=== PATIENT | female | born 1950 | race Caucasian/White ===

== ENCOUNTER 2016-07-03 13:22 | Outpatient (CLI) | payer MEDICARE, BC ==
--- NOTE | 2016-07-04 10:56 | DEXA Report ---
DEXA SCAN: 07/03/2016 CLINICAL HISTORY: Postmenopausal, on long-term drug therapy. TECHNIQUE: Dual energy x-ray absorptiometry (DXA) was performed on a Process Data Control system. Regions measured are the AP spine, femoral neck, and, if needed, forearm. COMPARISON: None. In accordance with the International Society for Clinical Densitometry (ISCD) guidelines, data from previous exams may be reanalyzed using current recommendations and techniques. This is done to allow a more accurate basis for comparison with the current study. FINDINGS: The patient's bone mineral density is compatible with osteopenia according to World Health Organization guidelines. The data for the lumbar spine is as follows: REGION BMD (g/cm/cm) T-SCORE Z-SCORE L1 0.958 -1.4 -0.6 L2 1.130 -0.6 0.3 L3 1.236 0.3 1.1 L4 1.288 0.7 1.6 TOTAL 1.161 -0.2 0.7 NOTE: All evaluable vertebrae are used for classification. The data for the hip is as follows: REGION BMD (g/cm/cm) T-SCORE Z-SCORE Neck 0.819 -1.6 -0.5 TOTAL 0.928 -0.6 0.1 NOTE: The femoral neck or total proximal femur, whichever is lowest, is used for classification. IMPRESSION: THE WHO CLASSIFICATION BASED ON THE INTERNATIONAL REFERENCE STANDARD IS OSTEOPENIA. THE FRACTURE RISK IS INCREASED. RECOMMENDATION: Patients with diagnosis of osteoporosis or osteopenia should have regular bone mineral density assessment. For those eligible for Medicare, routine testing is allowed once every 2 years. Testing frequency can be increased for patients who have rapidly progressing disease or for those who are receiving medical therapy to restore bone mass. COMMENT: World Health Organization (WHO) definitions for osteoporosis and osteopenia: NORMAL BMD: T-score at -1.0 or higher, fracture risk is low. OSTEOPENIA BMD: T-score between -1.0 and -2.5, fracture risk is increased. OSTEOPOROSIS BMD: T-score at -2.5 or lower, fracture risk high. National Osteoporosis Foundation recommends: 1. Obtain adequate dietary calcium (at least 1200 mg per day) and vitamin D (400 -800 international units per day). 2. Participate, as appropriate, in regular weightbearing and muscle- strengthening exercise. 3. Avoid tobacco use and reduce alcohol and caffeine intake. 4. For more detailed information see the website at www.NOF.org. MTDD
== END 2016-07-03 13:23 | disposition home or self-care (01) ==
LOC: DI 13:22
PROVIDERS: ATTEND Internal Medicine Rheumatology
DX: M85.88 Other specified disorders of bone density and structure, other site (principal); Z79.899 Other long term (current) drug therapy
CPT/HCPCS: 77080

== ENCOUNTER 2016-07-24 16:45 | Outpatient (CLI) | payer MEDICARE, BC | END 2016-07-24 16:46 | disposition home or self-care (01) | LOC: LAB.R 16:45 | PROVIDERS: ATTEND Family Medicine | DX: R30.0 Dysuria (principal) | CPT/HCPCS: 87086 ==

== ENCOUNTER 2016-08-11 12:08 | Outpatient (CLI) | payer MEDICARE, BC ==
[2016-08-11 12:27] LABS: CALCIUM 9.1 mg/dL (8.5-10.3); CREATININE 0.9 mg/dL (0.4-1.0); POTASSIUM 4.3 mmol/L (3.5-5.0)
[2016-08-11] MEDS ORDERED: IOPAMIDOL-300 100 ML VIAL IVP ONE (14:25)
--- NOTE | 2016-08-11 17:23 | CT Report ---
CT IVP: 08/11/2016 CLINICAL INDICATION: Hematuria, dysuria. TECHNIQUE: Axial CT images of the abdomen and pelvis were obtained prior to and following 100 mL of I sovue-300 intravenously, utilizing split bolus technique. No previous CT is available for comparison. FINDINGS: Limited evaluation of the lung bases demonstrates a small hiatal hernia. ABDOMEN: On the unenhanced images, there is no evidence of nephrolithiasis or hydronephrosis. The kid neys demonstrate prompt and symmetric uptake and excretion of contrast. There is a cyst arising from the lower pole of the left kidney. No solid renal lesion or collecting system lesion is appreciated. The distal half of the left ureter is not opacified. The proximal half of the left ureter and the rig ht ureter appear unremarkable. Allowing for the phase of contrast enhancement, the liver, spleen, and adrenal glands appear unremarkable. The pancreas is atrophic. No bowel dilatation, free gas, or free fluid is present. No abdominal adenopathy is seen. PELVIS: The distal ureters are decompressed. A calcified leiomyoma is noted in the left side of the u terus. Previous anterior abdominal wall hernia repair is noted. No free fluid or pelvic adenopathy is seen. The osseous structures demonstrate degenerative changes. IMPRESSION: NO EVIDENT ETIOLOGY FOR PATIENT'S HEMATURIA AND DYSURIA. CONSIDER CYSTOSCOPY FOR FURTHER EVALUATION. In accordance with CT protocol optimization, one or more of the following dose reduction techniques w ere utilized for this exam: automated exposure control, adjustment of mA and/or KV based on patient size, or use of iterative reconstructive technique. JOB #: [id number] EXT JOB #:[id number]
== END 2016-08-11 12:09 | disposition home or self-care (01) ==
LOC: LAB 12:08
PROVIDERS: ATTEND Family Medicine
DX: R31.9 Hematuria, unspecified (principal); I10 Essential (primary) hypertension
CPT/HCPCS: 36415; 74178; 80048; Q9967

== ENCOUNTER 2016-09-29 13:34 | Outpatient (CLI) | payer MEDICARE, BC ==
--- NOTE | 2016-09-30 17:51 | Mammography Report ---
DIGITAL SCREENING MAMMOGRAM: 09/29/2016 CLINICAL INDICATION: A 65-year-old nulliparous patient with family history of breast cancer for scre ening. COMPARISON: 09/2015, 02/2015, 07/2014, 01/2014, 07/2013, 06/2013, 05/2012, 04/2012, 01/2011, 02/2008 . TECHNIQUE: Routine CC and MLO projections were obtained of the breasts. The breasts again demonstrate scattered fibroglandular densities bilaterally. Coarse, typically tong gn calcifications are present. No suspicious masses, clustered microcalcifications, or regions of ar chitectural distortion are identified. IMPRESSION: BENIGN FINDINGS. RECOMMENDATION: ROUTINE ANNUAL SCREENING UNLESS OTHERWISE CLINICALLY INDICATED. BIRADS CATEGORY: 2, BENIGN FINDINGS. STANDARD QUALIFYING STATEMENTS 1. This examination was reviewed with the aid of Computed-Aided Detection (CAD). 2. A negative or benign imaging report should not delay biopsy if clinically suspicious findings are present. Consider surgical consultation if warranted. More than 5% of cancers are not identified b y imaging. 3. Dense breasts may obscure an underlying neoplasm. JOB #: [id number] EXT JOB #:[id number]
== END 2016-09-29 13:35 | disposition home or self-care (01) ==
LOC: DI.N 13:34
PROVIDERS: ATTEND Family Medicine
DX: Z12.31 Encounter for screening mammogram for malignant neoplasm of breast (principal); Z80.3 Family history of malignant neoplasm of breast
CPT/HCPCS: 77067

== ENCOUNTER 2017-11-03 15:50 | Outpatient (CLI) | payer MEDICARE, BC ==
--- NOTE | 2017-11-04 10:14 | Mammography Report ---
Reason: SCREENING MAMMO Procedure Date: 11/03/2017 Accession Number: [id number] / [id number] Procedure: MGN - Screening Mammo Dig Bilat CPT Code: FULL RESULT: EXAM: Screening Mammo Dig Bilat DATE: 11/03/2017 4:12 PM CLINICAL HISTORY: 66 year-old nulliparous female with history of early menses and family history of breast cancer in the mother at age 38, an aunt at age 49 and a grandmother at age 56. TECHNIQUE: Bilateral CC and MLO views were obtained. COMPARISON: 09/29/2016, 09/26/2015, 02/20/2015, 08/08/2014. FINDINGS: The breasts demonstrate scattered fibroglandular densities bilaterally. There is a coarse typically benign calcification in the left breast No suspicious masses, clustered microcalcifications, or regions of architectural distortion are identified. IMPRESSION: Benign findings RECOMMENDATION: Routine annual screening unless otherwise clinically indicated. BIRADS CATEGORY 2: Benign findings STANDARD QUALIFYING STATEMENTS: 1. This examination was not reviewed with the aid of Computer-Aided Detection (CAD). 2. A negative or benign imaging report should not delay biopsy if clinically suspicious findings are present. Consider surgical consultation if warrented. More than 5% of cancers are not identified by imaging. 3. Dense breasts may obscure an underlying neoplasm. 4. This examination was reviewed without the aid of 3D breast imaging (tomosynthesis).
== END 2017-11-03 15:51 | disposition home or self-care (01) ==
LOC: DI.N 15:50
DX: Z12.31 Encounter for screening mammogram for malignant neoplasm of breast (principal); Z80.3 Family history of malignant neoplasm of breast
CPT/HCPCS: 77067

== ENCOUNTER 2018-09-25 22:20 | Outpatient (CLI) | payer MEDICARE, BC | END 2018-09-25 22:21 | disposition EMS.NT | LOC: EMS 22:20 | PROVIDERS: ATTEND Surgery | DX: R53.1 Weakness (principal) ==

== ENCOUNTER 2019-05-12 03:30 | Outpatient (CLI) | payer MEDICARE, BC | END 2019-05-12 03:31 | disposition critical access hospital (66) | LOC: EMS 03:30 | PROVIDERS: ATTEND Surgery | DX: R53.1 Weakness (principal); R50.9 Fever, unspecified | CPT/HCPCS: A0425; A0429 ==

== ENCOUNTER 2019-05-12 03:53 | Inpatient (IN) | payer MEDICARE, BC ==
--- NOTE | 2019-05-12 04:24 | ED Physician Documentation ---
PD HPI DYSPNEA - Stated complaint Stated Complaint: WEAKNESS/ SOA - Chief complaint Chief Complaint: Resp - History obtained from History obtained from: Patient, EMS - History of Present Illness Timing - onset: Yesterday Timing - onset during: Rest Timing - duration: Days (1) Timing - details: Gradual onset, Still present Inciting event(s): URI Improved by: O2, Rest Worsened by: Exertion, Coughing Associated symptoms: Fever, Cough, Wheezing, Chest pain / discomfort, Other (weakness) Similar symptoms before: Has not had sx before Recently seen: Other (recently recovering from spinal surgery) - Additional information Additional information: 68-year-old female who has been discharged from [facility] on 05/10/2019 has now developed fever cough and chest pain. She is hypoxic on arrival with O2 sat of 88%. The patient has a prior history of pulmonary sarcoidosis, asthma, diabetes, diverticulitis, GERD, neuropathy, osteoarthritis and polydermatomyositis. She has tested negative for coronavirus twice, the last time was 05-07-2019. She was in [facility] for recovery from spinal surgery. She left the facility on her pre-determined date and was symptom free at the time. She subsequently developed weakness yesterday and could not stand. She then developed the fever and cough. She has a chronic cough. Review of Systems Constitutional: reports: Fever, Chills, Myalgias, Fatigue Eyes: denies: Decreased vision Ears: denies: Ear pain Nose: denies: Rhinorrhea / runny nose, Congestion Throat: denies: Sore throat Cardiac: reports: Chest pain / pressure. denies: Palpitations, Pedal edema, Calf pain Respiratory: reports: Dyspnea, Cough GI: denies: Abdominal Pain, Nausea, Vomiting, Constipation, Diarrhea : denies: Dysuria, Frequency Skin: denies: Rash Musculoskeletal: denies: Neck pain, Back pain, Extremity pain Neurologic: reports: Generalized weakness. denies: Focal weakness, Numbness PD PAST MEDICAL HISTORY - Past Medical History Past Medical History: Yes Cardiovascular: Hypertension, High cholesterol Respiratory: Other Endocrine/Autoimmune: Type 2 diabetes Musculoskeletal: Osteoarthritis, Osteopenia - Past Surgical History General: Cholecystectomy Ortho: Knee replacement - Present Medications Home Medications: Ambulatory Orders Medication Instructions Recorded Confirmed Acetaminophen/Cod 300/30 [Tylenol 1 tab PO QPM PRN 07/23/18 07/23/18 #3] Acyclovir 400 mg PO BID 07/23/18 07/23/18 Albuterol Sulfate [Albuterol 2 puffs INH Q3H PRN 07/23/18 07/23/18 Sulfate Hfa] Aspirin [Adult Aspirin Regimen] 81 mg PO DAILY 07/23/18 07/23/18 Calcium Carbonate/Vitamin D3 1 tab PO BID 07/23/18 07/23/18 [Calcium 600-Vit D3 400 Tablet] Folic Acid 1 mg PO DAILY 07/23/18 07/23/18 Gabapentin 500 mg PO TID 07/23/18 07/23/18 Hydroxychloroquine Sulfate 400 mg PO DAILY 07/23/18 07/23/18 Insulin Aspart [NovoLOG] 4 - 20 units SQ TID 07/23/18 07/23/18 Insulin Glargine,Hum.rec.anlog 15 unit SQ DAILY 07/23/18 07/23/18 [Basaglar Kwikpen U-100] Losartan Potassium 25 mg PO DAILY 07/23/18 07/23/18 Metoclopramide [Reglan] 10 mg PO TID PRN 07/23/18 07/23/18 Montelukast Sodium 10 mg PO DAILY 07/23/18 07/23/18 Morphine Sulfate [Morphine Sulfate 15 mg PO DAILY 07/23/18 07/23/18 ER] Oxybutynin Chloride 5 mg PO DAILY 07/23/18 07/23/18 Pantoprazole Sodium 40 mg PO DAILY 07/23/18 07/23/18 Potassium Chloride 20 meq PO DAILY 07/23/18 07/23/18 Rosuvastatin Calcium 10 mg PO QPM 07/23/18 07/23/18 mycophenolate mofetiL 1,000 mg PO BID 07/23/18 07/23/18 [Mycophenolate Mofetil] predniSONE [Prednisone] 1 mg PO DAILY 07/23/18 07/23/18 - Allergies Allergies/Adverse Reactions: Allergies Allergy/AdvReac Type Severity Reaction Status Date / Time amoxicillin Allergy Unknown Verified 05/12/19 05:30 amoxicillin trihydrate * Allergy Unknown Verified 05/12/19 05:30 [From Augmentin] oxycodone Allergy Unknown Verified 05/12/19 05:30 Penicillins Allergy Unknown Verified 05/12/19 05:30 potassium clavulanate * Allergy Unknown Verified 05/12/19 05:30 [From Augmentin] Sulfa (Sulfonamide Allergy Unknown Verified 05/12/19 05:30 Antibiotics) - Social History Does the pt smoke?: No Smoking Status: Never smoker Does the pt drink ETOH?: No Does the pt have substance abuse?: No - Immunizations Immunizations are current?: Yes - POLST Patient has POLST: No PD ED PE NORMAL - Vitals Vital signs reviewed: Yes (febrile tachy hypertensive and hypoxic) - General General: Alert and oriented X 3, No acute distress, Well developed/nourished - HEENT HEENT: Atraumatic, PERRL, EOMI - Neck Neck: Supple, no meningeal sign, No bony TTP - Cardiac Cardiac: No murmur, Other (tachy to 100) - Respiratory Respiratory: Other (tachypneic at rest with bilateral rhonchi) - Abdomen Abdomen: Soft, Non tender - Back Back: No CVA TTP, No spinal TTP - Derm Derm: Normal color, Warm and dry, No rash - Extremities Extremities: No deformity, No edema - Neuro Neuro: Alert and oriented X 3, 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, No motor deficit, No sensory deficit, Normal speech Eye Opening: Spontaneous Motor: Obeys Commands Verbal: Oriented GCS Score: 15 - Psych Psych: Normal mood, Normal affect Results - Vitals Vitals: Vital Signs - 24 hr 05/12/19 05/12/19 04:01 04:07 Temperature 38.0 C H Heart Rate 115 H 113 H Respiratory 22 22 Rate Blood Pressure 166/104 H 166/104 H O2 Saturation 88 L 95 Oxygen O2 Source Nasal cannula Oxygen Flow Rate 2 - EKG (time done) 0554 Rate: Rate (enter#) (115) Rhythm: Sinus tachycardia Intervals: Prolonged QT (borderline) Ischemia: Non specific changes - Labs Labs: Laboratory Tests 05/12/19 05/12/19 05/12/19 04:30 04:30 04:30 WBC 13.8 H RBC 3.89 L Hgb 11.1 L Hct 36.2 L MCV 93.1 MCH 28.5 MCHC 30.7 L RDW 15.4 H Plt Count 420 MPV 9.3 Neut # (Auto) Not Reportable Lymph # (Auto) Not Reportable Turner # (Auto) Not Reportable Eos # (Auto) Not Reportable Baso # (Auto) Not Reportable Absolute Nucleated RBC Not Reportable Total Counted 100 Band Neuts % (Manual) 3 Abnorm Lymph % (Manual) 0 Metamyelocytes % 1 H Nucleated RBC % Not Reportable Neutrophils # (Manual) 12.1 H Lymphocytes # (Manual) 0.3 L Monocytes # (Manual) 1.1 H Eosinophils # (Manual) 0.1 Basophils # (Manual) 0.0 Differential Comment MANUAL DIFFERENTIAL Platelet Estimate NORMAL (130-450,000) RBC Morph Micro Appear NORMAL APPEARANCE Sodium 133 L Potassium 3.8 Chloride 90 L Carbon Dioxide 31 Anion Gap 12.0 BUN 19 Creatinine 1.2 H Estimated GFR (MDRD) 45 L Glucose 139 H Lactic Acid Calcium 9.3 Total Bilirubin 0.6 AST 19 ALT 12 Alkaline Phosphatase 140 H B-Natriuretic Peptide 64 Total Protein 6.9 Albumin 3.3 Globulin 3.6 Albumin/Globulin Ratio 0.9 L Lipase 21 L 05/12/19 04:30 WBC RBC Hgb Hct MCV MCH MCHC RDW Plt Count MPV Neut # (Auto) Lymph # (Auto) Turner # (Auto) Eos # (Auto) Baso # (Auto) Absolute Nucleated RBC Total Counted Band Neuts % (Manual) Abnorm Lymph % (Manual) Metamyelocytes % Nucleated RBC % Neutrophils # (Manual) Lymphocytes # (Manual) Monocytes # (Manual) Eosinophils # (Manual) Basophils # (Manual) Differential Comment Platelet Estimate RBC Morph Micro Appear Sodium Potassium Chloride Carbon Dioxide Anion Gap BUN Creatinine Estimated GFR (MDRD) Glucose Lactic Acid 1.3 Calcium Total Bilirubin AST ALT Alkaline Phosphatase B-Natriuretic Peptide Total Protein Albumin Globulin Albumin/Globulin Ratio Lipase - Rads (name of study) chest Radiology: Prelim report reviewed (Impression: Findings of bronchitis and bronchiolitis with streaky right upper lobe as well as left basilar airspace disease, probably superimposed pneumonia. Aspiration is in the differential diagnosis.), EMP read indepedently, See rad report PD MEDICAL DECISION MAKING - ED course Complexity details: reviewed old records, reviewed results, re-evaluated patient, considered differential, d/w patient ED course: 68-year-old female with history of lung disease has been exposed to coronavirus and now has a pattern on her x-ray consistent with coronavirus and she is hypoxic. She presents with weakness beginning yesterday and fever today. In the differential is aspiration pneumonia as well.The patient has been on hydroxychloroquine for the past 2-1/2 years. Electrocardiogram is obtained she has borderline prolonged QT interval with a QTC of 490. Dr. Barreto is consulted in the case and graciously agrees to care for the patient in the hospital. Departure - Departure Disposition: [facility] DC/Xfer Clinical Impression: Pneumonia Qualifiers: Pneumonia type: due to unspecified organism Laterality: bilateral Lung location: unspecified part of lung Qualified Code(s): J18.9 - Pneumonia, unspecified organism
--- NOTE | 2019-05-12 04:28 | XRAY Report ---
Reason: chest pain Procedure Date: 05/12/2019 Accession Number: [id number] / [id number] Procedure: XR - Chest 1 View X-Ray CPT Code: 37334 Final Report FULL RESULT: EXAM: CHEST RADIOGRAPHY EXAM DATE: 05/12/2019 04:18 AM CLINICAL HISTORY: Chest pain. COMPARISON: CHEST 2 VIEW PA/LAT 10/16/2017 9:30 AM, CHEST 2 VIEW PA/LAT 06/03/2017 10:52 AM, CHEST 2 VIEW PA/LAT 09/13/2015 10:19 AM, 04/12/2015 8:46 AM. TECHNIQUE: 1 view. FINDINGS: Lungs/Pleura: Right upper lobe perihilar bronchiectasis is noted. There is adjacent streaky airspace disease. There is diffuse bronchial wall thickening seen. Minimal left basilar airspace disease. No effusion or definite pneumothorax. Mediastinum: Cardiac silhouette is within normal limits when accounting for lung volumes and technique. Other: None. IMPRESSION: Findings of bronchitis and bronchiolitis with streaky right upper lobe as well as left basilar airspace disease, probably superimposed pneumonia. Aspiration is in the differential diagnosis. RADIA
[2019-05-12 04:53] LABS: EOSINOPHILS % (AUTO) 0.6 %; HGB - HEMOGLOBIN 11.1 g/dL (12.0-16.0); LYMPHOCYTES % (AUTO) 4.3 %; MEAN CORPUSCULAR HEMOGLOBIN 28.5 pg (27.0-31.0); MEAN CORPUSCULAR HGB CONC 30.7 g/dL (32.0-36.0); MEAN CORPUSCULAR VOLUME 93.1 fL (81.0-99.0); MEAN PLATELET VOLUME 9.3 fL (7.9-10.8); MONOCYTES % (AUTO) 11.6 %; NEUTROPHILS % (AUTO) 81.2 %; PLT - PLATELET COUNT 420 10^3/uL (130-450); RED BLOOD COUNT 3.89 10^6/uL (4.20-5.40); RED CELL DISTRIBUTION WIDTH 15.4 % (12.0-15.0); WHITE BLOOD COUNT 13.8 x10^3/uL (4.8-10.8)
[2019-05-12 05:03] LABS: ABNORMAL LYMPHS % (MANUAL) 0 %
[2019-05-12 05:10] LABS: ALBUMIN 3.3 g/dL (3.2-5.5); ALBUMIN/GLOBULIN RATIO 0.9 (1.0-2.2); BILIRUBIN,TOTAL 0.6 mg/dL (0.2-1.0); CALCIUM 9.3 mg/dL (8.5-10.3); CREATININE 1.2 mg/dL (0.4-1.0); TOTAL PROTEIN 6.9 g/dL (6.7-8.2)
[2019-05-12] MEDS ORDERED: AZITHROMYCIN INJ 500 MG in SODIUM CHLORIDE 0.9% 250 ML IV STA (05:28)
[2019-05-12] MEDS ORDERED: SODIUM CHLORIDE FLUSH 0.9% 10 ML SYRINGE IVP PRN (05:28)
[2019-05-12] MEDS ORDERED: cefTRIAXone 1 GM in SODIUM CHLORIDE 0.9% MINIBAG 100 ML IV STA (05:28)
[2019-05-12 05:33] LABS: BAND NEUTROPHILS % (MANUAL) 3 %; EOSINOPHILS # (MANUAL) 0.1 10^3/uL (0-0.7); LYMPHOCYTES # (MANUAL) 0.3 10^3/uL (1.5-3.5); LYMPHOCYTES % (MANUAL) 2 %; METAMYELOCYTES % (MANUAL) 1 %; MONOCYTES # (MANUAL) 1.1 10^3/uL (0.0-1.0)
[2019-05-12 05:34] LABS: DIFFERENTIAL COMMENT MANUAL DIFFERENTIAL; PLATELET ESTIMATE, MANUAL NORMAL (130-450,000) (NORMAL); RBC MORPHOLOGY (MULTIPLE) NORMAL APPEARANCE (NORMAL)
--- NOTE | 2019-05-12 05:55 | HISTORY & PHYSICAL EXAMINATION ---
Chief Complaint - Chief Complaint Chief Complaint: Weakness History of Present Illness - Admitted From Admitted From:: Home - History Obtained From Records Reviewed: Yes History obtained from: Patient, ER Physician - History of Present Illness HPI Comment/Other: This is a 68-year-old female with a past medical history significant for asthma, dermatomyositis, history of pulmonary sarcoidosis, hypertension, type 2 diabetes mellitus on insulin who presents today complaining of worsening weakness. She states she underwent spine surgery at [facility] last month for lumbar stenosis. She had been at [facility] for the last 2 weeks for rehab. She reports she had been doing well at home and was ambulating with a walker. She reports that yesterday started to feel general weakness and that overnight, she used the bathroom and was unable to stand up after. She reports having a chronic cough that is unchanged and with no sputum production. She denies any fevers or chills. She does report some numbness in her lower extremities which is chronic secondary to her neuropathy for which he takes gabapentin. She does feel her weakness is more generalized and there are no focal deficits. She reports poor oral intake over the past couple days and she feels thirsty at the moment. She denies any chest pain, dyspnea, nausea, vomiting, abdominal pain. She feels that her weakness is somewhat similar to when she was diagnosed with dermatomyositis over 3 years ago. She states at that time she had weakness in her proximal thighs and shoulders. 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 She is on chronic prednisone, hydroxychloroquine, mycophenolate for dermatomyositis. She reports some mild muscle pain in her u pper thighs. She states she was tested for coronavirus twice while at [facility] and both times were negative. In the emergency department, she is in the febrile a temperature of 38.0 C. She was tachycardic with a heart rate of 115. Hypertensive systolic blood pressure of 166/104. She was tachypneic in the low 20s. She was initially saturating 88% on room air and this improved to 95% on 2 L via nasal cannula. Labs are significant for a white count of 13.8 with a left shift and 3% bands. Sodium is decreased at 133 and her creatinine is elevated at 1.2. Her chest x- ray was concerning for a left lower lobe infiltrate as well as a possible right upper lobe infiltrate. COVID-19 testing has been ordered in the emergency department and is pending. Given her hypoxia and sepsis which appears secondary to pneumonia, medicine was consulted for admission. History - Past Medical History Cardiovascular: reports: Hypertension, High cholesterol Respiratory: reports: Other (Pulmonary sarcoidosis) Endocrine/Autoimmune: reports: Type 2 diabetes, Other (Dermatomyositis) Musculoskeletal: reports: Osteoarthritis, Osteopenia - Past Surgical History General: reports: Cholecystectomy Ortho: reports: Knee replacement - Family & Social History Family History Comment/Other: Reports her father from lung cancer. He was a smoker. Her mother from ovarian cancer. Living arrangement: At home Living Situation: Alone Social History Notes: Lives at home alone. She received worked at the [email or web address] [place] in 2003. She has never smoked and rarely drinks alcohol. Denies any drug use. - POLST Patient has POLST: No Meds/Allgy - Home Medications Home Medications: Ambulatory Orders Medication Instructions Recorded Confirmed Acetaminophen/Cod 300/30 [Tylenol 1 tab PO QPM PRN 07/23/18 07/23/18 #3] Acyclovir 400 mg PO BID 07/23/18 05/12/19 Albuterol Sulfate [Albuterol 2 puffs INH Q3H PRN 07/23/18 07/23/18 Sulfate Hfa] Aspirin [Adult Aspirin Regimen] 81 mg PO DAILY 07/23/18 07/23/18 Calcium Carbonate/Vitamin D3 1 tab PO BID 07/23/18 07/23/18 [Calcium 600-Vit D3 400 Tablet] Folic Acid 1 mg PO DAILY 07/23/18 07/23/18 Gabapentin 2 cap PO TID 07/23/18 05/12/19 Hydroxychloroquine Sulfate 400 mg PO DAILY 07/23/18 05/12/19 Insulin Aspart [NovoLOG] 4 - 20 units SQ TID 07/23/18 07/23/18 Insulin Glargine,Hum.rec.anlog 15 unit SQ DAILY 07/23/18 05/12/19 [Basaglar Kwikpen U-100] Losartan Potassium 25 mg PO DAILY 07/23/18 05/12/19 Metoclopramide [Reglan] 10 mg PO TID PRN 07/23/18 07/23/18 Montelukast Sodium 10 mg PO DAILY 07/23/18 07/23/18 Morphine Sulfate [Morphine Sulfate 15 mg PO DAILY 07/23/18 07/23/18 ER] Oxybutynin Chloride 5 mg PO DAILY 07/23/18 07/23/18 Pantoprazole Sodium 40 mg PO DAILY 07/23/18 07/23/18 Potassium Chloride 20 meq PO DAILY 07/23/18 07/23/18 Rosuvastatin Calcium 10 mg PO QPM 07/23/18 05/12/19 predniSONE [Prednisone] 1 mg PO DAILY 07/23/18 07/23/18 mycophenolate mofetiL 4 cap PO BID 05/12/19 05/12/19 [Mycophenolate Mofetil] - Allergies Allergies/Adverse Reactions: Allergies Allergy/AdvReac Type Severity Reaction Status Date / Time amoxicillin Allergy Unknown Verified 05/12/19 05:30 amoxicillin trihydrate * Allergy Unknown Verified 05/12/19 05:30 [From Augmentin] oxycodone Allergy Unknown Verified 05/12/19 05:30 Penicillins Allergy Unknown Verified 05/12/19 05:30 potassium clavulanate * Allergy Unknown Verified 05/12/19 05:30 [From Augmentin] Sulfa (Sulfonamide Allergy Unknown Verified 05/12/19 05:30 Antibiotics) Review of Systems - Constitutional Constitutional: reports: Fatigue, Malaise, Weakness. denies: Fever, Chills - Eyes Eyes: denies: Blurred vision - Cardiovascular Cariovascular: denies: Chest pain, Edema, Exertional dyspnea, Decr. exercise tolerance - Respiratory Respiratory: reports: Cough. denies: Sputum production, SOB at rest, SOB with exertion - Gastrointestinal Gastrointestinal: denies: Abdominal pain, Diarrhea, Nausea, Vomiting - Genitourinary Genitourinary: denies: Dysuria, Frequency, Urgency, Hematuria - Musculoskeletal Musculoskeletal: reports: Muscle pain, Muscle aches, Muscle weakness - Neurological Neurological: reports: General weakness, Headache, Numbness. denies: Focal weakness - Hematologic/Lymphatic Hematologic/Lymphatic: denies: Bleeding tendencies - All Other Systems All Other Systems: reports: Reviewed and negative Prior Level of Functionality: She was just discharged from a skilled nurse facility near the end of last month after completing rehab for spinal surgery. With a walker at the moment. She is independent with ADLs. Exam - Vital Signs Reviewed Vital Signs: Yes Vital Signs: Vital Signs x48h Temp Pulse Resp BP Pulse Ox 05/12/19 04:07 113 H 22 166/104 H 95 05/12/19 04:01 38.0 C H 115 H 22 166/104 H 88 L - Physical Exam General Appearance: positive: Alert, Mild distress Eyes Bilateral: positive: Normal inspection ENT: positive: ENT inspection nml, Dry mucous membranes. negative: No signs of dehydration Neck: positive: Nml inspection Respiratory: positive: No respiratory distress, Rhonchi. negative: Wheezes, Rales Cardiovascular: positive: No murmur, Tachycardia. negative: Regular rate & rhythm, Bradycardia Abdomen: positive: Non-tender, No distention. negative: Tenderness, Guarding, Rebound Skin: positive: Color nml, Warm, Dry Extremities: positive: Full ROM, No pedal edema, Other (Mild tenderness on palpation in her quadriceps bilaterally and proximally.) Neurologic/Psychiatric: positive: Oriented x3, Other (No focal motor deficits.). negative: Disoriented to person, Disoriented to place, Disoriented to time Sepsis Event Note (H) - Evaluation Current Stage of Sepsis: Sepsis Possible source of Sepsis: positive: Pulmonary - Sepsis Criteria Sepsis Criteria: Recorded Temperature greater than 38.3C or Less than 36C, Recorded Heart Rate greater than 90 bpm, Recorded Respiratory Rate greater than 20, Respiratory: Increasing oxygen requirements, WBC count greater than 12,000 or less than 4000 Conclusion/Plan - Problem List (1) Sepsis Conclusion/Plan: She meets sepsis criteria given her fever, tachycardia, leukocytosis with left shift. This appears to be secondary to the pneumonia. Her blood pressure is stable and lactic acid is normal. Urinalysis has been ordered and is pending. She received ceftriaxone and azithromycin IV in the emergency department. We will continue those antibiotics to treat her sepsis and pneumonia. We will hydrate her with IV normal saline. We will check for influenza. COVID-19 has been ordered and is pending. We will follow-up blood cultures and trend her white count. (2) Community acquired pneumonia Conclusion/Plan: This appears to be a source of her sepsis. She has a left lower lobe infiltrate as well as a possible right upper lobe infiltrate on imaging. She was recently at a jail facility and is immunocompromised. Given this is not hospital or ventilator associated pneumonia, we will treat her with ceftriaxone and azithromycin IV. Will obtain sputum cultures. She has been checked twice now for Kovic 19 and both times have been negative. A third swab was ordered in the emergency department and is pending. We will keep her on droplet precautions until this is negative. Qualifiers: Laterality: left Lung location: lower lobe of lung Qualified Code(s): J18.9 - Pneumonia, unspecified organism (3) Hypoxia Conclusion/Plan: He is hypoxic requiring 2 L of oxygen to maintain saturations in the mid 90s. This appears be secondary to pneumonia. He has been checked for COVID-19 twice now and both times were negative. A third tested and ordered and is pending. She is immunocompromised and was at a jail facility where there were multiple cases. Her x-ray at this moment, her left lower lobe infiltrate and a possible right upper lobe infiltrate. We will treat her with ceftriaxone and azithromycin IV for the pneumonia. Continue supplemental oxygen for goal saturation greater than 92%. (4) Acute kidney injury Conclusion/Plan: She appears to have acute kidney injury given her creatinine is elevated at 1.2 and prior labs revealed a baseline of approximately 0.9. This is likely a prerenal injury given her sepsis and dehydration. We will hydrate her with normal saline and monitor her renal function and urine output. Hold her home Losartan. (5) Hyponatremia Conclusion/Plan: She appears hypovolemic on exam. We will hydrate her with IV saline. Monitor her sodium. (6) Pulmonary sarcoidosis Conclusion/Plan: She reports this is in remission and was treated with steroids in the past. Membership Manager is in [place] We will continue her on her home prednisone dose. (7) Dermatomyositis Conclusion/Plan: She is on mycophenolate, hydroxychloroquine, prednisone per her rehab services aide. We will check a CK level given she feels her weakness is similar to that in the past when she had exacerbation of the myositis. We will resume her home prednisone and hydroxychloroquine once dosing is confirmed by pharmacy. We will hold off on mycophenolate given her pneumonia. (8) Asthma Conclusion/Plan: This does not appear to be in exacerbation. We we will continue her on albuterol as needed and montelukast Qualifiers: Asthma severity: mild Asthma persistence: intermittent (9) Diabetes mellitus treated with insulin Conclusion/Plan: She has type 2 diabetes mellitus treated with insulin. We will resume her home Lantus and NovoLog sliding scale. We will place her on a carb controlled diet and check an A1c. - Lab Results Lab results reviewed: Yes Fish Bones: 05/12/19 04:30 05/12/19 04:30 - Diagnostic Imaging Results Diagnostic Imaging Results: positive: Final report reviewed Core Measures - Anticipated LOS I expect patient to be DC'd or transferred within 96 hours.: Yes - Issues Hospital Issues and Management Plan: 68-year-old female admitted for sepsis secondary to pneumonia. We will treat her with ceftriaxone and azithromycin IV. Will rule out COVID-19. - DVT/VTE - Prophylaxis VTE/DVT Device ordered at admit?: Yes VTE/DVT Prophylaxis med ordered at admit?: Yes
[2019-05-12] MEDS: ACETAMINOPHEN 325 MG TABLET PO PRN (05:57)
[2019-05-12] MEDS ORDERED: SODIUM CHLORIDE 0.9% 1,000 ML IV SCH (06:00)
[2019-05-12] MEDS ORDERED: ALBUTEROL NEB 2.5 MG/3 ML INH PRN ×2 (06:11→08:40)
[2019-05-12] MEDS ORDERED: SODIUM CHLORIDE 0.9% 1,000 ML IV ONE ×2 (06:58→08:39)
[2019-05-12 08:12] LABS: HB2 TOTAL 9.3 g/dL; HEMOGLOBIN A1C 0.47 g/dL; HEMOGLOBIN A1C % 6.8 % (4.6-6.2)
[2019-05-12] MEDS ORDERED: ALBUTEROL 1 PUFF INH PRN (09:38)
[2019-05-12] MEDS: INSULIN ASPART 300 UNIT/3 ML PEN SUBQ SCH ×4 (10:05→20:45)
[2019-05-12] MEDS: predniSONE 5 MG TABLET PO SCH (10:10)
[2019-05-12] MEDS: ENOXAPARIN 40 MG/0.4 ML SYRINGE SUBQ SCH (10:10)
[2019-05-12] MEDS: INSULIN GLARGINE 300 UNIT/3 ML PEN SUBQ SCH (10:11)
[2019-05-12] MEDS: SODIUM CHLORIDE FLUSH 0.9% 10 ML SYRINGE IVP SCH ×2 (10:11→16:24)
[2019-05-12 11:00] LABS: BILIRUBIN,URINE NEGATIVE (NEGATIVE); GLUCOSE, URINE (UA) NEGATIVE (NEGATIVE); KETONES,URINE (UA) TRACE mg/dL (NEGATIVE); LEUKOCYTE ESTERASE, URINE LARGE (NEGATIVE); NITRITE,URINE NEGATIVE (NEGATIVE); OCCULT BLOOD,URINE NEGATIVE (NEGATIVE); PROTEIN,URINE TRACE mg/dL (NEGATIVE); UROBILINOGEN,URINE 0.2 (NORMAL) E.U./dL (NORMAL)
[2019-05-12 11:01] LABS: CLARITY,URINE CLOUDY (CLEAR)
[2019-05-12 11:20] LABS: BACTERIA,URINE Many /HPF (None Seen); RBC,URINE 0-5 /HPF (0-5); SQUAMOUS EPITHELIAL CELL,UR MOD Squamous (<= Few)
[2019-05-12] MEDS ORDERED: MULTIVITAMIN W/MINERALS TABLET PO SCH ×2 (14:00→17:00)
[2019-05-12] MEDS: SODIUM CHLORIDE 0.9% 1,000 ML IV SCH (17:34)
[2019-05-12] MEDS: MORPHINE ER 15 MG TABLET PO SCH (17:37)
[2019-05-12] MEDS: MONTELUKAST 10 MG TABLET PO SCH (20:46)
[2019-05-13] MEDS: ACETAMINOPHEN 325 MG TABLET PO PRN ×4 (00:25→21:49)
[2019-05-13] MEDS: SODIUM CHLORIDE FLUSH 0.9% 10 ML SYRINGE IVP SCH ×3 (00:25→17:14)
[2019-05-13 05:00] LABS: BASOPHILS % (AUTO) 0.6 %; EOSINOPHILS # (AUTO) 0.1 10^3/uL (0.0-0.7); EOSINOPHILS % (AUTO) 1.2 %; HGB - HEMOGLOBIN 8.3 g/dL (12.0-16.0); LYMPHOCYTES # (AUTO) 0.9 10^3/uL (1.5-3.5); LYMPHOCYTES % (AUTO) 13.5 %; MEAN CORPUSCULAR HEMOGLOBIN 27.5 pg (27.0-31.0); MEAN CORPUSCULAR HGB CONC 29.2 g/dL (32.0-36.0); MONOCYTES # (AUTO) 0.9 10^3/uL (0.0-1.0); MONOCYTES % (AUTO) 12.9 %; NEUTROPHILS # (AUTO) 4.8 10^3/uL (1.5-6.6); NEUTROPHILS % (AUTO) 70.8 %; PLT - PLATELET COUNT 269 10^3/uL (130-450); RED BLOOD COUNT 3.02 10^6/uL (4.20-5.40); RED CELL DISTRIBUTION WIDTH 15.7 % (12.0-15.0); WHITE BLOOD COUNT 6.7 x10^3/uL (4.8-10.8)
[2019-05-13 05:14] LABS: CREATININE 0.7 mg/dL (0.4-1.0); MAGNESIUM 1.7 mg/dL (1.7-2.8); PHOSPHORUS 2.5 mg/dL (2.5-4.6)
[2019-05-13] MEDS: SODIUM CHLORIDE 0.9% 1,000 ML IV SCH ×2 (06:45→20:14)
[2019-05-13] MEDS ORDERED: POTASSIUM CHLORIDE 20 MEQ TABLET PO ONE (06:53)
[2019-05-13] MEDS ORDERED: AZITHROMYCIN INJ 500 MG in SODIUM CHLORIDE 0.9% 250 ML IV SCH (09:00)
[2019-05-13] MEDS ORDERED: AZITHROMYCIN INJ 250 MG in SODIUM CHLORIDE 0.9% 250 ML IV SCH (09:00)
[2019-05-13] MEDS: mycophenolate mofetiL 250 MG CAPSULE PO SCH ×2 (09:30→21:34)
[2019-05-13] MEDS: GABAPENTIN 300 MG CAPSULE PO SCH ×3 (09:31→21:35)
[2019-05-13] MEDS: MORPHINE ER 15 MG TABLET PO SCH (09:31)
[2019-05-13] MEDS: DOXYCYCLINE 100 MG TABLET PO SCH ×2 (09:32→21:36)
[2019-05-13] MEDS: predniSONE 5 MG TABLET PO SCH (09:32)
[2019-05-13] MEDS: HYDROXYCHLOROQUINE 200 MG TABLET PO SCH (09:32)
[2019-05-13] MEDS: ENOXAPARIN 40 MG/0.4 ML SYRINGE SUBQ SCH (09:32)
[2019-05-13] MEDS: cefTRIAXone 2 GM in SODIUM CHLORIDE 0.9% MINIBAG 100 ML IV SCH (09:33)
[2019-05-13] MEDS: INSULIN GLARGINE 300 UNIT/3 ML PEN SUBQ SCH (09:36)
[2019-05-13] MEDS: INSULIN ASPART 300 UNIT/3 ML PEN SUBQ SCH ×4 (10:04→21:45)
[2019-05-13 10:05] LABS: ABSOLUTE RETICS # AUTO 0.05 10^6/uL (0.020-0.110); RED BLOOD COUNT 2.93 10^6/uL (4.20-5.40)
[2019-05-13 10:47] LABS: FERRITIN 365.1 ng/mL (11.0-306.8)
--- NOTE | 2019-05-13 10:59 | PROVIDER PROGRESS NOTE ---
Subjective - Prog Note Date Prog Note Date: 05/13/19 - Subjective Pt reports feeling: Improved Subjective: pt feel better than yesterday, not dizziness compared with yesterday. But she still complain of weakness and difficult to walk. she report she has chronic cough from her chronic lung disease. she denies fever, chill, chest pain. Her Covid 19 test is negative now Current Medications - Current Medications Current Medications: Active Medications Acetaminophen (Tylenol) 650 mg PO Q4HR PRN PRN Reason: Pain or Fever > 38C (100.4F) Last Admin: 05/13/19 06:43 Dose: 650 mg Albuterol (Mdi: Albuterol) 2 puffs INH RTQ4H PRN PRN Reason: Wheezing Last Admin: 05/12/19 10:52 Dose: 2 puffs Doxycycline Hyclate (Vibramycin) 100 mg PO BID [facility] Last Admin: 05/13/19 09:32 Dose: 100 mg Enoxaparin Sodium (Lovenox) 40 mg SUBQ DAILY [facility] Last Admin: 05/13/19 09:32 Dose: 40 mg Gabapentin (Neurontin) 600 mg PO TID [facility] Last Admin: 05/13/19 09:31 Dose: 600 mg Hydroxychloroquine Sulfate (Plaquenil) 400 mg PO DAILY [facility] Last Admin: 05/13/19 09:32 Dose: 400 mg Ceftriaxone Sodium 2 gm/ (Sodium Chloride) 100 mls @ 200 mls/hr IV DAILY [facility] Last Infusion: 05/13/19 10:04 Dose: Infused Sodium Chloride (Normal Saline 0.9%) 1,000 mls @ 75 mls/hr IV .[id number] [facility] Last Admin: 05/13/19 06:45 Dose: 75 mls/hr Insulin Aspart (Novolog) 1 - 9 unit SUBQ 0800,1200,1700,2100 [facility]; Protocol Last Admin: 05/13/19 10:04 Dose: Not Given Insulin Glargine (Lantus Solostar) 15 unit SUBQ DAILY [facility] Last Admin: 05/13/19 09:36 Dose: 15 unit Montelukast Sodium (Singulair) 10 mg PO QPM [facility] Last Admin: 05/12/19 20:46 Dose: 10 mg Morphine Sulfate () 15 mg PO DAILY [facility] Last Admin: 05/13/19 09:31 Dose: 15 mg Multivitamins/Minerals (Theragran M) 1 tab PO 1200 [facility] Mycophenolate Mofetil () 1,000 mg PO BID [facility] Last Admin: 05/13/19 09:30 Dose: 1,000 mg Prednisone (Deltasone) 5 mg PO DAILYWM [facility] Last Admin: 05/13/19 09:32 Dose: 5 mg Sodium Chloride (Normal Saline Flush 0.9%) 10 ml IVP PRN PRN PRN Reason: NEEDED PER PROVIDER ORDERS Last Admin: 05/12/19 07:12 Dose: 10 ml Sodium Chloride (Normal Saline Flush 0.9%) 10 ml IVP 0100,0900,1700 [facility] Last Admin: 05/13/19 00:25 Dose: 10 ml Acetaminophen/Cod 300/30 [Tylenol #3] 1 tab PO QPM PRN 07/23/18 Acyclovir 400 mg PO BID 07/23/18 Albuterol Sulfate [Albuterol Sulfate Hfa] 2 puffs INH .Q3-4H PRN 07/23/18 Aspirin [Adult Aspirin Regimen] 81 mg PO DAILY 07/23/18 Calcium Carbonate/Vitamin D3 [Calcium 600-Vit D3 400 Tablet] 1 tab PO BID 07/23/18 Folic Acid 1 mg PO DAILY 07/23/18 Gabapentin 2 cap PO TID 07/23/18 Hydroxychloroquine Sulfate 400 mg PO DAILY 07/23/18 Insulin Aspart [NovoLOG] 4 - 20 units SQ TID 07/23/18 Insulin Glargine,Hum.rec.anlog [Basaglar Kwikpen U-100] 15 unit SQ DAILY 07/23/18 Losartan Potassium 25 mg PO DAILY 07/23/18 Metoclopramide [Reglan] 10 mg PO TID PRN 07/23/18 Montelukast Sodium 10 mg PO DAILY 07/23/18 Morphine Sulfate [Morphine Sulfate ER] 15 mg PO DAILY 07/23/18 Oxybutynin Chloride 5 mg PO DAILY 07/23/18 Pantoprazole Sodium 40 mg PO DAILY 07/23/18 Potassium Chloride 20 meq PO DAILY 07/23/18 Rosuvastatin Calcium 10 mg PO QPM 07/23/18 predniSONE [Prednisone] 1 mg PO DAILY 07/23/18 mycophenolate mofetiL [Mycophenolate Mofetil] 4 cap PO BID 05/12/19 Objective - Vital Signs/Intake & Output Vital Signs: Vital Signs x48h Temp Pulse Pulse Pulse Pulse Resp BP 05/13/19 08:58 86 91 83 05/13/19 08:57 37.1 C 86 18 121/68 05/13/19 06:39 37.1 C 71 15 137/55 H BP BP BP Pulse Ox 05/13/19 08:58 121/68 121/100 H 117/72 05/13/19 08:57 93 05/13/19 06:39 95 Intake & Output: Intake & Output 05/10/19 05/11/19 05/12/19 05/13/19 23:59 23:59 23:59 23:59 Intake Total 3930.000 2060 Output Total 1700 350 Balance 2230.000 1710 - Objective General Appearance: positive: No acute distress, Alert. negative: Lethargic Eyes Bilateral: positive: Normal inspection, PERRL, No lid inflammation ENT: positive: ENT inspection nml, Pharynx nml, No signs of dehydration. negative: Purulent nasal drainage Neck: positive: Nml inspection, Thyroid nml, No JVD. negative: Trachea midline, Thyromegaly, Lymphadenopathy (R), Lymphadenopathy (L), Stiff neck, Tracheal subhash ation Respiratory: positive: Chest non-tender, No respiratory distress, Rales. negative: Breath sounds nml, Wheezes, Rhonchi Cardiovascular: positive: Regular rate & rhythm, No murmur, No gallop. negative: Irregularly irregular, Extrasystoles, Tachycardia, Bradycardia, JVD present, Systolic murmur, Diastolic murmur Peripheral Pulses: 2+ Radial (R), 2+ Radial (L), 2+ Dorsalis pedis (R), 2+ Dorsalis pedis (L) Abdomen: positive: Non-tender, No organomegaly, Nml bowel sounds, No distention. negative: Tenderness, Guarding, Rebound Back: positive: Nml inspection. negative: CVA tenderness (R), CVA tenderness (L) Skin: positive: Color nml, No rash, Warm, Dry. negative: Cyanosis, Diaphoresis, Pallor Extremities: positive: Non-tender, Nml appearance. negative: Calf tenderness, Driss's sign/cords Neurologic/Psychiatric: positive: Oriented x3, Sensation nml, Mood/affect nml. negative: Weakness, Sensory loss, Facial droop, Slurred/abnml speech, Depressed mood/affect - Lab Results Fish Bones: 05/13/19 04:30 05/13/19 04:30 Other Labs: Lab Results x24hrs 05/13/19 05/13/19 05/13/19 Range/Units 04:30 04:30 04:30 WBC (4.8-10.8) x10^3/uL RBC 2.93 L (4.20-5.40) 10^6/uL Hgb (12.0-16.0) g/dL Hct (37.0-47.0) % MCV (81.0-99.0) fL MCH (27.0-31.0) pg MCHC (32.0-36.0) g/dL RDW (12.0-15.0) % Plt Count (130-450) 10^3/uL MPV (7.9-10.8) fL Reticulocyte % (Auto) 1.70 (0.5-2.3) % Neut # (Auto) (1.5-6.6) 10^3/uL Lymph # (Auto) (1.5-3.5) 10^3/uL Gillespie # (Auto) (0.0-1.0) 10^3/uL Eos # (Auto) (0.0-0.7) 10^3/uL Baso # (Auto) (0.0-0.1) 10^3/uL Absolute Nucleated RBC x10^3/uL Nucleated RBC % /100WBC Absolute Retic 0.050 (0.020-0.110) 10^6/uL Sodium 139 (135-145) mmol/L Potassium 3.3 L (3.5-5.0) mmol/L Chloride 105 (101-111) mmol/L Carbon Dioxide 27 (21-32) mmol/L Anion Gap 7.0 (6-13) BUN 14 (6-20) mg/dL Creatinine 0.7 (0.4-1.0) mg/dL Estimated GFR (MDRD) 83 L (>89) Glucose 86 (70-100) mg/dL Calcium 8.0 L (8.5-10.3) mg/dL Phosphorus 2.5 (2.5-4.6) mg/dL Magnesium 1.7 (1.7-2.8) mg/dL Ferritin 365.1 H (11.0-306.8) ng/mL Total Creatine Kinase 826 H (22-269) IU/L Vitamin B12 752 (180-914) pg/mL Urine Color Urine Clarity (CLEAR) Urine pH (5.0-7.5) PH Ur Specific Stanton (1.002-1.030) Urine Protein (NEGATIVE) mg/dL Urine Glucose (UA) (NEGATIVE) mg/dL Urine Ketones (NEGATIVE) mg/dL Urine Occult Blood (NEGATIVE) Urine Nitrite (NEGATIVE) Urine Bilirubin (NEGATIVE) Urine Urobilinogen (NORMAL) E.U./dL Ur Leukocyte Esterase (NEGATIVE) Urine RBC (0-5) /HPF Urine WBC (0-5) /HPF Ur Epithelial Cells (<= Few) /HPF Ur Squamous Epith Cells (<= Few) Urine Bacteria (None Seen) /HPF Ur Microscopic Review Urine Culture Comments Coronavirus (PCR) 05/13/19 05/12/19 05/12/19 Range/Units 04:30 10:35 04:30 WBC 6.7 (4.8-10.8) x10^3/uL RBC 3.02 L (4.20-5.40) 10^6/uL Hgb 8.3 L (12.0-16.0) g/dL Hct 28.4 L (37.0-47.0) % MCV 94.0 (81.0-99.0) fL MCH 27.5 (27.0-31.0) pg MCHC 29.2 L (32.0-36.0) g/dL RDW 15.7 H (12.0-15.0) % Plt Count 269 (130-450) 10^3/uL MPV 9.0 (7.9-10.8) fL Reticulocyte % (Auto) (0.5-2.3) % Neut # (Auto) 4.8 (1.5-6.6) 10^3/uL Lymph # (Auto) 0.9 L (1.5-3.5) 10^3/uL Gillespie # (Auto) 0.9 (0.0-1.0) 10^3/uL Eos # (Auto) 0.1 (0.0-0.7) 10^3/uL Baso # (Auto) 0.0 (0.0-0.1) 10^3/uL Absolute Nucleated RBC 0.00 x10^3/uL Nucleated RBC % 0.0 /100WBC Absolute Retic (0.020-0.110) 10^6/uL Sodium (135-145) mmol/L Potassium (3.5-5.0) mmol/L Chloride (101-111) mmol/L Carbon Dioxide (21-32) mmol/L Anion Gap (6-13) BUN (6-20) mg/dL Creatinine (0.4-1.0) mg/dL Estimated GFR (MDRD) (>89) Glucose (70-100) mg/dL Calcium (8.5-10.3) mg/dL Phosphorus (2.5-4.6) mg/dL Magnesium (1.7-2.8) mg/dL Ferritin (11.0-306.8) ng/mL Total Creatine Kinase (22-269) IU/L Vitamin B12 (180-914) pg/mL Urine Color YELLOW Urine Clarity CLOUDY (CLEAR) Urine pH 6.0 (5.0-7.5) PH Ur Specific Stanton >=1.030 H (1.002-1.030) Urine Protein TRACE (NEGATIVE) mg/dL Urine Glucose (UA) NEGATIVE (NEGATIVE) mg/dL Urine Ketones TRACE (NEGATIVE) mg/dL Urine Occult Blood NEGATIVE (NEGATIVE) Urine Nitrite NEGATIVE (NEGATIVE) Urine Bilirubin NEGATIVE (NEGATIVE) Urine Urobilinogen 0.2 (NORMAL) (NORMAL) E.U./dL Ur Leukocyte Esterase LARGE H (NEGATIVE) Urine RBC 0-5 (0-5) /HPF Urine WBC >25 H (0-5) /HPF Ur Epithelial Cells FEW Renal Tubular (<= Few) /HPF Ur Squamous Epith Cells MOD Squamous H (<= Few) Urine Bacteria Many H (None Seen) /HPF Ur Microscopic Review INDICATED Urine Culture Comments NOT INDICATED Coronavirus (PCR) NEGATIVE ABX Reporting Has patient been on IV antibiotics over the past 48 hours?: Yes Sepsis Event Note (H) - Evaluation Current Stage of Sepsis: Sepsis Possible source of Sepsis: positive: Pulmonary - Sepsis Criteria Sepsis Criteria: Recorded Temperature greater than 38.3C or Less than 36C, Recorded Heart Rate greater than 90 bpm, Recorded Respiratory Rate greater than 20, Respiratory: Increasing oxygen requirements, WBC count greater than 12,000 or less than 4000 Assessment/Plan - Problem List (1) Sepsis Impression: 4/3 improved. after pt was given second bolus of IVF with antibiotics, pt's BP is normal and pt feel better. pt has no fever or chill. WBC is normal although pt has some hemodilation for her WBC. Blood culture on tube is likely from contamination of staph epidermidis change Azithyromycin to antibiotics Doxycycle for concern of pt's QTC because pt also use hydrocholoxyquine for dermatomyositis, and Rocephin for her PNA continue lab monitor. pt is immunocompromised from her inflammation disease treatment. (2) Community acquired pneumonia Conclusion/Plan: 4/3 WBC is normal now. pt is immunocompromised from her inflammation disease treatment. her COvid 19 test is negative. continue treat with antibiotics for her PNA lab monitor and supplement of O2 as needed (3) Hypoxia Conclusion/Plan: 4/3 slight better, today pt has 93% on one liter of O2 supplement. pt has hx of chronic cough and pulmonary sarcoidosis. pt did not take O2 at home. continue treat PNA, and try to wane off O2 (4) Acute kidney injury Conclusion/Plan: 4/3 resolved. IVF is down to 75cc/h (5) Hyponatremia Conclusion/Plan: 4/3 resolved (6) Pulmonary sarcoidosis Conclusion/Plan: stable. continue her on her home prednisone dose. 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 Ck is slight elevated than yesterday, expected it will run down after resume home meds. pt denies acute muscle pain continue gently IVF, lab monitor (8) Asthma Conclusion/Plan: stable, This does not appear to be in exacerbation. We we will continue her on albuterol as needed and montelukast, and home lower dosage of Prednisone. (9) Diabetes mellitus treated with insulin Conclusion/Plan: stable. A1C is 6.8. continue SSI, ACHS to check glucose and continue hypoglycemia protocol (10) anemia today pt's HGB is 8.3, pt has some hemodilation from her IVF for sepsis. will check anemia study and followup. pt denies black stool or GI bleed (11)weakness pt still complain of weakness, her weakness can be combination of acute infection, sepsis, chronic dermatomyositis and pulmonary sarcoidosis. consult with PT/OT to evaluate and treat pt.
[2019-05-13 11:07] LABS: % IRON SATURATION 8 % (20-50); IRON 14 ug/dL (28-170); TOTAL IRON BINDING CAPACITY 182 ug/dL (250-450); TRANSFERRIN 130 mg/dL (192-382)
[2019-05-13] MEDS: FERROUS SULFATE 325 MG TABLET PO SCH ×2 (12:05→16:25)
[2019-05-13] MEDS: MULTIVITAMIN W/MINERALS TABLET PO SCH (12:05)
--- NOTE | 2019-05-13 12:24 | PHARMACY PROGRESS NOTE ---
- Best Possible Medication History Admit Date and Time: 05/12/19 0528 Processed by: Pharmacy Medication History completed: Yes Patient Interview: Completed (Patient reports, last time she took her home medications was ~ 3 weeks ago) Secondary Source(s): Physician records, Pharmacy records (outpt pharmacy), Insurance records As the person ultimately responsible for medication therapy, providers are able to order a medication from an existing home medication list in [facility] via the "Reconcile Routine" prior to Confirmation of that medication by therapeutic support staff. Such practice is discouraged except when the physician, in their clinical judgment, deems that a medical need exists for a medication without regard to previous use.
--- NOTE | 2019-05-13 13:27 | XRAY Report ---
Reason: cough, SOB Procedure Date: 05/13/2019 Accession Number: [id number] / [id number] Procedure: XR - Chest 1 View X-Ray CPT Code: 94776 Final Report FULL RESULT: EXAM: CHEST RADIOGRAPHY EXAM DATE: 05/13/2019 08:17 AM. CLINICAL HISTORY: Cough, SOB. COMPARISON: CHEST 1 VIEW 05/12/2019 3:59 AM CHEST 2 VIEW PA/LAT 10/16/2017 9:30 AM. TECHNIQUE: 1 view. FINDINGS: Lungs/Pleura: Stable low lung volumes. Right upper lobe bronchiectasis with additional reticular opacities noted in the right upper and left lower lung field, similar to prior exam. No pleural effusion. No visible pneumothorax. Mediastinum: Within exam limitations, the cardiomediastinal contour is unremarkable. Other: None. IMPRESSION: Grossly similar appearance of lung palomino with bilateral multifocal areas of reticular airspace disease and bronchiolitis. RADIA
[2019-05-13] MEDS: MONTELUKAST 10 MG TABLET PO SCH (21:36)
[2019-05-14] MEDS ORDERED: INSULIN REGULAR HUMAN 300 UNIT/3 ML VIAL SUBQ SCH
[2019-05-14] MEDS: SODIUM CHLORIDE FLUSH 0.9% 10 ML SYRINGE IVP SCH ×2 (01:43→09:28)
[2019-05-14] MEDS: ACETAMINOPHEN 325 MG TABLET PO PRN ×3 (02:51→16:06)
[2019-05-14] MEDS: FERROUS SULFATE 325 MG TABLET PO SCH (06:12)
[2019-05-14] MEDS: GABAPENTIN 300 MG CAPSULE PO SCH ×2 (06:12→14:14)
[2019-05-14 06:29] LABS: BASOPHILS % (AUTO) 0.7 %; EOSINOPHILS # (AUTO) 0.1 10^3/uL (0.0-0.7); EOSINOPHILS % (AUTO) 2.1 %; HGB - HEMOGLOBIN 8.3 g/dL (12.0-16.0); LYMPHOCYTES % (AUTO) 21.9 %; MEAN CORPUSCULAR HEMOGLOBIN 27.6 pg (27.0-31.0); MEAN CORPUSCULAR HGB CONC 29.3 g/dL (32.0-36.0); MEAN PLATELET VOLUME 9.2 fL (7.9-10.8); MONOCYTES # (AUTO) 0.6 10^3/uL (0.0-1.0); MONOCYTES % (AUTO) 14.1 %; NEUTROPHILS # (AUTO) 2.6 10^3/uL (1.5-6.6); NEUTROPHILS % (AUTO) 59.8 %; PLT - PLATELET COUNT 276 10^3/uL (130-450); RED BLOOD COUNT 3.01 10^6/uL (4.20-5.40); RED CELL DISTRIBUTION WIDTH 15.4 % (12.0-15.0); WHITE BLOOD COUNT 4.3 x10^3/uL (4.8-10.8)
[2019-05-14 06:39] LABS: CALCIUM 8.6 mg/dL (8.5-10.3); CREATININE 0.6 mg/dL (0.4-1.0); MAGNESIUM 1.9 mg/dL (1.7-2.8); PHOSPHORUS 2.6 mg/dL (2.5-4.6)
[2019-05-14] MEDS ORDERED: FORMOTEROL FUMARATE NEB 20 MCG/2 ML INH SCH (07:00)
[2019-05-14] MEDS ORDERED: BUDESONIDE 0.5 MG/2 ML NEB INH SCH (07:00)
[2019-05-14] MEDS: DOXYCYCLINE 100 MG TABLET PO SCH (08:28)
[2019-05-14] MEDS: INSULIN ASPART 300 UNIT/3 ML PEN SUBQ SCH ×2 (08:28→12:17)
[2019-05-14] MEDS: HYDROXYCHLOROQUINE 200 MG TABLET PO SCH (08:29)
[2019-05-14] MEDS: predniSONE 5 MG TABLET PO SCH (08:29)
[2019-05-14] MEDS: ENOXAPARIN 40 MG/0.4 ML SYRINGE SUBQ SCH (08:30)
[2019-05-14] MEDS: cefTRIAXone 2 GM in SODIUM CHLORIDE 0.9% MINIBAG 100 ML IV SCH (08:30)
[2019-05-14] MEDS ORDERED: INSULIN GLARGINE 300 UNIT/3 ML PEN SUBQ SCH (09:00)
[2019-05-14] MEDS ORDERED: MORPHINE ER 15 MG TABLET PO SCH (09:00)
[2019-05-14] MEDS: mycophenolate mofetiL 250 MG CAPSULE PO SCH (09:25)
[2019-05-14] MEDS: MULTIVITAMIN W/MINERALS TABLET PO SCH (12:12)
--- NOTE | 2019-05-14 13:06 | Discharge Plan ---
Discharge Plan Problem Reviewed?: Yes Disposition: 06 Home Health Service Condition: Poor Prescriptions: Doxycycline Hyclate 100 mg PO BID #14 tablet. Ferrous Sulfate 325 mg PO DAILY #15 tablet Diet: Regular Activity Restrictions: Activity as Tolerated Shower Restrictions: No (fall precaution, caregiver closely monitor ) Instruction Topics: Iron tablets capsules extended-release tablets, Doxycycline tablets or capsules Health Concerns: pneumonia, anemia Plan of Treatment: you are found to have pneumonia, you are prescribed antibiotics Doxycycline. you are also found to have iron deficiency anemia, you are prescribed iron pill Care Goals: stabilization and improvement of your medical conditions Assessment: discussed with you about the care plan, you understood. Additional Instructions or Follow Up instructions: you may followup your PCP in one week, followup your drafting layout man and dehairer as out-pt. You are arranged for home health PT/OT/RN/Aide. you may followup your previous wound care schedule. Should your symptoms return or worsen, you may present ER or call 911 for help. No Smoking: If you smoke, Please STOP! Call for help. Follow-up with: Eric Monterroso MD [Primary Care Provider] -
--- NOTE | 2019-05-14 13:21 | DISCHARGE SUMMARY ---
Discharge Summary Admit Date: 05/12/19 Discharge Date: 05/14/19 Discharging Provider: Derik rivera Primary Care Provider: Dr. Monterroso Condition at Discharge: Poor Discharge Disposition: Home Health Service Discharge Facility Name: home - DIAGNOSES Admission Diagnoses: (1) Sepsis (2) Community acquired pneumonia (3) Hypoxia (4) Acute kidney injury (5) Hyponatremia (6) Pulmonary sarcoidosis (7) Dermatomyositis (8) Asthma (9) Diabetes mellitus treated with insulin Discharge Diagnoses with Status of Each Condition: (1) Sepsis resolved. pt presented fever, hypoxia, tachycardia, elevated WBC at the admission. Pneumonia is likely the resource. One tube of Blood culture was likely contaminated another is negative for bacteremia. pt is prescribed antibiotics for d/c to finish the treatment course. (2) Community acquired pneumonia stable. pt has 94% sats on room air. pt is prescribed antibiotics for d/c to finish the treatment course. covid 19 test again is negative. (3) Hypoxia resolved. pt has 94% sats on room air (4) Acute kidney injury resolved (5) Hyponatremia resolved (6) Pulmonary sarcoidosis stable. (7) Dermatomyositis stable (8) Asthma stable (9) Diabetes mellitus treated with insulin stable. (10) anemia pt was found to have iron deficiency anemia. pt is prescribed iron pill (11)weakness improved. pt had PT/OT evaluation and treament in hospital. pt is arranged home health PT/OT/RN/Aide (12)chronic pressure ulcer at the back chronic, resume previous wound care company service and order home health RN to continue care for pt. - HPI History of Present Illness: refer from Dr. Barreto's HPI 05/12/2019 This is a 68-year-old female with a past medical history significant for asthma, dermatomyositis, history of pulmonary sarcoidosis, hypertension, type 2 diabetes mellitus on insulin who presents today complaining of worsening weakness. She states she underwent spine surgery at [facility] last month for lumbar stenosis. She had been at [facility] for the last 2 weeks for rehab. She reports she had been doing well at home and was ambulating with a walker. She reports that yesterday started to feel general weakness and that overnight, she used the bathroom and was unable to stand up after. She reports having a chronic cough that is unchanged and with no sputum production. She denies any fevers or chills. She does report some numbness in her lower extremities which is chronic secondary to her neuropathy for which he takes gabapentin. She does feel her weakness is more generalized and there are no focal deficits. She reports poor oral intake over the past couple days and she feels thirsty at the moment. She denies any chest pain, dyspnea, nausea, vomiting, abdominal pain. She feels that her weakness is somewhat similar to when she was diagnosed with dermatomyositis over 3 years ago. She states at that time she had weakness in her proximal thighs and shoulders. 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 She is on chronic prednisone, hydroxychloroquine, mycophenolate for dermatomyositis. She reports some mild muscle pain in her upper thighs. She states she was tested for coronavirus twice while at [facility] and both times were negative. In the emergency department, she is in the febrile a temperature of 38.0 C. She was tachycardic with a heart rate of 115. Hypertensive systolic blood pressure of 166/104. She was tachypneic in the low 20s. She was initially saturating 88% on room air and this improved to 95% on 2 L via nasal cannula. Labs are significant for a white count of 13.8 with a left shift and 3% bands. Sodium is decreased at 133 and her creatinine is elevated at 1.2. Her chest x- ray was concerning for a left lower lobe infiltrate as well as a possible right upper lobe infiltrate. COVID-19 testing has been ordered in the emergency depa rtment and is pending. Given her hypoxia and sepsis which appears secondary to pneumonia, medicine was consulted for admission. - HOSPITAL COURSE Hospital Course: pt was admitted for fever and sepsis. pt was found to have CAP. pt was treated with antibiotics. Pt's Covid 19 test is negative. after treatment, pt return to her baseline. pt has 94% sats on room air. Pt was treated and evaluated by PT/OT. pt is arranged home health PT/OT/RN/Aide. The detail hospital course is as the below. (1) Sepsis resolved. pt presented fever, hypoxia, tachycardia, elevated WBC at the admission. Pneumonia is likely the resource. One tube of Blood culture was likely contaminated another is negative for bacteremia. pt is prescribed antibiotics for d/c to finish the treatment course. (2) Community acquired pneumonia stable. pt has 94% sats on room air. pt is prescribed antibiotics for d/c to finish the treatment course. covid 19 test again is negative. (3) Hypoxia resolved. pt has 94% sats on room air (4) Acute kidney injury resolved (5) Hyponatremia resolved (6) Pulmonary sarcoidosis stable. (7) Dermatomyositis stable (8) Asthma stable (9) Diabetes mellitus treated with insulin stable. (10) anemia pt was found to have iron deficiency anemia. pt is prescribed iron pill (11)weakness improved. pt had PT/OT evaluation and treament in hospital. pt is arranged home health PT/OT/RN/Aide (12)chronic pressure ulcer at the back chronic, resume previous wound care company service and order home health RN to continue care for pt. - ALLERGIES Allergies/Adverse Reactions: Allergies Allergy/AdvReac Type Severity Reaction Status Date / Time amoxicillin Allergy Unknown Verified 05/12/19 05:30 amoxicillin trihydrate * Allergy Unknown Verified 05/12/19 05:30 [From Augmentin] oxycodone Allergy Unknown Verified 05/12/19 05:30 Penicillins Allergy Unknown Verified 05/12/19 05:30 potassium clavulanate * Allergy Unknown Verified 05/12/19 05:30 [From Augmentin] Sulfa (Sulfonamide Allergy Unknown Verified 05/12/19 05:30 Antibiotics) - MEDICATIONS Home Medications: Ambulatory Orders Medication Instructions Recorded Confirmed Acyclovir 400 mg PO BID 07/23/18 05/12/19 Albuterol Sulfate [Albuterol 2 puffs INH .Q3-4H PRN 07/23/18 05/13/19 Sulfate Hfa] Calcium Carbonate/Vitamin D3 1 tab PO BID 07/23/18 05/13/19 [Calcium 600-Vit D3 400 Tablet] Folic Acid 1 mg PO DAILY 07/23/18 05/13/19 Gabapentin 2 cap PO TID 07/23/18 05/12/19 Hydroxychloroquine Sulfate 400 mg PO DAILY 07/23/18 05/12/19 Insulin Aspart [NovoLOG] 4 - 20 units SQ TID 07/23/18 05/13/19 Insulin Glargine,Hum.rec.anlog 15 unit SQ DAILY 07/23/18 05/12/19 [Basaglar Kwikpen U-100] Losartan Potassium 25 mg PO DAILY 07/23/18 05/12/19 Metoclopramide [Reglan] 10 mg PO TID 07/23/18 05/13/19 Montelukast Sodium 10 mg PO DAILY 07/23/18 05/13/19 Pantoprazole Sodium 40 mg PO DAILY 07/23/18 05/13/19 Potassium Chloride 20 meq PO DAILY 07/23/18 05/13/19 Rosuvastatin Calcium 10 mg PO QPM 07/23/18 05/12/19 predniSONE [Prednisone] 5 mg PO DAILY 07/23/18 05/13/19 mycophenolate mofetiL 4 cap PO BID 05/12/19 05/12/19 [Mycophenolate Mofetil] Acetaminophen [Tylenol] 650 mg PO .4-6H PRN 05/13/19 05/13/19 Fluticasone/Salmeterol [Advair Hfa 2 inh INH BID 05/13/19 05/13/19 230-21 Mcg Inhaler] Morphine Sulfate 15 mg PO BID 05/13/19 05/13/19 Doxycycline Hyclate 100 mg PO BID #14 tablet. 05/14/19 Ferrous Sulfate 325 mg PO DAILY #15 tablet 05/14/19 - PHYSICAL EXAM AT DISCHARGE General Appearance: positive: No acute distress, Alert. negative: Lethargic Eyes Bilateral: positive: Normal inspection, PERRL, No lid inflammation ENT: positive: ENT inspection nml, Pharynx nml, No signs of dehydration. negative: Purulent nasal drainage Neck: positive: Nml inspection, Thyroid nml, No JVD, Trachea midline. negative: Thyromegaly, Lymphadenopathy (R), Lymphadenopathy (L), Stiff neck, Tracheal deviation Respiratory: positive: Chest non-tender, No respiratory distress. negative: Wheezes, Rhonchi Cardiovascular: positive: Regular rate & rhythm, No murmur, No gallop. negative: Irregularly irregular, Extrasystoles, Tachycardia, Bradycardia, JVD p resent, Systolic murmur, Diastolic murmur Peripheral Pulses: positive: 2+ Abdomen: positive: Non-tender, No organomegaly, Nml bowel sounds, No distention. negative: Tenderness, Guarding, Rebound Back: positive: Nml inspection. negative: CVA tenderness (R), CVA tenderness (L) Skin: positive: Color nml, No rash, Warm, Dry. negative: Cyanosis, Diaphoresis, Pallor Extremities: positive: Non-tender, Nml appearance. negative: Calf tenderness, Driss's sign/cords Neurologic/Psychiatric: positive: Oriented x3, Sensation nml, Mood/affect nml. negative: Weakness, Sensory loss, Facial droop, Slurred/abnml speech, Depressed mood/affect - LABS Result Diagrams: 05/14/19 05:40 05/14/19 05:40 - SEPSIS Current Stage of Sepsis: Sepsis Possible source of Sepsis: Pulmonary Sepsis Criteria: Recorded Temperature greater than 38.3C or Less than 36C, Recorded Heart Rate greater than 90 bpm, Recorded Respiratory Rate greater than 20, Respiratory: Increasing oxygen requirements, WBC count greater than 12,000 or less than 4000 - FOLLOW UP Follow Up: you are found to have pneumonia, you are prescribed antibiotics Doxycycline. you are also found to have iron deficiency anemia, you are prescribed iron pill. you may followup your PCP in one week, followup your acid purification equipment operator and pu lmonologist as out-pt. You are arranged for home health PT/OT/RN/Aide. you may followup your previous wound care schedule. Should your symptoms return or worsen, you may present ER or call 911 for help. - TIME SPENT Time Spent in Discharge (Minutes): 30
[2019-05-14] MEDS ORDERED: AMIODARONE 150 MG/3 ML VIAL IVP STA (13:38)
[2019-05-14 16:04] VITALS: BP 149/75
== END 2019-05-14 17:00 | disposition home health service (06) | DRG 871 ==
LOC: EDUNIT# → ED 03:53 → MS2 05:28
PROVIDERS: ADMIT Internal Medicine; ATTEND Nurse Practitioner Gerontology
DX: A41.9 Sepsis, unspecified organism (principal); J18.9 Pneumonia, unspecified organism; M33.90 Dermatopolymyositis, unspecified, organ involvement unspecified; J45.909 Unspecified asthma, uncomplicated; N17.9 Acute kidney failure, unspecified; E87.1 Hypo-osmolality and hyponatremia; E86.0 Dehydration; R09.02 Hypoxemia; E78.00 Pure hypercholesterolemia, unspecified; Z20.828 Contact with and (suspected) exposure to other viral communicable diseases; D86.0 Sarcoidosis of lung; I10 Essential (primary) hypertension; J45.20 Mild intermittent asthma, uncomplicated; K21.9 Gastro-esophageal reflux disease without esophagitis; M19.90 Unspecified osteoarthritis, unspecified site; E11.40 Type 2 diabetes mellitus with diabetic neuropathy, unspecified; D50.9 Iron deficiency anemia, unspecified; L89.109 Pressure ulcer of unspecified part of back, unspecified stage; Z79.4 Long term (current) use of insulin; Z79.891 Long term (current) use of opiate analgesic; Z79.51 Long term (current) use of inhaled steroids; Z79.52 Long term (current) use of systemic steroids; Z79.899 Other long term (current) drug therapy
CPT/HCPCS: 36415; 71045; 80048; 80053; 81001; 81599; 82550; 82607; 82728; 83036; 83540; 83605; 83615; 83690; 83735; 83880; 84100; 84466; 84484; 85025; 85045; 87040; 87077; 87181; 87275; 87276; 93005; 94640; 97162; 97166; 97530; 99284; 99285; A9270; J1650; J1815; J7512; J7626; 81003; 87086

== ENCOUNTER 2019-05-19 16:15 | Outpatient (CLI) | payer MEDICARE, BC | END 2019-05-19 16:16 | disposition critical access hospital (66) | LOC: EMS 16:15 | PROVIDERS: ATTEND Surgery | DX: R50.9 Fever, unspecified (principal); R05 Cough; Z20.828 Contact with and (suspected) exposure to other viral communicable diseases | CPT/HCPCS: A0425; A0429 ==

== ENCOUNTER 2019-05-19 16:43 | Inpatient (IN) | payer MEDICARE, BC ==
[2019-05-19] MEDS ORDERED: ACETAMINOPHEN 325 MG TABLET PO STA (17:04)
[2019-05-19] MEDS ORDERED: SODIUM CHLORIDE 0.9% 1,000 ML IV ONE (17:05)
--- NOTE | 2019-05-19 17:08 | ED Physician Documentation ---
History of Present Illness - Stated complaint Stated Complaint: FEVER - Chief complaint Chief Complaint: Fever - History obtained from History obtained from: Patient, EMS - Additonal information Additional information: Patient comes emergency department complaining of worsening fever and shortness of breath. Patient about 3 weeks ago had back surgery [facility] and was discharged to [facility], where she stayed for 2 weeks. During this time, there was a Coronavirus outbreak at [facility]. Patient was discharged home and a few days later, developed fever and cough. She was found to have pneumonia and admitted to the hospital here, then discharged. However, patient has been at home and feels as though she is getting worse again. Today, her home health nurse came and found her to have an oxygen saturation of 88% on room air and a fever of 103. Patient does not have a history of COPD does but does have interstitial lung disease. She states her normal sats are around 93% on room air. Patient states she has had diarrhea since being at [facility]. Patient denies any other focus of illness. No dysuria. No vomiting. No sore throat or rhinorrhea. No ear pain. Patient has been tested for coronavirus 3 times, the last of which was a week ago today and all 3 have been negative. PD PAST MEDICAL HISTORY - Past Medical History Cardiovascular: Hypertension, High cholesterol Respiratory: Other (Pulmonary sarcoidosis) Neuro: None Endocrine/Autoimmune: Type 2 diabetes, Other (Dermatomyositis) GI: GERD : Incontinence Psych: None Musculoskeletal: Osteoarthritis, Osteopenia Derm: Other - Past Surgical History General: Cholecystectomy Ortho: Knee replacement - Present Medications Home Medications: Ambulatory Orders Medication Instructions Recorded Confirmed Acyclovir 400 mg PO BID 07/23/18 05/12/19 Albuterol Sulfate [Albuterol 2 puffs INH .Q3-4H PRN 07/23/18 05/13/19 Sulfate Hfa] Calcium Carbonate/Vitamin D3 1 tab PO BID 07/23/18 05/13/19 [Calcium 600-Vit D3 400 Tablet] Folic Acid 1 mg PO DAILY 07/23/18 05/13/19 Gabapentin 2 cap PO TID 07/23/18 05/12/19 Hydroxychloroquine Sulfate 400 mg PO DAILY 07/23/18 05/12/19 Insulin Aspart [NovoLOG] 4 - 20 units SQ TID 07/23/18 05/13/19 Insulin Glargine,Hum.rec.anlog 15 unit SQ DAILY 07/23/18 05/12/19 [Basaglar Kwikpen U-100] Losartan Potassium 25 mg PO DAILY 07/23/18 05/12/19 Metoclopramide [Reglan] 10 mg PO TID 07/23/18 05/13/19 Montelukast Sodium 10 mg PO DAILY 07/23/18 05/13/19 Pantoprazole Sodium 40 mg PO DAILY 07/23/18 05/13/19 Potassium Chloride 20 meq PO DAILY 07/23/18 05/13/19 Rosuvastatin Calcium 10 mg PO QPM 07/23/18 05/12/19 predniSONE [Prednisone] 5 mg PO DAILY 07/23/18 05/13/19 mycophenolate mofetiL 4 cap PO BID 05/12/19 05/12/19 [Mycophenolate Mofetil] Acetaminophen [Tylenol] 650 mg PO .4-6H PRN 05/13/19 05/13/19 Fluticasone/Salmeterol [Advair Hfa 2 inh INH BID 05/13/19 05/13/19 230-21 Mcg Inhaler] Morphine Sulfate 15 mg PO BID 05/13/19 05/13/19 Doxycycline Hyclate 100 mg PO BID #14 tablet. 05/14/19 Ferrous Sulfate 325 mg PO DAILY #15 tablet 05/14/19 - Allergies Allergies/Adverse Reactions: Allergies Allergy/AdvReac Type Severity Reaction Status Date / Time amoxicillin Allergy Unknown Verified 05/12/19 05:30 amoxicillin trihydrate * Allergy Unknown Verified 05/12/19 05:30 [From Augmentin] oxycodone Allergy Unknown Verified 05/12/19 05:30 Penicillins Allergy Unknown Verified 05/12/19 05:30 potassium clavulanate * Allergy Unknown Verified 05/12/19 05:30 [From Augmentin] Sulfa (Sulfonamide Allergy Unknown Verified 05/12/19 05:30 Antibiotics) sulfamethoxazole Allergy Unknown Verified 05/17/19 07:35 [From Septra] trimethoprim [From Septra] Allergy Unknown Verified 05/17/19 07:35 - Social History Does the pt smoke?: No Smoking Status: Never smoker Does the pt drink ETOH?: No Does the pt have substance abuse?: No - Immunizations Immunizations are current?: Yes - POLST Patient has POLST: No Results - Vitals Vitals: Vital Signs - 24 hr 05/19/19 05/19/19 16:49 18:12 Temperature 38.6 C H 37.3 C Heart Rate 106 H Respiratory 20 Rate Blood Pressure 136/73 H O2 Saturation 89 L Oxygen O2 Source [Without Activity] Nasal cannula O2 Source Room air - Labs Labs: Laboratory Tests 05/19/19 05/19/19 05/19/19 17:30 17:30 17:30 WBC 4.5 L RBC 3.52 L Hgb 9.9 L Hct 32.6 L MCV 92.6 MCH 28.1 MCHC 30.4 L RDW 15.7 H Plt Count 295 MPV 9.7 Neut # (Auto) 3.3 Lymph # (Auto) 0.6 L Mccone # (Auto) 0.5 Eos # (Auto) 0.1 Baso # (Auto) 0.0 Absolute Nucleated RBC 0.00 Nucleated RBC % 0.0 Sodium 133 L Potassium 4.9 Chloride 99 L Carbon Dioxide 25 Anion Gap 9.0 BUN 14 Creatinine 0.9 Estimated GFR (MDRD) 62 L Glucose 112 H Calcium 8.8 Total Bilirubin 0.3 AST 27 ALT 16 Alkaline Phosphatase 96 B-Natriuretic Peptide 22 Total Protein 6.1 L Albumin 3.0 L Globulin 3.1 Albumin/Globulin Ratio 1.0 Lipase 23 Departure - Departure Disposition: 66 [facility] DC/Xfer Clinical Impression: Hypoxia Pneumonia Qualifiers: Pneumonia type: due to unspecified organism Laterality: bilateral Lung location: unspecified part of lung Qualified Code(s): J18.9 - Pneumonia, unspecified organism Condition: Serious
[2019-05-19 17:41] LABS: BASOPHILS % (AUTO) 0.2 %; EOSINOPHILS # (AUTO) 0.1 10^3/uL (0.0-0.7); EOSINOPHILS % (AUTO) 2.2 %; HGB - HEMOGLOBIN 9.9 g/dL (12.0-16.0); LYMPHOCYTES # (AUTO) 0.6 10^3/uL (1.5-3.5); LYMPHOCYTES % (AUTO) 13.2 %; MEAN CORPUSCULAR HEMOGLOBIN 28.1 pg (27.0-31.0); MEAN CORPUSCULAR HGB CONC 30.4 g/dL (32.0-36.0); MEAN CORPUSCULAR VOLUME 92.6 fL (81.0-99.0); MEAN PLATELET VOLUME 9.7 fL (7.9-10.8); MONOCYTES # (AUTO) 0.5 10^3/uL (0.0-1.0); MONOCYTES % (AUTO) 10.3 %; NEUTROPHILS # (AUTO) 3.3 10^3/uL (1.5-6.6); NEUTROPHILS % (AUTO) 73.4 %; PLT - PLATELET COUNT 295 10^3/uL (130-450); RED BLOOD COUNT 3.52 10^6/uL (4.20-5.40); RED CELL DISTRIBUTION WIDTH 15.7 % (12.0-15.0); WHITE BLOOD COUNT 4.5 x10^3/uL (4.8-10.8)
[2019-05-19 17:56] LABS: BILIRUBIN,TOTAL 0.3 mg/dL (0.2-1.0); CALCIUM 8.8 mg/dL (8.5-10.3); CREATININE 0.9 mg/dL (0.4-1.0); TOTAL PROTEIN 6.1 g/dL (6.7-8.2)
--- NOTE | 2019-05-19 18:20 | XRAY Report ---
Reason: chest pain Procedure Date: 05/19/2019 Accession Number: [id number] / [id number] Procedure: XR - Chest 1 View X-Ray CPT Code: 50534 Final Report FULL RESULT: EXAM: CHEST RADIOGRAPHY EXAM DATE: 05/19/2019 05:56 PM. CLINICAL HISTORY: Chest pain. COMPARISON: CHEST 1 VIEW 05/13/2019 7:50 AM CHEST 2 VIEW PA/LAT 09/13/2015 10:19 AM CHEST 2 VIEW PA/LAT 10/16/2017 9:30 AM CHEST 1 VIEW 05/12/2019 3:59 AM. TECHNIQUE: 1 view. FINDINGS: Lungs/Pleura: Prominent perihilar interstitium the most pronounced in right upper lobe. Findings unchanged since 05-29. Differentials remain viral or atypical pneumonia. To be correlated clinically. No pleural effusion. No pneumothorax. Mediastinum: Within exam limitations, the cardiomediastinal contour is normal. Other: None. IMPRESSION: Prominent perihilar interstitium the most pronounced in right upper lobe. Findings unchanged since 05-29. Differentials remain viral or atypical pneumonia. To be correlated clinically. RADIA
[2019-05-19] MEDS ORDERED: SODIUM CHLORIDE FLUSH 0.9% 10 ML SYRINGE IVP PRN (19:29)
--- NOTE | 2019-05-19 19:37 | HISTORY & PHYSICAL EXAMINATION ---
Chief Complaint - Chief Complaint Chief Complaint: Fever and shortness of breath History of Present Illness - Admitted From Admitted From:: Home - History Obtained From Records Reviewed: Yes History obtained from: Patient, ER Physician, EMR - History of Present Illness HPI Comment/Other: This is a 68-year-old female with a past medical history significant for asthma, dermatomyositis, history of pulmonary sarcoidosis, interstitial lung disease, hypertension, type 2 diabetes mellitus on insulin who presents today from home after her home health nurse found her to have a fever of 103 F and an oxygen saturation of 88% on room air. She states that then she has been discharged she was initially feeling quite well but over the last 2 days she has had increased weakness and shortness of breath. She states she has not been as active due to these complaints. She denies having any recent sick contacts or leaving the house since discharge. She reports she has been having diarrhea over the past few days which began just prior to her discharge from the hospital. She has been having 3 bowel movements a day. She reports no blood. She does wake up at night to have bowel movements. He denies nausea, vomiting, abdominal pain. She finished her course of doxycycline today. She reports I will correct her dyspnea, she continues to have nonproductive cough. She has been taking her mycophenolate, hydroxychloroquine, prednisone for her dermatomyositis. She reports her pulmonary sarcoidosis is in remission and her baseline oxygen saturations are usually 92 to 93%. She follows with Dr. Morales in [facility]. Reports having the flu vaccine this year. She also tells me that tomorrow will be 1 month since her spinal surgery. She does complain of lower back pain but this is not worse than usual since her surgery. She does have numbness in her lower extremities which is chronic. She does take gabapentin for this. She has chronic urinary incontinence. She reports no saddle anesthesia, urinary retention or bowel dysfunction. She does not have a history of DVT or pulmonary embolism in the past. She reports no chest pain. She has no pain in her lower extremities. In the emergency department, she was found to be febrile with a temperature of 38.6 C. She was tachycardic with a heart rate of 106. Her blood pressure was 136/73. Her respiratory rate was 20 and she was saturating 89% on room air. This improved to 93% on 2 L of oxygen. Labs revealed a white count of 4.5 with decreased lymphocytes. Her sodium is low at 133. Lactic acid is 0.7. BNP is 22. Chest x-ray showed prominent perihilar interstitium in the right upper lobe which is unchanged compared to prior chest x-ray. She received 1 L of normal saline and Tylenol in the emergency department. Given her hypoxia and fever, medicine was consulted for admission. I did discuss goals of care with the patient and she would like to be a DNR. History - Past Medical History Cardiovascular: reports: Hypertension, High cholesterol Respiratory: reports: Other (Pulmonary sarcoidosis) Neuro: reports: None Endocrine/Autoimmune: reports: Type 2 diabetes, Other (Dermatomyositis) GI: reports: GERD : reports: Incontinence Psych: reports: None Musculoskeletal: reports: Osteoarthritis, Osteopenia Derm: reports: Other - Past Surgical History General: reports: Cholecystectomy Ortho: reports: Knee replacement - Family & Social History Family History Comment/Other: Reports her father from lung cancer. He was a smoker. Her mother from ovarian cancer. Social History Notes: Lives at home alone. She previously worked at the [employer] on the [employer] but retired in 2003. She has never smoked and rarely drinks alcohol. Denies illicit drug use. - Substance History Use: Uses substance without health or social issues: NONE - POLST Patient has POLST: No Meds/Allgy - Home Medications Home Medications: Ambulatory Orders Medication Instructions Recorded Confirmed Acyclovir 400 mg PO BID 07/23/18 05/12/19 Albuterol Sulfate [Albuterol 2 puffs INH .Q3-4H PRN 07/23/18 05/13/19 Sulfate Hfa] Calcium Carbonate/Vitamin D3 1 tab PO BID 07/23/18 05/13/19 [Calcium 600-Vit D3 400 Tablet] Folic Acid 1 mg PO DAILY 07/23/18 05/13/19 Gabapentin 2 cap PO TID 07/23/18 05/12/19 Hydroxychloroquine Sulfate 400 mg PO DAILY 07/23/18 05/12/19 Insulin Aspart [NovoLOG] 4 - 20 units SQ TID 07/23/18 05/13/19 Insulin Glargine,Hum.rec.anlog 15 unit SQ DAILY 07/23/18 05/12/19 [Basaglar Kwikpen U-100] Losartan Potassium 25 mg PO DAILY 07/23/18 05/12/19 Metoclopramide [Reglan] 10 mg PO TID 07/23/18 05/13/19 Montelukast Sodium 10 mg PO DAILY 07/23/18 05/13/19 Pantoprazole Sodium 40 mg PO DAILY 07/23/18 05/13/19 Potassium Chloride 20 meq PO DAILY 07/23/18 05/13/19 Rosuvastatin Calcium 10 mg PO QPM 07/23/18 05/12/19 predniSONE [Prednisone] 5 mg PO DAILY 07/23/18 05/13/19 mycophenolate mofetiL 4 cap PO BID 05/12/19 05/12/19 [Mycophenolate Mofetil] Acetaminophen [Tylenol] 650 mg PO .4-6H PRN 05/13/19 05/13/19 Fluticasone/Salmeterol [Advair Hfa 2 inh INH BID 05/13/19 05/13/19 230-21 Mcg Inhaler] Morphine Sulfate 15 mg PO BID 05/13/19 05/13/19 Doxycycline Hyclate 100 mg PO BID #14 tablet. 05/14/19 Ferrous Sulfate 325 mg PO DAILY #15 tablet 05/14/19 - Allergies Allergies/Adverse Reactions: Allergies Allergy/AdvReac Type Severity Reaction Status Date / Time amoxicillin Allergy Unknown Verified 05/12/19 05:30 amoxicillin trihydrate * Allergy Unknown Verified 05/12/19 05:30 [From Augmentin] oxycodone Allergy Unknown Verified 05/12/19 05:30 Penicillins Allergy Unknown Verified 05/12/19 05:30 potassium clavulanate * Allergy Unknown Verified 05/12/19 05:30 [From Augmentin] Sulfa (Sulfonamide Allergy Unknown Verified 05/12/19 05:30 Antibiotics) sulfamethoxazole Allergy Unknown Verified 05/17/19 07:35 [From Septra] trimethoprim [From Septra] Allergy Unknown Verified 05/17/19 07:35 Review of Systems - Constitutional Constitutional: reports: Fatigue, Fever, Malaise, Weakness, Poor appetite - Eyes Eyes: denies: Blurred vision - Ears, Nose & Throat Ears, Nose & Throat: denies: Ear pain, Nasal discharge, Nasal congestion, Sore throat - Cardiovascular Cariovascular: reports: Exertional dyspnea, Decr. exercise tolerance. denies: Chest pain, Edema, Lightheadedness - Respiratory Respiratory: reports: Cough, SOB at rest, SOB with exertion. denies: Sputum production - Gastrointestinal Gastrointestinal: reports: Diarrhea, Poor appetite. denies: Abdominal pain, Black stools, Bloody stools, Nausea, Vomiting - Genitourinary Genitourinary: denies: Dysuria, Frequency - Musculoskeletal Musculoskeletal: reports: Muscle pain. denies: Limited range of motion - Integumentary Integumentary: denies: Rash - Neurological Neurological: reports: General weakness, Headache, Numbness. denies: Focal weakness - All Other Systems All Other Systems: reports: Reviewed and negative Prior Level of Functionality: She was discharged nearly 2 weeks ago from a skilled nurse facility after completing rehab for spinal surgery. She currently ambulates with a walker and is independent with her ADLs. She does have home health visiting her. Exam - Vital Signs Reviewed Vital Signs: Yes Vital Signs: Vital Signs x48h Temp Pulse Resp BP Pulse Ox 05/19/19 18:12 37.3 C 05/19/19 16:49 38.6 C H 106 H 20 136/73 H 89 L - Physical Exam General Appearance: positive: Alert Eyes Bilateral: positive: Normal inspection ENT: positive: ENT inspection nml, Other (Nasal cannula in place) Neck: positive: Nml inspection Respiratory: positive: No respiratory distress. negative: Wheezes, Rales Cardiovascular: positive: No murmur, Tachycardia. negative: Irregularly irregular, Bradycardia, Systolic murmur, Diastolic murmur Abdomen: positive: Non-tender, No distention. negative: Tenderness, Guarding, Rebound Back: positive: Other (Lumbar spine is nontender. Incision site from prior surgical intervention appears clean dry and intact. No erythema or discharge noted.) Skin: positive: Warm, Dry Extremities: positive: Full ROM, No pedal edema. negative: Driss's sign/cords Neurologic/Psychiatric: positive: Oriented x3, Sensation nml (Sensation intact in bilateral lower extremities although slightly diminsihed in the right leg below the knee.), Other (No focal motor deficits.). negative: Disoriented to person, Disoriented to place, Disoriented to time, Slurred/abnml speech Sepsis Event Note (H) - Evaluation Current Stage of Sepsis: Sepsis Possible source of Sepsis: positive: Unknown - Sepsis Criteria Sepsis Criteria: Recorded Temperature greater than 38.3C or Less than 36C, Recorded Heart Rate greater than 90 bpm, Recorded Respiratory Rate greater than 20, Respiratory: Increasing oxygen requirements Conclusion/Plan - Problem List (1) Hospital-acquired pneumonia Conclusion/Plan: Given she was just hospitalized and her chest x-ray shows persistent opacity in the right perihilar area along with her fever, will presume this is hospital- acquired pneumonia. She was treated with ceftriaxone and doxycycline during her hospitalization and discharged on oral doxycycline. No longer has a white count but continues to be hypoxic and dyspneic. We will start her on Levaquin IV. Obtain sputum cultures. Supplemental oxygen for goal saturation greater than 92%. (2) Fever Conclusion/Plan: She continues to have a fever and she is hypoxic. Her white count has decreased is now slightly leukopenic. Differential at this time is broad including hospital-acquired pneumonia, pulmonary sarcoid, C. difficile, influenza. Do not suspect she has a novel coronavirus given she has been tested 3 times and each time was negative. She did have recent spinal surgery but her incisions site appears clean, dry, intact and she has no worsening pain. Blood cultures have been drawn and are pending. At this time we will start her on Levaquin IV for presumed hospital-acquired pneumonia. Tylenol as needed for fevers. We will check ESR and CRP. Trend her white count and follow up her blood cultures. If there is no improvement over next 24 hours, will obtain a CT of the abdomen and pelvis to evaluate for possible abscess. She may also benefit from CT of the chest to evaluate for possible pulmonary sarcoid as a cause of her fever given the location of the infiltrate on chest x-ray. (3) Hypoxia Conclusion/Plan: She is hypoxic saturating 89% on room air. She reports her baseline oxygen saturations range from 92 to 94%. When she was discharged 2 days ago, she was saturating 94% on room air. At this time, it is unclear if this is due to pn eumonia given the possible infiltrate on chest x-ray or if this could be exacerbation of her pulmonary sarcoid. She no longer has a white count like she did during her prior admission and she finished treatment with doxycycline. She has a ready been tested for the novel coronavirus 3 times and all 3 were negative. We will start her on Levaquin IV for suspected hospital-acquired pneumonia given she did not improve with doxycycline on discharge and ceftriaxone while she was hospitalized. We will attempt to obtain sputum cultures. If she does not improve with antibiotics, will consider exacerbation of her pulmonary sarcoid as a cause of her hypoxia. She does not improve over the next 24 to 40 hours, will also consider pulmonary embolism although do not suspect this at the moment as this should not cause of fever and her BNP is within normal limits as well as her troponin. Continue supplemental oxygen for goal saturation greater than 92%. (4) Pulmonary sarcoidosis Conclusion/Plan: Her chest x-ray does suggest a possible infiltrate in the right perihilar area although she was just treated with antibiotics and no longer has a white count but continued to spike fevers. I do wonder if this could potentially be exacerbation of her pulmonary sarcoid given the location of the infiltrate as well as her hypoxia and fever. If she does not improve, we will consider imaging with a CT of her chest. We will also discuss with her corrective therapy aide teacher (Dr. Morales at [facility]) if it would be appropriate to increase her prednisone dose. We will check ESR and CRP. In the meantime, we will continue her home prednisone dose. (5) Dermatomyositis Conclusion/Plan: She is on hydroxychloroquine, mycophenolate, prednisone prescribed by her transcribing operators supervisor. We will resume her home prednisone and hydroxychloroquine. We will hold off on the mycophenolate given her fever until an infectious process is ruled out. (6) Diabetes mellitus treated with insulin Conclusion/Plan: She has type 2 diabetes mellitus treated with insulin. Her last A1c was 6.8%. We will resume her home Lantus and NovoLog sliding scale. We will place her on a carb controlled diet. 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 This includes her chronic disease as well as iron deficiency. She was recently started on oral iron. This will be resumed during his hospitalization. We will continue to monitor her hemoglobin. Lovenox for DVT prophylaxis. (8) Asthma Conclusion/Plan: This does not appear to be in exacerbation. We we will continue her on albuterol as needed and montelukast. Qualifiers: Asthma severity: mild Asthma persistence: intermittent (9) Interstitial lung disease Conclusion/Plan: She follows with Dr. Morales at [facility]. She is not on oxygen at baseline and her saturations ranged from 92 to 94%. She is currently hypoxic requiring 2 L of oxygen via nasal cannula. Continue management as mentioned above for presumed hospital-acquired pneumonia - Lab Results Lab results reviewed: Yes Fish Bones: 05/19/19 17:30 05/19/19 17:30 - Diagnostic Imaging Results Diagnostic Imaging Results: positive: Final report reviewed, Read independently (There does appear to be a right-sided perihilar opacity.) Core Measures - Anticipated LOS I expect patient to be DC'd or transferred within 96 hours.: Yes - Issues Hospital Issues and Management Plan: 68-year-old female admitted for fever and hypoxia. Etiology is unclear at the moment but differential includes pneumonia, exacerbation of pulmonary sarcoid, other infectious process. Start her on IV antibiotics for her presumed hospital-acquired pneumonia. We will consider further imaging of her abdomen and chest if there is no improvement. - DVT/VTE - Prophylaxis VTE/DVT Device ordered at admit?: Yes VTE/DVT Prophylaxis med ordered at admit?: Yes
[2019-05-19] MEDS ORDERED: ALBUTEROL 1 PUFF INH PRN (19:46)
[2019-05-19 19:56] LABS: CRP - C-REACTIVE PROTEIN 5.9 mg/dL (0-1.0)
[2019-05-19] MEDS: LACTATED RINGERS 1,000 ML IV SCH (21:32)
[2019-05-19] MEDS: INSULIN ASPART 300 UNIT/3 ML PEN SUBQ SCH (21:55)
[2019-05-19] MEDS: MONTELUKAST 10 MG TABLET PO SCH (22:19)
[2019-05-19] MEDS: GABAPENTIN 400 MG CAPSULE PO SCH (22:19)
[2019-05-19] MEDS: levoFLOXacin 750 MG/150 ML 750 MG/150 ML BAG IV SCH (22:19)
[2019-05-19] MEDS: ATORVASTATIN 10 MG TABLET PO SCH (22:19)
[2019-05-20] MEDS: ACETAMINOPHEN 325 MG TABLET PO PRN ×2 (00:06→08:42)
[2019-05-20] MEDS: SODIUM CHLORIDE FLUSH 0.9% 10 ML SYRINGE IVP SCH ×3 (00:07→17:19)
[2019-05-20 04:57] LABS: BASOPHILS % (AUTO) 0.3 %; EOSINOPHILS # (AUTO) 0.2 10^3/uL (0.0-0.7); EOSINOPHILS % (AUTO) 4.7 %; HGB - HEMOGLOBIN 9.3 g/dL (12.0-16.0); LYMPHOCYTES # (AUTO) 0.9 10^3/uL (1.5-3.5); LYMPHOCYTES % (AUTO) 29.5 %; MEAN CORPUSCULAR HGB CONC 30.3 g/dL (32.0-36.0); MEAN CORPUSCULAR VOLUME 92.5 fL (81.0-99.0); MEAN PLATELET VOLUME 9.3 fL (7.9-10.8); MONOCYTES # (AUTO) 0.5 10^3/uL (0.0-1.0); MONOCYTES % (AUTO) 16.3 %; NEUTROPHILS # (AUTO) 1.5 10^3/uL (1.5-6.6); NEUTROPHILS % (AUTO) 48.3 %; PLT - PLATELET COUNT 262 10^3/uL (130-450); RED BLOOD COUNT 3.32 10^6/uL (4.20-5.40); RED CELL DISTRIBUTION WIDTH 15.7 % (12.0-15.0); WHITE BLOOD COUNT 3.2 x10^3/uL (4.8-10.8)
[2019-05-20 05:05] LABS: CALCIUM 8.8 mg/dL (8.5-10.3); CREATININE 0.8 mg/dL (0.4-1.0); MAGNESIUM 1.6 mg/dL (1.7-2.8); PHOSPHORUS 3.5 mg/dL (2.5-4.6)
[2019-05-20] MEDS: GABAPENTIN 400 MG CAPSULE PO SCH ×3 (06:21→21:16)
[2019-05-20] MEDS: PANTOPRAZOLE 40 MG TABLET PO SCH (06:21)
[2019-05-20] MEDS ORDERED: MAGNESIUM OXIDE 400 MG TABLET PO SCH (07:00)
[2019-05-20 07:45] LABS: BILIRUBIN,URINE NEGATIVE (NEGATIVE); GLUCOSE, URINE (UA) NEGATIVE (NEGATIVE); KETONES,URINE (UA) NEGATIVE (NEGATIVE); LEUKOCYTE ESTERASE, URINE NEGATIVE (NEGATIVE); NITRITE,URINE NEGATIVE (NEGATIVE); OCCULT BLOOD,URINE NEGATIVE (NEGATIVE); PROTEIN,URINE NEGATIVE (NEGATIVE); UROBILINOGEN,URINE 0.2 (NORMAL) E.U./dL (NORMAL)
[2019-05-20 07:48] LABS: CLARITY,URINE CLEAR (CLEAR)
[2019-05-20] MEDS: ENOXAPARIN 40 MG/0.4 ML SYRINGE SUBQ SCH (08:41)
[2019-05-20] MEDS: FERROUS SULFATE 325 MG TABLET PO SCH (08:42)
[2019-05-20] MEDS: INSULIN ASPART 300 UNIT/3 ML PEN SUBQ SCH ×4 (08:42→20:48)
[2019-05-20] MEDS: LACTATED RINGERS 1,000 ML IV SCH ×2 (08:42→18:46)
[2019-05-20] MEDS: predniSONE 5 MG TABLET PO SCH (08:42)
[2019-05-20] MEDS ORDERED: INSULIN GLARGINE 300 UNIT/3 ML PEN SUBQ SCH ×2 (09:00→21:00)
--- NOTE | 2019-05-20 10:15 | PHARMACY PROGRESS NOTE ---
- Best Possible Medication History Admit Date and Time: 05/19/191928 Processed by: Pharmacy Medication History completed: Yes Secondary Source(s): Previous admit records As the person ultimately responsible for medication therapy, providers are able to order a medication from an existing home medication list in [facility] via the "Reconcile Routine" prior to Confirmation of that medication by sales support administrator. Such practice is discouraged except when the physician, in their clinical judgment, deems that a medical need exists for a medication without regard to previous use.
--- NOTE | 2019-05-20 11:39 | PROVIDER PROGRESS NOTE ---
Subjective - Prog Note Date Prog Note Date: 05/20/19 Prog Note Time: 11:37 - Subjective Pt reports feeling: No change Subjective: Ceci notes that her biggest complaint is her recent diarrhea and shortness of breath. She states that her cough has been productive. She denies chest pain, nausea, vomiting, a new rash, or new back pain. She has been struggling with a poor appetite. Current Medications - Current Medications Current Medications: Active Medications: Acetaminophen (Tylenol) 650 mg PO Q4HR PRN Albuterol (Mdi: Albuterol) 2 puffs INH Q6H PRN Atorvastatin Calcium (Lipitor) 10 mg PO QPM [facility] Enoxaparin Sodium (Lovenox) 40 mg SUBQ DAILY [facility] Ferrous Sulfate (Feosol) 325 mg PO DAILYWM [facility] Gabapentin (Neurontin) 400 mg PO TID [facility] Lactated Ringer's (Lr) 1,000 mls @ 100 mls/hr IV .Q10H [facility] Levofloxacin (Levaquin 750 Mg/150 Ml) 750 mg in 150 mls @ 100 mls/hr IV Q48H [facility] Insulin Aspart (Novolog) 1 - 9 unit SUBQ 0800,1200,1700,2100 [facility]; Protocol Loperamide HCl (Imodium) 2 mg PO QID PRN Montelukast Sodium (Singulair) 10 mg PO QPM [facility] Morphine Sulfate (Ms Ir) 15 mg PO BID [facility] Pantoprazole Sodium (Protonix) 40 mg PO QDAC [facility] Prednisone (Deltasone) 5 mg PO DAILYWM [facility] Objective - Vital Signs/Intake & Output Reviewed Vital Signs: Yes Vital Signs: Vital Signs x48h Temp Pulse Resp BP Pulse Ox 05/20/19 07:56 36.6 C 97 18 145/71 H 95 05/20/19 04:40 36.9 C 77 16 125/62 92 Intake & Output: Intake & Output 05/17/19 05/18/19 05/19/19 05/20/19 23:59 23:59 23:59 23:59 Intake Total 1150 1400 Output Total 1260 Balance 1150 140 - Objective General Appearance: positive: Alert, Mild distress Eyes Bilateral: positive: PERRL, No lid inflammation ENT: positive: Pharyngeal erythema, Dry mucous membranes Neck: positive: No JVD, Trachea midline Respiratory: positive: Chest non-tender, No respiratory distress, Wheezes (expiratory), Rhonchi Cardiovascular: positive: No gallop, Tachycardia, Systolic murmur, Decreased pulse(s) Peripheral Pulses: 1+ Radial (R), 1+ Radial (L) Abdomen: positive: Non-tender, Nml bowel sounds, Other (rounded, soft) Back: positive: Nml inspection Skin: positive: No rash, Warm, Dry, Decubitus (coccyx, present on admit), Other (flushed cheeks) Extremities: positive: Non-tender, Pedal edema (mild to BLEs, abdominal edmea), Joint swelling Neurologic/Psychiatric: positive: Oriented x3, CN's nml (2-12), Motor nml, Weakness, Sensory loss, Depressed mood/affect (flat) Reflexes: Bicep (R): 3+, Bicep (L): 3+ - Lab Results Fish Bones: 05/20/19 04:40 05/20/19 04:40 Other Labs: Lab Results x24hrs 05/20/19 05/20/19 05/20/19 Range/Units 06:53 05:43 04:40 WBC (4.8-10.8) x10^3/uL RBC (4.20-5.40) 10^6/uL Hgb (12.0-16.0) g/dL Hct (37.0-47.0) % MCV (81.0-99.0) fL MCH (27.0-31.0) pg MCHC (32.0-36.0) g/dL RDW (12.0-15.0) % Plt Count (130-450) 10^3/uL MPV (7.9-10.8) fL Neut # (Auto) (1.5-6.6) 10^3/uL Lymph # (Auto) (1.5-3.5) 10^3/uL [place] # (Auto) (0.0-1.0) 10^3/uL Eos # (Auto) (0.0-0.7) 10^3/uL Baso # (Auto) (0.0-0.1) 10^3/uL Absolute Nucleated RBC x10^3/uL Nucleated RBC % /100WBC ESR (0-30) mm/Hr Sodium 138 (135-145) mmol/L Potassium 4.2 (3.5-5.0) mmol/L Chloride 104 (101-111) mmol/L Carbon Dioxide 26 (21-32) mmol/L Anion Gap 8.0 (6-13) BUN 14 (6-20) mg/dL Creatinine 0.8 (0.4-1.0) mg/dL Estimated GFR (MDRD) 71 L (>89) Glucose 83 (70-100) mg/dL Lactic Acid (0.5-2.2) mmol/L Calcium 8.8 (8.5-10.3) mg/dL Phosphorus 3.5 (2.5-4.6) mg/dL Magnesium 1.6 L (1.7-2.8) mg/dL Total Bilirubin (0.2-1.0) mg/dL AST (10-42) IU/L ALT (10-60) IU/L Alkaline Phosphatase (42-121) IU/L Total Creatine Kinase (22-269) IU/L Troponin I High Sens (2.3-14.8) ng/L C-Reactive Protein (0-1.0) mg/dL B-Natriuretic Peptide (5-100) pg/mL Total Protein (6.7-8.2) g/dL Albumin (3.2-5.5) g/dL Globulin (2.1-4.2) g/dL Albumin/Globulin Ratio (1.0-2.2) Lipase (22-51) U/L Urine Color LT. YELLOW Urine Clarity CLEAR (CLEAR) Urine pH 7.0 (5.0-7.5) PH Ur Specific [place] 1.010 (1.002-1.030) Urine Protein NEGATIVE (NEGATIVE) mg/dL Urine Glucose (UA) NEGATIVE (NEGATIVE) mg/dL Urine Ketones NEGATIVE (NEGATIVE) mg/dL Urine Occult Blood NEGATIVE (NEGATIVE) Urine Nitrite NEGATIVE (NEGATIVE) Urine Bilirubin NEGATIVE (NEGATIVE) Urine Urobilinogen 0.2 (NORMAL) (NORMAL) E.U./dL Ur Leukocyte Esterase NEGATIVE (NEGATIVE) Ur Microscopic Review NOT INDICATED Urine Culture Comments NOT INDICATED Stl C. diff Tox B Gene NEGATIVE (NEGATIVE) Influenza A (Rapid) (Negative) Influenza B (Rapid) (Negative) 05/20/19 05/19/19 05/19/19 Range/Units 04:40 20:10 20:10 WBC 3.2 L (4.8-10.8) x10^3/uL RBC 3.32 L (4.20-5.40) 10^6/uL Hgb 9.3 L (12.0-16.0) g/dL Hct 30.7 L (37.0-47.0) % MCV 92.5 (81.0-99.0) fL MCH 28.0 (27.0-31.0) pg MCHC 30.3 L (32.0-36.0) g/dL RDW 15.7 H (12.0-15.0) % Plt Count 262 (130-450) 10^3/uL MPV 9.3 (7.9-10.8) fL Neut # (Auto) 1.5 (1.5-6.6) 10^3/uL Lymph # (Auto) 0.9 L (1.5-3.5) 10^3/uL [place] # (Auto) 0.5 (0.0-1.0) 10^3/uL Eos # (Auto) 0.2 (0.0-0.7) 10^3/uL Baso # (Auto) 0.0 (0.0-0.1) 10^3/uL Absolute Nucleated RBC 0.00 x10^3/uL Nucleated RBC % 0.0 /100WBC ESR 84 H (0-30) mm/Hr Sodium (135-145) mmol/L Potassium (3.5-5.0) mmol/L Chloride (101-111) mmol/L Carbon Dioxide (21-32) mmol/L Anion Gap (6-13) BUN (6-20) mg/dL Creatinine (0.4-1.0) mg/dL Estimated GFR (MDRD) (>89) Glucose (70-100) mg/dL Lactic Acid (0.5-2.2) mmol/L Calcium (8.5-10.3) mg/dL Phosphorus (2.5-4.6) mg/dL Magnesium (1.7-2.8) mg/dL Total Bilirubin (0.2-1.0) mg/dL AST (10-42) IU/L ALT (10-60) IU/L Alkaline Phosphatase (42-121) IU/L Total Creatine Kinase (22-269) IU/L Troponin I High Sens 13.7 (2.3-14.8) ng/L C-Reactive Protein (0-1.0) mg/dL B-Natriuretic Peptide (5-100) pg/mL Total Protein (6.7-8.2) g/dL Albumin (3.2-5.5) g/dL Globulin (2.1-4.2) g/dL Albumin/Globulin Ratio (1.0-2.2) Lipase (22-51) U/L Urine Color Urine Clarity (CLEAR) Urine pH (5.0-7.5) PH Ur Specific [place] (1.002-1.030) Urine Protein (NEGATIVE) mg/dL Urine Glucose (UA) (NEGATIVE) mg/dL Urine Ketones (NEGATIVE) mg/dL Urine Occult Blood (NEGATIVE) Urine Nitrite (NEGATIVE) Urine Bilirubin (NEGATIVE) Urine Urobilinogen (NORMAL) E.U./dL Ur Leukocyte Esterase (NEGATIVE) Ur Microscopic Review Urine Culture Comments Stl C. diff Tox B Gene (NEGATIVE) Influenza A (Rapid) (Negative) Influenza B (Rapid) (Negative) 05/19/19 05/19/19 05/19/19 Range/Units 19:50 18:38 17:30 WBC (4.8-10.8) x10^3/uL RBC (4.20-5.40) 10^6/uL Hgb (12.0-16.0) g/dL Hct (37.0-47.0) % MCV (81.0-99.0) fL MCH (27.0-31.0) pg MCHC (32.0-36.0) g/dL RDW (12.0-15.0) % Plt Count (130-450) 10^3/uL MPV (7.9-10.8) fL Neut # (Auto) (1.5-6.6) 10^3/uL Lymph # (Auto) (1.5-3.5) 10^3/uL [place] # (Auto) (0.0-1.0) 10^3/uL Eos # (Auto) (0.0-0.7) 10^3/uL Baso # (Auto) (0.0-0.1) 10^3/uL Absolute Nucleated RBC x10^3/uL Nucleated RBC % /100WBC ESR (0-30) mm/Hr Sodium (135-145) mmol/L Potassium (3.5-5.0) mmol/L Chloride (101-111) mmol/L Carbon Dioxide (21-32) mmol/L Anion Gap (6-13) BUN (6-20) mg/dL Creatinine (0.4-1.0) mg/dL Estimated GFR (MDRD) (>89) Glucose (70-100) mg/dL Lactic Acid 0.7 (0.5-2.2) mmol/L Calcium (8.5-10.3) mg/dL Phosphorus (2.5-4.6) mg/dL Magnesium (1.7-2.8) mg/dL Total Bilirubin (0.2-1.0) mg/dL AST (10-42) IU/L ALT (10-60) IU/L Alkaline Phosphatase (42-121) IU/L Total Creatine Kinase 55 (22-269) IU/L Troponin I High Sens (2.3-14.8) ng/L C-Reactive Protein 5.9 H (0-1.0) mg/dL B-Natriuretic Peptide (5-100) pg/mL Total Protein (6.7-8.2) g/dL Albumin (3.2-5.5) g/dL Globulin (2.1-4.2) g/dL Albumin/Globulin Ratio (1.0-2.2) Lipase (22-51) U/L Urine Color Urine Clarity (CLEAR) Urine pH (5.0-7.5) PH Ur Specific [place] (1.002-1.030) Urine Protein (NEGATIVE) mg/dL Urine Glucose (UA) (NEGATIVE) mg/dL Urine Ketones (NEGATIVE) mg/dL Urine Occult Blood (NEGATIVE) Urine Nitrite (NEGATIVE) Urine Bilirubin (NEGATIVE) Urine Urobilinogen (NORMAL) E.U./dL Ur Leukocyte Esterase (NEGATIVE) Ur Microscopic Review Urine Culture Comments Stl C. diff Tox B Gene (NEGATIVE) Influenza A (Rapid) Negative (Negative) Influenza B (Rapid) Negative (Negative) 05/19/19 05/19/19 05/19/19 Range/Units 17:30 17:30 17:30 WBC 4.5 L (4.8-10.8) x10^3/uL RBC 3.52 L (4.20-5.40) 10^6/uL Hgb 9.9 L (12.0-16.0) g/dL Hct 32.6 L (37.0-47.0) % MCV 92.6 (81.0-99.0) fL MCH 28.1 (27.0-31.0) pg MCHC 30.4 L (32.0-36.0) g/dL RDW 15.7 H (12.0-15.0) % Plt Count 295 (130-450) 10^3/uL MPV 9.7 (7.9-10.8) fL Neut # (Auto) 3.3 (1.5-6.6) 10^3/uL Lymph # (Auto) 0.6 L (1.5-3.5) 10^3/uL [place] # (Auto) 0.5 (0.0-1.0) 10^3/uL Eos # (Auto) 0.1 (0.0-0.7) 10^3/uL Baso # (Auto) 0.0 (0.0-0.1) 10^3/uL Absolute Nucleated RBC 0.00 x10^3/uL Nucleated RBC % 0.0 /100WBC ESR (0-30) mm/Hr Sodium 133 L (135-145) mmol/L Potassium 4.9 (3.5-5.0) mmol/L Chloride 99 L (101-111) mmol/L Carbon Dioxide 25 (21-32) mmol/L Anion Gap 9.0 (6-13) BUN 14 (6-20) mg/dL Creatinine 0.9 (0.4-1.0) mg/dL Estimated GFR (MDRD) 62 L (>89) Glucose 112 H (70-100) mg/dL Lactic Acid (0.5-2.2) mmol/L Calcium 8.8 (8.5-10.3) mg/dL Phosphorus (2.5-4.6) mg/dL Magnesium (1.7-2.8) mg/dL Total Bilirubin 0.3 (0.2-1.0) mg/dL AST 27 (10-42) IU/L ALT 16 (10-60) IU/L Alkaline Phosphatase 96 (42-121) IU/L Total Creatine Kinase (22-269) IU/L Troponin I High Sens (2.3-14.8) ng/L C-Reactive Protein (0-1.0) mg/dL B-Natriuretic Peptide 22 (5-100) pg/mL Total Protein 6.1 L (6.7-8.2) g/dL Albumin 3.0 L (3.2-5.5) g/dL Globulin 3.1 (2.1-4.2) g/dL Albumin/Globulin Ratio 1.0 (1.0-2.2) Lipase 23 (22-51) U/L Urine Color Urine Clarity (CLEAR) Urine pH (5.0-7.5) PH Ur Specific [place] (1.002-1.030) Urine Protein (NEGATIVE) mg/dL Urine Glucose (UA) (NEGATIVE) mg/dL Urine Ketones (NEGATIVE) mg/dL Urine Occult Blood (NEGATIVE) Urine Nitrite (NEGATIVE) Urine Bilirubin (NEGATIVE) Urine Urobilinogen (NORMAL) E.U./dL Ur Leukocyte Esterase (NEGATIVE) Ur Microscopic Review Urine Culture Comments Stl C. diff Tox B Gene (NEGATIVE) Influenza A (Rapid) (Negative) Influenza B (Rapid) (Negative) ABX Reporting Has patient been on IV antibiotics over the past 48 hours?: Yes Sepsis Event Note (H) - Evaluation Current Stage of Sepsis: Resolved Assessment/Plan - Problem List (1) Hospital-acquired pneumonia Impression: -Only discharged 1 week ago -A chest x-ray shows persistent opacity in the right perihilar area -Other symptoms are fever, hypoxic and shortness of breath -Continues on Levaquin IV, sputum culture is pending -Continues on supplemental oxygen for goal saturation greater than 92% Fever -Temp max was 38.6 C at the time of admit -Afebrile today -Following inflammatory labs, routine labs, treating acute illness Hypoxia -Oxygen saturation was noted to be low at 87% on room air, improved with supplemental oxygen which continues today -She does not wear O2 at home -Exam appears as if she at least has pulmonary HTN, echo has been ordered, but may not be done until Thursday for staffing reasons, suggest outpatient echo -Continue respiratory cares, titrate O2 Pulmonary sarcoidosis -Known disease, also noted on imaging -Sees a appeals analyst (Dr. 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
[2019-05-20] MEDS: MORPHINE IR 15 MG TABLET PO SCH ×2 (11:58→21:16)
[2019-05-20] MEDS: LOPERAMIDE 2 MG CAPSULE PO PRN (17:15)
[2019-05-20] MEDS: MONTELUKAST 10 MG TABLET PO SCH (21:15)
[2019-05-20] MEDS: ATORVASTATIN 10 MG TABLET PO SCH (21:16)
[2019-05-21] MEDS: SODIUM CHLORIDE FLUSH 0.9% 10 ML SYRINGE IVP SCH ×4 (01:04→23:51)
[2019-05-21] MEDS: LACTATED RINGERS 1,000 ML IV SCH (04:53)
[2019-05-21 05:21] LABS: BASOPHILS % (AUTO) 0.3 %; EOSINOPHILS % (AUTO) 2.4 %; HGB - HEMOGLOBIN 8.7 g/dL (12.0-16.0); LYMPHOCYTES % (AUTO) 33.1 %; MEAN CORPUSCULAR HEMOGLOBIN 27.7 pg (27.0-31.0); MEAN CORPUSCULAR HGB CONC 29.8 g/dL (32.0-36.0); MEAN PLATELET VOLUME 9.3 fL (7.9-10.8); NEUTROPHILS % (AUTO) 50.7 %; PLT - PLATELET COUNT 262 10^3/uL (130-450); RED BLOOD COUNT 3.14 10^6/uL (4.20-5.40); RED CELL DISTRIBUTION WIDTH 15.7 % (12.0-15.0); WHITE BLOOD COUNT 3.7 x10^3/uL (4.8-10.8)
[2019-05-21 05:43] LABS: CALCIUM 8.4 mg/dL (8.5-10.3); CREATININE 0.7 mg/dL (0.4-1.0); CRP - C-REACTIVE PROTEIN 5.6 mg/dL (0-1.0); MAGNESIUM 1.5 mg/dL (1.7-2.8); PHOSPHORUS 2.9 mg/dL (2.5-4.6)
[2019-05-21] MEDS: ACETAMINOPHEN 325 MG TABLET PO PRN (05:57)
[2019-05-21] MEDS: GABAPENTIN 400 MG CAPSULE PO SCH ×3 (05:57→21:07)
[2019-05-21] MEDS: LOPERAMIDE 2 MG CAPSULE PO PRN (05:57)
[2019-05-21 05:59] LABS: ABNORMAL LYMPHS % (MANUAL) 4 %; BAND NEUTROPHILS % (MANUAL) 1 %; BASOPHILS % (MANUAL) 1 %; EOSINOPHILS # (MANUAL) 0.1 10^3/uL (0-0.7); LYMPHOCYTES # (MANUAL) 1.3 10^3/uL (1.5-3.5); LYMPHOCYTES % (MANUAL) 32 %; MONOCYTES # (MANUAL) 0.3 10^3/uL (0.0-1.0)
[2019-05-21] MEDS: PANTOPRAZOLE 40 MG TABLET PO SCH (06:00)
[2019-05-21 06:01] LABS: DIFFERENTIAL COMMENT MANUAL DIFFERENTIAL; PLATELET ESTIMATE, MANUAL NORMAL (130-450,000) (NORMAL); PLATELET MORPHOLOGY NORMAL APPEARANCE (NORMAL); RBC MORPHOLOGY (MULTIPLE) NORMAL APPEARANCE (NORMAL)
[2019-05-21] MEDS: MORPHINE IR 15 MG TABLET PO SCH ×2 (08:41→21:07)
[2019-05-21] MEDS: predniSONE 5 MG TABLET PO SCH (08:41)
[2019-05-21] MEDS: FERROUS SULFATE 325 MG TABLET PO SCH (08:41)
[2019-05-21] MEDS: ENOXAPARIN 40 MG/0.4 ML SYRINGE SUBQ SCH (08:41)
[2019-05-21] MEDS: INSULIN ASPART 300 UNIT/3 ML PEN SUBQ SCH ×4 (08:42→21:08)
--- NOTE | 2019-05-21 13:00 | PROVIDER PROGRESS NOTE ---
Subjective - Prog Note Date Prog Note Date: 05/21/19 Prog Note Time: 12:58 - Subjective Pt reports feeling: Improved (Patient thinks her breathing is improved, but continues to emphasize the phrase "a little" when asked if she is feeling better.) Current Medications - Current Medications Current Medications: Active Medications Acetaminophen (Tylenol) 650 mg PO Q4HR PRN PRN Reason: Pain 1 to 4 Last Admin: 05/21/19 05:57 Dose: 650 mg Albuterol (Mdi: Albuterol) 2 puffs INH Q6H PRN PRN Reason: Dyspnea Last Admin: 05/21/19 11:53 Dose: 2 puffs Atorvastatin Calcium (Lipitor) 10 mg PO QPM [facility] Last Admin: 05/20/19 21:16 Dose: 10 mg Enoxaparin Sodium (Lovenox) 40 mg SUBQ DAILY [facility] Last Admin: 05/21/19 08:41 Dose: 40 mg Ferrous Sulfate (Feosol) 325 mg PO DAILYWM [facility] Last Admin: 05/21/19 08:41 Dose: 325 mg Gabapentin (Neurontin) 400 mg PO TID [facility] Last Admin: 05/21/19 05:57 Dose: 400 mg Levofloxacin (Levaquin 750 Mg/150 Ml) 750 mg in 150 mls @ 100 mls/hr IV Q48H [facility] Last Infusion: 05/20/19 00:06 Dose: Infused Insulin Aspart (Novolog) 1 - 9 unit SUBQ 0800,1200,1700,2100 [facility]; Protocol Last Admin: 05/21/19 11:59 Dose: 1 unit Loperamide HCl (Imodium) 2 mg PO QID PRN PRN Reason: Diarrhea Last Admin: 05/21/19 05:57 Dose: 2 mg Montelukast Sodium (Singulair) 10 mg PO QPM [facility] Last Admin: 05/20/19 21:15 Dose: 10 mg Morphine Sulfate (Ms Ir) 15 mg PO BID [facility] Last Admin: 05/21/19 08:41 Dose: 15 mg Pantoprazole Sodium (Protonix) 40 mg PO QDAC [facility] Last Admin: 05/21/19 06:00 Dose: 40 mg Prednisone (Deltasone) 5 mg PO DAILYWM [facility] Last Admin: 05/21/19 08:41 Dose: 5 mg Sodium Chloride (Normal Saline Flush 0.9%) 10 ml IVP PRN PRN PRN Reason: NEEDED PER PROVIDER ORDERS Sodium Chloride (Normal Saline Flush 0.9%) 10 ml IVP 0100,0900,1700 [facility] Last Admin: 05/21/19 08:42 Dose: Not Given Acyclovir 400 mg PO BID 07/23/18 Albuterol Sulfate [Albuterol Sulfate Hfa] 2 puffs INH .Q3-4H PRN 07/23/18 Calcium Carbonate/Vitamin D3 [Calcium 600-Vit D3 400 Tablet] 1 tab PO BID 07/23/18 Folic Acid 1 mg PO DAILY 07/23/18 Gabapentin 2 cap PO TID 07/23/18 Hydroxychloroquine Sulfate 400 mg PO DAILY 07/23/18 Insulin Aspart [NovoLOG] 4 - 20 units SQ TID 07/23/18 Insulin Glargine,Hum.rec.anlog [Basaglar Kwikpen U-100] 15 unit SQ DAILY 07/23/18 Losartan Potassium 25 mg PO DAILY 07/23/18 Metoclopramide [Reglan] 10 mg PO TID 07/23/18 Montelukast Sodium 10 mg PO DAILY 07/23/18 Pantoprazole Sodium 40 mg PO DAILY 07/23/18 Potassium Chloride 20 meq PO DAILY 07/23/18 Rosuvastatin Calcium 10 mg PO QPM 07/23/18 predniSONE [Prednisone] 5 mg PO DAILY 07/23/18 mycophenolate mofetiL [Mycophenolate Mofetil] 4 cap PO BID 05/12/19 Acetaminophen [Tylenol] 650 mg PO .4-6H PRN 05/13/19 Fluticasone/Salmeterol [Advair Hfa 230-21 Mcg Inhaler] 2 inh INH BID 05/13/19 Morphine Sulfate 15 mg PO BID 05/13/19 Objective - Vital Signs/Intake & Output Reviewed Vital Signs: Yes Vital Signs: Vital Signs x48h Temp Pulse Pulse Resp BP Pulse Ox 05/21/19 11:54 73 20 05/21/19 08:00 37.1 C 80 18 101/55 L 95 Intake & Output: Intake & Output 05/18/19 05/19/19 05/20/19 05/21/19 23:59 23:59 23:59 23:59 Intake Total 1150 3160 2110 Output Total 1960 1450 Balance 1150 1200 660 - Objective General Appearance: positive: No acute distress Eyes Bilateral: positive: Normal inspection ENT: positive: ENT inspection nml Neck: positive: Nml inspection Respiratory: positive: Wheezes (Bilateral expiratory wheezing), Rhonchi (Rhonchi at the mid and lower lung [place], right worse than left) Cardiovascular: positive: Regular rate & rhythm, No murmur, No gallop Abdomen: positive: Non-tender, No organomegaly, Nml bowel sounds Neurologic/Psychiatric: positive: Oriented x3, CN's nml (2-12) - Lab Results Fish Bones: 05/21/19 04:50 05/21/19 04:50 Other Labs: Lab Results x24hrs 05/21/19 05/21/19 Range/Units 04:50 04:50 WBC 3.7 L (4.8-10.8) x10^3/uL RBC 3.14 L (4.20-5.40) 10^6/uL Hgb 8.7 L (12.0-16.0) g/dL Hct 29.2 L (37.0-47.0) % MCV 93.0 (81.0-99.0) fL MCH 27.7 (27.0-31.0) pg MCHC 29.8 L (32.0-36.0) g/dL RDW 15.7 H (12.0-15.0) % Plt Count 262 (130-450) 10^3/uL MPV 9.3 (7.9-10.8) fL Neut # (Auto) Not Reportable Lymph # (Auto) Not Reportable [place] # (Auto) Not Reportable Eos # (Auto) Not Reportable Baso # (Auto) Not Reportable Absolute Nucleated RBC Not Reportable Total Counted 100 Band Neuts % (Manual) 1 (0 - 10) % Abnorm Lymph % (Manual) 4 % Nucleated RBC % Not Reportable Neutrophils # (Manual) 1.9 (1.5-6.6) 10^3/uL Lymphocytes # (Manual) 1.3 L (1.5-3.5) 10^3/uL Monocytes # (Manual) 0.3 (0.0-1.0) 10^3/uL Eosinophils # (Manual) 0.1 (0-0.7) 10^3/uL Basophils # (Manual) 0.0 (0-0.1) 10^3/uL Differential Comment MANUAL DIFFERENTIAL WBC Morphology NORMAL APPEARANCE (NORMAL) Platelet Estimate NORMAL (130-450,000) (NORMAL) Platelet Morphology NORMAL APPEARANCE (NORMAL) RBC Morph Micro Appear NORMAL APPEARANCE (NORMAL) Sodium 136 (135-145) mmol/L Potassium 3.9 (3.5-5.0) mmol/L Chloride 102 (101-111) mmol/L Carbon Dioxide 26 (21-32) mmol/L Anion Gap 8.0 (6-13) BUN 10 (6-20) mg/dL Creatinine 0.7 (0.4-1.0) mg/dL Estimated GFR (MDRD) 83 L (>89) Glucose 87 (70-100) mg/dL Calcium 8.4 L (8.5-10.3) mg/dL Phosphorus 2.9 (2.5-4.6) mg/dL Magnesium 1.5 L (1.7-2.8) mg/dL C-Reactive Protein 5.6 H (0-1.0) mg/dL - Diagnostic Imaging Diagnostic Imaging Results: positive: Final report reviewed, Read independently Sepsis Event Note (H) - Evaluation Current Stage of Sepsis: Resolved Possible source of Sepsis: positive: Unknown - Sepsis Criteria Sepsis Criteria: Recorded Temperature greater than 38.3C or Less than 36C, Recorded Heart Rate greater than 90 bpm, Recorded Respiratory Rate greater than 20, Respiratory: Increasing oxygen requirements Assessment/Plan - Problem List (1) Hospital-acquired pneumonia Impression: Impression: -Discharged 1 week ago -A chest x-ray shows persistent opacity in the right perihilar area -Other symptoms are fever, hypoxia and shortness of breath -Continues on Levaquin IV, sputum culture is pending -Continues on supplemental oxygen for goal saturation greater than 92% - Given her history of underlying interstitial lung disease, may need to adjust the goals for saturations to be greater than 90% - Remains afebrile CRP slowly improving from 5.9-5.6 Hypoxia -Despite her carrying a diagnosis of sarcoidosis versus interstitial lung disease, she is not hypoxic at baseline with no home O2 requirements. -Exam appears as if she at least has pulmonary HTN, echo has been ordered, but may not be done until Thursday for staffing reasons, suggest outpatient echo -Continue respiratory cares, titrate O2 Pulmonary sarcoidosis -Known disease, also noted on imaging -Sees a software recruiter (Dr. Morales at [facility]) Dermatomyositis -Continues on hydroxychloroquine, mycophenolate, prednisone prescribed by her sas etl developer Diabetes mellitus treated with insulin -Hemoglobin A1c was 6.8% on 05/12/2019 -Blood sugars have been adequately controlled -Holding daily lantus for low sugars -Continues on SSI, blood sugar checks Anemia of chronic disease -H/H Slowly trending downward,Without overt evidence of bleeding - Continue to monitor, if bleeding is demonstrated or if H&H more dramatically change, such as less than 7.0 hemoglobin Could consider transfusion versus endoscopy studies - Hold off on iron panel given that patient's inflammatory markers are elevated, so ferritin will be difficult to interpret at this time. When patient is at baseline, if not already done in the outpatient setting, could benefit from an iron panel
[2019-05-21] MEDS ORDERED: BENZOCAINE/MENTHOL LOZENGE MM PRN (20:33)
[2019-05-21] MEDS: MONTELUKAST 10 MG TABLET PO SCH (21:07)
[2019-05-21] MEDS: ATORVASTATIN 10 MG TABLET PO SCH (21:08)
[2019-05-21] MEDS: levoFLOXacin 750 MG/150 ML 750 MG/150 ML BAG IV SCH (21:19)
[2019-05-22 05:24] LABS: BASOPHILS % (AUTO) 0.3 %; EOSINOPHILS % (AUTO) 3.1 %; HGB - HEMOGLOBIN 8.2 g/dL (12.0-16.0); MEAN CORPUSCULAR HEMOGLOBIN 26.5 pg (27.0-31.0); MEAN CORPUSCULAR HGB CONC 28.8 g/dL (32.0-36.0); MEAN CORPUSCULAR VOLUME 92.2 fL (81.0-99.0); MEAN PLATELET VOLUME 9.5 fL (7.9-10.8); MONOCYTES % (AUTO) 13.1 %; NEUTROPHILS % (AUTO) 57.2 %; PLT - PLATELET COUNT 250 10^3/uL (130-450); RED BLOOD COUNT 3.09 10^6/uL (4.20-5.40); RED CELL DISTRIBUTION WIDTH 15.8 % (12.0-15.0); WHITE BLOOD COUNT 3.3 x10^3/uL (4.8-10.8)
[2019-05-22 05:36] LABS: CALCIUM 8.6 mg/dL (8.5-10.3); CREATININE 0.8 mg/dL (0.4-1.0); MAGNESIUM 1.6 mg/dL (1.7-2.8); PHOSPHORUS 3.4 mg/dL (2.5-4.6)
[2019-05-22 05:57] LABS: ABNORMAL LYMPHS % (MANUAL) 3 %; BAND NEUTROPHILS % (MANUAL) 1 %; EOSINOPHILS # (MANUAL) 0.1 10^3/uL (0-0.7); LYMPHOCYTES # (MANUAL) 0.8 10^3/uL (1.5-3.5); LYMPHOCYTES % (MANUAL) 22 %; MONOCYTES # (MANUAL) 0.5 10^3/uL (0.0-1.0)
[2019-05-22 05:58] LABS: DIFFERENTIAL COMMENT MANUAL DIFFERENTIAL; PLATELET ESTIMATE, MANUAL NORMAL (130-450,000) (NORMAL); PLATELET MORPHOLOGY NORMAL APPEARANCE (NORMAL); RBC MORPHOLOGY (MULTIPLE) 1+ HYPOCHROMASIA (NORMAL)
[2019-05-22] MEDS: ACETAMINOPHEN 325 MG TABLET PO PRN (06:38)
[2019-05-22] MEDS: PANTOPRAZOLE 40 MG TABLET PO SCH (06:39)
[2019-05-22] MEDS: GABAPENTIN 400 MG CAPSULE PO SCH ×3 (06:39→22:31)
[2019-05-22] MEDS: MORPHINE IR 15 MG TABLET PO SCH ×2 (07:59→22:30)
[2019-05-22] MEDS: predniSONE 5 MG TABLET PO SCH (07:59)
[2019-05-22] MEDS: SODIUM CHLORIDE FLUSH 0.9% 10 ML SYRINGE IVP SCH ×2 (08:00→16:51)
[2019-05-22] MEDS: FERROUS SULFATE 325 MG TABLET PO SCH (08:00)
[2019-05-22] MEDS: INSULIN ASPART 300 UNIT/3 ML PEN SUBQ SCH ×4 (08:00→22:33)
[2019-05-22] MEDS: ENOXAPARIN 40 MG/0.4 ML SYRINGE SUBQ SCH (08:00)
[2019-05-22] MEDS ORDERED: MAGNESIUM SULFATE 1 GM in SODIUM CHLORIDE 0.9% 50 ML IV ONE (09:00)
--- NOTE | 2019-05-22 09:47 | PROVIDER PROGRESS NOTE ---
Subjective - Prog Note Date Prog Note Date: 05/22/19 Prog Note Time: 09:45 - Subjective Pt reports feeling: Improved Subjective: Feels somewhat lightheaded today Current Medications - Current Medications Current Medications: Active Medications Acetaminophen (Tylenol) 650 mg PO Q4HR PRN PRN Reason: Pain 1 to 4 Last Admin: 05/22/19 06:38 Dose: 650 mg Albuterol (Mdi: Albuterol) 2 puffs INH Q6H PRN PRN Reason: Dyspnea Last Admin: 05/21/19 11:53 Dose: 2 puffs Atorvastatin Calcium (Lipitor) 10 mg PO QPM [facility] Last Admin: 05/21/19 21:08 Dose: 10 mg Enoxaparin Sodium (Lovenox) 40 mg SUBQ DAILY [facility] Last Admin: 05/22/19 08:00 Dose: 40 mg Ferrous Sulfate (Feosol) 325 mg PO DAILYWM [facility] Last Admin: 05/22/19 08:00 Dose: 325 mg Gabapentin (Neurontin) 400 mg PO TID [facility] Last Admin: 05/22/19 06:39 Dose: 400 mg Levofloxacin (Levaquin 750 Mg/150 Ml) 750 mg in 150 mls @ 100 mls/hr IV Q48H [facility] Last Infusion: 05/21/19 22:50 Dose: Infused Magnesium Sulfate 1 gm/ Sodium (Chloride) 52 mls @ 54 mls/hr IV ONCE ONE Stop: 05/22/19 09:57 Insulin Aspart (Novolog) 1 - 9 unit SUBQ 0800,1200,1700,2100 [facility]; Protocol Last Admin: 05/22/19 08:00 Dose: Not Given Loperamide HCl (Imodium) 2 mg PO QID PRN PRN Reason: Diarrhea Last Admin: 05/21/19 05:57 Dose: 2 mg Montelukast Sodium (Singulair) 10 mg PO QPM [facility] Last Admin: 05/21/19 21:07 Dose: 10 mg Morphine Sulfate (Ms Ir) 15 mg PO BID [facility] Last Admin: 05/22/19 07:59 Dose: 15 mg Pantoprazole Sodium (Protonix) 40 mg PO QDAC [facility] Last Admin: 05/22/19 06:39 Dose: 40 mg Prednisone (Deltasone) 5 mg PO DAILYWM [facility] Last Admin: 05/22/19 07:59 Dose: 5 mg Sodium Chloride (Normal Saline Flush 0.9%) 10 ml IVP PRN PRN PRN Reason: NEEDED PER PROVIDER ORDERS Sodium Chloride (Normal Saline Flush 0.9%) 10 ml IVP 0100,0900,1700 ROMY Last Admin: 05/22/19 08:00 Dose: 10 ml Throat Lozenges (Cepacol) 1 lozenge MM Q2HR PRN PRN Reason: Throat pain Last Admin: 05/21/19 21:10 Dose: 1 lozenge Acyclovir 400 mg PO BID 07/23/18 Albuterol Sulfate [Albuterol Sulfate Hfa] 2 puffs INH .Q3-4H PRN 07/23/18 Calcium Carbonate/Vitamin D3 [Calcium 600-Vit D3 400 Tablet] 1 tab PO BID 07/23/18 Folic Acid 1 mg PO DAILY 07/23/18 Gabapentin 2 cap PO TID 07/23/18 Hydroxychloroquine Sulfate 400 mg PO DAILY 07/23/18 Insulin Aspart [NovoLOG] 4 - 20 units SQ TID 07/23/18 Insulin Glargine,Hum.rec.anlog [Basaglar Kwikpen U-100] 15 unit SQ DAILY 07/23/18 Losartan Potassium 25 mg PO DAILY 07/23/18 Metoclopramide [Reglan] 10 mg PO TID 07/23/18 Montelukast Sodium 10 mg PO DAILY 07/23/18 Pantoprazole Sodium 40 mg PO DAILY 07/23/18 Potassium Chloride 20 meq PO DAILY 07/23/18 Rosuvastatin Calcium 10 mg PO QPM 07/23/18 predniSONE [Prednisone] 5 mg PO DAILY 07/23/18 mycophenolate mofetiL [Mycophenolate Mofetil] 4 cap PO BID 05/12/19 Acetaminophen [Tylenol] 650 mg PO .4-6H PRN 05/13/19 Fluticasone/Salmeterol [Advair Hfa 230-21 Mcg Inhaler] 2 inh INH BID 05/13/19 Morphine Sulfate 15 mg PO BID 05/13/19 Objective - Vital Signs/Intake & Output Vital Signs: Vital Signs x48h Temp Pulse Resp BP Pulse Ox 05/22/19 07:45 16 05/22/19 07:40 37.0 C 78 16 114/57 L 95 Intake & Output: Intake & Output 05/19/19 05/20/19 05/21/19 04/12/20 23:59 23:59 23:59 23:59 Intake Total 1150 3160 3840 240 Output Total 1960 2400 550 Balance 1150 1200 1440 -310 - Objective General Appearance: positive: No acute distress, Other (Sitting upright in her chair, appears comfortable and in no distress but she does report feeling somewhat lightheaded) Eyes Bilateral: positive: Normal inspection Neck: positive: Nml inspection, Thyroid nml, No JVD Respiratory: positive: Chest non-tender, No respiratory distress, Wheezes, Rhonchi Cardiovascular: positive: Regular rate & rhythm, No murmur, No gallop Abdomen: positive: Non-tender, No organomegaly, Nml bowel sounds Extremities: positive: No pedal edema Neurologic/Psychiatric: positive: Oriented x3, CN's nml (2-12), Motor nml - Lab Results Fish Bones: 05/22/19 05:00 05/22/19 05:00 Other Labs: Lab Results x24hrs 05/22/19 05/22/19 05/22/19 Range/Units 07:41 05:00 05:00 WBC 3.3 L (4.8-10.8) x10^3/uL RBC 3.09 L (4.20-5.40) 10^6/uL Hgb 8.2 L (12.0-16.0) g/dL Hct 28.5 L (37.0-47.0) % MCV 92.2 (81.0-99.0) fL MCH 26.5 L (27.0-31.0) pg MCHC 28.8 L (32.0-36.0) g/dL RDW 15.8 H (12.0-15.0) % Plt Count 250 (130-450) 10^3/uL MPV 9.5 (7.9-10.8) fL Neut # (Auto) Not Reportable Lymph # (Auto) Not Reportable [place] # (Auto) Not Reportable Eos # (Auto) Not Reportable Baso # (Auto) Not Reportable Absolute Nucleated RBC Not Reportable Total Counted 100 Band Neuts % (Manual) 1 (0 - 10) % Abnorm Lymph % (Manual) 3 % Nucleated RBC % Not Reportable Neutrophils # (Manual) 1.9 (1.5-6.6) 10^3/uL Lymphocytes # (Manual) 0.8 L (1.5-3.5) 10^3/uL Monocytes # (Manual) 0.5 (0.0-1.0) 10^3/uL Eosinophils # (Manual) 0.1 (0-0.7) 10^3/uL Basophils # (Manual) 0.0 (0-0.1) 10^3/uL Differential Comment MANUAL DIFFERENTIAL WBC Morphology NORMAL APPEARANCE (NORMAL) Platelet Estimate NORMAL (130-450,000) (NORMAL) Platelet Morphology NORMAL APPEARANCE (NORMAL) RBC Morph Micro Appear 1+ HYPOCHROMASIA (NORMAL) Sodium 137 (135-145) mmol/L Potassium 4.5 (3.5-5.0) mmol/L Chloride 100 L (101-111) mmol/L Carbon Dioxide 29 (21-32) mmol/L Anion Gap 8.0 (6-13) BUN 11 (6-20) mg/dL Creatinine 0.8 (0.4-1.0) mg/dL Estimated GFR (MDRD) 71 L (>89) Glucose 88 (70-100) mg/dL POC Whole Bld Glucose 85 (70 - 100) mg/dL Calcium 8.6 (8.5-10.3) mg/dL Phosphorus 3.4 (2.5-4.6) mg/dL Magnesium 1.6 L (1.7-2.8) mg/dL 05/21/19 05/21/19 05/21/19 Range/Units 20:34 16:57 11:43 WBC (4.8-10.8) x10^3/uL RBC (4.20-5.40) 10^6/uL Hgb (12.0-16.0) g/dL Hct (37.0-47.0) % MCV (81.0-99.0) fL MCH (27.0-31.0) pg MCHC (32.0-36.0) g/dL RDW (12.0-15.0) % Plt Count (130-450) 10^3/uL MPV (7.9-10.8) fL Neut # (Auto) Lymph # (Auto) [place] # (Auto) Eos # (Auto) Baso # (Auto) Absolute Nucleated RBC Total Counted Band Neuts % (Manual) (0 - 10) % Abnorm Lymph % (Manual) % Nucleated RBC % Neutrophils # (Manual) (1.5-6.6) 10^3/uL Lymphocytes # (Manual) (1.5-3.5) 10^3/uL Monocytes # (Manual) (0.0-1.0) 10^3/uL Eosinophils # (Manual) (0-0.7) 10^3/uL Basophils # (Manual) (0-0.1) 10^3/uL Differential Comment WBC Morphology (NORMAL) Platelet Estimate (NORMAL) Platelet Morphology (NORMAL) RBC Morph Micro Appear (NORMAL) Sodium (135-145) mmol/L Potassium (3.5-5.0) mmol/L Chloride (101-111) mmol/L Carbon Dioxide (21-32) mmol/L Anion Gap (6-13) BUN (6-20) mg/dL Creatinine (0.4-1.0) mg/dL Estimated GFR (MDRD) (>89) Glucose (70-100) mg/dL POC Whole Bld Glucose 137 H 211 H 158 H (70 - 100) mg/dL Calcium (8.5-10.3) mg/dL Phosphorus (2.5-4.6) mg/dL Magnesium (1.7-2.8) mg/dL 05/21/19 05/20/19 05/20/19 Range/Units 07:51 20:37 16:34 WBC (4.8-10.8) x10^3/uL RBC (4.20-5.40) 10^6/uL Hgb (12.0-16.0) g/dL Hct (37.0-47.0) % MCV (81.0-99.0) fL MCH (27.0-31.0) pg MCHC (32.0-36.0) g/dL RDW (12.0-15.0) % Plt Count (130-450) 10^3/uL MPV (7.9-10.8) fL Neut # (Auto) Lymph # (Auto) [place] # (Auto) Eos # (Auto) Baso # (Auto) Absolute Nucleated RBC Total Counted Band Neuts % (Manual) (0 - 10) % Abnorm Lymph % (Manual) % Nucleated RBC % Neutrophils # (Manual) (1.5-6.6) 10^3/uL Lymphocytes # (Manual) (1.5-3.5) 10^3/uL Monocytes # (Manual) (0.0-1.0) 10^3/uL Eosinophils # (Manual) (0-0.7) 10^3/uL Basophils # (Manual) (0-0.1) 10^3/uL Differential Comment WBC Morphology (NORMAL) Platelet Estimate (NORMAL) Platelet Morphology (NORMAL) RBC Morph Micro Appear (NORMAL) Sodium (135-145) mmol/L Potassium (3.5-5.0) mmol/L Chloride (101-111) mmol/L Carbon Dioxide (21-32) mmol/L Anion Gap (6-13) BUN (6-20) mg/dL Creatinine (0.4-1.0) mg/dL Estimated GFR (MDRD) (>89) Glucose (70-100) mg/dL POC Whole Bld Glucose 94 122 H 160 H (70 - 100) mg/dL Calcium (8.5-10.3) mg/dL Phosphorus (2.5-4.6) mg/dL Magnesium (1.7-2.8) mg/dL 05/20/19 05/20/19 05/19/19 Range/Units 11:32 07:50 21:20 WBC (4.8-10.8) x10^3/uL RBC (4.20-5.40) 10^6/uL Hgb (12.0-16.0) g/dL Hct (37.0-47.0) % MCV (81.0-99.0) fL MCH (27.0-31.0) pg MCHC (32.0-36.0) g/dL RDW (12.0-15.0) % Plt Count (130-450) 10^3/uL MPV (7.9-10.8) fL Neut # (Auto) Lymph # (Auto) [place] # (Auto) Eos # (Auto) Baso # (Auto) Absolute Nucleated RBC Total Counted Band Neuts % (Manual) (0 - 10) % Abnorm Lymph % (Manual) % Nucleated RBC % Neutrophils # (Manual) (1.5-6.6) 10^3/uL Lymphocytes # (Manual) (1.5-3.5) 10^3/uL Monocytes # (Manual) (0.0-1.0) 10^3/uL Eosinophils # (Manual) (0-0.7) 10^3/uL Basophils # (Manual) (0-0.1) 10^3/uL Differential Comment WBC Morphology (NORMAL) Platelet Estimate (NORMAL) Platelet Morphology (NORMAL) RBC Morph Micro Appear (NORMAL) Sodium (135-145) mmol/L Potassium (3.5-5.0) mmol/L Chloride (101-111) mmol/L Carbon Dioxide (21-32) mmol/L Anion Gap (6-13) BUN (6-20) mg/dL Creatinine (0.4-1.0) mg/dL Estimated GFR (MDRD) (>89) Glucose (70-100) mg/dL POC Whole Bld Glucose 121 H 79 86 (70 - 100) mg/dL Calcium (8.5-10.3) mg/dL Phosphorus (2.5-4.6) mg/dL Magnesium (1.7-2.8) mg/dL - Diagnostic Imaging Diagnostic Imaging Results: positive: Final report reviewed ABX Reporting Has patient been on IV antibiotics over the past 48 hours?: Yes Sepsis Event Note (H) - Evaluation Current Stage of Sepsis: Resolved Possible source of Sepsis: positive: Unknown - Sepsis Criteria Sepsis Criteria: Recorded Temperature greater than 38.3C or Less than 36C, Recorded Heart Rate greater than 90 bpm, Recorded Respiratory Rate greater than 20, Respiratory: Increasing oxygen requirements Assessment/Plan - Problem List (1) Hospital-acquired pneumonia Impression: Impression: -Discharged 1 week ago -A chest x-ray shows persistent opacity in the right perihilar area -Has been afebrile since 05/19/2019 -Continues on Levaquin IV, sputum culture is pending - Going to transition her to oral antibiotics given her significant clinical improvement and in preparation for discharge home -Continues on supplemental oxygen for goal saturation greater than 92% - Given her history of underlying interstitial lung disease, may need to adjust the goals for saturations to be greater than 90% - Remains afebrile CRP slowly improved from 5.9-5.6, will defer further trending unless clinically changes Hypoxia -Despite her carrying a diagnosis of sarcoidosis versus interstitial lung disease, she is not hypoxic at baseline with no home O2 requirements. -Exam appears as if she at least has pulmonary HTN, echo has been ordered, but may not be done until Thursday for staffing reasons, suggest outpatient echo -Continue respiratory cares, titrate O2 Pulmonary sarcoidosis -Known disease, also noted on imaging -Sees a horse trekking guide (Dr. 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 When patient is at baseline, if not already done in the outpatient setting, could benefit from an iron panel
--- NOTE | 2019-05-22 14:38 | PROVIDER PROGRESS NOTE ---
Subjective - Prog Note Date Prog Note Date: 05/22/19 Prog Note Time: 14:35 - Subjective Pt reports feeling: Improved (Patient reports marginal improvement with shortness of breath and weakness) Current Medications - Current Medications Current Medications: Active Medications Acetaminophen (Tylenol) 650 mg PO Q4HR PRN PRN Reason: Pain 1 to 4 Last Admin: 05/22/19 06:38 Dose: 650 mg Albuterol (Mdi: Albuterol) 2 puffs INH Q6H PRN PRN Reason: Dyspnea Last Admin: 05/21/19 11:53 Dose: 2 puffs Atorvastatin Calcium (Lipitor) 10 mg PO QPM [facility] Last Admin: 05/21/19 21:08 Dose: 10 mg Enoxaparin Sodium (Lovenox) 40 mg SUBQ DAILY [facility] Last Admin: 05/22/19 08:00 Dose: 40 mg Ferrous Sulfate (Feosol) 325 mg PO DAILYWM [facility] Last Admin: 05/22/19 08:00 Dose: 325 mg Gabapentin (Neurontin) 400 mg PO TID [facility] Last Admin: 05/22/19 13:44 Dose: 400 mg Levofloxacin (Levaquin 750 Mg/150 Ml) 750 mg in 150 mls @ 100 mls/hr IV Q48H [facility] Last Infusion: 05/21/19 22:50 Dose: Infused Insulin Aspart (Novolog) 1 - 9 unit SUBQ 0800,1200,1700,2100 [facility]; Protocol Last Admin: 05/22/19 11:19 Dose: Not Given Loperamide HCl (Imodium) 2 mg PO QID PRN PRN Reason: Diarrhea Last Admin: 05/21/19 05:57 Dose: 2 mg Montelukast Sodium (Singulair) 10 mg PO QPM [facility] Last Admin: 05/21/19 21:07 Dose: 10 mg Morphine Sulfate (Ms Ir) 15 mg PO BID [facility] Last Admin: 05/22/19 07:59 Dose: 15 mg Pantoprazole Sodium (Protonix) 40 mg PO QDAC [facility] Last Admin: 05/22/19 06:39 Dose: 40 mg Prednisone (Deltasone) 5 mg PO DAILYWM [facility] Last Admin: 05/22/19 07:59 Dose: 5 mg Sodium Chloride (Normal Saline Flush 0.9%) 10 ml IVP PRN PRN PRN Reason: NEEDED PER PROVIDER ORDERS Sodium Chloride (Normal Saline Flush 0.9%) 10 ml IVP 0100,0900,1700 [facility] Last Admin: 05/22/19 08:00 Dose: 10 ml Throat Lozenges (Cepacol) 1 lozenge MM Q2HR PRN PRN Reason: Throat pain Last Admin: 05/21/19 21:10 Dose: 1 lozenge Acyclovir 400 mg PO BID 07/23/18 Albuterol Sulfate [Albuterol Sulfate Hfa] 2 puffs INH .Q3-4H PRN 07/23/18 Calcium Carbonate/Vitamin D3 [Calcium 600-Vit D3 400 Tablet] 1 tab PO BID 07/23/18 Folic Acid 1 mg PO DAILY 07/23/18 Gabapentin 2 cap PO TID 07/23/18 Hydroxychloroquine Sulfate 400 mg PO DAILY 07/23/18 Insulin Aspart [NovoLOG] 4 - 20 units SQ TID 07/23/18 Insulin Glargine,Hum.rec.anlog [Basaglar Kwikpen U-100] 15 unit SQ DAILY 07/23/18 Losartan Potassium 25 mg PO DAILY 07/23/18 Metoclopramide [Reglan] 10 mg PO TID 07/23/18 Montelukast Sodium 10 mg PO DAILY 07/23/18 Pantoprazole Sodium 40 mg PO DAILY 07/23/18 Potassium Chloride 20 meq PO DAILY 07/23/18 Rosuvastatin Calcium 10 mg PO QPM 07/23/18 predniSONE [Prednisone] 5 mg PO DAILY 07/23/18 mycophenolate mofetiL [Mycophenolate Mofetil] 4 cap PO BID 05/12/19 Acetaminophen [Tylenol] 650 mg PO .4-6H PRN 05/13/19 Fluticasone/Salmeterol [Advair Hfa 230-21 Mcg Inhaler] 2 inh INH BID 05/13/19 Morphine Sulfate 15 mg PO BID 05/13/19 Objective - Vital Signs/Intake & Output Reviewed Vital Signs: Yes Vital Signs: Vital Signs x48h Temp Pulse Resp BP Pulse Ox 05/22/19 07:45 16 05/22/19 07:40 37.0 C 78 16 114/57 L 95 Intake & Output: Intake & Output 05/19/19 05/20/19 05/21/19 05/22/19 23:59 23:59 23:59 23:59 Intake Total 1150 3160 3840 772 Output Total 6108 1930 1350 Balance 1150 1200 1440 -578 - Objective General Appearance: positive: No acute distress (Patient sitting upright in a chair, appears to be more energetic than yesterday, no acute distress) Eyes Bilateral: positive: Normal inspection - Lab Results Fish Bones: 05/22/19 05:00 05/22/19 05:00 Other Labs: Lab Results x24hrs 05/22/19 05/22/19 05/22/19 Range/Units 11:04 07:41 05:00 WBC (4.8-10.8) x10^3/uL RBC (4.20-5.40) 10^6/uL Hgb (12.0-16.0) g/dL Hct (37.0-47.0) % MCV (81.0-99.0) fL MCH (27.0-31.0) pg MCHC (32.0-36.0) g/dL RDW (12.0-15.0) % Plt Count (130-450) 10^3/uL MPV (7.9-10.8) fL Neut # (Auto) Lymph # (Auto) [place] # (Auto) Eos # (Auto) Baso # (Auto) Absolute Nucleated RBC Total Counted Band Neuts % (Manual) (0 - 10) % Abnorm Lymph % (Manual) % Nucleated RBC % Neutrophils # (Manual) (1.5-6.6) 10^3/uL Lymphocytes # (Manual) (1.5-3.5) 10^3/uL Monocytes # (Manual) (0.0-1.0) 10^3/uL Eosinophils # (Manual) (0-0.7) 10^3/uL Basophils # (Manual) (0-0.1) 10^3/uL Differential Comment WBC Morphology (NORMAL) Platelet Estimate (NORMAL) Platelet Morphology (NORMAL) RBC Morph Micro Appear (NORMAL) Sodium 137 (135-145) mmol/L Potassium 4.5 (3.5-5.0) mmol/L Chloride 100 L (101-111) mmol/L Carbon Dioxide 29 (21-32) mmol/L Anion Gap 8.0 (6-13) BUN 11 (6-20) mg/dL Creatinine 0.8 (0.4-1.0) mg/dL Estimated GFR (MDRD) 71 L (>89) Glucose 88 (70-100) mg/dL POC Whole Bld Glucose 131 H 85 (70 - 100) mg/dL Calcium 8.6 (8.5-10.3) mg/dL Phosphorus 3.4 (2.5-4.6) mg/dL Magnesium 1.6 L (1.7-2.8) mg/dL 05/22/19 05/21/19 05/21/19 Range/Units 05:00 20:34 16:57 WBC 3.3 L (4.8-10.8) x10^3/uL RBC 3.09 L (4.20-5.40) 10^6/uL Hgb 8.2 L (12.0-16.0) g/dL Hct 28.5 L (37.0-47.0) % MCV 92.2 (81.0-99.0) fL MCH 26.5 L (27.0-31.0) pg MCHC 28.8 L (32.0-36.0) g/dL RDW 15.8 H (12.0-15.0) % Plt Count 250 (130-450) 10^3/uL MPV 9.5 (7.9-10.8) fL Neut # (Auto) Not Reportable Lymph # (Auto) Not Reportable [place] # (Auto) Not Reportable Eos # (Auto) Not Reportable Baso # (Auto) Not Reportable Absolute Nucleated RBC Not Reportable Total Counted 100 Band Neuts % (Manual) 1 (0 - 10) % Abnorm Lymph % (Manual) 3 % Nucleated RBC % Not Reportable Neutrophils # (Manual) 1.9 (1.5-6.6) 10^3/uL Lymphocytes # (Manual) 0.8 L (1.5-3.5) 10^3/uL Monocytes # (Manual) 0.5 (0.0-1.0) 10^3/uL Eosinophils # (Manual) 0.1 (0-0.7) 10^3/uL Basophils # (Manual) 0.0 (0-0.1) 10^3/uL Differential Comment MANUAL DIFFERENTIAL WBC Morphology NORMAL APPEARANCE (NORMAL) Platelet Estimate NORMAL (130-450,000) (NORMAL) Platelet Morphology NORMAL APPEARANCE (NORMAL) RBC Morph Micro Appear 1+ HYPOCHROMASIA (NORMAL) Sodium (135-145) mmol/L Potassium (3.5-5.0) mmol/L Chloride (101-111) mmol/L Carbon Dioxide (21-32) mmol/L Anion Gap (6-13) BUN (6-20) mg/dL Creatinine (0.4-1.0) mg/dL Estimated GFR (MDRD) (>89) Glucose (70-100) mg/dL POC Whole Bld Glucose 137 H 211 H (70 - 100) mg/dL Calcium (8.5-10.3) mg/dL Phosphorus (2.5-4.6) mg/dL Magnesium (1.7-2.8) mg/dL 05/21/19 05/21/19 05/20/19 Range/Units 11:43 07:51 20:37 WBC (4.8-10.8) x10^3/uL RBC (4.20-5.40) 10^6/uL Hgb (12.0-16.0) g/dL Hct (37.0-47.0) % MCV (81.0-99.0) fL MCH (27.0-31.0) pg MCHC (32.0-36.0) g/dL RDW (12.0-15.0) % Plt Count (130-450) 10^3/uL MPV (7.9-10.8) fL Neut # (Auto) Lymph # (Auto) [place] # (Auto) Eos # (Auto) Baso # (Auto) Absolute Nucleated RBC Total Counted Band Neuts % (Manual) (0 - 10) % Abnorm Lymph % (Manual) % Nucleated RBC % Neutrophils # (Manual) (1.5-6.6) 10^3/uL Lymphocytes # (Manual) (1.5-3.5) 10^3/uL Monocytes # (Manual) (0.0-1.0) 10^3/uL Eosinophils # (Manual) (0-0.7) 10^3/uL Basophils # (Manual) (0-0.1) 10^3/uL Differential Comment WBC Morphology (NORMAL) Platelet Estimate (NORMAL) Platelet Morphology (NORMAL) RBC Morph Micro Appear (NORMAL) Sodium (135-145) mmol/L Potassium (3.5-5.0) mmol/L Chloride (101-111) mmol/L Carbon Dioxide (21-32) mmol/L Anion Gap (6-13) BUN (6-20) mg/dL Creatinine (0.4-1.0) mg/dL Estimated GFR (MDRD) (>89) Glucose (70-100) mg/dL POC Whole Bld Glucose 158 H 94 122 H (70 - 100) mg/dL Calcium (8.5-10.3) mg/dL Phosphorus (2.5-4.6) mg/dL Magnesium (1.7-2.8) mg/dL 05/20/19 05/20/19 05/20/19 Range/Units 16:34 11:32 07:50 WBC (4.8-10.8) x10^3/uL RBC (4.20-5.40) 10^6/uL Hgb (12.0-16.0) g/dL Hct (37.0-47.0) % MCV (81.0-99.0) fL MCH (27.0-31.0) pg MCHC (32.0-36.0) g/dL RDW (12.0-15.0) % Plt Count (130-450) 10^3/uL MPV (7.9-10.8) fL Neut # (Auto) Lymph # (Auto) [place] # (Auto) Eos # (Auto) Baso # (Auto) Absolute Nucleated RBC Total Counted Band Neuts % (Manual) (0 - 10) % Abnorm Lymph % (Manual) % Nucleated RBC % Neutrophils # (Manual) (1.5-6.6) 10^3/uL Lymphocytes # (Manual) (1.5-3.5) 10^3/uL Monocytes # (Manual) (0.0-1.0) 10^3/uL Eosinophils # (Manual) (0-0.7) 10^3/uL Basophils # (Manual) (0-0.1) 10^3/uL Differential Comment WBC Morphology (NORMAL) Platelet Estimate (NORMAL) Platelet Morphology (NORMAL) RBC Morph Micro Appear (NORMAL) Sodium (135-145) mmol/L Potassium (3.5-5.0) mmol/L Chloride (101-111) mmol/L Carbon Dioxide (21-32) mmol/L Anion Gap (6-13) BUN (6-20) mg/dL Creatinine (0.4-1.0) mg/dL Estimated GFR (MDRD) (>89) Glucose (70-100) mg/dL POC Whole Bld Glucose 160 H 121 H 79 (70 - 100) mg/dL Calcium (8.5-10.3) mg/dL Phosphorus (2.5-4.6) mg/dL Magnesium (1.7-2.8) mg/dL 05/19/19 Range/Units 21:20 WBC (4.8-10.8) x10^3/uL RBC (4.20-5.40) 10^6/uL Hgb (12.0-16.0) g/dL Hct (37.0-47.0) % MCV (81.0-99.0) fL MCH (27.0-31.0) pg MCHC (32.0-36.0) g/dL RDW (12.0-15.0) % Plt Count (130-450) 10^3/uL MPV (7.9-10.8) fL Neut # (Auto) Lymph # (Auto) [place] # (Auto) Eos # (Auto) Baso # (Auto) Absolute Nucleated RBC Total Counted Band Neuts % (Manual) (0 - 10) % Abnorm Lymph % (Manual) % Nucleated RBC % Neutrophils # (Manual) (1.5-6.6) 10^3/uL Lymphocytes # (Manual) (1.5-3.5) 10^3/uL Monocytes # (Manual) (0.0-1.0) 10^3/uL Eosinophils # (Manual) (0-0.7) 10^3/uL Basophils # (Manual) (0-0.1) 10^3/uL Differential Comment WBC Morphology (NORMAL) Platelet Estimate (NORMAL) Platelet Morphology (NORMAL) RBC Morph Micro Appear (NORMAL) Sodium (135-145) mmol/L Potassium (3.5-5.0) mmol/L Chloride (101-111) mmol/L Carbon Dioxide (21-32) mmol/L Anion Gap (6-13) BUN (6-20) mg/dL Creatinine (0.4-1.0) mg/dL Estimated GFR (MDRD) (>89) Glucose (70-100) mg/dL POC Whole Bld Glucose 86 (70 - 100) mg/dL Calcium (8.5-10.3) mg/dL Phosphorus (2.5-4.6) mg/dL Magnesium (1.7-2.8) mg/dL Sepsis Event Note (H) - Evaluation Current Stage of Sepsis: Resolved Possible source of Sepsis: positive: Unknown - Sepsis Criteria Sepsis Criteria: Recorded Temperature greater than 38.3C or Less than 36C, Recorded Heart Rate greater than 90 bpm, Recorded Respiratory Rate greater than 20, Respiratory: Increasing oxygen requirements
[2019-05-22] MEDS: LOPERAMIDE 2 MG CAPSULE PO PRN (16:51)
[2019-05-22] MEDS: ATORVASTATIN 10 MG TABLET PO SCH (22:31)
[2019-05-22] MEDS: MONTELUKAST 10 MG TABLET PO SCH (22:31)
[2019-05-23] MEDS: SODIUM CHLORIDE FLUSH 0.9% 10 ML SYRINGE IVP SCH ×2 (00:53→09:50)
[2019-05-23] MEDS: ACETAMINOPHEN 325 MG TABLET PO PRN (06:05)
[2019-05-23] MEDS: GABAPENTIN 400 MG CAPSULE PO SCH ×2 (06:05→14:12)
[2019-05-23] MEDS: PANTOPRAZOLE 40 MG TABLET PO SCH (06:06)
[2019-05-23 07:32] LABS: CALCIUM 8.1 mg/dL (8.5-10.3); CREATININE 0.7 mg/dL (0.4-1.0); MAGNESIUM 1.5 mg/dL (1.7-2.8)
[2019-05-23 07:40] LABS: BASOPHILS % (AUTO) 0.3 %; EOSINOPHILS # (AUTO) 0.1 10^3/uL (0.0-0.7); EOSINOPHILS % (AUTO) 2.5 %; HGB - HEMOGLOBIN 8.7 g/dL (12.0-16.0); LYMPHOCYTES # (AUTO) 0.8 10^3/uL (1.5-3.5); LYMPHOCYTES % (AUTO) 22.4 %; MEAN CORPUSCULAR HEMOGLOBIN 27.1 pg (27.0-31.0); MEAN CORPUSCULAR HGB CONC 29.9 g/dL (32.0-36.0); MEAN CORPUSCULAR VOLUME 90.7 fL (81.0-99.0); MEAN PLATELET VOLUME 9.1 fL (7.9-10.8); MONOCYTES # (AUTO) 0.5 10^3/uL (0.0-1.0); NEUTROPHILS # (AUTO) 2.1 10^3/uL (1.5-6.6); NEUTROPHILS % (AUTO) 60.7 %; PLT - PLATELET COUNT 265 10^3/uL (130-450); RED BLOOD COUNT 3.21 10^6/uL (4.20-5.40); RED CELL DISTRIBUTION WIDTH 15.2 % (12.0-15.0); WHITE BLOOD COUNT 3.5 x10^3/uL (4.8-10.8)
[2019-05-23] MEDS ORDERED: MAGNESIUM OXIDE 400 MG TABLET PO SCH (08:00)
[2019-05-23 08:08] LABS: DIFFERENTIAL COMMENT Y; RBC MORPHOLOGY (MULTIPLE) 3+ ANISOCYTOSIS (NORMAL)
[2019-05-23] MEDS: INSULIN ASPART 300 UNIT/3 ML PEN SUBQ SCH ×2 (08:57→12:01)
[2019-05-23] MEDS ORDERED: levoFLOXacin 250 MG TABLET PO SCH (09:00)
[2019-05-23] MEDS: ENOXAPARIN 40 MG/0.4 ML SYRINGE SUBQ SCH (09:49)
[2019-05-23] MEDS: FERROUS SULFATE 325 MG TABLET PO SCH (09:50)
[2019-05-23] MEDS: predniSONE 5 MG TABLET PO SCH (09:50)
[2019-05-23] MEDS: MORPHINE IR 15 MG TABLET PO SCH (09:50)
[2019-05-23] MEDS ORDERED: LACTOBACILLUS RHAMNOSUS GG CAPSULE PO SCH (11:00)
--- NOTE | 2019-05-23 13:06 | Discharge Plan ---
Discharge Plan Problem Reviewed?: Yes Disposition: Home Health Service Condition: Serious Prescriptions: levoFLOXacin [Levaquin] 750 mg PO DAILY 6 Days #6 tablet Magnesium Oxide [Mag Ox] 400 mg PO DAILYWM #30 tablet Diet: Regular Activity Restrictions: No Restrictions Shower Restrictions: No Driving Restrictions: Yes (Wait to drive until you're strength has returned to normal) Weight Bearing: Full Weight Follow-Up Care: Home Health - PT No Smoking: If you smoke, Please STOP! Call for help. Follow-up with: Eric Monterroso MD [Primary Care Provider] -
--- NOTE | 2019-05-23 13:09 | DISCHARGE SUMMARY ---
Discharge Summary Admit Date: 05/19/19 Discharge Date: 05/23/19 Discharging Provider: Fidencio Tinajero MD Primary Care Provider: Dr Eric Monterroso Code Status: Do Not Attempt Resuscitation Condition at Discharge: Serious Discharge Disposition: 06 Home Health Service - DIAGNOSES Admission Diagnoses: Acute respiratory distress with hypoxia Hospital-acquired pneumonia Pulmonary sarcoidosis Dermatomyositis Diabetes Anemia of chronic disease Asthma Discharge Diagnoses with Status of Each Condition: Hospital-acquired pneumoniaimproved, stable Hypoxiaimproved Pulmonary sarcoidosisstable Dermatomyositisstable Diabetes mellitus with insulinstable Anemia of chronic diseasestable - HPI History of Present Illness: This is a 68-year-old female with a past medical history significant for asthma, dermatomyositis, history of pulmonary sarcoidosis, interstitial lung disease, hypertension, type 2 diabetes mellitus on insulin who presents today from home after her home health nurse found her to have a fever of 103 F and an oxygen saturation of 88% on room air. She states that then she has been discharged she was initially feeling quite well but over the last 2 days she has had increased weakness and shortness of breath. She states she has not been as active due to these complaints. She denies having any recent sick contacts or leaving the house since discharge. She reports she has been having diarrhea over the past few days which began just prior to her discharge from the hospital. She has been having 3 bowel movements a day. She reports no blood. She does wake up at night to have bowel movements. He denies nausea, vomiting, abdominal pain. She finished her course of doxycycline today. She reports I will correct her dyspnea, she continues to have nonproductive cough. She has been taking her mycophenolate, hydroxychloroquine, prednisone for her dermatomyositis. She reports her pulmonary sarcoidosis is in remission and her baseline oxygen saturations are usually 92 to 93%. She follows with Dr. Morales in [facility]. Reports having the flu vaccine this year. She also tells me that tomorrow will be 1 month since her spinal surgery. She does complain of lower back pain but this is not worse than usual since her surgery. She does have numbness in her lower extremities which is chronic. She does take gabapentin for this. She has chronic urinary incontinence. She reports no saddle anesthesia, urinary retention or bowel dysfunction. She does not have a history of DVT or pulmonary embolism in the past. She reports no chest pain. She has no pain in her lower extremities. In the emergency department, she was found to be febrile with a temperature of 38.6 C. She was tachycardic with a heart rate of 106. Her blood pressure was 136/73. Her respiratory rate was 20 and she was saturating 89% on room air. This improved to 93% on 2 L of oxygen. Labs revealed a white count of 4.5 with decreased lymphocytes. Her sodium is low at 133. Lactic acid is 0.7. BNP is 22. Chest x-ray showed prominent perihilar interstitium in the right upper lobe which is unchanged compared to prior chest x-ray. She received 1 L of normal saline and Tylenol in the emergency department. Given her hypoxia and fever, medicine was consulted for admission. I did discuss goals of care with the patient and she would like to be a DNR. - HOSPITAL COURSE Hospital Course: Patient was initially admitted with acute respiratory distress with hypoxia requiring 2 to 3 L of oxygen, and was complaining of profound weakness and recent diarrhea that had since resolved after admission.Chest x-ray on admission showed a opacity in the right perihilar area. She made gradual improvement with IV Levaquin, and continued to be afebrile throughout the hospital stay with a downward trend of white blood cell count and CRP level. Essentially, she was making small progress daily with respect to her hypoxia, and her weakness. A lso, because of the suspicion for possible pulmonary hypertension, an echocardiogram was done on the day of discharge showing preliminary findings ofNormal ejection fraction at 65 to 70%, normal right ventricle,With indeterminate diastolic function reported.Final report by internal audit senior manager is pending. She was evaluated by physical therapy and felt to be an adequate discharge for home with supports with home health aide and physical therapy, and in addition she does have a close neighbor who also provide significant amounts of assistance. Because she was still on 1 L of oxygen on the day of discharge she was evaluated respiratory therapy for prescription for home oxygen.She was hypoxic at rest w ith oxygen saturations of 87% on room air, which improved to 2 L/min with O2 sats at 94% at rest. With exertion on 2 L/min her oxygen saturation was 90%. Recommending home oxygen at 2 L/min continuously for chronic interstitial lung disease in the setting of resolving hospital acquired pneumonia. - ALLERGIES Allergies/Adverse Reactions: Allergies Allergy/AdvReac Type Severity Reaction Status Date / Time amoxicillin Allergy Unknown Verified 05/12/19 05:30 amoxicillin trihydrate * Allergy Unknown Verified 05/12/19 05:30 [From Augmentin] oxycodone Allergy Unknown Verified 05/12/19 05:30 Penicillins Allergy Unknown Verified 05/12/19 05:30 potassium clavulanate * Allergy Unknown Verified 05/12/19 05:30 [From Augmentin] Sulfa (Sulfonamide Allergy Unknown Verified 05/12/19 05:30 Antibiotics) sulfamethoxazole Allergy Unknown Verified 05/17/19 07:35 [From Septra] trimethoprim [From Septra] Allergy Unknown Verified 05/17/19 07:35 - MEDICATIONS Home Medications: Ambulatory Orders Medication Instructions Recorded Confirmed Acyclovir 400 mg PO BID 07/23/18 05/20/19 Albuterol Sulfate [Albuterol 2 puffs INH .Q3-4H PRN 07/23/18 05/20/19 Sulfate Hfa] Calcium Carbonate/Vitamin D3 1 tab PO BID 07/23/18 05/20/19 [Calcium 600-Vit D3 400 Tablet] Folic Acid 1 mg PO DAILY 07/23/18 05/20/19 Gabapentin 2 cap PO TID 07/23/18 05/20/19 Hydroxychloroquine Sulfate 400 mg PO DAILY 07/23/18 05/20/19 Insulin Aspart [NovoLOG] 4 - 20 units SQ TID 07/23/18 05/20/19 Insulin Glargine,Hum.rec.anlog 15 unit SQ DAILY 07/23/18 05/20/19 [Basaglar Kwikpen U-100] Losartan Potassium 25 mg PO DAILY 07/23/18 05/20/19 Metoclopramide [Reglan] 10 mg PO TID 07/23/18 05/20/19 Montelukast Sodium 10 mg PO DAILY 07/23/18 05/20/19 Pantoprazole Sodium 40 mg PO DAILY 07/23/18 05/20/19 Potassium Chloride 20 meq PO DAILY 07/23/18 05/20/19 Rosuvastatin Calcium 10 mg PO QPM 07/23/18 05/20/19 predniSONE [Prednisone] 5 mg PO DAILY 07/23/18 05/20/19 mycophenolate mofetiL 4 cap PO BID 05/12/19 05/20/19 [Mycophenolate Mofetil] Acetaminophen [Tylenol] 650 mg PO .4-6H PRN 05/13/19 05/20/19 Fluticasone/Salmeterol [Advair Hfa 2 inh INH BID 05/13/19 05/20/19 230-21 Mcg Inhaler] Morphine Sulfate 15 mg PO BID 05/13/19 05/20/19 Ferrous Sulfate 325 mg PO DAILY #15 tablet 05/14/19 05/20/19 Acetaminophen [Tylenol] 650 mg PO Q4HR PRN tablet 05/23/19 Atorvastatin [Lipitor] 10 mg PO QPM tablet 05/23/19 Magnesium Oxide [Mag Ox] 400 mg PO DAILYWM #30 tablet 05/23/19 Mdi: Albuterol 2 puffs INH Q6H PRN puffs 05/23/19 Montelukast [Singulair] 10 mg PO QPM tablet 05/23/19 Pantoprazole [Protonix] 40 mg PO QDAC tablet 05/23/19 levoFLOXacin [Levaquin] 750 mg PO DAILY 6 Days #6 tablet 05/23/19 - PHYSICAL EXAM AT DISCHARGE General Appearance: positive: No acute distress Eyes Bilateral: positive: Normal inspection ENT: positive: ENT inspection nml, Pharynx nml Neck: positive: Nml inspection, Thyroid nml, No JVD Respiratory: positive: Chest non-tender, Wheezes Cardiovascular: positive: Regular rate & rhythm, No murmur, No gallop Peripheral Pulses: positive: 2+ Abdomen: positive: Non-tender, No organomegaly, Nml bowel sounds Skin: positive: Color nml Extremities: positive: Non-tender, Full ROM, Nml appearance Neurologic/Psychiatric: positive: Oriented x3, CN's nml (2-12) - LABS Result Diagrams: 05/23/19 07:15 05/23/19 07:15 - SEPSIS Current Stage of Sepsis: Resolved Possible source of Sepsis: Unknown Sepsis Criteria: Recorded Temperature greater than 38.3C or Less than 36C, R ecorded Heart Rate greater than 90 bpm, Recorded Respiratory Rate greater than 20, Respiratory: Increasing oxygen requirements - FOLLOW UP Follow Up: Follow up with PCP and Pulmonology - TIME SPENT Time Spent in Discharge (Minutes): 36
[2019-05-23 14:09] VITALS: BP 146/83
== END 2019-05-23 15:03 | disposition home health service (06) | DRG 871 ==
LOC: EDUNIT# → ED 16:43 → MS2 19:29
PROVIDERS: ADMIT Internal Medicine; ATTEND Nurse Practitioner
DX: A41.9 Sepsis, unspecified organism (principal); J18.9 Pneumonia, unspecified organism; I10 Essential (primary) hypertension; E78.00 Pure hypercholesterolemia, unspecified; M33.10 Other dermatomyositis, organ involvement unspecified; J84.9 Interstitial pulmonary disease, unspecified; D86.0 Sarcoidosis of lung; Y95 Nosocomial condition; R09.02 Hypoxemia; E11.9 Type 2 diabetes mellitus without complications; D63.0 Anemia in neoplastic disease; D50.9 Iron deficiency anemia, unspecified; L89.159 Pressure ulcer of sacral region, unspecified stage; E87.8 Other disorders of electrolyte and fluid balance, not elsewhere classified; J45.20 Mild intermittent asthma, uncomplicated; M54.5 Low back pain; R20.0 Anesthesia of skin; K21.9 Gastro-esophageal reflux disease without esophagitis; R32 Unspecified urinary incontinence; M19.90 Unspecified osteoarthritis, unspecified site; M85.80 Other specified disorders of bone density and structure, unspecified site; Z66 Do not resuscitate; Z96.659 Presence of unspecified artificial knee joint; Z99.81 Dependence on supplemental oxygen; Z79.51 Long term (current) use of inhaled steroids; Z79.4 Long term (current) use of insulin; Z79.52 Long term (current) use of systemic steroids; Z98.890 Other specified postprocedural states
CPT/HCPCS: 36415; 71045; 80048; 80053; 81003; 82550; 83605; 83690; 83735; 83880; 84100; 84484; 85025; 85651; 86140; 87040; 87070; 87205; 87275; 87276; 87493; 93005; 93306; 94640; 94761; 96360; 96361; 97162; 97166; 97530; 99284; 99285; A9270; J1650; J7040; J7120; J7512; 81001; 87086

== ENCOUNTER 2019-10-10 15:38 | Outpatient (CLI) | payer MEDICARE, BC ==
--- NOTE | 2019-10-10 17:08 | XRAY Report ---
PROCEDURE: Elbow 3 View LT INDICATIONS: LEFT ELBOW PAINFUL ON MOVEMENT TECHNIQUE: 3 views of the elbow were acquired. COMPARISON: None FINDINGS: Bones: There is a mildly displaced/angulated fracture of the radius at the head/neck junction. There is a small elbow joint effusion. No suspicious lytic or blastic osseous lesion. Soft tissue swelling about the elbow. IMPRESSION: Mildly displaced/angulated fracture of the radius at the head/neck junction. There is a small elbow j oint effusion however the fracture planes do not extend to the articular surface of the radial head. RReviewed by: Manan Ocasio MD on 10/10/2019 5:07 PM PDT Approved by: Manan Ocasio MD on 10/10/2019 5:07 PM PDT Station ID: [id number]
== END 2019-10-10 23:59 | disposition home or self-care (01) ==
LOC: DI.WCP 15:38
PROVIDERS: ATTEND Family Medicine
DX: S52.132A Displaced fracture of neck of left radius, initial encounter for closed fracture (principal)

== ENCOUNTER 2019-10-13 08:24 | Outpatient (CLI) | payer MEDICARE, BC ==
--- NOTE | 2019-10-13 08:59 | XRAY Report ---
PROCEDURE: Wrist 3 View LT INDICATIONS: PAIN IN LEFT WRIST TECHNIQUE: 3 views of the wrist were acquired. COMPARISON: None FINDINGS: Bones: No acute fracture or dislocation. Well-corticated fragment adjacent to tip of ulnar styloid i s seen consistent with old healed injury. No suspicious bony lesions. Scaphoid view: Scaphoid is grossly intact. Soft tissues: No suspicious soft tissue calcifications. IMPRESSION: No acute left wrist fracture or dislocation. Wrist joint osteoarthritis and suggestion of old healed injury involving ulnar styloid tip. Reviewed by: Parveen Lagunas MD on 10/13/2019 8:57 AM PDT Approved by: Parveen Lagunas MD on 10/13/2019 8:57 AM PDT Station ID: [id number]
== END 2019-10-13 23:59 ==
LOC: DI.WCP 08:24
PROVIDERS: ATTEND Orthopaedic Surgery
DX: M19.032 Primary osteoarthritis, left wrist (principal)

== ENCOUNTER 2019-10-28 08:00 | Outpatient (CLI) | payer MEDICARE, BC | END 2019-10-28 23:59 | disposition home or self-care (01) | LOC: LAB.R 08:00 | PROVIDERS: ATTEND Family Medicine | DX: R05 Cough (principal); Z20.828 Contact with and (suspected) exposure to other viral communicable diseases ==

== ENCOUNTER 2019-12-01 07:51 | Outpatient (CLI) | payer MEDICARE, BC ==
--- NOTE | 2019-12-01 12:41 | XRAY Report ---
PROCEDURE: Elbow 3 View LT INDICATIONS: LEFT RADIAL HEAD FRACTURE TECHNIQUE: 3 views of the elbow were acquired. COMPARISON: 10/10/2019 FINDINGS: Bones: Redemonstration of left radial head fracture at the head/neck junction with mild displacement /angulation. Overall alignment appears stable. There is still visualization of the fracture line with suggestion of mild sclerosis involving both sides of the fracture line. No significant bridging call us formation noted. Degenerative changes of the humeroulnar joint. No suspicious bony lesions. Soft tissues: Small persistent anterior elbow joint effusion. No suspicious soft tissue calcificatio ns. IMPRESSION: 1. Stable alignment of mildly displaced/angulated fracture of the left radial head with persistent vi sualization of the fracture line. There is also suggestion of sclerosis involving both sides of the f racture line which raises concern for possible delayed fracture union versus early nonunion. 2. Persistent anterior elbow joint effusion. 3. Degenerative changes of the humeroulnar joint. Reviewed by: Kirill Baltazar MD on 12/01/2019 12:40 PM PDT Approved by: Kirill Baltazar MD on 12/01/2019 12:40 PM PDT Station ID: [id number]
== END 2019-12-01 23:59 | disposition home or self-care (01) ==
LOC: DI.WCP 07:51
PROVIDERS: ATTEND Orthopaedic Surgery
DX: S52.125A Nondisplaced fracture of head of left radius, initial encounter for closed fracture (principal); M19.022 Primary osteoarthritis, left elbow

== ENCOUNTER 2019-12-13 08:58 | Outpatient (CLI) | payer MEDICARE, BC ==
--- NOTE | 2019-12-14 16:33 | Mammography Report ---
BILATERAL DIGITAL SCREENING MAMMOGRAM 3D/2D: 12/13/2019 CLINICAL: Family history of breast cancer. Routine screening. Comparison is made to exams dated: 11/03/2017 mammogram and 09/29/2016 mammogram - [facility]. There are scattered fibroglandular elements in both breasts. No significant masses, calcifications, or other findings are seen in either breast. There has been no significant interval change. IMPRESSION: NEGATIVE There is no mammographic evidence of malignancy. A 1 year screening mammogram is recommended. This exam was interpreted at Station ID: [id number]. NOTE: For mammograms, a report in lay terms will be sent to the patient. Approximately 15% of breast malignancies will not be visualized mammographically. In the management of a palpable breast mass, a negative mammogram must not discourage biopsy of a clinically suspicious lesion. Electronically Signed By: Marline elder/penrad:12/13/2019 16:53:38 ACR BI-RADS Category 1: Negative 3341F PARENCHYMAL PATTERN: (A) - The breast(s) demonstrate(s) scattered fibroglandular densities. BI-RADS CATEGORY: (1) - 1 RECOMMENDATION: (ANNUAL) - Recommend routine annual screening mammography. 20201213 1 year screening LATERALITY: (B)
== END 2019-12-13 08:59 | disposition home or self-care (01) ==
LOC: DI.N 08:58
PROVIDERS: ATTEND Family Medicine
DX: Z12.31 Encounter for screening mammogram for malignant neoplasm of breast (principal); Z80.3 Family history of malignant neoplasm of breast
CPT/HCPCS: 77063; 77067

== ENCOUNTER 2020-08-08 04:08 | Outpatient (CLI) | payer MEDICARE, BC | END 2020-08-08 04:09 | disposition short-term general hospital (02) | LOC: EMS 04:08 | DX: M54.5 Low back pain (principal); R53.1 Weakness | CPT/HCPCS: A0425; A0429 ==

== ENCOUNTER 2020-08-18 08:16 | Outpatient (CLI) | payer MEDICARE, BC | END 2020-08-18 08:17 | disposition short-term general hospital (02) | LOC: EMS 08:16 | DX: M54.5 Low back pain (principal); R53.1 Weakness | CPT/HCPCS: A0425; A0429 ==

== ENCOUNTER 2020-10-31 10:15 | Outpatient (CLI) | payer MEDICARE, BC ==
--- NOTE | 2020-10-31 12:32 | DEXA Report ---
PROCEDURE: Dexa Spine and/or Hip INDICATIONS: OSTEOPENIA TECHNIQUE: Dual energy x-ray absorptiometry (DXA) was performed on a [employer]ilson System. Regions measur ed are the AP Spine, femoral neck, and if needed forearm. Left forearm was obtained due to presence o f surgical hardware in lower lumbar spine. COMPARISON: 07/03/2016 and 11/30/2015. FINDINGS: Lumbar Spine: Bone Mineral Density 1.366 g/cm/cm,T score 1.6. There is interval 17.7% increase in total lumbar s pine bone mineral density. Left Hip: Bone Mineral Density 0.954 g/cm/cm,T score -0.4. There is interval 2.8% increase in total left hip b one mineral density. Left Femoral Neck: Bone Mineral Density 0.87 g/cm/cm, T score -1.1. Left forearm: Bone Mineral Density 0.638 g/cm/cm, T score -2.7. (T score greater or equal to -1.0: NORMAL) (T score from -1.1 to -2.4: OSTEOPENIA) (T score less than or equal to -2.5 to: OSTEOPOROSIS) Impression: Osteoporosis. Patients with diagnosis of osteoporosis or osteopenia should have regular bone mineral density assess ment. For those eligible for Medicare, routine testing is allowed once every 2 years. Testing frequ ency can be increased for patients who have rapidly progressing disease or for those who are receivin g medical therapy to restore bone mass. Reviewed by: Parveen Lagunas MD on 10/31/2020 12:31 PM PDT Approved by: Parveen Lagunas MD on 10/31/2020 12:31 PM PDT Station ID: [id number]
== END 2020-10-31 10:16 | disposition home or self-care (01) ==
LOC: DI 10:15
PROVIDERS: ATTEND Family Medicine
DX: M81.0 Age-related osteoporosis without current pathological fracture (principal); Z96.698 Presence of other orthopedic joint implants

== ENCOUNTER 2020-12-27 13:34 | Outpatient (CLI) | payer MEDICARE, BC ==
--- NOTE | 2020-12-28 07:52 | Mammography Report ---
BILATERAL DIGITAL SCREENING MAMMOGRAM: 12/27/2020 CLINICAL: Family history of breast cancer. Routine screening. Comparison is made to exams dated: 12/13/2019 mammogram, 11/03/2017 mammogram, 09/29/2016 mammogram, mammogram, 02/20/2015 mammogram, and 08/08/2014 mammogram - [facility]. Ther e are scattered fibroglandular elements in both breasts. No significant masses, calcifications, or other findings are seen in either breast. There has been no significant interval change. IMPRESSION: NEGATIVE There is no mammographic evidence of malignancy. A 1 year screening mammogram is recommended. This exam was interpreted at Station ID: [id number]. NOTE: For mammograms, a report in lay terms will be sent to the patient. Approximately 15% of breast malignancies will not be visualized mammographically. In the management of a palpable breast mass, a negative mammogram must not discourage biopsy of a clinically suspicious lesion. Electronically Signed By: Kirill Baltazar M.D. atoleg/rubi:12/27/2020 14:22:26 ACR BI-RADS Category 1: Negative 3341F PARENCHYMAL PATTERN: (A) - The breast(s) demonstrate(s) scattered fibroglandular densities. BI-RADS CATEGORY: (1) - 1 RECOMMENDATION: (ANNUAL) - Recommend routine annual screening mammography. [id number] 1 year screening LATERALITY: (B)
== END 2020-12-27 13:35 | disposition home or self-care (01) ==
LOC: DI.N 13:34
DX: Z12.31 Encounter for screening mammogram for malignant neoplasm of breast (principal); Z80.3 Family history of malignant neoplasm of breast

== ENCOUNTER 2022-03-22 15:16 | Outpatient (CLI) | payer MEDICARE, BC ==
[2022-03-22 18:43] LABS: BASOPHILS # (AUTO) 0.1 10^3/uL (0.0-0.1); BASOPHILS % (AUTO) 0.8 %; EOSINOPHILS # (AUTO) 0.4 10^3/uL (0.0-0.7); EOSINOPHILS % (AUTO) 3.5 %; HCT - HEMATOCRIT 41.7 % (37.0-47.0); HGB - HEMOGLOBIN 11.8 g/dL (12.0-16.0); LYMPHOCYTES # (AUTO) 1.3 10^3/uL (1.5-3.5); LYMPHOCYTES % (AUTO) 11.4 %; MEAN CORPUSCULAR HEMOGLOBIN 27.6 pg (27.0-31.0); MEAN CORPUSCULAR HGB CONC 28.3 g/dL (32.0-36.0); MEAN CORPUSCULAR VOLUME 97.4 fL (81.0-99.0); MEAN PLATELET VOLUME 9.8 fL (7.9-10.8); MONOCYTES # (AUTO) 0.9 10^3/uL (0.0-1.0); MONOCYTES % (AUTO) 7.8 %; NEUTROPHILS # (AUTO) 8.5 10^3/uL (1.5-6.6); NEUTROPHILS % (AUTO) 76.1 %; PLT - PLATELET COUNT 306 10^3/uL (130-450); RED BLOOD COUNT 4.28 10^6/uL (4.20-5.40); RED CELL DISTRIBUTION WIDTH 14.5 % (12.0-15.0); WHITE BLOOD COUNT 11.2 x10^3/uL (4.8-10.8)
[2022-03-22 18:47] LABS: SLIDE REVIEW? Indicated
[2022-03-22 18:56] LABS: ALBUMIN 3.5 g/dL (3.2-5.5); ALBUMIN/GLOBULIN RATIO 1.2 (1.0-2.2); BILIRUBIN,TOTAL 0.5 mg/dL (0.2-1.0); CALCIUM 9.3 mg/dL (8.5-10.3); CREATININE 0.8 mg/dL (0.4-1.0); CRP - C-REACTIVE PROTEIN 2.9 mg/dL (0-1.0); POTASSIUM 4.9 mmol/L (3.5-5.0); TOTAL PROTEIN 6.5 g/dL (6.7-8.2)
[2022-03-22 20:27] LABS: PLATELET ESTIMATE, MANUAL NORMAL (130-450,000) (NORMAL); PLATELET MORPHOLOGY NORMAL APPEARANCE (NORMAL); RBC MORPHOLOGY (MULTIPLE) 1+ HYPOCHROMASIA (NORMAL)
== END 2022-03-22 15:17 | disposition home or self-care (01) ==
LOC: LAB.N 15:16
PROVIDERS: ATTEND Internal Medicine Rheumatology
DX: M33.13 Other dermatomyositis without myopathy (principal)
CPT/HCPCS: 36415; 80053; 82550; 85025; 85651; 86140

== ENCOUNTER 2022-04-03 15:07 | Outpatient (CLI) | payer MEDICARE, BC ==
--- NOTE | 2022-04-04 10:24 | Mammography Report ---
BILATERAL DIGITAL SCREENING MAMMOGRAM: 04/03/2022 CLINICAL: Family history of breast cancer. Routine screening. Comparison is made to exams dated: 12/27/2020 mammogram, 12/13/2019 mammogram, 11/03/2017 mammogram, mammogram, 09/26/2015 mammogram, and 02/20/2015 mammogram - [facility]. There are scattered areas of fibroglandular density in both breasts (category b / 25%-50% glandular t issue). No significant masses, calcifications, or other findings are seen in either breast. There has been no significant interval change. IMPRESSION: NEGATIVE There is no mammographic evidence of malignancy. A 1 year screening mammogram is recommended. This exam was interpreted at Station ID: [id number]. NOTE: For mammograms, a report in lay terms will be sent to the patient. Approximately 15% of breast malignancies will not be visualized mammographically. In the management of a palpable breast mass, a negative mammogram must not discourage biopsy of a clinically suspicious lesion. Electronically Signed By: Kirill elizalde/rubi:04/04/2022 07:12:46 letter sent: No_Letter ACR BI-RADS Category 1: Negative 3341F PARENCHYMAL PATTERN: (A) - The breast(s) demonstrate(s) scattered fibroglandular densities. BI-RADS CATEGORY: (1) - 1 RECOMMENDATION: (ANNUAL) - Recommend routine annual screening mammography. [id number] 1 year screening LATERALITY: (B)
== END 2022-04-03 15:08 | disposition home or self-care (01) ==
LOC: DI.N 15:07
DX: Z12.31 Encounter for screening mammogram for malignant neoplasm of breast (principal); Z80.3 Family history of malignant neoplasm of breast

== ENCOUNTER 2022-05-21 08:22 | Outpatient (CLI) | payer MEDICARE, BC ==
[2022-05-21 11:51] LABS: BASOPHILS # (AUTO) 0.1 10^3/uL (0.0-0.1); BASOPHILS % (AUTO) 0.7 %; EOSINOPHILS # (AUTO) 0.5 10^3/uL (0.0-0.7); HCT - HEMATOCRIT 39.7 % (37.0-47.0); HGB - HEMOGLOBIN 11.7 g/dL (12.0-16.0); MEAN CORPUSCULAR HEMOGLOBIN 27.6 pg (27.0-31.0); MEAN CORPUSCULAR HGB CONC 29.5 g/dL (32.0-36.0); MEAN CORPUSCULAR VOLUME 93.6 fL (81.0-99.0); MEAN PLATELET VOLUME 10.3 fL (7.9-10.8); MONOCYTES # (AUTO) 0.8 10^3/uL (0.0-1.0); MONOCYTES % (AUTO) 10.5 %; NEUTROPHILS % (AUTO) 52.4 %; PLT - PLATELET COUNT 242 10^3/uL (130-450); RED BLOOD COUNT 4.24 10^6/uL (4.20-5.40); RED CELL DISTRIBUTION WIDTH 14.8 % (12.0-15.0); WHITE BLOOD COUNT 7.6 x10^3/uL (4.8-10.8)
[2022-05-21 12:05] LABS: ALBUMIN 3.3 g/dL (3.2-5.5); ALBUMIN/GLOBULIN RATIO 1.2 (1.0-2.2); ALKALINE PHOSPHATASE 44 IU/L (42-121); ALT ALANINE AMINOTRANSFERASE 28 IU/L (10-60); AST ASPARTATE AMINOTRANSFERASE 34 IU/L (10-42); BILIRUBIN,TOTAL 0.4 mg/dL (0.2-1.0); BUN - BLOOD UREA NITROGEN 16 mg/dL (6-20); CALCIUM 9.9 mg/dL (8.5-10.3); CARBON DIOXIDE - CO2 38 mmol/L (21-32); CHLORIDE 92 mmol/L (101-111); CHOL/HDL RATIO 2.2 (<4.4); CHOLESTEROL 125 mg/dL; CREATININE 0.9 mg/dL (0.4-1.0); CRP - C-REACTIVE PROTEIN 3.3 mg/dL (0-1.0); GFR - MDRD 62 (>89); GLUCOSE 104 mg/dL (70-100); HDL CHOLESTEROL 56 mg/dL; LDL CHOLESTEROL,CALCULATED 50 mg/dL; LDL/HDL RATIO 0.9 (<4.4); POTASSIUM 4.2 mmol/L (3.5-5.0); SODIUM 137 mmol/L (135-145); TRIGLYCERIDES 97 mg/dL; VLDL CHOLESTEROL 19 mg/dL
[2022-05-21 12:21] LABS: THYROID STIMULATING HORMONE 3.53 uIU/mL (0.34-5.60)
== END 2022-05-21 08:23 | disposition home or self-care (01) ==
LOC: LAB.N 08:22
PROVIDERS: ATTEND Family Medicine
DX: E11.9 Type 2 diabetes mellitus without complications (principal); I50.812 Chronic right heart failure; J47.1 Bronchiectasis with (acute) exacerbation; K21.9 Gastro-esophageal reflux disease without esophagitis; G89.4 Chronic pain syndrome; Z79.4 Long term (current) use of insulin; M33.19 Other dermatomyositis with other organ involvement
CPT/HCPCS: 36415; 80053; 80061; 83721; 84443; 85025; 85651; 86140

== ENCOUNTER 2022-06-30 12:47 | Outpatient (CLI) | payer MEDICARE, BC ==
[2022-06-30 17:46] LABS: BASOPHILS # (AUTO) 0.1 10^3/uL (0.0-0.1); BASOPHILS % (AUTO) 0.9 %; EOSINOPHILS % (AUTO) 11.8 %; HCT - HEMATOCRIT 37.1 % (37.0-47.0); HGB - HEMOGLOBIN 10.9 g/dL (12.0-16.0); LYMPHOCYTES # (AUTO) 0.9 10^3/uL (1.5-3.5); LYMPHOCYTES % (AUTO) 11.2 %; MEAN CORPUSCULAR HEMOGLOBIN 29.3 pg (27.0-31.0); MEAN CORPUSCULAR HGB CONC 29.4 g/dL (32.0-36.0); MEAN CORPUSCULAR VOLUME 99.7 fL (81.0-99.0); MEAN PLATELET VOLUME 10.2 fL (7.9-10.8); MONOCYTES # (AUTO) 0.9 10^3/uL (0.0-1.0); MONOCYTES % (AUTO) 10.8 %; NEUTROPHILS # (AUTO) 5.3 10^3/uL (1.5-6.6); NEUTROPHILS % (AUTO) 65.1 %; PLT - PLATELET COUNT 250 10^3/uL (130-450); RED BLOOD COUNT 3.72 10^6/uL (4.20-5.40); WHITE BLOOD COUNT 8.1 x10^3/uL (4.8-10.8)
[2022-06-30 17:58] LABS: ALBUMIN 3.4 g/dL (3.2-5.5); ALBUMIN/GLOBULIN RATIO 1.1 (1.0-2.2); BILIRUBIN,TOTAL 0.3 mg/dL (0.2-1.0); CALCIUM 10.1 mg/dL (8.5-10.3); CREATININE 0.9 mg/dL (0.4-1.0); CRP - C-REACTIVE PROTEIN 1.8 mg/dL (0-1.0); POTASSIUM 4.6 mmol/L (3.5-5.0); TOTAL PROTEIN 6.4 g/dL (6.7-8.2)
== END 2022-06-30 12:48 | disposition home or self-care (01) ==
LOC: LAB.N 12:47
PROVIDERS: ATTEND Internal Medicine Rheumatology
DX: M33.10 Other dermatomyositis, organ involvement unspecified (principal)
CPT/HCPCS: 36415; 80053; 82550; 85025; 85651; 86140

== ENCOUNTER 2022-08-26 13:16 | Outpatient (CLI) | payer MEDICARE, BC | END 2022-08-26 23:59 | disposition short-term general hospital (02) | LOC: EMS 13:16 | DX: R50.9 Fever, unspecified (principal); R05.9 Cough, unspecified; R06.02 Shortness of breath; Z99.81 Dependence on supplemental oxygen | CPT/HCPCS: A0425; A0429; A0888 ==

== ENCOUNTER 2022-09-05 08:13 | Outpatient (CLI) | payer MEDICARE, BC ==
[2022-09-05 12:56] LABS: CREATININE,URINE 62.5 mg/dL; MICROALBUM/CREATININE RATIO,UR 12.8 ug/mg (<30.0); MICROALBUMIN,URINE 0.8 mg/dL
[2022-09-05 13:03] LABS: CALCIUM 10.7 mg/dL (8.5-10.3); POTASSIUM 4.1 mmol/L (3.5-4.5)
[2022-09-05 13:37] LABS: ESTIMATED AVERAGE GLUCOSE 128 mg/dL (70-100); HEMOGLOBIN A1c% 6.1 % (4.27-6.07)
== END 2022-09-05 08:14 | disposition home or self-care (01) ==
LOC: LAB.N 08:13
PROVIDERS: ATTEND Family Medicine
DX: E11.9 Type 2 diabetes mellitus without complications (principal); Z79.4 Long term (current) use of insulin
CPT/HCPCS: 36415; 80048; 82043; 82570; 83036

== ENCOUNTER 2022-10-02 09:47 | Outpatient (CLI) | payer MEDICARE, BC ==
[2022-10-02 13:12] LABS: ALBUMIN 3.6 g/dL (3.2-5.5); CRP - C-REACTIVE PROTEIN 3.1 mg/dL (<0.5)
[2022-10-02 13:50] LABS: ALBUMIN/GLOBULIN RATIO 1.3 (1.0-2.2); BILIRUBIN,TOTAL 0.3 mg/dL (0.2-1.0); CALCIUM 10.1 mg/dL (8.5-10.3); TOTAL PROTEIN 6.3 g/dL (6.4-8.9)
== END 2022-10-02 09:48 | disposition home or self-care (01) ==
LOC: LAB.N 09:47
PROVIDERS: ATTEND Internal Medicine Rheumatology
DX: M33.90 Dermatopolymyositis, unspecified, organ involvement unspecified (principal)
CPT/HCPCS: 36415; 80053; 85651; 86140

== ENCOUNTER 2022-11-24 08:02 | Outpatient (CLI) | payer MEDICARE, BC ==
[2022-11-24 13:26] LABS: ESTIMATED AVERAGE GLUCOSE 154 mg/dL (70-100)
[2022-11-24 13:36] LABS: CALCIUM 9.4 mg/dL (8.5-10.3); POTASSIUM 3.9 mmol/L (3.5-4.5)
[2022-11-24 13:43] LABS: CREATININE,URINE 74.8 mg/dL; MICROALBUM/CREATININE RATIO,UR 14.7 ug/mg (<30.0); MICROALBUMIN,URINE 1.1 mg/dL
== END 2022-11-24 08:03 | disposition home or self-care (01) ==
LOC: LAB.N 08:02
PROVIDERS: ATTEND Family Medicine
DX: J96.20 Acute and chronic respiratory failure, unspecified whether with hypoxia or hypercapnia (principal); E11.9 Type 2 diabetes mellitus without complications; Z79.4 Long term (current) use of insulin
CPT/HCPCS: 36415; 80048; 82043; 82570; 83036

== ENCOUNTER 2022-12-11 12:58 | Outpatient (CLI) | payer MEDICARE, BC ==
[2022-12-11 17:50] LABS: BASOPHILS # (AUTO) 0.1 10^3/uL (0.0-0.1); BASOPHILS % (AUTO) 0.7 %; EOSINOPHILS # (AUTO) 0.1 10^3/uL (0.0-0.7); EOSINOPHILS % (AUTO) 0.8 %; HCT - HEMATOCRIT 36.7 % (37.0-47.0); HGB - HEMOGLOBIN 10.8 g/dL (12.0-16.0); LYMPHOCYTES # (AUTO) 0.9 10^3/uL (1.5-3.5); LYMPHOCYTES % (AUTO) 10.6 %; MEAN CORPUSCULAR HEMOGLOBIN 28.9 pg (27.0-31.0); MEAN CORPUSCULAR HGB CONC 29.4 g/dL (32.0-36.0); MEAN CORPUSCULAR VOLUME 98.1 fL (81.0-99.0); MEAN PLATELET VOLUME 10.1 fL (7.9-10.8); MONOCYTES # (AUTO) 0.4 10^3/uL (0.0-1.0); MONOCYTES % (AUTO) 4.4 %; NEUTROPHILS % (AUTO) 83.3 %; PLT - PLATELET COUNT 292 10^3/uL (130-450); RED BLOOD COUNT 3.74 10^6/uL (4.20-5.40); RED CELL DISTRIBUTION WIDTH 14.8 % (12.0-15.0); WHITE BLOOD COUNT 8.4 x10^3/uL (4.8-10.8)
[2022-12-11 18:40] LABS: ALBUMIN/GLOBULIN RATIO 1.6 (1.0-2.2); BILIRUBIN,TOTAL 0.4 mg/dL (0.2-1.0); CALCIUM 10.6 mg/dL (8.5-10.3); CRP - C-REACTIVE PROTEIN 1.6 mg/dL (<0.5); POTASSIUM 5.2 mmol/L (3.5-4.5); TOTAL PROTEIN 6.5 g/dL (6.4-8.9)
== END 2022-12-11 12:59 | disposition home or self-care (01) ==
LOC: LAB.N 12:58
PROVIDERS: ATTEND Family Medicine
DX: M33.90 Dermatopolymyositis, unspecified, organ involvement unspecified (principal)
CPT/HCPCS: 36415; 80053; 82550; 85025; 85651; 86140

== ENCOUNTER 2023-01-29 10:13 | Outpatient (CLI) | payer MEDICARE, BC ==
[2023-01-29 12:46] LABS: ALBUMIN 3.7 g/dL (3.2-5.5); CALCIUM 9.8 mg/dL (8.5-10.3); CREATININE 0.9 mg/dL (0.6-1.3); MAGNESIUM 1.4 mg/dL (1.7-2.3); PHOSPHORUS 3.2 mg/dL (2.5-5.0); POTASSIUM 3.6 mmol/L (3.5-4.5)
== END 2023-01-29 10:14 | disposition home or self-care (01) ==
LOC: LAB.N 10:13
PROVIDERS: ATTEND Internal Medicine
DX: J45.40 Moderate persistent asthma, uncomplicated (principal); I50.30 Unspecified diastolic (congestive) heart failure; J84.9 Interstitial pulmonary disease, unspecified; N18.2 Chronic kidney disease, stage 2 (mild)
CPT/HCPCS: 36415; 80048; 82040; 82043; 82570; 83735; 83970; 84100

== ENCOUNTER 2023-01-30 08:00 | Outpatient (CLI) | payer MEDICARE, BC ==
[2023-01-30 18:13] LABS: CREATININE,URINE 75.1 mg/dL; MICROALBUM/CREATININE RATIO,UR 22.6 ug/mg (<30.0); MICROALBUMIN,URINE 1.7 mg/dL
== END 2023-01-30 23:59 | disposition home or self-care (01) ==
LOC: LAB.N 08:00
PROVIDERS: ATTEND Family Medicine
DX: J96.20 Acute and chronic respiratory failure, unspecified whether with hypoxia or hypercapnia (principal); E11.9 Type 2 diabetes mellitus without complications; Z79.4 Long term (current) use of insulin
CPT/HCPCS: 82043; 82570

== ENCOUNTER 2023-03-19 09:51 | Outpatient (CLI) | payer MEDICARE, BC ==
[2023-03-19 12:37] LABS: BILIRUBIN,URINE NEGATIVE (NEGATIVE); GLUCOSE, URINE (UA) 500 mg/dL (NEGATIVE); KETONES,URINE (UA) NEGATIVE (NEGATIVE); LEUKOCYTE ESTERASE, URINE NEGATIVE (NEGATIVE); NITRITE,URINE NEGATIVE (NEGATIVE); OCCULT BLOOD,URINE NEGATIVE (NEGATIVE); PH,URINE 5.5 PH (5.0-7.5); PROTEIN,URINE NEGATIVE (NEGATIVE); UROBILINOGEN,URINE 0.2 (NORMAL) E.U./dL (NORMAL)
[2023-03-19 12:39] LABS: BASOPHILS # (AUTO) 0.1 10^3/uL (0.0-0.1); BASOPHILS % (AUTO) 1.1 %; EOSINOPHILS # (AUTO) 0.5 10^3/uL (0.0-0.7); EOSINOPHILS % (AUTO) 4.6 %; HCT - HEMATOCRIT 36.2 % (37.0-47.0); HGB - HEMOGLOBIN 10.4 g/dL (12.0-16.0); LYMPHOCYTES # (AUTO) 1.8 10^3/uL (1.5-3.5); LYMPHOCYTES % (AUTO) 17.8 %; MEAN CORPUSCULAR HEMOGLOBIN 28.8 pg (27.0-31.0); MEAN CORPUSCULAR HGB CONC 28.7 g/dL (32.0-36.0); MEAN CORPUSCULAR VOLUME 100.3 fL (81.0-99.0); MEAN PLATELET VOLUME 10.1 fL (7.9-10.8); MONOCYTES % (AUTO) 10.5 %; NEUTROPHILS # (AUTO) 6.5 10^3/uL (1.5-6.6); NEUTROPHILS % (AUTO) 65.3 %; PLT - PLATELET COUNT 234 10^3/uL (130-450); RED BLOOD COUNT 3.61 10^6/uL (4.20-5.40); RED CELL DISTRIBUTION WIDTH 14.3 % (12.0-15.0); WHITE BLOOD COUNT 9.9 x10^3/uL (4.8-10.8)
[2023-03-19 12:40] LABS: SLIDE REVIEW? Indicated
[2023-03-19 12:42] LABS: CLARITY,URINE CLEAR (CLEAR)
[2023-03-19 12:50] LABS: CRP - C-REACTIVE PROTEIN 1.3 mg/dL (<0.5)
[2023-03-19 13:36] LABS: RBC MORPHOLOGY (MULTIPLE) 2+ ANISOCYTOSIS (NORMAL)
[2023-03-19 14:02] LABS: ALBUMIN 3.6 g/dL (3.2-5.5); ALBUMIN/GLOBULIN RATIO 1.6 (1.0-2.2); BILIRUBIN,TOTAL 0.3 mg/dL (0.2-1.0); CALCIUM 9.5 mg/dL (8.5-10.3); CREATININE 0.9 mg/dL (0.6-1.3); POTASSIUM 4.1 mmol/L (3.5-4.5); TOTAL PROTEIN 5.8 g/dL (6.4-8.9)
== END 2023-03-19 09:52 | disposition home or self-care (01) ==
LOC: LAB.N 09:51
PROVIDERS: ATTEND Internal Medicine Rheumatology
DX: M33.90 Dermatopolymyositis, unspecified, organ involvement unspecified (principal); D86.9 Sarcoidosis, unspecified
CPT/HCPCS: 36415; 80053; 81001; 81003; 82550; 85025; 85651; 86140

== ENCOUNTER 2023-04-28 08:56 | Outpatient (CLI) | payer MEDICARE, BC ==
[2023-04-28 12:50] LABS: CREATININE,URINE 98.2 mg/dL; MICROALBUM/CREATININE RATIO,UR 12.2 ug/mg (<30.0); MICROALBUMIN,URINE 1.2 mg/dL
[2023-04-28 13:09] LABS: ESTIMATED AVERAGE GLUCOSE 223 mg/dL (70-100); HEMOGLOBIN A1c% 9.4 % (4.27-6.07)
== END 2023-04-28 08:57 | disposition home or self-care (01) ==
LOC: LAB.N 08:56
PROVIDERS: ATTEND Family Medicine
DX: E11.9 Type 2 diabetes mellitus without complications (principal); G47.01 Insomnia due to medical condition; J47.9 Bronchiectasis, uncomplicated; Z79.4 Long term (current) use of insulin
CPT/HCPCS: 36415; 82043; 82570; 83036

== ENCOUNTER 2023-08-28 08:41 | Outpatient (CLI) | payer MEDICARE, BC ==
[2023-08-28 12:23] LABS: BASOPHILS # (AUTO) 0.1 10^3/uL (0.0-0.1); BASOPHILS % (AUTO) 0.6 %; EOSINOPHILS % (AUTO) 0.1 %; HCT - HEMATOCRIT 35.6 % (37.0-47.0); HGB - HEMOGLOBIN 10.5 g/dL (12.0-16.0); LYMPHOCYTES # (AUTO) 1.5 10^3/uL (1.5-3.5); LYMPHOCYTES % (AUTO) 17.3 %; MEAN CORPUSCULAR HEMOGLOBIN 28.8 pg (27.0-31.0); MEAN CORPUSCULAR HGB CONC 29.5 g/dL (32.0-36.0); MEAN CORPUSCULAR VOLUME 97.8 fL (81.0-99.0); MEAN PLATELET VOLUME 9.8 fL (7.9-10.8); MONOCYTES # (AUTO) 1.1 10^3/uL (0.0-1.0); MONOCYTES % (AUTO) 13.2 %; NEUTROPHILS # (AUTO) 5.8 10^3/uL (1.5-6.6); NEUTROPHILS % (AUTO) 68.1 %; PLT - PLATELET COUNT 313 10^3/uL (130-450); RED BLOOD COUNT 3.64 10^6/uL (4.20-5.40); RED CELL DISTRIBUTION WIDTH 13.9 % (12.0-15.0); WHITE BLOOD COUNT 8.6 x10^3/uL (4.8-10.8)
[2023-08-28 12:42] LABS: BILIRUBIN,URINE NEGATIVE (NEGATIVE); GLUCOSE, URINE (UA) NEGATIVE (NEGATIVE); KETONES,URINE (UA) NEGATIVE (NEGATIVE); LEUKOCYTE ESTERASE, URINE NEGATIVE (NEGATIVE); NITRITE,URINE NEGATIVE (NEGATIVE); OCCULT BLOOD,URINE NEGATIVE (NEGATIVE); PROTEIN,URINE NEGATIVE (NEGATIVE); UROBILINOGEN,URINE 0.2 (NORMAL) E.U./dL (NORMAL)
[2023-08-28 12:47] LABS: CRP - C-REACTIVE PROTEIN 0.6 mg/dL (<0.5)
[2023-08-28 12:51] LABS: CLARITY,URINE CLEAR (CLEAR)
[2023-08-28 13:33] LABS: BACTERIA,URINE Rare /HPF (None Seen); RBC,URINE 0-5 /HPF (0-5); SQUAMOUS EPITHELIAL CELL,UR RARE Squamous (<= Few); WBC,URINE 0-3 /HPF (0-5)
[2023-08-28 13:51] LABS: ALBUMIN 4.2 g/dL (3.2-5.5); ALBUMIN/GLOBULIN RATIO 1.8 (1.0-2.2); BILIRUBIN,TOTAL 0.4 mg/dL (0.2-1.0); CALCIUM 10.6 mg/dL (8.5-10.3); CREATININE 0.8 mg/dL (0.6-1.3); POTASSIUM 3.8 mmol/L (3.5-4.5); TOTAL PROTEIN 6.5 g/dL (6.4-8.9)
[2023-08-28 14:26] LABS: ESTIMATED AVERAGE GLUCOSE 177 mg/dL (70-100); HEMOGLOBIN A1c% 7.8 % (4.27-6.07)
== END 2023-08-28 08:42 | disposition home or self-care (01) ==
LOC: LAB.N 08:41
PROVIDERS: ATTEND Surgery
DX: M33.90 Dermatopolymyositis, unspecified, organ involvement unspecified (principal); I50.33 Acute on chronic diastolic (congestive) heart failure; J45.50 Severe persistent asthma, uncomplicated; J47.9 Bronchiectasis, uncomplicated; E11.42 Type 2 diabetes mellitus with diabetic polyneuropathy
CPT/HCPCS: 36415; 80053; 81001; 82550; 83036; 85025; 85651; 86140

== ENCOUNTER 2023-11-03 09:07 | Outpatient (CLI) | payer MEDICARE, BC ==
[2023-11-03 12:04] LABS: BASOPHILS # (AUTO) 0.1 10^3/uL (0.0-0.1); BASOPHILS % (AUTO) 0.8 %; EOSINOPHILS # (AUTO) 0.4 10^3/uL (0.0-0.7); EOSINOPHILS % (AUTO) 3.5 %; HCT - HEMATOCRIT 39.4 % (37.0-47.0); HGB - HEMOGLOBIN 11.3 g/dL (12.0-16.0); LYMPHOCYTES # (AUTO) 1.8 10^3/uL (1.5-3.5); LYMPHOCYTES % (AUTO) 16.4 %; MEAN CORPUSCULAR HEMOGLOBIN 28.8 pg (27.0-31.0); MEAN CORPUSCULAR HGB CONC 28.7 g/dL (32.0-36.0); MEAN CORPUSCULAR VOLUME 100.5 fL (81.0-99.0); MEAN PLATELET VOLUME 9.9 fL (7.9-10.8); MONOCYTES # (AUTO) 1.1 10^3/uL (0.0-1.0); NEUTROPHILS # (AUTO) 7.5 10^3/uL (1.5-6.6); NEUTROPHILS % (AUTO) 68.4 %; NRBC ABSOLUTE COUNT (AUTO) 0.02 x10^3/uL; NUCLEATED RED BLOOD CELLS AUTO 0.2 /100WBC; PLT - PLATELET COUNT 305 10^3/uL (130-450); RED BLOOD COUNT 3.92 10^6/uL (4.20-5.40); RED CELL DISTRIBUTION WIDTH 14.6 % (12.0-15.0)
[2023-11-03 12:08] LABS: SLIDE REVIEW? Indicated
[2023-11-03 12:25] LABS: ESTIMATED AVERAGE GLUCOSE 197 mg/dL (70-100); HEMOGLOBIN A1c% 8.5 % (4.27-6.07)
[2023-11-03 12:26] LABS: THYROID STIMULATING HORMONE 2.32 uIU/mL (0.34-5.60)
[2023-11-03 12:38] LABS: BILIRUBIN,TOTAL 0.4 mg/dL (0.2-1.0); CALCIUM 10.6 mg/dL (8.5-10.3); CREATININE 1.1 mg/dL (0.6-1.3); POTASSIUM 3.7 mmol/L (3.5-4.5)
[2023-11-03 12:45] LABS: RBC MORPHOLOGY (MULTIPLE) 1+ ANISOCYTOSIS (NORMAL)
== END 2023-11-03 09:08 | disposition home or self-care (01) ==
LOC: LAB.N 09:07
PROVIDERS: ATTEND Family Medicine
DX: J96.10 Chronic respiratory failure, unspecified whether with hypoxia or hypercapnia (principal); D86.0 Sarcoidosis of lung; I50.9 Heart failure, unspecified; E11.42 Type 2 diabetes mellitus with diabetic polyneuropathy
CPT/HCPCS: 36415; 80053; 83036; 83880; 84443; 85025

== ENCOUNTER 2024-04-10 13:53 | Inpatient (IN) ==
--- NOTE | 2024-04-10 14:14 | ED Physician Documentation ---
History of Present Illness Stated complaint Stated Complaint: FLU/LETHARGIC Chief complaint Chief Complaint: Fever History obtained from History obtained from: Patient and EMS History of Present Illness Pain level max: 0 Pain level now: 0 Additonal information Additional information: Patient is a 73-year-old female who lives at [place] with her . Tested positive for flu 4 days ago. Today had a fever, 102.3 Fahrenheit. Did not take any medications. long-term states she was confused. Patient has a history of pulmonary sarcoidosis. No nausea or vomiting. No abdominal pain. No diarrhea. Nothing makes it better or worse. Patient usually is only on about a liter of oxygen at home, was found to be hypoxic down into the low 80s on 2 L at [place]. Review of Systems Constitutional Reports: Fever Ears, nose, mouth, and throat Denies: Neck pain Cardiovascular Denies: chest pain or edema Respiratory Reports: Cough Gastrointestinal Denies: Abdominal pain, Nausea or Vomiting Genitourinary Denies: Painful urination Musculoskeletal Denies: Back pain or Neck pain Integumentary/Breast Denies: Rash Meds/Allgy Home Medications Ambulatory Orders Medication Instructions Recorded Confirmed calcium 600 mg (as 1 tab PO BID 07/23/18 03/02/24 carbonate)-vitamin D3 10 mcg (400 unit) tablet folic acid 1 mg tablet 1 mg PO DAILY daily 07/23/18 03/02/24 gabapentin 300 mg capsule 2 cap PO TID 07/23/18 03/02/24 hydroxychloroquine 200 mg tablet 400 mg PO DAILY 07/23/18 03/02/24 losartan 25 mg tablet 25 mg PO DAILY 07/23/18 03/02/24 mycophenolate mofetil 250 mg 4 cap PO BID 05/12/19 03/02/24 capsule albuterol sulfate 90 mcg/actuation 2 puff inhalation Q6H PRN Dyspnea 05/23/19 03/02/24 aerosol inhaler (Ventolin HFA) montelukast 10 mg tablet 10 mg PO QPM 05/23/19 03/02/24 insulin glargine 100 unit/mL (3 See Rx Instructions .Route 12/17/23 03/02/24 mL) subcutaneous pen (Lantus .COMPLEX #6 mL Solostar U-100 Insulin) acetaminophen 500 mg tablet 500 mg PO Q6H PRN 02/15/24 03/02/24 alendronate 70 mg tablet 70 mg PO QWEEK 02/15/24 03/02/24 cholestyramine-aspartame 4 gram ea PO BID 02/15/24 03/02/24 oral powder (Prevalite) doxycycline hyclate 100 mg capsule 100 mg PO BID 02/15/24 03/02/24 fluticasone furoate 100 1 inh inhalation QDAY 02/15/24 03/02/24 mcg-vilanterol 25 mcg/dose inhalation powder (Breo Ellipta) loperamide 2 mg tablet (Imodium 2 mg PO Q6H PRN 02/15/24 03/02/24 A-D) rosuvastatin 10 mg tablet 10 mg PO QDAY 02/15/24 03/02/24 torsemide 20 mg tablet (Soaanz) 60 mg (3 x 20 mg) PO QDAY #90 tabs 02/15/24 03/02/24 levofloxacin 500 mg tablet 500 mg PO QDAY 03/02/24 03/02/24 nystatin 100,000 unit/gram topical topical 03/02/24 03/02/24 ointment potassium chloride 20 mEq meq PO 03/02/24 03/02/24 tablet,extended release(part/cryst) prednisone 20 mg tablet 40 mg PO 03/02/24 03/02/24 insulin syringe-needle U-100 0.5 #100 ea 04/02/24 mL 31 gauge x 5/16" (BD Insulin Syringe Ultra-Fine) tramadol 50 mg tablet 50 mg PO BID PRN pain #60 tabs 04/02/24 acyclovir 400 mg tablet See Rx Instructions .Route 04/03/24 .COMPLEX #60 tabs Allergies Allergies Allergy/AdvReac Type Severity Reaction Status Date / Time acetaminophen (From Allergy Unknown Verified 04/10/24 14:03 Darvocet-N) amoxicillin Allergy Unknown Verified 04/10/24 14:03 amoxicillin trihydrate * Allergy Unknown Verified 04/10/24 14:03 (From Augmentin) oxycodone Allergy Unknown Verified 04/10/24 14:03 Penicillins Allergy Unknown Verified 04/10/24 14:03 potassium clavulanate * Allergy Unknown Verified 04/10/24 14:03 (From Augmentin) propoxyphene (From Allergy Unknown Verified 04/10/24 14:03 Darvocet-N) Sulfa (Sulfonamide Allergy Unknown Verified 04/10/24 14:03 Antibiotics) sulfamethoxazole (From Allergy Unknown Verified 04/10/24 14:03 Septra) trimethoprim (From ) Allergy Unknown Verified 04/10/24 14:03 PFSH Active Problems All Active Problems (Updated 04/10/24 @ 16:53 by Karthik Becker MD) Influenza A (Acute) Hypotension (Acute) Pneumonia (Acute) Chronic diarrhea (Acute) Cor pulmonale (chronic) (Acute) Dermatomyositis with organ involvement, adult onset (Acute 02/05/21) Myalgia and myositis, unspecified (Acute 08/08/09) Contact dermatitis and other eczema, due to unspecified cause (Acute 01/14/08) Controlled type 2 diabetes mellitus with insulin therapy (Acute 05/26/22) Type II diabetes mellitus with peripheral autonomic neuropathy (Acute 11/27/22) Chronic cough (Acute 06/03/17) Anemia, unspecified (Acute 07/23/07) Dermatomyositis (Acute 11/12/21) Sleep apnea (Acute 10/25/12) Rosacea (Acute 07/16/06) Respiratory failure, chronic (Acute 11/27/22) Pulmonary nodule (Acute 02/16/20) Pedal edema (Acute 03/26/10) Osteoporosis (Acute 11/21/15) Insomnia due to medical condition classified elsewhere (Acute 02/24/22) Immunocompromised (Acute 08/16/20) Gastroparesis diabeticorum (Acute 04/14/17) Fatigue (Acute 06/30/18) Essential hypertension, benign (Acute 09/16/07) Edema (Acute 11/28/08) Constipation, chronic (Acute 03/24/14) Chronic right heart failure (Acute 11/12/21) Chronic pain syndrome (Acute 10/11/20) Bronchiectasis (Acute 11/12/21) Asymptomatic postmenopausal status (age-related) (natural) (Acute 11/21/15) Adrenal insufficiency (Acute 07/23/18) Interstitial lung disease (Acute) Anemia due to multiple mechanisms (Acute) Fever (Acute) Hypoxia (Acute) Acute kidney injury (Acute) Hyponatremia (Acute) Diabetes mellitus treated with insulin (Acute) Medical History Medical History Hospital-acquired pneumonia Sepsis Community acquired pneumonia Pulmonary sarcoidosis Wedge compression fracture of second lumbar vertebra, subsequent encounter for fracture with routine healing (08/16/20) CAP (community acquired pneumonia) due to Pneumococcus (05/16/19) Osteoarthritis of right knee (05/22/09) Osteoarthritis of left knee (02/01/08) Nondisplaced fracture of head of left radius, initial encounter for closed fracture (10/13/19) Neoplasm of uncertain behavior of skin (02/02/12) 2019 novel coronavirus-infected pneumonia (NCIP) (08/16/20) Neoplasm of unspecified behavior of bone, soft tissue, and skin (11/23/18) Sepsis (05/16/19) Pulmonary sarcoidosis (05/16/19) Vertigo (09/02/17) Spondylolisthesis (08/19/18) Lumbar radiculopathy (05/05/23) Hematuria (07/28/16) Fluid overload (05/26/22) Dyspnea on exertion (06/30/18) Bronchiectasis with acute exacerbation (02/05/21) Acute respiratory failure with hypoxia (05/24/19) Acute nontraumatic kidney injury (05/16/19) Acute and chronic respiratory failure (05/26/22) Family History Family History Brother Kidney disease Social History Social History Smoking Status: Never smoker Second hand tobacco smoke exposure: Yes Do you dip or chew tobacco?: No Do you vape?: No Patient requests smoking cessation consult: No Initiate information on smoking cessation: No Living arrangement: At home Marital Status: Living Condition: Alone Support Person: Yes Relationship: Friend Physical Activity: Walking and other Level: Independent Home Mobility Equipment: Walker and Wheelchair Do you feel safe in your home environment?: Yes Suffered physical, verbal, emotional, or financial abuse?: No History of Abuse: No ETOH Use: None Substance Use: denies use Are you sexually active?: No 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[employer], 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 Known occupational exposures/hazards (Current/Previous): none known Service: No Are you following a diet prescribed by a doctor: No Are you following a special diet: Yes Special Diet Details: Diabetic, salt free POLST Patient has POLST: No Exam Constitutional normal general appearance and no apparent distress HENMT oropharynx normal moist mucous membranes Eyes PERRL Neck/C-Spine visual inspection normal Respiratory Mild wheezing bilaterally Cardiovascular normal heart rate noted and regular rhythm noted Gastrointestinal abdomen normal to inspection, abdomen soft to palpation, nontender to palpation and nondistended Genitourinary no CVA tenderness Extremities no edema Neurology speech normal Psychiatry mental status grossly normal and oriented x3 Skin skin color normal Results Vitals Vitals: Vital Signs - 24 hr 04/10/24 13:54 04/10/24 14:03 04/10/24 14:41 Temperature 39.2 C H Temperature Source Oral Pulse Rate 117 H Respiratory Rate 24 Blood Pressure 115/55 L O2 Saturation 92 Oxygen Delivery Method Nasal Cannula O2 Source Nasal cannula Oxygen Flow Rate 2 If not protocol: Oxygen Flow, liters/minute 2 Pain Intensity 4 4 04/10/24 15:23 04/10/24 15:35 04/10/24 16:16 Temperature 38.5 C H Temperature Source Oral Pulse Rate 100 100 97 Respiratory Rate 20 22 18 Blood Pressure 94/49 L 105/53 L O2 Saturation 88 L 93 Oxygen Delivery Method O2 Source Nasal cannula Nasal cannula Nasal cannula Oxygen Flow Rate If not protocol: Oxygen Flow, liters/minute 2 3 3 Pain Intensity 0 5 04/10/24 16:58 Temperature Temperature Source Pulse Rate 92 Respiratory Rate 24 Blood Pressure 115/55 L O2 Saturation 96 Oxygen Delivery Method O2 Source Nasal cannula Oxygen Flow Rate If not protocol: Oxygen Flow, liters/minute 3 Pain Intensity 5 Oxygen O2 Source [Without Activity] Nasal cannula O2 Source Nasal cannula Oxygen Flow Rate 2 Labs Labs: Laboratory Tests 04/10/24 04/10/24 14:20 14:24 WBC 14.0 H RBC 3.54 L Hgb 10.2 L Hct 35.8 L MCV 101.1 H MCH 28.8 MCHC 28.5 L RDW 13.7 Plt Count 372 MPV 9.2 Neut # (Auto) 11.7 H Lymph # (Auto) 0.7 L [place] # (Auto) 1.3 H Eos # (Auto) 0.1 Baso # (Auto) 0.0 Absolute Nucleated RBC 0.03 Nucleated RBC % 0.2 Manual Slide Review Indicated WBC Morphology NORMAL APPEARANCE Platelet Estimate NORMAL (130-450,000) Platelet Morphology NORMAL APPEARANCE RBC Morph Micro Appear 1+ HYPOCHROMASIA PT 12.9 H INR 1.2 APTT 33.9 H Sodium 140 Potassium 3.7 Chloride 91 L Carbon Dioxide 44 H* Anion Gap 5.0 L BUN 15 Creatinine 1.1 Estimated GFR (MDRD) 49 L Glucose 97 Lactic Acid 0.9 Calcium 9.6 Total Bilirubin 0.5 AST 11 ALT 8 L Alkaline Phosphatase 59 Total Protein 6.5 Albumin 3.5 Globulin 3.0 Albumin/Globulin Ratio 1.2 Lipase < 10 L Urine Color YELLOW Urine Clarity CLEAR Urine pH 7.0 Ur Specific [place] 1.010 Urine Protein NEGATIVE Urine Glucose (UA) NEGATIVE Urine Ketones NEGATIVE Urine Occult Blood NEGATIVE Urine Nitrite NEGATIVE Urine Bilirubin NEGATIVE Urine Urobilinogen 0.2 (NORMAL) Ur Leukocyte Esterase NEGATIVE Ur Microscopic Review NOT INDICATED Urine Culture Comments NOT INDICATED Rads (name of study) cxr: Relevant Findings:: Final report received PD Medical Decision Making ED course Complexity details: reviewed results, re-evaluated patient, considered differential and d/w patient ED course: Patient is generally ill-appearing. Chest x-ray shows a possible left lower lobe pneumonia. Started on Levaquin for this given her multiple antibiotic allergies. Lactate is normal. She was hypotensive and hypoxic in the emergency department. Did improve with IV fluids but still appears ill. Blood cultures drawn. Given the worsening hypoxia, hypotension, leukocytosis and possible pneumonia with influenza will admit for further care. Discussed the case with the hospitalist who accepts. Patient is DNR. This document was made in part using voice recognition software. While efforts are made to proofread this document, sound alike and grammatical errors may occur. Discharge Plan Discharge Patient Disposition: [facility] DC/Xfer Condition: Fair Clinical Impression: Hypoxia, Influenza A Pneumonia Qualifiers: Pneumonia type: due to unspecified organism Laterality: left Lung location: lower lobe of lung Qualified Code(s): J18.9 - Pneumonia, unspecified organism Hypotension Qualifiers: Hypotension type: unspecified hypotension type Qualified Code(s): I95.9 - Hypotension, unspecified Interventions: ED Admission Assessment Last Done: 04/10/24 17:46
[2024-04-10 14:30] LABS: HGB - HEMOGLOBIN 10.2 g/dL (12.0-16.0); MEAN PLATELET VOLUME 9.2 fL (7.9-10.8)
[2024-04-10 14:31] LABS: BILIRUBIN,URINE NEGATIVE (NEGATIVE); GLUCOSE, URINE (UA) NEGATIVE (NEGATIVE); KETONES,URINE (UA) NEGATIVE (NEGATIVE); LEUKOCYTE ESTERASE, URINE NEGATIVE (NEGATIVE); NITRITE,URINE NEGATIVE (NEGATIVE); OCCULT BLOOD,URINE NEGATIVE (NEGATIVE); PROTEIN,URINE NEGATIVE (NEGATIVE); UROBILINOGEN,URINE 0.2 (NORMAL) E.U./dL (NORMAL)
[2024-04-10 14:38] LABS: BASOPHILS % (AUTO) 0.3 %; EOSINOPHILS # (AUTO) 0.1 10^3/uL (0.0-0.7); EOSINOPHILS % (AUTO) 0.5 %; HCT - HEMATOCRIT 35.8 % (37.0-47.0); LYMPHOCYTES # (AUTO) 0.7 10^3/uL (1.5-3.5); LYMPHOCYTES % (AUTO) 4.7 %; MEAN CORPUSCULAR HEMOGLOBIN 28.8 pg (27.0-31.0); MEAN CORPUSCULAR HGB CONC 28.5 g/dL (32.0-36.0); MEAN CORPUSCULAR VOLUME 101.1 fL (81.0-99.0); MONOCYTES # (AUTO) 1.3 10^3/uL (0.0-1.0); MONOCYTES % (AUTO) 9.1 %; NEUTROPHILS # (AUTO) 11.7 10^3/uL (1.5-6.6); NRBC ABSOLUTE COUNT (AUTO) 0.03 x10^3/uL; NUCLEATED RED BLOOD CELLS AUTO 0.2 /100WBC; PLT - PLATELET COUNT 372 10^3/uL (130-450); RED BLOOD COUNT 3.54 10^6/uL (4.20-5.40); RED CELL DISTRIBUTION WIDTH 13.7 % (12.0-15.0)
[2024-04-10 14:38] LABS: CLARITY,URINE CLEAR (CLEAR)
[2024-04-10 14:40] LABS: INR 1.2 (0.8-1.2); PT - PROTHROMBIN TIME 12.9 secs (9.9-12.6)
[2024-04-10] MEDS: ACETAMINOPHEN 325 MG TABLET PO STA (14:41)
[2024-04-10 14:48] LABS: PARTIAL THROMBOPLASTIN TIME 33.9 secs (24.9-33.3)
[2024-04-10 14:55] LABS: ALBUMIN 3.5 g/dL (3.2-5.5); ALBUMIN/GLOBULIN RATIO 1.2 (1.0-2.2); ALKALINE PHOSPHATASE 59 IU/L (42-121); ALT ALANINE AMINOTRANSFERASE 8 IU/L (10-60); AST ASPARTATE AMINOTRANSFERASE 11 IU/L (10-42); BILIRUBIN,TOTAL 0.5 mg/dL (0.2-1.0); BUN - BLOOD UREA NITROGEN 15 mg/dL (6-20); CALCIUM 9.6 mg/dL (8.5-10.3); CARBON DIOXIDE - CO2 44 mmol/L (21-32); CHLORIDE 91 mmol/L (101-111); CREATININE 1.1 mg/dL (0.6-1.3); GFR - MDRD 49 (>89); GLUCOSE 97 mg/dL (74-104); LIPASE < 10 U/L (11-82); POTASSIUM 3.7 mmol/L (3.5-4.5); SODIUM 140 mmol/L (135-145); TOTAL PROTEIN 6.5 g/dL (6.4-8.9)
[2024-04-10 15:02] LABS: PLATELET ESTIMATE, MANUAL NORMAL (130-450,000) (NORMAL); PLATELET MORPHOLOGY NORMAL APPEARANCE (NORMAL); RBC MORPHOLOGY (MULTIPLE) 1+ HYPOCHROMASIA (NORMAL); SLIDE REVIEW? Indicated; WBC MORPHOLOGY (MULTIPLE) NORMAL APPEARANCE (NORMAL)
--- NOTE | 2024-04-10 15:25 | XRAY Report ---
PROCEDURE: XR Chest 1V INDICATIONS: + flu, cough TECHNIQUE: One view of the chest was acquired. COMPARISON: None FINDINGS: Surgical changes and devices: None. Lungs and pleura: Size is enlarged. Moderate vascular congestion. Obscuration left hemidiaphragm. Lo w lung volumes accentuate pulmonary interstitium and heart size. Bones and chest wall: No suspicious bony lesions. Overlying soft tissues appear unremarkable. IMPRESSION: Cardiomegaly, moderate vascular congestion and left pleural effusion with atelectasis and/or infiltra te, all accentuated by low lung volumes Reviewed by: Joseph Chavez MD on 04/10/2024 2:24 PM AKST Approved by: Joseph Chavez MD on 04/10/2024 2:24 PM AKST Station ID: [id number]
[2024-04-10] MEDS: methylPREDNISolone SUCCINATE 125 MG/2 ML VIAL IVP STA (15:26)
[2024-04-10] MEDS: IPRATROPIUM/ALBUTEROL 3 ML NEB INH STA (15:32)
[2024-04-10] MEDS: SODIUM CHLORIDE 0.9% 1,000 ML IV STA (16:21)
[2024-04-10] MEDS: levoFLOXacin 750 MG/150 ML 750 MG/150 ML BAG IV STA (16:35)
--- NOTE | 2024-04-10 16:46 | HISTORY & PHYSICAL EXAMINATION ---
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 Patient started feeling sick about a week ago on 04/04. She went to [facility]. Here, a trace left pleural effusion was seen. She was given Solu- Medrol, DuoNebs, as well as Lasix. She was also sent home with a course of Tamiflu which she completed. She now presents with 3 days of worsening shortness of breath, fevers, chills, fatigue. Initially, after being discharged from [facility], she started feeling better, and then all the symptoms started returning. Today, she feels very short of breath. In the emergency room, she was febrile with a temperature of 102.6, tachycardic to 117, saturating 88% on her 2 L. She was also hypotensive with blood pressure as low as 94/49. Lab work showed a leukocytosis of 14. Her bicarb was elevated at 44, but this is where it is chronically elevated at. Urine was negative for any acute infection. Chest x-ray showed cardiomegaly, moderate vascular conduction and left pleural effusion with atelectasis and or infiltrate. She has received IV fluids, Solu-Medrol shot, levofloxacin, DuoNebs. She was admitted for sepsis and likely superimposed pneumonia from her recent flu. Meds/Allgy Home Medications Ambulatory Orders Medication Instructions Recorded Confirmed calcium 600 mg (as 1 tab PO BID 07/23/18 03/02/24 carbonate)-vitamin D3 10 mcg (400 unit) tablet folic acid 1 mg tablet 1 mg PO DAILY daily 07/23/18 03/02/24 gabapentin 300 mg capsule 2 cap PO TID 07/23/18 03/02/24 hydroxychloroquine 200 mg tablet 400 mg PO DAILY 07/23/18 03/02/24 losartan 25 mg tablet 25 mg PO DAILY 07/23/18 03/02/24 mycophenolate mofetil 250 mg 4 cap PO BID 05/12/19 03/02/24 capsule albuterol sulfate 90 mcg/actuation 2 puff inhalation Q6H PRN Dyspnea 05/23/19 03/02/24 aerosol inhaler (Ventolin HFA) montelukast 10 mg tablet 10 mg PO QPM 05/23/19 03/02/24 insulin glargine 100 unit/mL (3 See Rx Instructions .Route 12/17/23 03/02/24 mL) subcutaneous pen (Lantus .COMPLEX #6 mL Solostar U-100 Insulin) acetaminophen 500 mg tablet 500 mg PO Q6H PRN 02/15/24 03/02/24 alendronate 70 mg tablet 70 mg PO QWEEK 02/15/24 03/02/24 cholestyramine-aspartame 4 gram ea PO BID 02/15/24 03/02/24 oral powder (Prevalite) doxycycline hyclate 100 mg capsule 100 mg PO BID 02/15/24 03/02/24 fluticasone furoate 100 1 inh inhalation QDAY 02/15/24 03/02/24 mcg-vilanterol 25 mcg/dose inhalation powder (Breo Ellipta) loperamide 2 mg tablet (Imodium 2 mg PO Q6H PRN 02/15/24 03/02/24 A-D) rosuvastatin 10 mg tablet 10 mg PO QDAY 02/15/24 03/02/24 torsemide 20 mg tablet (Soaanz) 60 mg (3 x 20 mg) PO QDAY #90 tabs 02/15/24 03/02/24 levofloxacin 500 mg tablet 500 mg PO QDAY 03/02/24 03/02/24 nystatin 100,000 unit/gram topical topical 03/02/24 03/02/24 ointment potassium chloride 20 mEq meq PO 03/02/24 03/02/24 tablet,extended release(part/cryst) prednisone 20 mg tablet 40 mg PO 03/02/24 03/02/24 insulin syringe-needle U-100 0.5 #100 ea 04/02/24 mL 31 gauge x 5/16" (BD Insulin Syringe Ultra-Fine) tramadol 50 mg tablet 50 mg PO BID PRN pain #60 tabs 04/02/24 acyclovir 400 mg tablet See Rx Instructions .Route 04/03/24 .COMPLEX #60 tabs Allergies Allergies Allergy/AdvReac Type Severity Reaction Status Date / Time acetaminophen (From Allergy Unknown Verified 04/10/24 14:03 Darvocet-N) amoxicillin Allergy Unknown Verified 04/10/24 14:03 amoxicillin trihydrate * Allergy Unknown Verified 04/10/24 14:03 (From Augmentin) oxycodone Allergy Unknown Verified 04/10/24 14:03 Penicillins Allergy Unknown Verified 04/10/24 14:03 potassium clavulanate * Allergy Unknown Verified 04/10/24 14:03 (From Augmentin) propoxyphene (From Allergy Unknown Verified 04/10/24 14:03 Darvocet-N) Sulfa (Sulfonamide Allergy Unknown Verified 04/10/24 14:03 Antibiotics) sulfamethoxazole (From Allergy Unknown Verified 04/10/24 14:03 Septra) trimethoprim (From Septra) Allergy Unknown Verified 04/10/24 14:03 PFSH Active Problems All Active Problems (Updated 04/10/24 @ 16:53 by Karthik Becker MD) Influenza A (Acute) Hypotension (Acute) Pneumonia (Acute) Chronic diarrhea (Acute) Cor pulmonale (chronic) (Acute) Dermatomyositis with organ involvement, adult onset (Acute 02/05/21) Myalgia and myositis, unspecified (Acute 08/08/09) Contact dermatitis and other eczema, due to unspecified cause (Acute 01/14/08) Controlled type 2 diabetes mellitus with insulin therapy (Acute 05/26/22) Type II diabetes mellitus with peripheral autonomic neuropathy (Acute 11/27/22) Chronic cough (Acute 06/03/17) Anemia, unspecified (Acute 07/23/07) Dermatomyositis (Acute 11/12/21) Sleep apnea (Acute 10/25/12) Rosacea (Acute 07/16/06) Respiratory failure, chronic (Acute 11/27/22) Pulmonary nodule (Acute 02/16/20) Pedal edema (Acute 03/26/10) Osteoporosis (Acute 11/21/15) Insomnia due to medical condition classified elsewhere (Acute 02/24/22) Immunocompromised (Acute 08/16/20) Gastroparesis diabeticorum (Acute 04/14/17) Fatigue (Acute 06/30/18) Essential hypertension, benign (Acute 09/16/07) Edema (Acute 11/28/08) Constipation, chronic (Acute 03/24/14) Chronic right heart failure (Acute 11/12/21) Chronic pain syndrome (Acute 10/11/20) Bronchiectasis (Acute 11/12/21) Asymptomatic postmenopausal status (age-related) (natural) (Acute 11/21/15) Adrenal insufficiency (Acute 07/23/18) Interstitial lung disease (Acute) Anemia due to multiple mechanisms (Acute) Fever (Acute) Hypoxia (Acute) Acute kidney injury (Acute) Hyponatremia (Acute) Diabetes mellitus treated with insulin (Acute) Medical History Medical History Hospital-acquired pneumonia Sepsis Community acquired pneumonia Pulmonary sarcoidosis Wedge compression fracture of second lumbar vertebra, subsequent encounter for fracture with routine healing (08/16/20) CAP (community acquired pneumonia) due to Pneumococcus (05/16/19) Osteoarthritis of right knee (05/22/09) Osteoarthritis of left knee (02/01/08) Nondisplaced fracture of head of left radius, initial encounter for closed fracture (10/13/19) Neoplasm of uncertain behavior of skin (02/02/12) 2019 novel coronavirus-infected pneumonia (NCIP) (08/16/20) Neoplasm of unspecified behavior of bone, soft tissue, and skin (11/23/18) Sepsis (05/16/19) Pulmonary sarcoidosis (05/16/19) Vertigo (09/02/17) Spondylolisthesis (08/19/18) Lumbar radiculopathy (05/05/23) Hematuria (07/28/16) Fluid overload (05/26/22) Dyspnea on exertion (06/30/18) Bronchiectasis with acute exacerbation (02/05/21) Acute respiratory failure with hypoxia (05/24/19) Acute nontraumatic kidney injury (05/16/19) Acute and chronic respiratory failure (05/26/22) Family History Family History Brother Kidney disease Social History Social History Smoking Status: Never smoker Second hand tobacco smoke exposure: Yes Do you dip or chew tobacco?: No Do you vape?: No Patient requests smoking cessation consult: No Initiate information on smoking cessation: No Living arrangement: At home Marital Status: Living Condition: Alone Support Person: Yes Relationship: Friend Physical Activity: Walking and other Level: Independent Home Mobility Equipment: Walker and Wheelchair Do you feel safe in your home environment?: Yes Suffered physical, verbal, emotional, or financial abuse?: No History of Abuse: No ETOH Use: None Substance Use: denies use Are you sexually active?: No 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[employer], 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: Yes Known occupational exposures/hazards (Current/Previous): none known Service: No Are you following a diet prescribed by a doctor: No Are you following a special diet: Yes Special Diet Details: Diabetic, salt free POLST Patient has POLST: No POLST Status: DNR Review of Systems Constitutional Reports: Fatigue, Fever, Chills, Malaise, Weakness and Weight loss Eyes Denies: Pain, Irritation, Amaurosis, Blurry vision or Floaters Ears, nose, mouth, and throat Denies: Ear pain, Ear discharge, Hearing loss, Hearing aids, Tinnitus, Neck pain or Throat swelling Cardiovascular Reports: edema, swelling of feet/ankles, shortness of breath with exertion, shortness of breath when lying down and Decreased exercise tolerance; Denies: Irregular heart rate, chest pain, palpitations, Syncope or lightheadedness Respiratory Reports: Shortness of breath, Cough, Sputum production and Change in phlegm color Gastrointestinal Reports: Abdominal pain, Abdominal distention, Nausea and Poor appetite Genitourinary Denies: Painful urination, Urinary frequency, Urinary urgency, Nocturia, Urinary incontinence or Blood in urine Musculoskeletal Denies: Back pain, Neck pain, Extremity pain, Extremity swelling, Gout, Joint pain or Limited range of motion Integumentary/Breast Denies: Rash, Itching, Dryness, Redness, Skin pain or Skin tenderness Neurological Reports: General weakness; Denies: Headache, Focal weakness, Weakness in extremities, Numbness in extremities, Abnormal gait, Lack of coordination or Dizziness Psychiatric Denies: Depression, Anxiety, Mood swings, Panic attacks, Change in sleep pattern or Hopelessness Endocrine Reports: Fatigue; Denies: Excessive urination, Excessive thirst or Polyphagia Hematologic/Lymphatic Denies: Anemia, Easy bruising, Petechiae or Easy bleeding Allergic/Immunologic Denies: Hives, Throat swelling, Tongue swelling or Facial swelling Exam Constitutional abnormal general appearance (lethargic), no apparent distress, abnormal body habitus (overweight) and alert HENMT normocephalic, head/scalp atraumatic and hearing grossly normal bilaterally Eyes PERRL, EOMs intact bilaterally and conjunctivae normal Neck/C-Spine visual inspection normal and trachea midline Lymph no lymphadenopathy noted Chest inspection of chest normal Respiratory breath sounds equal bilaterally, normal respiratory effort, rales noted (throughout) and no use of accessory muscles Cardiovascular heart rate abnormal (tachycardic), regular rhythm noted, no gallop, no rub and no murmur Gastrointestinal abdomen normal to inspection, abdomen soft to palpation and distended Genitourinary no CVA tenderness, bladder normal to palpation and external appearance normal Back/Pelvis spine normal to inspection and no thoracic spine tenderness Extremities normal to inspection and normal to palpation Neurology no movement abnormality noted, no focal motor deficit noted and no sensory deficits noted Psychiatry mental status grossly normal, oriented x3, thought process normal, cooperative and affect normal Skin skin color normal, no rash, no lesions and no ecchymosis noted Sepsis Event Note (H) Evaluation Current Stage of Sepsis: Sepsis Possible source of Sepsis: positive Pulmonary Sepsis Criteria Sepsis Criteria: Recorded Temperature greater than 38.3C or Less than 36C, Recorded Heart Rate greater than 90 bpm and WBC count greater than 12,000 or less than 4000 Conclusion/Plan Problem List (1) Sepsis: Plan: Patient presented febrile, tachycardic, with leukocytosis. Received adequate IV fluid rehydration. Likely pulmonary source with consolidation seen on x-ray and recent history of influenza A. Patient has anaphylactic reaction to penicillins. Will start her on levofloxacin and vancomycin to cover broadly as she is immunosuppressed, and recently had influenza. Caution with IV fluid resuscitation as patient has a history of heart failure with preserved ejection fraction and is usually on a high dose of torsemide daily. Will hold torsemide at this time, complete this last bolus, and continue gentle IV fluid rehydration. Blood cultures are ordered, pending. Did have a CODE STATUS discussion with the patient, and she remains DO NOT RESUSCITATE, DO NOT INTUBATE. She is okay with that central line if needed, and vasopressor support if needed. Qualifiers: Sepsis type: sepsis due to unspecified organism Sepsis acute organ dysfunction status: with acute organ dysfunction Severe sepsis acute organ dysfunction type: acute respiratory failure Acute respiratory failure type: w ith hypoxia Severe sepsis shock status: without septic shock Qualified Code(s): A41.9 - Sepsis, unspecified organism; R65.20 - Severe sepsis without septic shock; J96.01 - Acute respiratory failure with hypoxia (2) Acute respiratory failure with hypoxia: Plan: Patient has dermatomyositis with associated interstitial lung disease. She is on mycophenolate, hydroxychloroquine, as well as prednisone 10 mg daily. Due to her immunocompromise nature, as well as her underlying lung disease, we will treat broadly with vancomycin and levofloxacin for now. Will hold her antimetabolite, mycophenolate in the setting of this active infection. Resume when able. Her service order dispatcher chief is Dr. Eugene Grace and her pulmonology is Dr. Morales; will update them regarding this hospitalization. (3) Community acquired pneumonia: Plan: See above. Qualifiers: Laterality: left Lung location: lower lobe of lung Qualified Code(s): J18.9 - Pneumonia, unspecified organism (4) Controlled type 2 diabetes mellitus with insulin therapy: Plan: Continue insulin Lantus 20 units at night, sliding scale insulin, hypoglycemic protocol in place. (5) Essential hypertension, benign: Plan: Patient is currently hypotensive due to active infection. Continue to hold losartan. (6) Chronic right heart failure: Plan: Patient with some bibasilar crackles, diffuse rales. Received IV fluids for sepsis and active infection, as well as hypotension. Will continue with gentle IV fluid rehydration if necessary. Encourage oral intake. Will restart torsemide when able. (7) Interstitial lung disease: Plan: Patient has dermatomyositis with associated interstitial lung disease. She is on mycophenolate, hydroxychloroquine, as well as prednisone 10 mg daily. Due to her immunocompromise nature, as well as her underlying lung disease, we will treat broadly with vancomycin and levofloxacin for now. Will hold her antimetabolite, mycophenolate in the setting of this active infection. Resume when able. Her service order dispatcher chief is Dr. Eugene Grace and her pulmonology is Dr. Morales; will update them regarding this hospitalization. Lab Results 04/10/24 14:24 04/10/24 14:24
[2024-04-10] MEDS ORDERED: MAG HYDROX/AL HYDROX/SIMETH 30 ML UDC PO PRN (17:09)
[2024-04-10] MEDS ORDERED: SODIUM CHLORIDE FLUSH 0.9% 10 ML SYRINGE IVP PRN (18:01)
[2024-04-10] MEDS ORDERED: ONDANSETRON ODT 4 MG TABLET TL PRN (18:01)
[2024-04-10] MEDS ORDERED: ONDANSETRON 4 MG/2 ML VIAL IVP PRN (18:01)
[2024-04-10] MEDS: INSULIN GLARGINE-YFGN 300 UNIT/3 ML PEN SUBQ SCH (21:03)
[2024-04-10] MEDS: methylPREDNISolone SUCCINATE 40 MG/ML VIAL IVP SCH (21:05)
[2024-04-10] MEDS: ACYCLOVIR 200 MG CAPSULE PO SCH (21:05)
[2024-04-10] MEDS: ATORVASTATIN 10 MG TABLET PO SCH (21:05)
[2024-04-10] MEDS: INSULIN LISPRO 300 UNIT/3 ML PEN SUBQ SCH (21:30)
[2024-04-10] MEDS: GABAPENTIN 300 MG CAPSULE PO SCH (21:30)
[2024-04-11] MEDS: SODIUM CHLORIDE FLUSH 0.9% 10 ML SYRINGE IVP SCH (03:19)
[2024-04-11 04:59] LABS: HCT - HEMATOCRIT 32.7 % (37.0-47.0); HGB - HEMOGLOBIN 9.5 g/dL (12.0-16.0); MEAN CORPUSCULAR HEMOGLOBIN 29.4 pg (27.0-31.0); MEAN CORPUSCULAR HGB CONC 29.1 g/dL (32.0-36.0); MEAN CORPUSCULAR VOLUME 101.2 fL (81.0-99.0); MEAN PLATELET VOLUME 9.5 fL (7.9-10.8); RED BLOOD COUNT 3.23 10^6/uL (4.20-5.40); RED CELL DISTRIBUTION WIDTH 13.6 % (12.0-15.0); WHITE BLOOD COUNT 10.3 x10^3/uL (4.8-10.8)
[2024-04-11 05:19] LABS: CREATININE 1.2 mg/dL (0.6-1.3); POTASSIUM 4.8 mmol/L (3.5-4.5)
[2024-04-11] MEDS: HYDROXYCHLOROQUINE 200 MG TABLET PO SCH (08:44)
[2024-04-11] MEDS: FOLIC ACID 1 MG TABLET PO SCH (08:44)
[2024-04-11] MEDS: guaiFENesin 600 MG TABLET PO SCH (08:44)
[2024-04-11] MEDS: ENOXAPARIN 40 MG/0.4 ML SYRINGE SUBQ SCH (08:45)
[2024-04-11] MEDS: levoFLOXacin 750 MG/150 ML 750 MG/150 ML BAG IV SCH (08:45)
[2024-04-11] MEDS: IPRATROPIUM/ALBUTEROL 3 ML NEB INH SCH (10:11)
--- NOTE | 2024-04-11 11:48 | PROVIDER PROGRESS NOTE ---
Subjective Subjective Subjective: Today, patient is feeling better. She states her lethargy and tiredness has improved, as her fevers and chills. She still coughing. She is unable to bring anything up though. Her shortness of breath is improving as well. Current Medications Current Medications Current Medications: Current Medications Generic Name Dose Route Start Last Admin Trade Name Freq PRN Reason Stop Dose Admin Acetaminophen 500 mg 04/10/24 18:01 Acetaminophen 500 Mg Tablet PO Q6H PRN Pain or Fever > 38C (100.4F) Acyclovir 200 mg 04/10/24 21:00 04/11/24 08:45 Acyclovir 200 Mg Capsule PO 200 mg BID ROMY Administration Al Hydroxide/Mg Hydroxide 30 ml 04/10/24 17:09 Mag Hydrox/Al Hydrox/Simeth 30 Ml Udc PO Q6HR PRN indigestion Albuterol/Ipratropium 3 ml 04/11/24 11:00 04/11/24 10:11 Ipratropium/Albuterol 3 Ml Neb INH 3 ml RTQID ROMY Administration Atorvastatin Calcium 20 mg 04/10/24 21:00 04/10/24 21:05 Atorvastatin 10 Mg Tablet PO 20 mg QPM ROMY Administration Enoxaparin Sodium 40 mg 04/11/24 09:00 04/11/24 08:45 Enoxaparin 40 Mg/0.4 Ml Syringe SUBQ 40 mg DAILY ROMY Administration Folic Acid 1 mg 04/11/24 09:00 04/11/24 08:44 Folic Acid 1 Mg Tablet PO 1 mg DAILY ROMY Administration Gabapentin 600 mg 04/10/24 22:00 04/11/24 06:23 Gabapentin 300 Mg Capsule PO 600 mg TID ROMY Administration Guaifenesin 600 mg 04/11/24 09:00 04/11/24 08:44 Guaifenesin 600 Mg Tablet PO 600 mg BID ROMY Administration Hydroxychloroquine Sulfate 400 mg 04/11/24 09:00 04/11/24 08:44 Hydroxychloroquine 200 Mg Tablet PO 400 mg DAILY ROMY Administration Levofloxacin 750 mg in 150 mls @ 100 mls/hr 04/11/24 09:00 04/11/24 10:20 Levaquin 750 Mg/150 Ml IV Infused Q24H ROMY Infusion Insulin Glargine-yfgn 20 unit 04/10/24 21:00 04/10/24 21:03 Insulin Glargine-Yfgn 300 Unit/3 Ml Pen SUBQ 20 unit QPM ROMY Administration Insulin Human Lispro 1 - 5 unit 04/10/24 21:00 04/11/24 08:44 Insulin Lispro 300 Unit/3 Ml Pen SUBQ Not Given 0800,1200,1700,2100 [facility] Protocol Methylprednisolone 40 mg 04/10/24 21:00 04/11/24 08:44 Methylprednisolone Succinate 40 Mg/Ml Vial IVP 04/11/24 15:01 40 mg Q6H ROMY Administration Ondansetron HCl 4 mg 04/10/24 18:01 Ondansetron Odt 4 Mg Tablet TL Q6HR PRN Nausea / Vomiting Ondansetron HCl 4 mg 04/10/24 18:01 Ondansetron 4 Mg/2 Ml Vial IVP Q6HR PRN Nausea / Vomiting Sodium Chloride 10 ml 04/10/24 18:01 Sodium Chloride Flush 0.9% 10 Ml Syringe IVP PRN PRN NEEDED PER PROVIDER ORDERS Sodium Chloride 10 ml 04/11/24 01:00 04/11/24 08:45 Sodium Chloride Flush 0.9% 10 Ml Syringe IVP 10 ml 0100,0900,1700 [facility] Administration Objective Vital Signs/Intake & Output Reviewed Vital Signs: Yes Vital Signs: Vital Signs x48h Temp Pulse Pulse Resp BP Pulse Ox O2 Flow Rate 04/11/24 10:12 2 04/11/24 10:12 91 24 04/11/24 07:33 97.9 F 81 20 126/66 92 2 04/11/24 04:25 97.5 F L 78 16 132/66 H 93 2 Intake & Output: Intake & Output 04/08/24 04/09/24 04/10/24 04/11/24 23:59 23:59 23:59 23:59 Intake Total 1350 / 1350 270 / 270 Output Total 1100 / 1100 500 / 500 Balance 250 / 250 -230 / -230 Weight (kg) 83.5 kg Objective General Appearance: positive No acute distress and Alert; negative Anxious Eyes Bilateral: positive Normal inspection, PERRL and EOMI ENT: positive ENT inspection nml, Pharynx nml and No signs of dehydration Neck: positive Nml inspection, Thyroid nml and No JVD Respiratory: positive Chest non-tender, No respiratory distress, Wheezes (Diffuse expiratory wheezes in all lung [place]) and Rales (Bibasilar crackles noted) Cardiovascular: positive Regular rate & rhythm and Tachycardia Abdomen: positive Non-tender and No distention; negative Guarding, Splenomegaly or Bruit Back: positive Nml inspection; negative CVA tenderness (R) or CVA tenderness (L) Skin: positive Color nml, No rash, Warm and Dry Extremities: positive Non-tender, Full ROM and No pedal edema Neurologic/Psychiatric: positive Oriented x3 and Mood/affect nml Lab Results 04/11/24 04:24 04/11/24 04:24 Other Labs: Lab Results x24hrs 04/11/24 04/11/24 04/10/24 Range/Units 07:35 04:24 20:55 WBC 10.3 (4.8-10.8) x10^3/uL RBC 3.23 L (4.20-5.40) 10^6/uL Hgb 9.5 L (12.0-16.0) g/dL Hct 32.7 L (37.0-47.0) % MCV 101.2 H (81.0-99.0) fL MCH 29.4 (27.0-31.0) pg MCHC 29.1 L (32.0-36.0) g/dL RDW 13.6 (12.0-15.0) % Plt Count 338 (130-450) 10^3/uL MPV 9.5 (7.9-10.8) fL Neut # (Auto) (1.5-6.6) 10^3/uL Lymph # (Auto) (1.5-3.5) 10^3/uL [place] # (Auto) (0.0-1.0) 10^3/uL Eos # (Auto) (0.0-0.7) 10^3/uL Baso # (Auto) (0.0-0.1) 10^3/uL Absolute Nucleated RBC x10^3/uL Nucleated RBC % /100WBC Manual Slide Review WBC Morphology (NORMAL) Platelet Estimate (NORMAL) Platelet Morphology (NORMAL) RBC Morph Micro Appear (NORMAL) PT (9.9-12.6) secs INR (0.8-1.2) APTT (24.9-33.3) secs Sodium 142 (135-145) mmol/L Potassium 4.8 H (3.5-4.5) mmol/L Chloride 94 L (101-111) mmol/L Carbon Dioxide 41 H* (21-32) mmol/L Anion Gap 7.0 (6-13) BUN 19 (6-20) mg/dL Creatinine 1.2 (0.6-1.3) mg/dL Estimated GFR (MDRD) 44 L (>89) Glucose 142 H (74-104) mg/dL POC Whole Bld Glucose 131 170 (70-100) mg/dL Lactic Acid (0.5-2.2) mmol/L Calcium 9.0 (8.5-10.3) mg/dL Total Bilirubin (0.2-1.0) mg/dL AST (10-42) IU/L ALT (10-60) IU/L Alkaline Phosphatase (42-121) IU/L Total Protein (6.4-8.9) g/dL Albumin (3.2-5.5) g/dL Globulin (2.1-4.2) g/dL Albumin/Globulin Ratio (1.0-2.2) Lipase (11-82) U/L Urine Color Urine Clarity (CLEAR) Urine pH (5.0-7.5) PH Ur Specific [place] (1.002-1.030) Urine Protein (NEGATIVE) mg/dL Urine Glucose (UA) (NEGATIVE) mg/dL Urine Ketones (NEGATIVE) mg/dL Urine Occult Blood (NEGATIVE) Urine Nitrite (NEGATIVE) Urine Bilirubin (NEGATIVE) Urine Urobilinogen (NORMAL) E.U./dL Ur Leukocyte Esterase (NEGATIVE) Ur Microscopic Review Urine Culture Comments 04/10/24 04/10/24 Range/Units 14:24 14:20 WBC 14.0 H (4.8-10.8) x10^3/uL RBC 3.54 L (4.20-5.40) 10^6/uL Hgb 10.2 L (12.0-16.0) g/dL Hct 35.8 L (37.0-47.0) % MCV 101.1 H (81.0-99.0) fL MCH 28.8 (27.0-31.0) pg MCHC 28.5 L (32.0-36.0) g/dL RDW 13.7 (12.0-15.0) % Plt Count 372 (130-450) 10^3/uL MPV 9.2 (7.9-10.8) fL Neut # (Auto) 11.7 H (1.5-6.6) 10^3/uL Lymph # (Auto) 0.7 L (1.5-3.5) 10^3/uL [place] # (Auto) 1.3 H (0.0-1.0) 10^3/uL Eos # (Auto) 0.1 (0.0-0.7) 10^3/uL Baso # (Auto) 0.0 (0.0-0.1) 10^3/uL Absolute Nucleated RBC 0.03 x10^3/uL Nucleated RBC % 0.2 /100WBC Manual Slide Review Indicated WBC Morphology NORMAL APPEARANCE (NORMAL) Platelet Estimate NORMAL (130-450,000) (NORMAL) Platelet Morphology NORMAL APPEARANCE (NORMAL) RBC Morph Micro Appear 1+ HYPOCHROMASIA (NORMAL) PT 12.9 H (9.9-12.6) secs INR 1.2 (0.8-1.2) APTT 33.9 H (24.9-33.3) secs Sodium 140 (135-145) mmol/L Potassium 3.7 (3.5-4.5) mmol/L Chloride 91 L (101-111) mmol/L Carbon Dioxide 44 H* (21-32) mmol/L Anion Gap 5.0 L (6-13) BUN 15 (6-20) mg/dL Creatinine 1.1 (0.6-1.3) mg/dL Estimated GFR (MDRD) 49 L (>89) Glucose 97 (74-104) mg/dL POC Whole Bld Glucose (70-100) mg/dL Lactic Acid 0.9 (0.5-2.2) mmol/L Calcium 9.6 (8.5-10.3) mg/dL Total Bilirubin 0.5 (0.2-1.0) mg/dL AST 11 (10-42) IU/L ALT 8 L (10-60) IU/L Alkaline Phosphatase 59 (42-121) IU/L Total Protein 6.5 (6.4-8.9) g/dL Albumin 3.5 (3.2-5.5) g/dL Globulin 3.0 (2.1-4.2) g/dL Albumin/Globulin Ratio 1.2 (1.0-2.2) Lipase < 10 L (11-82) U/L Urine Color YELLOW Urine Clarity CLEAR (CLEAR) Urine pH 7.0 (5.0-7.5) PH Ur Specific [place] 1.010 (1.002-1.030) Urine Protein NEGATIVE (NEGATIVE) mg/dL Urine Glucose (UA) NEGATIVE (NEGATIVE) mg/dL Urine Ketones NEGATIVE (NEGATIVE) mg/dL Urine Occult Blood NEGATIVE (NEGATIVE) Urine Nitrite NEGATIVE (NEGATIVE) Urine Bilirubin NEGATIVE (NEGATIVE) Urine Urobilinogen 0.2 (NORMAL) (NORMAL) E.U./dL Ur Leukocyte Esterase NEGATIVE (NEGATIVE) Ur Microscopic Review NOT INDICATED Urine Culture Comments NOT INDICATED Diagnostic Imaging Diagnostic Imaging Results: positive Final report reviewed Sepsis Event Note (H) Evaluation Current Stage of Sepsis: Resolved Possible source of Sepsis: positive Pulmonary Sepsis Criteria Sepsis Criteria: Recorded Temperature greater than 38.3C or Less than 36C, Recorded Heart Rate greater than 90 bpm and WBC count greater than 12,000 or less than 4000 Assessment/Plan Problem List (1) Sepsis: Impression: Patient presented febrile, tachycardic, with leukocytosis. Received adequate IV fluid rehydration. Likely pulmonary source with consolidation seen on x-ray and recent history of influenza A. Patient has anaphylactic reaction to penicillins. Will continue her on levofloxacin and vancomycin to cover broadly as she is immunosuppressed, and recently had influenza. Caution with IV fluid resuscitation as patient has a history of heart failure with preserved ejection fraction and is usually on a high dose of torsemide daily. Will hold torsemide at this time, complete this last bolus. Blood cultures are ordered, pending. Sputum culture is ordered, but she isn't coughing anything up at this time. Did have a CODE STATUS discussion with the patient, and she remains DO NOT RESUSCITATE, DO NOT INTUBATE. She is okay with central line if needed, and vasopressor support if needed. Qualifiers: Acute respiratory failure type: with hypoxia Sepsis acute organ dysfunction status: with acute organ dysfunction Sepsis type: sepsis due to unspecified organism Severe sepsis acute organ dysfunction type: acute respiratory failure Severe sepsis shock status: without septic shock Qualified Code(s): A41.9 - Sepsis, unspecified organism; R65.20 - Severe sepsis without septic shock; J96.01 - Acute respiratory failure with hypoxia (2) Acute respiratory failure with hypoxia: Impression: Patient has dermatomyositis with associated interstitial lung disease. She is on mycophenolate, hydroxychloroquine, as well as prednisone 10 mg daily. I switched her prednisone on admission to Solumedrol 40mg - will continue this BID today, can likely switch to prednisone tomorrow if wheezing continues to improve. Continue Duonebs RTQID as well. Will hold her antimetabolite, mycophenolate in the setting of this active infection. Resume when able. Her planetarium technician is Dr. Eugene Grace and her pulmonology is Dr. Morales. (3) Community acquired pneumonia: Impression: See above. Qualifiers: Laterality: left Lung location: lower lobe of lung Qualified Code(s): J18.9 - Pneumonia, unspecified organism (4) Controlled type 2 diabetes mellitus with insulin therapy: Impression: Continue insulin Lantus 20 units at night, sliding scale insulin, hypoglycemic protocol in place. (5) Essential hypertension, benign: Impression: Patient is currently hypotensive due to active infection. Continue to hold losartan. (6) Chronic right heart failure: Impression: Patient with some bibasilar crackles, diffuse rales. Received IV fluids for sepsis and active infection, as well as hypotension. Will continue with gentle IV fluid rehydration if necessary. Encourage oral intake. Will restart torsemide when able. (7) Interstitial lung disease: Impression: Patient has dermatomyositis with associated interstitial lung disease. She is on mycophenolate, hydroxychloroquine, as well as prednisone 10 mg daily. Will hold her antimetabolite, mycophenolate in the setting of this active infection. Resume when able. Her planetarium technician is Dr. Eugene Grace and her pulmonology is Dr. Morales.
--- NOTE | 2024-04-11 15:13 | PHARMACY PROGRESS NOTE ---
Best Possible Medication History Admit Date and Time: 04/10/24 1709 Home Medications Medication Instructions Recorded Confirmed Type calcium 600 mg (as 1 tab PO BID 07/23/18 04/11/24 History carbonate)-vitamin D3 10 mcg (400 unit) tablet folic acid 1 mg tablet 1 mg PO DAILY daily 07/23/18 04/11/24 History gabapentin 300 mg capsule 600 mg PO TID 07/23/18 04/11/24 History hydroxychloroquine 200 mg tablet 400 mg PO DAILY 07/23/18 04/11/24 History losartan 25 mg tablet 25 mg PO DAILY 07/23/18 04/11/24 History mycophenolate mofetil 250 mg 750 mg PO BID 05/12/19 04/11/24 History capsule montelukast 10 mg tablet 10 mg PO QPM 05/23/19 04/11/24 Rx alendronate 70 mg tablet 70 mg PO BAINS 02/15/24 04/11/24 History loperamide 2 mg tablet (Imodium 2 - 4 mg PO Q6H PRN diarrhea 02/15/24 04/11/24 History A-D) rosuvastatin 10 mg tablet 10 mg PO QPM 02/15/24 04/11/24 History potassium chloride 20 mEq 20 meq PO DAILY 03/02/24 04/11/24 History tablet,extended release(part/cryst) insulin syringe-needle U-100 0.5 #100 ea 04/02/24 Rx mL 31 gauge x 5/16" (BD Insulin Syringe Ultra-Fine) acetaminophen 500 mg tablet 1,000 mg PO QPM 04/11/24 04/11/24 History acyclovir 400 mg tablet 400 mg PO BID 04/11/24 04/11/24 History albuterol sulfate 90 mcg/actuation 2 puff inhalation Q3H PRN 04/11/24 04/11/24 History aerosol inhaler (Ventolin HFA) shortness of breath or wheezing fluticasone furoate 200 1 inh inhalation DAILY 04/11/24 04/11/24 History mcg-vilanterol 25 mcg/dose inhalation powder (Breo Ellipta) guaifenesin 600 mg tablet, 600 mg PO BID 04/11/24 04/11/24 History extended release 12 hr (Mucinex) insulin glargine 100 unit/mL (3 20 unit subcut DAILY 04/11/24 04/11/24 History mL) subcutaneous pen (Lantus Solostar U-100 Insulin) prednisone 10 mg tablet 10 mg PO DAILY 04/11/24 04/11/24 History torsemide 20 mg tablet 20 mg PO DAILY PRN If weight > 180 04/11/24 04/11/24 History lbs torsemide 20 mg tablet 60 mg PO DAILY 04/11/24 04/11/24 History Processed by: Pharmacy Medications reviewed in ED?: No Medication History completed: Yes Secondary Source(s): Insurance records and Facility MAR as ONLY source [facility] Statement: As the person ultimately responsible for medication therapy, providers are able to order a medication from an existing home medication list in [facility] via the "Reconcile Routine" prior to Confirmation of that medication by program support clerk. Such practice is discouraged except when the physician, in their clinical judgment, deems that a medical need exists for a medication without regard to previous use.
[2024-04-11] MEDS: INSULIN LISPRO 300 UNIT/3 ML PEN SUBQ SCH ×2 (17:05→20:51)
[2024-04-11] MEDS: guaiFENesin/DEXTROMETHORPHAN 10 ML UDC PO PRN (17:23)
[2024-04-12] MEDS: BENZOCAINE/MENTHOL LOZENGE MM PRN (03:49)
[2024-04-12 04:46] LABS: HCT - HEMATOCRIT 30.4 % (37.0-47.0); HGB - HEMOGLOBIN 9.1 g/dL (12.0-16.0); MEAN CORPUSCULAR HEMOGLOBIN 29.6 pg (27.0-31.0); MEAN CORPUSCULAR HGB CONC 29.9 g/dL (32.0-36.0); MEAN PLATELET VOLUME 9.5 fL (7.9-10.8); RED BLOOD COUNT 3.07 10^6/uL (4.20-5.40); RED CELL DISTRIBUTION WIDTH 13.6 % (12.0-15.0); WHITE BLOOD COUNT 8.8 x10^3/uL (4.8-10.8)
[2024-04-12 05:06] LABS: MAGNESIUM 1.7 mg/dL (1.7-2.3)
[2024-04-12] MEDS: ACETAMINOPHEN 500 MG TABLET PO PRN (05:24)
[2024-04-12 05:35] LABS: CALCIUM 8.5 mg/dL (8.5-10.3); CREATININE 1.1 mg/dL (0.6-1.3); POTASSIUM 3.7 mmol/L (3.5-4.5)
[2024-04-12] MEDS: predniSONE 20 MG TABLET PO SCH (08:14)
--- NOTE | 2024-04-12 16:16 | PROVIDER PROGRESS NOTE ---
Progress Note Progress Note Progress Note: April 12, 2024 4 PM This hung lady was admitted with sepsis. She has dermatomyositis interstitial lung disease. She is usually on 2 L of oxygen at home. She presented to our hospital a week after she was diagnosed with the flu and had fevers, chills, fatigue and cough. She is found to have pneumonia and we have been treating her with vancomycin and Levaquin since she is immunosuppressed on mycophenolate and hydroxychloroquine and. She lives at [place]. Her antibiotics are Levaquin and vancomycin. Today her hand itched tremendously after getting the Levaquin infusion and we had to stop it. She is allergic to amoxicillin, penicillins, sulfa. She has tolerated cephalosporins in the past. She is on her home oxygen dose. Cough is stable. Fatigue is improved but still present. Prior to being here she was not on antibiotics. Exam: Temp is 36.6. Pulse is 80. Respirations 18. 96% O2 sat on 2 L. Blood pressure is 109/61. Her fluid balance was slightly positive at 250 on April 10. Yesterday positive at 130. Today negative at 123 cc so far as of this dictation. She is taking in less than 500 cc oral intake. She has good urine output. Eating 100% of her food. Alert, oriented but slightly confused elderly woman. She knows that she is in the hospital and that she has a chest infection. But then she forgets why she is here and has to be reminded. 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 There is no respiratory distress but she has a nasal tone of voice and a congested cough. Regular rate and rhythm with a systolic ejection murmur Abdomen is soft, nontender. She had 1 small bowel movement today. Extremities without edema Coarse upper airway sounds. She is using her Acapella about once a shift. Deaf, oriented to person, place. But not time. No focal deficits. Low hoarse voice. Follows one-step commands. I reviewed her labs and her chloride is 92. Carbon dioxide is coming down to 38. She was 44. BUN 23, creatinine 1.1. Glucose fasting was 155. Before lunch was 198. Magnesium and calcium are normal. White cell count is normal. Continues to come down from admission. On admission she was 14, yesterday she was 10.3, today 8.8. Hemoglobin stable at 9.1. She is usually anemic and that is unchanged in looking at her labs. Platelets are 345. Blood cultures from April 10 are negative after 2 days Respiratory culture is preliminary. She has white cells, gram-positive cocci, few gram-negative bacilli. Assessment/Plan Problem List (1) Sepsis: Resolved Impression: Patient presented febrile, tachycardic, with leukocytosis. Received adequate IV fluid rehydration. Pulmonary source with consolidation seen on x-ray and recent history of influenza A. Today is Day 2 of abx. Patient has anaphylactic reaction to penicillins. She was started on levofloxacin and vancomycin to cover broadly as she is immunosuppressed, and recently had influenza. But today she developed itching in her hand with the L evaquin was being infused. I cannot use penicillin. I cannot use Levaquin. I cannot use sulfa. She seems to have tolerated a cephalosporin in the past after asking her the names of medications that she can take. As such I am going to switch her to Vantin oral, and azithromycin oral. I will and for total of 7 days of IV antibiotic therapy since she is immunocompromise. In order to assess for MRSA possibility, I will do an MRSA swab of her nose. If it is negative I will not treat for MRSA pneumonia. Caution with IV fluid resuscitation as patient has a history of heart failure with preserved ejection fraction and is usually on a high dose of torsemide daily and torsemide held at this time and after she completed this last bolus. Blood cultures are negative. Sputum culture is a preliminary and not helpful, but she isn't coughing anything up at this time. Lungs are relatively benign with only coarse upper airways. Did have a CODE STATUS discussion with the patient, and she remains DO NOT RESUSCITATE, DO NOT INTUBATE. She is okay with central line if needed, and vasopressor support if needed. - Encouraged her to get out of bed. Already lives in an assisted living [facility]. I am hoping to [facility]. Qualifiers: Acute respiratory failure type: with hypoxia Sepsis acute organ dysfunction status: with acute organ dysfunction Sepsis type: sepsis due to unspecified organism Severe sepsis acute organ dysfunction type: acute respiratory failure Severe sepsis shock status: without septic shock Qualified Code(s): A41.9 - Sepsis, unspecified organism; R65.20 - Severe sepsis without septic shock; J96.01 - Acute respiratory failure with hypoxia (2) Acute respiratory failure with hypoxia: Impression: Patient has dermatomyositis with associated interstitial lung disease. She is on mycophenolate, hydroxychloroquine, as well as prednisone 10 mg daily. Her daily prednisone 10 mg a day. Because of the sepsis the admitting hospitalist switch her to Solu-Medrol 40 mg twice daily. Today she was switched to prednisone 40 mg daily. No wheezing on exam. Continue Duonebs RTQID as well. Will hold her antimetabolite, mycophenolate in the setting of this active infection. Resume when able. Her ethnology professor is Dr. Eugene Grace and her pulmonology is Dr. Morales. (3) Community acquired pneumonia: Impression: See above. Qualifiers: Laterality: left Lung location: lower lobe of lung Qualified Code(s): J18.9 - Pneumonia, unspecified organism (4) Controlled type 2 diabetes mellitus with insulin therapy: Impression: Yesterday her glucose was 131. Today she is 155, 198. Yesterday she needed 10 units of short acting insulin. Today she has needed only 6 units combined breakfast and lunch. She is on 20 units of Lantus. This is her home dose. I will increase Lantus from 20 units at night to 22 units, continue sliding scale insulin, hypoglycemic protocol in place. (5) Essential hypertension, benign: Impression: Patient was hypotensive to 94/49 on her admission today. Her losartan has been held. Blood pressure was stable yesterday. Today she is 130/65, 135/71, 109/61. If she creeps into the 140s I will resume her losartan. Continue to hold losartan. (6) Chronic right heart failure: Impression: Patient had bibasilar crackles, diffuse rales on admit. Received IV fluids for sepsis and active infection, as well as for hypotension. Will continue with gentle IV fluid rehydration if necessary. Encourage oral intake. She has between 200 cc a day to 480 cc a day and needs to drink just a little bit more. I will allow up to 1 L a day. So far she has not required maintenance IV therapy. Her last IV fluids were with the boluses associated with sepsis treatment. Will restart torsemide when able. (7) Interstitial lung disease: Impression: Patient has dermatomyositis with associated interstitial lung disease. She is on mycophenolate, hydroxychloroquine, as well as prednisone 10 mg daily. We are holding her antimetabolite, mycophenolate in the setting of this active infection. Resume when able. Her ethnology professor is Dr. Eugene Grace and her pulmonology is Dr. Morales. Current Medications Current Medications Current Medications: Current Medications Generic Name Dose Route Start Last Admin Trade Name Freq PRN Reason Stop Dose Admin Acetaminophen 500 mg 04/10/24 18:01 04/12/24 05:24 Acetaminophen 500 Mg Tablet PO 500 mg Q6H PRN Administration Pain or Fever > 38C (100.4F) Acyclovir 200 mg 04/10/24 21:00 04/12/24 08:15 Acyclovir 200 Mg Capsule PO 200 mg BID ROMY Administration Al Hydroxide/Mg Hydroxide 30 ml 04/10/24 17:09 Mag Hydrox/Al Hydrox/Simeth 30 Ml Udc PO Q6HR PRN indigestion Albuterol/Ipratropium 3 ml 04/11/24 11:00 04/12/24 15:45 Ipratropium/Albuterol 3 Ml Neb INH 3 ml RTQID ROMY Administration Atorvastatin Calcium 20 mg 04/10/24 21:00 04/11/24 20:50 Atorvastatin 10 Mg Tablet PO 20 mg QPM ROMY Administration Azithromycin 500 mg 04/13/24 09:00 Azithromycin 250 Mg Tablet PO 04/15/24 09:01 DAILY ROMY Cefuroxime Axetil 200 mg 04/13/24 09:00 Cefpodoxime Proxetil 100 Mg Tablet PO BID ROMY Enoxaparin Sodium 40 mg 04/11/24 09:00 04/12/24 08:15 Enoxaparin 40 Mg/0.4 Ml Syringe SUBQ 40 mg DAILY ROMY Administration Folic Acid 1 mg 04/11/24 09:00 04/12/24 08:14 Folic Acid 1 Mg Tablet PO 1 mg DAILY ROMY Administration Gabapentin 600 mg 04/10/24 22:00 04/12/24 13:49 Gabapentin 300 Mg Capsule PO 600 mg TID ROMY Administration Guaifenesin 600 mg 04/11/24 09:00 04/12/24 08:14 Guaifenesin 600 Mg Tablet PO 600 mg BID ROMY Administration Guaifenesin 10 ml 04/11/24 17:08 04/12/24 03:49 Guaifenesin/Dextromethorphan 10 Ml Udc PO 10 ml Q6HR PRN Administration Cough Hydroxychloroquine Sulfate 400 mg 04/11/24 09:00 04/12/24 08:14 Hydroxychloroquine 200 Mg Tablet PO 400 mg DAILY ROMY Administration Insulin Glargine-yfgn 22 unit 04/12/24 21:00 Insulin Glargine-Yfgn 300 Unit/3 Ml Pen SUBQ QPM ROMY Insulin Human Lispro 2 - 10 unit 04/11/24 21:00 04/12/24 12:01 Insulin Lispro 300 Unit/3 Ml Pen SUBQ 4 unit 0800,1200,1700,2100 ROMY Administration Protocol Ondansetron HCl 4 mg 04/10/24 18:01 Ondansetron Odt 4 Mg Tablet TL Q6HR PRN Nausea / Vomiting Ondansetron HCl 4 mg 04/10/24 18:01 Ondansetron 4 Mg/2 Ml Vial IVP Q6HR PRN Nausea / Vomiting Prednisone 40 mg 04/12/24 08:00 04/12/24 08:14 Prednisone 20 Mg Tablet PO 40 mg DAILYWM ROMY Administration Sodium Chloride 10 ml 04/10/24 18:01 Sodium Chloride Flush 0.9% 10 Ml Syringe IVP PRN PRN NEEDED PER PROVIDER ORDERS Sodium Chloride 10 ml 04/11/24 01:00 04/12/24 08:17 Sodium Chloride Flush 0.9% 10 Ml Syringe IVP 10 ml 0100,0900,1700 ROMY Administration Throat Lozenges 1 lozenge 04/11/24 17:08 04/12/24 03:49 Benzocaine/Menthol Lozenge MM 1 lozenge Q2HR PRN Administration Mouth Sore Pain
[2024-04-12] MEDS: INSULIN LISPRO 300 UNIT/3 ML PEN SUBQ SCH (17:50)
[2024-04-12] MEDS: INSULIN GLARGINE-YFGN 300 UNIT/3 ML PEN SUBQ SCH (21:23)
[2024-04-13 08:22] VITALS: BP 102/54; TEMP 97.9; O2SAT 91
[2024-04-13] MEDS: AZITHROMYCIN 250 MG TABLET PO SCH (08:32)
[2024-04-13] MEDS: CEFPODOXIME PROXETIL 100 MG TABLET PO SCH (08:33)
--- NOTE | 2024-04-13 12:22 | Discharge Summary ---
Discharge Summary Admit Date: 04/10/24 Discharge Date: 04/13/24 Discharging Provider: Cande Goodman MD Primary Care Provider: Jose A Julien MD Code Status: Do Not Attempt Resuscitation DIAGNOSES Discharge Diagnoses with Status of Each Condition: 1. Acute on chronic respiratory failure with hypoxemia 2. Sepsis due to pneumonia 2. Pneumonia in immunocompromised patient 3. Controlled type 2 diabetes mellitus, with insulin therapy 4. Benign essential hypertension 5. Chronic right-sided heart failure 6. 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 Patient started feeling sick about a week ago on 04/04. She went to [facility]. Here, a trace left pleural effusion was seen. She was given Solu- Medrol, DuoNebs, as well as Lasix. She was also sent home with a course of Tamiflu which she completed. She now presents with 3 days of worsening shortness of breath, fevers, chills, fatigue. Initially, after being discharged from [facility], she started feeling better, and then all the symptoms started returning. Today, she feels very short of breath. In the emergency room, she was febrile with a temperature of 102.6, tachycardic to 117, saturating 88% on her 2 L. She was also hypotensive with blood pressure as low as 94/49. Lab work showed a leukocytosis of 14. Her bicarb was elevated at 44, but this is where it is chronically elevated at. Urine was negative for any acute infection. Chest x-ray showed cardiomegaly, moderate vascular conduction and left pleural effusion with atelectasis and or infiltrate. She has received IV fluids, Solu-Medrol shot, levofloxacin, DuoNebs. She was admitted for sepsis and likely superimposed pneumonia from her recent flu. CONSULTS | PROCEDURES Procedures: Chest x-ray has cardiomegaly, moderate vascular congestion, left pleural effusion with atelectasis and/or infiltrate. All accentuated by low lung volumes. Blood culture from April 10 is without any growth after 2 days. Sputum culture from April 11 is still in progress. Moderate white blood cells, many gram-positive cocci in pairs, few gram-negative bacilli. HOSPITAL COURSE Hospital Course: This document was made in part using voice recognition software. While efforts are made to proofread this document, sound alike and grammatical errors may occur. ALLERGIES Allergies Allergy/AdvReac Type Severity Reaction Status Date / Time acetaminophen (From Allergy Unknown Verified 04/10/24 14:03 Darvocet-N) amoxicillin Allergy Unknown Verified 04/10/24 14:03 amoxicillin trihydrate * Allergy Unknown Verified 04/10/24 14:03 (From Augmentin) oxycodone Allergy Unknown Verified 04/10/24 14:03 Penicillins Allergy Unknown Verified 04/10/24 14:03 potassium clavulanate * Allergy Unknown Verified 04/10/24 14:03 (From Augmentin) propoxyphene (From Allergy Unknown Verified 04/10/24 14:03 Darvocet-N) Sulfa (Sulfonamide Allergy Unknown Verified 04/10/24 14:03 Antibiotics) sulfamethoxazole (From Allergy Unknown Verified 04/10/24 14:03 Septra) trimethoprim (From Octra) Allergy Unknown Verified 04/10/24 14:03 MEDICATIONS Ambulatory Orders Medication Instructions Recorded Confirmed calcium 600 mg (as 1 tab PO BID 07/23/18 04/11/24 carbonate)-vitamin D3 10 mcg (400 unit) tablet folic acid 1 mg tablet 1 mg PO DAILY daily 07/23/18 04/11/24 gabapentin 300 mg capsule 600 mg PO TID 07/23/18 04/11/24 hydroxychloroquine 200 mg tablet 400 mg PO DAILY 07/23/18 04/11/24 losartan 25 mg tablet 25 mg PO DAILY 07/23/18 04/11/24 mycophenolate mofetil 250 mg 750 mg PO BID 05/12/19 04/11/24 capsule montelukast 10 mg tablet 10 mg PO QPM 05/23/19 04/11/24 alendronate 70 mg tablet 70 mg PO BAINS 02/15/24 04/11/24 loperamide 2 mg tablet (Imodium 2 - 4 mg PO Q6H PRN diarrhea 02/15/24 04/11/24 A-D) rosuvastatin 10 mg tablet 10 mg PO QPM 02/15/24 04/11/24 potassium chloride 20 mEq 20 meq PO DAILY 03/02/24 04/11/24 tablet,extended release(part/cryst) insulin syringe-needle U-100 0.5 #100 ea 04/02/24 mL 31 gauge x 5/16" (BD Insulin Syringe Ultra-Fine) acetaminophen 500 mg tablet 1,000 mg PO QPM 04/11/24 04/11/24 acyclovir 400 mg tablet 400 mg PO BID 04/11/24 04/11/24 albuterol sulfate 90 mcg/actuation 2 puff inhalation Q3H PRN 04/11/24 04/11/24 aerosol inhaler (Ventolin HFA) shortness of breath or wheezing fluticasone furoate 200 1 inh inhalation DAILY 04/11/24 04/11/24 mcg-vilanterol 25 mcg/dose inhalation powder (Breo Ellipta) guaifenesin 600 mg tablet, 600 mg PO BID 04/11/24 04/11/24 extended release 12 hr (Mucinex) insulin glargine 100 unit/mL (3 20 unit subcut DAILY 04/11/24 04/11/24 mL) subcutaneous pen (Lantus Solostar U-100 Insulin) prednisone 10 mg tablet 10 mg PO DAILY 04/11/24 04/11/24 torsemide 20 mg tablet 20 mg PO DAILY PRN If weight > 180 04/11/24 04/11/24 lbs torsemide 20 mg tablet 60 mg PO DAILY 04/11/24 04/11/24 azithromycin 250 mg tablet 500 mg (2 x 250 mg) PO DAILY #2 04/13/24 tabs benzocaine 15 mg-menthol 3.6 mg 1 kristie mucous membrane Q2HR PRN 04/13/24 lozenges (Cepacol Sore Throat Mouth Sore Pain #25 ea (benzocaine-menthol)) cefpodoxime 100 mg tablet 200 mg (2 x 100 mg) PO BID #5 tabs 04/13/24 ipratropium 0.5 mg-albuterol 3 mg 3 ml inhalation RTQID #180 mL 04/13/24 (2.5 mg base)/3 mL nebulization soln nebulizer accessories (Tr #1 ea 04/13/24 Choice Nebulizer Kit-Adult) LABS 04/12/24 04:28 04/12/24 04:28 SEPSIS Current Stage of Sepsis: Resolved Possible source of Sepsis: Pulmonary Sepsis Criteria: Recorded Temperature greater than 38.3C or Less than 36C, Recorded Heart Rate greater than 90 bpm and WBC count greater than 12,000 or less than 4000 Discharge Plan Discharge Patient Disposition: 01 Home, Self Care Condition: Fair Medically Cleared Date:: 04/13/24 Prescriptions: New azithromycin 250 mg Tablet 500 mg PO DAILY Qty: 2 0RF Cepacol Sore Throat (fercho-men) 15-3.6 mg Lozenge 1 kristie mucous membrane Q2HR PRN (Reason: Mouth Sore Pain) Qty: 25 0RF cefpodoxime 100 mg Tablet 200 mg PO BID Qty: 5 0RF ipratropium-albuterol 0.5 mg-3 mg(2.5 mg base)/3 mL Solution For Nebulization 3 ml inhalation RTQID Qty: 180 0RF (DME) [facility] Choice Neb Kit-Adult Misc See Rx Instructions .Route Qty: 1 0RF Rx Instructions: As directed Continued (DME) insulin syringe-needle U-100 [BD Insulin Syringe Ultra-Fine] 0.5 mL 31 gauge x 5/16" syringe See Rx Instructions .Route Qty: 100 3RF Rx Instructions: As directed gabapentin 300 capsule 600 mg PO TID hydroxychloroquine 200 MG tablet 400 mg PO DAILY losartan 25 MG tablet 25 mg PO DAILY folic acid 1 MG tablet 1 mg PO DAILY calcium carbonate-vitamin D3 1 EACH tablet 1 tab PO BID mycophenolate mofetil 250 MG capsule 750 mg PO BID montelukast 10 MG tablet 10 mg PO QPM 0RF acetaminophen 500 mg tablet 1,000 mg PO QPM fluticasone furoate-vilanterol [Breo Ellipta] 200-25 mcg/dose blister with device 1 inh INHALATION DAILY guaifenesin [Mucinex] 600 mg tablet extended release 12hr 600 mg PO BID prednisone 10 mg tablet 10 mg PO DAILY torsemide 20 mg tablet 60 mg PO DAILY torsemide 20 mg tablet 20 mg PO DAILY PRN (Reason: If weight > 180 lbs) acyclovir 400 mg tablet 400 mg PO BID albuterol sulfate [Ventolin HFA] 1 PUFFS HFA aerosol inhaler 2 puff inhalation Q3H PRN (Reason: shortness of breath or wheezing) insulin glargine [Lantus Solostar U-100 Insulin] 100 unit/mL (3 mL) insulin pen 20 unit subcut DAILY potassium chloride 20 mEq tablet,ER particles/crystals 20 meq PO DAILY rosuvastatin 10 mg tablet 10 mg PO QPM alendronate 70 mg tablet 70 mg PO BAINS Rx Instructions: SUNDAYS loperamide [Imodium A-D] 2 mg tablet 2 - 4 mg PO Q6H PRN (Reason: diarrhea) Rx Instructions: Take 2 tabs (4 mg) with first loose bowel movement, then 1 tab (2 mg) with each following loose bowel movement; maximum of 6 tabs per day Activity Restrictions: Activity as Tolerated Diet: Regular Health Concerns: You live in an assisted living facility with your , and you have a history of dermatomyositis with interstitial lung disease. The treatment is the use of an immune suppression drug called CellCept and hydroxychloroquine. This leaves your immune system suppressed and you are at risk for severe infection. You developed cough, fever, chills and congestion a week ago and were diagnosed with the flu. You continued to get worse and came to the emergency room. You usually take 2 L of oxygen to maintain your O2 saturation at home. In the emergency room, you were requiring 3 L to maintain your oxygen, had a severe cough and congestion, and x-ray that showed pneumonia. Because you are immunocompromised, we do not give the normal community-acquired pneumonia antibiotics. We gave you antibiotics that have broader spectrum. You responded well to those antibiotics, and we were able to transition you to oral antibiotics after 3 days of intravenous antibiotics. You had 1 day of oral antibiotics today and did well. You still need 2 more days of antibiotics and you will go home with those pills called in. You will be taking Vantin and azithromycin. I came to the decision of these antibiotics based on your allergic history. You are allergic to amoxicillin, penicillin, and sulfa. Please do not take the CellCept or hydroxychloroquine on for the next 5 days. You can resume it on April 18. While you are here we did not give you your congestive heart failure medications which were the diuretics torsemide, losartan. Your blood pressure was low. Over the last couple of days your blood pressures come back up to normal. You can resume those medications at home. You were on increased dosing of steroids while you were here. This helped your coughing and asthma. Our steroids will be stopped and you will resume your usual steroids that you take at home. I am also ordering Cepacol lozenges. You were taking them while here. Hopefully that will help your cough as well. You had quite a bit of wheezing and required nebulizer treatments. I am ordering a nebulizer solution, and a nebulizer machine for you to take home and use. I hope this will help the severe cough you continue to have. While here, your glucose was elevated. You already have diabetes, and the steroids you take (as well as the steroids we gave you) can result in lack of diabetic control. We treated your elevated glucose with Lantus long-acting once a day, and lispro short acting before each meal. Please see your primary care provider in follow-up. You usually see Dr. Jose A Julien. Please see him in the next 1 to 2 weeks. Thank you very much for allowing us to take care of you. We hope that you slowly improve. Print Language: Divehi Patient Instructions: Mycophenolate tablets
== END 2024-04-13 16:28 | disposition home or self-care (01) | DRG 871 ==
LOC: ED 13:53 → MS3 17:09
PROVIDERS: ADMIT Internal Medicine; ATTEND Internal Medicine
DX: Z88.0 Allergy status to penicillin; J45.909 Unspecified asthma, uncomplicated; Z79.4 Long term (current) use of insulin; J84.170 Interstitial lung disease with progressive fibrotic phenotype in diseases classified elsewhere; A41.9 Sepsis, unspecified organism; Z99.81 Dependence on supplemental oxygen; I11.0 Hypertensive heart disease with heart failure; M33.11 Other dermatomyositis with respiratory involvement; L29.89 Other pruritus; Z88.1 Allergy status to other antibiotic agents; T36.8X5A Adverse effect of other systemic antibiotics, initial encounter; Z66 Do not resuscitate; R65.20 Severe sepsis without septic shock; E11.9 Type 2 diabetes mellitus without complications; J10.00 Influenza due to other identified influenza virus with unspecified type of pneumonia; J10.1 Influenza due to other identified influenza virus with other respiratory manifestations; R09.02 Hypoxemia; J18.9 Pneumonia, unspecified organism; I95.9 Hypotension, unspecified; D84.821 Immunodeficiency due to drugs; Y92.230 Patient room in hospital as the place of occurrence of the external cause; J96.21 Acute and chronic respiratory failure with hypoxia; Z88.2 Allergy status to sulfonamides; I50.32 Chronic diastolic (congestive) heart failure

== ENCOUNTER 2024-10-11 11:36 | Inpatient (IN) ==
[2024-10-11] MEDS: SODIUM CHLORIDE 0.9% 1,000 ML IV STA (11:57)
[2024-10-11] MEDS: ACETAMINOPHEN 500 MG TABLET PO STA (11:58)
--- NOTE | 2024-10-11 12:08 | ED Physician Documentation ---
History of Present Illness Stated complaint Stated Complaint: COUGH/AMS Chief complaint Chief Complaint: Fever Additonal information Additional information: 73-year-old female with history of type 2 diabetes, spondylolisthesis, cervical radiculopathy, chronic kidney disease, heart failure, COPD, adrenal insufficiency, pulmonary sarcoidosis presents to the emergency department via EMS from assisted living facility for altered mental status, cough, shortness of breath, nausea, vomiting, fevers. Patient is alert and oriented x 1 upon initial arrival unsure what year it is or where she is this has been ongoing now for about the last few days but the acute worsening shortness of breath and confusion is significantly worse today. Meds/Allgy Home Medications Ambulatory Orders Medication Instructions Recorded Confirmed calcium 600 mg (as 1 tab PO BID 07/23/18 carbonate)-vitamin D3 10 mcg (400 unit) tablet loperamide 2 mg tablet (Imodium 2 - 4 mg PO Q6H PRN di arrhea 02/15/24 10/11/24 A-D) insulin syringe-needle U-100 0.5 #100 ea 04/02/2404/05 mL 31 gauge x 5/16" (BD Insulin Syringe Ultra-Fine) acetaminophen 500 mg tablet 1,000 mg PO QPM 04/11/24 0 10/11/24 acyclovir 400 mg tablet 400 mg PO BID 04/11/2410/11 albuterol sulfate 90 mcg/actuation 2 puff inhalation Q 3H PRN 04/11/24 10/11/24 aerosol inhaler (Ventolin HFA) shortness of breath or wheezing guaifenesin 600 mg tablet, 600 mg PO BID 04/11/2404/05 extended release 12 hr (Mucinex) insulin glargine 100 unit/mL (3 20 unit subcut DAILY 0 04/11/24 10/11/24 mL) subcutaneous pen (Lantus Solostar U-100 Insulin) benzocaine 15 mg-menthol 3.6 mg 1 kristie mucous membrane Q2HR PRN 04/13/24 10/11/24 lozenges (Cepacol Sore Throat Mouth Sore Pain #25 ea (benzocaine-menthol)) ipratropium 0.5 mg-albuterol 3 mg 3 ml inhalation QID #120 mL 04/20/24 10/11/24 (2.5 mg base)/3 mL nebulization soln nebulizer accessories ([place] #1 ea 04/26/24 10/11/24 Choice Nebulizer Kit-Adult) alendronate 70 mg tablet See Rx Instructions .Route 0 06/02/24 10/11/24 .COMPLEX #4 tabs potassium chloride 20 mEq See Rx Instructions .Route 0 06/12/24 10/11/24 tablet,extended release(part/cryst) .COMPLEX #30 tabs folic acid 1 mg tablet See Rx Instructions .Route 0 06/19/24 10/11/24 .COMPLEX #30 tabs gabapentin 300 mg capsule See Rx Instructions .Route 0 06/19/24 10/11/24 .COMPLEX #180 caps hydroxychloroquine 200 mg tablet See Rx Instructions . Route 06/28/24 10/11/24 .COMPLEX #60 tabs losartan 25 mg tablet See Rx Instructions .Route 0 06/30/24 10/11/24 .COMPLEX #30 tabs rosuvastatin 10 mg tablet See Rx Instructions .Route 0 06/30/24 10/11/24 .COMPLEX #30 tabs empagliflozin 10 mg tablet 10 mg PO QAM #30 tabs 07/0510/11/24 (Jardiance) fluticasone fur. 100 mcg-umeclid 1 inh inhalation QDAY 07/05/24 10/11/24 62.5 mcg-vilant 25 mcg inhalat.powder (Trelegy Ellipta) pantoprazole 40 mg tablet,delayed 40 mg PO QDAY #30 ta bs 07/05/24 10/11/24 release montelukast 5 mg chewable tablet 5 mg PO DAILY 5 10/11/24 meloxicam 7.5 mg tablet 7.5 mg PO QDAY #30 tabs 07/04/0510/11/24 torsemide 20 mg tablet 60 mg (3 x 20 mg) PO DAILY # 270 08/24/24 10/11/24 tabs doxycycline hyclate 100 mg capsule 100 mg PO BID 09/0510/11/24 Held on 10/11/24. Instructions: Per Patient tramadol 50 mg tablet 50 mg PO Q8H PRN pain #90 ta bs 09/05/24 10/11/24 prednisone 10 mg tablet See Rx Instructions .Route 0 09/27/24 10/11/24 .COMPLEX #30 tabs fluticasone furoate 200 1 inh inhalation DAILY 10/1110/11/24 mcg-vilanterol 25 mcg/dose inhalation powder (Breo Ellipta) mycophenolate mofetil 250 mg 750 mg PO BID 10/11/24 capsule Allergies Allergies Allergy/AdvReac Type Severity Reaction Status Date / Time amoxicillin Allergy Unknown Verified 10/11/24 11:45 amoxicillin trihydrate * Allergy Unknown Verified 10/11/24 11:45 (From Augmentin) hydrocodone Allergy Hives Verified 10/11/24 11:45 oxycodone Allergy Unknown Verified 10/11/24 11:45 Penicillins Allergy Unknown Verified 10/11/24 11:45 potassium clavulanate * Allergy Unknown Verified 10/11/24 11:45 (From Augmentin) propoxyphene (From Allergy Unknown Verified 10/11/24 11:45 Darvocet-N) Sulfa (Sulfonamide Allergy Unknown Verified 10/11/24 11:45 Antibiotics) sulfamethoxazole (From Allergy Unknown Verified 10/11/24 11:45 Septra) trimethoprim (From Septra) Allergy Unknown Verified 10/11/24 11:45 PFSH Active Problems All Active Problems (Updated 10/11/24 @ 14:57 by Homero Maurer DNP) Sepsis (Acute) Pneumonia (Acute) Rhinovirus (Acute) Obesity (Acute) Spondylolisthesis (Acute 08/19/18) Type II diabetes mellitus with peripheral autonomic neuropathy (Acute 11/27/22) Impetigo any site (Acute) Immunocompromised (Acute 08/16/20) Dermatomyositis with organ involvement, adult onset (Acute 02/05/21) Cervical radiculopathy (Acute) CKD stage 3b, GFR 30-44 ml/min (Acute) Heart failure with preserved ejection fraction (Acute) Food sticks on swallowing (Acute) Dorsal back pain (Acute) COPD (chronic obstructive pulmonary disease) (Chronic) Dermatomyositis (Chronic) Acute and chronic respiratory failure (Acute 05/26/22) Bronchiectasis (Acute 11/12/21) Asymptomatic postmenopausal status (age-related) (natural) (Acute 11/21/15) Adrenal insufficiency (Acute 07/23/18) Anemia due to multiple mechanisms (Acute) Fever (Acute) Acute kidney injury (Acute) Hyponatremia (Acute) Diabetes mellitus treated with insulin (Acute) Medical History Medical History (Updated 10/11/24 @ 14:57 by Homero Maurer DNP) Pneumonia Chronic diarrhea Cor pulmonale (chronic) Myalgia and myositis, unspecified (08/08/09) Contact dermatitis and other eczema, due to unspecified cause (01/14/08) Controlled type 2 diabetes mellitus with insulin therapy (05/26/22) Chronic cough (06/03/17) Anemia, unspecified (07/23/07) Sleep apnea (10/25/12) Rosacea (07/16/06) Respiratory failure, chronic (11/27/22) Pulmonary nodule (02/16/20) Pedal edema (03/26/10) Osteoporosis (11/21/15) Insomnia due to medical condition classified elsewhere (02/24/22) Gastroparesis diabeticorum (04/14/17) Essential hypertension, benign (09/16/07) Constipation, chronic (03/24/14) Chronic right heart failure (11/12/21) Chronic pain syndrome (10/11/20) Interstitial lung disease Hypoxia Hospital-acquired pneumonia Sepsis Community acquired pneumonia Pulmonary sarcoidosis Wedge compression fracture of second lumbar vertebra, subsequent encounter for fracture with routine healing (08/16/20) CAP (community acquired pneumonia) due to Pneumococcus (05/16/19) Osteoarthritis of right knee (05/22/09) Osteoarthritis of left knee (02/01/08) Nondisplaced fracture of head of left radius, initial encounter for closed fracture (10/13/19) Neoplasm of uncertain behavior of skin (02/02/12) 2019 novel coronavirus-infected pneumonia (NCIP) (08/16/20) Neoplasm of unspecified behavior of bone, soft tissue, and skin (11/23/18) Sepsis (05/16/19) Pulmonary sarcoidosis (05/16/19) Vertigo (09/02/17) Lumbar radiculopathy (05/05/23) Hematuria (07/28/16) Fluid overload (05/26/22) Dyspnea on exertion (06/30/18) Bronchiectasis with acute exacerbation (02/05/21) Acute respiratory failure with hypoxia (05/24/19) Acute nontraumatic kidney injury (05/16/19) Surgical History Surgical History History of fundoplication Family History Family History Brother Kidney disease Social History Social History (Updated 10/11/24 @ 12:44 by Tio Ace, RN) Second hand tobacco smoke exposure: No Do you dip or chew tobacco?: No Do you vape?: No Patient requests smoking cessation consult: No Initiate information on smoking cessation: No Living arrangement: Assisted living Marital Status: Living Condition: Alone Support Person: Yes Physical Activity: Walking and other Level: Assisted Do you feel safe in your home environment?: Yes History of physical, verbal, emotional, or financial abuse?: No ETOH Use: None Substance Use: denies use Are you sexually active?: No 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[employer], 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 Known occupational exposures/hazards (Current/Previous): none known Service: No Are you following a diet prescribed by a doctor: No Are you following a special diet: Yes Special Diet Details: Diabetic, salt free POLST Patient has POLST: No Exam Exam Vital Signs: Vital Signs x48h Temp Pulse Resp BP Pulse Ox O2 Flow Rate 10/11/24 15:00 98 20 118/58 L 94 2 10/11/24 14:46 36.9 C 102 H 22 118/58 L 91 L 2 10/11/24 13:38 37.5 C 103 H 20 109/72 92 2 10/11/24 12:56 37.2 C 10/11/24 12:46 37.2 C 108 H 23 97 10/11/24 12:39 117 H 24 140/76 H 98 10/11/24 12:24 113 H 23 120/89 97 10/11/24 12:09 114 H 22 141/87 H 98 10/11/24 12:09 133 H 28 H 141/87 H 96 10/11/24 12:05 119 H 24 116/94 H 94 10/11/24 12:00 2 10/11/24 11:46 39.3 C H 132 H 22 158/115 H 95 2 Constitutional abnormal general appearance (disheveled), (lethargic) and (frail appearing), no apparent distress, average body habitus, no limitations and alert HENMT normocephalic and head/scalp atraumatic Eyes PERRL Chest inspection of chest normal Respiratory breath sounds equal bilaterally decreased breath sounds with ronchi Cardiovascular heart rate abnormal (tachycardic) Gastrointestinal abdomen normal to inspection and abdomen soft to palpation Genitourinary no CVA tenderness Extremities normal to inspection 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 and speech normal Psychiatry mental status grossly normal, oriented x3 and thought process normal Skin skin color normal Results Vitals Vitals: Vital Signs - 24 hr 10/11/24 11:46 10/11/24 11:58 10/11/24 12:00 Temperature 39.3 C H Temperature Source Oral Pulse Rate 132 H Respiratory Rate 22 Blood Pressure 158/115 H O2 Saturation 95 Oxygen Delivery Method Nasal Cannula O2 Source Nasal cannula If not protocol: Oxygen Flow, liters/minute 2 2 Pain Intensity 0 0 10/11/24 12:05 10/11/24 12:09 10/11/24 12:09 Temperature Temperature Source Pulse Rate 119 H 133 H 114 H Respiratory Rate 24 28 H 22 Blood Pressure 116/94 H 141/87 H 141/87 H O2 Saturation 94 96 98 Oxygen Delivery Method O2 Source Nasal cannula If not protocol: Oxygen Flow, liters/minute Pain Intensity 10/11/24 12:24 10/11/24 12:39 10/11/24 12:46 Temperature 37.2 C Temperature Source Oral Pulse Rate 113 H 117 H 108 H Respiratory Rate 23 24 23 Blood Pressure 120/89 140/76 H O2 Saturation 97 98 97 Oxygen Delivery Method O2 Source Nasal cannula If not protocol: Oxygen Flow, liters/minute Pain Intensity 0 10/11/24 12:56 10/11/24 13:38 10/11/24 14:46 Temperature 37.2 C 37.5 C 36.9 C Temperature Source Oral Oral Pulse Rate 103 H 102 H Respiratory Rate 20 22 Blood Pressure 109/72 118/58 L O2 Saturation 92 91 L Oxygen Delivery Method O2 Source Nasal cannula Nasal cannula If not protocol: Oxygen Flow, liters/minute 2 2 Pain Intensity 0 7 10/11/24 15:00 10/11/24 15:13 Temperature Temperature Source Pulse Rate 98 Respiratory Rate 20 Blood Pressure 118/58 L O2 Saturation 94 Oxygen Delivery Method O2 Source Nasal cannula If not protocol: Oxygen Flow, liters/minute 2 Pain Intensity 7 7 Oxygen O2 Source [Without Activity] Nasal cannula O2 Source Nasal cannula Labs Labs: Laboratory Tests 10/11/24 10/11/24 10/11/24 06:13 12:04 12:50 WBC 16.9 H RBC 3.63 L Hgb 10.0 L Hct 35.7 L MCV 98.3 MCH 27.5 MCHC 28.0 L RDW 15.5 H Plt Count 394 MPV 9.2 Neut # (Auto) 14.3 H Lymph # (Auto) 0.9 L [place] # (Auto) 1.4 H Eos # (Auto) 0.2 Baso # (Auto) 0.1 Absolute Nucleated RBC 0.00 Nucleated RBC % 0.0 APTT 39.0 H D-Dimer 525.0 H VBG pH VBG pCO2 VBG pO2 VBG HCO3 VBG Total CO2 VBG O2 Saturation VBG Base Excess Sodium 139 Potassium 4.2 Chloride 91 L Carbon Dioxide 39 H* Anion Gap 9.0 BUN 14 Creatinine 1.2 Estimated GFR (MDRD) 44 L Glucose 97 Lactic Acid 1.6 Calcium 10.1 Total Bilirubin 0.5 AST 11 ALT 8 L Alkaline Phosphatase 68 Total Protein 6.7 Albumin 3.4 Globulin 3.3 Albumin/Globulin Ratio 1.0 Lipase 11 Procalcitonin Immunoas 0.51 Urine Color YELLOW Urine Clarity CLOUDY Urine pH 8.0 H Ur Specific [place] 1.005 Urine Protein 30 H Urine Glucose (UA) >=1000 H Urine Ketones 40 H Urine Occult Blood TRACE Urine Nitrite POSITIVE H Urine Bilirubin NEGATIVE Urine Urobilinogen 0.2 (NORMAL) Ur Leukocyte Esterase MODERATE H Urine RBC 0-5 Urine WBC >25 H Ur Epithelial Cells FEW Renal Tubular Ur Squamous Epith Cells MANY Squamous H Urine Bacteria Many H Ur Microscopic Review INDICATED Urine Culture Comments NOT INDICATED Nasal Adenovirus (PCR) NOT DETECTED Nasal B. parapertussis DNA (PCR) NOT DETECTED Nasal Coronavir 229E PCR NOT DETECTED Nasal Coronavir HKU1 PCR NOT DETECTED Nasal Coronavir NL63 PCR NOT DETECTED Nasal Coronavir OC43 PCR NOT DETECTED Nasal Enterovir/Rhinovir PCR DETECTED A Nasal Influenza B PCR NOT DETECTED Nasal Influenza A PCR NOT DETECTED Nasal Parainfluen 1 PCR NOT DETECTED Nasal Parainfluen 2 PCR NOT DETECTED Nasal Parainfluen 3 PCR NOT DETECTED Nasal Parainfluen 4 PCR NOT DETECTED Nasal RSV (PCR) NOT DETECTED Nasal B.pertussis DNA PCR NOT DETECTED Nasal C.pneumoniae (PCR) NOT DETECTED Ricco Human Metapneumo PCR NOT DETECTED Nasal M.pneumoniae (PCR) NOT DETECTED Nasal SARS-CoV-2 (PCR) NOT DETECTED 10/11/24 15:04 WBC RBC Hgb Hct MCV MCH MCHC RDW Plt Count MPV Neut # (Auto) Lymph # (Auto) [place] # (Auto) Eos # (Auto) Baso # (Auto) Absolute Nucleated RBC Nucleated RBC % APTT D-Dimer VBG pH 7.448 H VBG pCO2 51.3 H VBG pO2 133.4 H VBG HCO3 35.6 H VBG Total CO2 37.2 H VBG O2 Saturation 100.0 H VBG Base Excess 11.4 H Sodium Potassium Chloride Carbon Dioxide Anion Gap BUN Creatinine Estimated GFR (MDRD) Glucose Lactic Acid Calcium Total Bilirubin AST ALT Alkaline Phosphatase Total Protein Albumin Globulin Albumin/Globulin Ratio Lipase Procalcitonin Immunoas Urine Color Urine Clarity Urine pH Ur Specific [place] Urine Protein Urine Glucose (UA) Urine Ketones Urine Occult Blood Urine Nitrite Urine Bilirubin Urine Urobilinogen Ur Leukocyte Esterase Urine RBC Urine WBC Ur Epithelial Cells Ur Squamous Epith Cells Urine Bacteria Ur Microscopic Review Urine Culture Comments Nasal Adenovirus (PCR) Nasal B. parapertussis DNA (PCR) Nasal Coronavir 229E PCR Nasal Coronavir HKU1 PCR Nasal Coronavir NL63 PCR Nasal Coronavir OC43 PCR Nasal Enterovir/Rhinovir PCR Nasal Influenza B PCR Nasal Influenza A PCR Nasal Parainfluen 1 PCR Nasal Parainfluen 2 PCR Nasal Parainfluen 3 PCR Nasal Parainfluen 4 PCR Nasal RSV (PCR) Nasal B.pertussis DNA PCR Nasal C.pneumoniae (PCR) Ricco Human Metapneumo PCR Nasal M.pneumoniae (PCR) Nasal SARS-CoV-2 (PCR) Rads (name of study) Chest x-ray: Relevant Findings:: Final report received and EMP independent interpretation of test Interpretation: IMPRESSION: Finding is suggestive of bilateral multilobar infiltrates more prominent in lower lobes. No significant pleural effusion or pneumothorax. PD Medical Decision Making ED course ED course: 73-year-old female comes in from [place] via EMS for shortness of breath, headache, sore throat, nausea, vomiting, fevers, chills. Patient scored high for sepsis risk initial temperature upon arrival was 38.2 C with tachycardia heart rate into the 120s. She has significant leukocytosis, WBC 16.9 and originally upon arrival she was alert and oriented times self only she was given a liter of IV fluids upon initial arrival patient is normally on 1 L of supplemental oxygen via nasal cannula but oxygen was increased to 3 L as she was desatting into the mid 80s on 1 L. Chest x-ray was completed for further evaluation and reveals multilobar infiltrates more prominent in the lower lobes. Her D-dimer also came back pretty significantly elevated at 525 given this we went ahead of the chest CT angio. Carbon dioxide is quite elevated at 39 although this does appear to be similar to patient's baseline in comparison to previous hospital visits. Patient was seen here in April for similar symptoms with acute respiratory failure and upper respiratory infection and did require hospitalization at that point in time as well. Respiratory swab today positive for rhinovirus Because of patient's hypoxia And sepsis criteria she was started on cefepime and vancomycin. CT angio chest does not reveal any pulmonary embolism does confirm bilateral lower lobe pneumonia, extensive bilateral multilobar infiltrates no pleural effusion or pneumothorax also appears to have cardiomegaly no pericardial effusion, enlarged mediastinal and hilar lymph nodes. Patient will be admitted to the hospital for further hospitalization and she is agreeable to stay report given to Jona nurse practitioner Discharge Plan Discharge Patient Disposition: [facility] DC/Xfer Condition: Good Clinical Impression: Fever, Rhinovirus, Pneumonia, Sepsis Prescriptions: No Action (DME) insulin syringe-needle U-100 [BD Insulin Syringe Ultra-Fine] 0.5 mL 31 gauge x 5/16" syringe See Rx Instructions .Route Qty: 100 3RF Rx Instructions: As directed (DME) [place] Choice Neb Kit-Adult Misc See Rx Instructions .Route Qty: 1 0RF Rx Instructions: As directed alendronate 70 mg tablet See Rx Instructions .ROUTE .COMPLEX Qty: 4 11RF Dose Instruction: 1 TABLET BY MOUTH WEEKLY WITH 6-8 OZ OF H2O; 30 MINS BEFORE FOOD OR MEDS; REMAIN UPRIGHT FOR 30 MINS Rx Instructions: 1 TABLET BY MOUTH WEEKLY WITH 6-8 OZ OF H2O; 30 MINS BEFORE FOOD OR MEDS; REMAIN UPRIGHT FOR 30 MINS potassium chloride 20 mEq tablet,ER particles/crystals See Rx Instructions .ROUTE .COMPLEX Qty: 30 11RF Dose Instruction: 1 TAB BY MOUTH EVERY DAY Rx Instructions: 1 TAB BY MOUTH EVERY DAY folic acid 1 mg tablet See Rx Instructions .ROUTE .COMPLEX Qty: 30 11RF Dose Instruction: 1 TAB BY MOUTH EVERY DAY Rx Instructions: 1 TAB BY MOUTH EVERY DAY gabapentin 300 mg capsule See Rx Instructions .ROUTE .COMPLEX Qty: 180 11RF Dose Instruction: 2 CAPS (600MG) BY MOUTH 3 TIMES DAILY Rx Instructions: 2 CAPS (600MG) BY MOUTH 3 TIMES DAILY hydroxychloroquine 200 mg tablet See Rx Instructions .ROUTE .COMPLEX Qty: 60 11RF Dose Instruction: 2 TABS (400MG) BY MOUTH EVERY DAY Rx Instructions: 2 TABS (400MG) BY MOUTH EVERY DAY rosuvastatin 10 mg tablet See Rx Instructions .ROUTE .COMPLEX Qty: 30 11RF Dose Instruction: 1 TAB BY MOUTH EVERY EVENING Rx Instructions: 1 TAB BY MOUTH EVERY EVENING losartan 25 mg tablet See Rx Instructions .ROUTE .COMPLEX Qty: 30 11RF Dose Instruction: 1 TAB BY MOUTH EVERY DAY Rx Instructions: 1 TAB BY MOUTH EVERY DAY meloxicam 7.5 mg tablet 7.5 mg PO QDAY Qty: 30 11RF torsemide 20 mg tablet 60 mg PO DAILY Qty: 270 3RF prednisone 10 mg tablet See Rx Instructions .ROUTE .COMPLEX Qty: 30 11RF Dose Instruction: 1 TAB BY MOUTH EVERY DAY Rx Instructions: 1 TAB BY MOUTH EVERY DAY calcium carbonate-vitamin D3 1 EACH tablet 1 tab PO BID acetaminophen 500 mg tablet 1,000 mg PO QPM guaifenesin [Mucinex] 600 mg tablet extended release 12hr 600 mg PO BID acyclovir 400 mg tablet 400 mg PO BID albuterol sulfate [Ventolin HFA] 1 PUFFS HFA aerosol inhaler 2 puff inhalation Q3H PRN (Reason: shortness of breath or wheezing) insulin glargine [Lantus Solostar U-100 Insulin] 100 unit/mL (3 mL) insulin pen 20 unit subcut DAILY Cepacol Sore Throat (fercho-men) 15-3.6 mg Lozenge 1 kristie mucous membrane Q2HR PRN (Reason: Mouth Sore Pain) Qty: 25 0RF fluticasone furoate-vilanterol [Breo Ellipta] 200-25 mcg/dose blister with device 1 inh inhalation DAILY mycophenolate mofetil 250 mg capsule 750 mg PO BID loperamide [Imodium A-D] 2 mg tablet 2 - 4 mg PO Q6H PRN (Reason: diarrhea) Rx Instructions: Take 2 tabs (4 mg) with first loose bowel movement, then 1 tab (2 mg) with each following loose bowel movement; maximum of 6 tabs per day Trelegy Ellipta 100-62.5-25 mcg blister with device 1 inh inhalation QDAY Jardiance 10 mg tablet 10 mg PO QAM Qty: 30 11RF pantoprazole 40 mg tablet,delayed release (DR/EC) 40 mg PO QDAY Qty: 30 11RF ipratropium-albuterol 0.5 mg-3 mg(2.5 mg base)/3 mL solution for nebulization 3 ml inhalation QID Qty: 120 3RF montelukast 5 mg tablet,chewable 5 mg PO DAILY doxycycline hyclate 100 mg capsule 100 mg PO BID tramadol 50 mg tablet 50 mg PO Q8H PRN (Reason: pain) Qty: 90 5RF Print Language: Yoruba
--- OUTSIDE RECORDS SUMMARY | 2024-10-11 12:17 | EXTERNAL MEDICAL SUMMARY RPT | Continuity of Care Document ---
Author Organization Jay Address [address] [place] [id number] Phone Care Team Providers Care Supervisor Refractory Products Name Role Phone Jose A Julien Unavailable Unavailable Allergies and Intolerances date description facility reaction severity 2024-09-02 14:08:37 [facility] (no reactio n) Severe 2024-09-02 14:08:37 [facility] (no reactio n) Moderate 2024-09-02 14:08:37 [facility] (no reactio n) Moderate 2024-09-02 14:08:37 [facility] (no reactio n) Moderate Medications date description facility 2024-09-02 00:00 Ipratropium-Albuterol [facility] 2024-09-02 00:00 Empagliflozin [facility] 2024-09-02 00:00 Pantoprazole [facility] 2024-09-02 00:00 [facility] Problems date description facility 2024-07-13 07:48 [facility]agnesemia [facility] 2024-07-13 07:48 Chronic kidney disease, stage 2 (mild) [facility] 2024-07-18 10:06 Sepsis, unspecified organism [facility] 2024-07-18 10:06 Type 2 diabetes mellitus withou t complications [facility] 2024-07-18 10:06 Essential (primary) hypertensio n [facility] 2024-07-18 10:06 [facility] 2024-07-18 10:06 Influenza due to uni dentified influenza virus with other respiratory manifestations [facility] 2024-07-18 10:06 Pneumonia, unspecified organism [facility] 2024-07-18 10:06 Interstitial pulmonary disease, unspecified [facility] 2024-07-18 10:06 Acute respiratory failure with hypoxia [facility] 2024-07-18 10:06 Chronic cough [facility] 2024-07-18 10:06 Disorientation, unspecified [facility] [employer] 2024-07-18 10:06 Fever, unspecified [facility] 2024-07-18 10:06 Severe sepsis without septic sh ock [facility] 2024-07-18 10:06 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 [employer] 2024-07-20 11:33 Pain in left shoulder [facility] 2024-07-23 11:21 Strain of unspecifie d muscle, fascia and tendon at shoulder and upper arm level, left arm, initial encounter [employer] 2024-07-26 07:57 Chronic kidney disease, stage 2 (mild) [facility] 2024-08-01 07:35 Hypomagnesemia [facility] 2024-08-01 07:35 Chronic kidney disease, stage 2 (mild) [facility] 2024-08-02 13:51 Hypomagnesemia [facility] 2024-08-02 13:51 Chronic kidney disease, stage 2 (mild) [facility] 2024-08-03 00:00 Type 2 diabetes mellitus withou t complications [facility] 2024-08-03 00:00 Unspecified adrenocortical insu fficiency [facility] 2024-08-03 00:00 Hypo-osmolality and hyponatremi a [facility] 2024-08-03 00:00 Chronic obstructive pulmonary d isease, unspecified [facility] 2024-08-03 00:00 Dorsalgia, unspecified [facility] 2024-08-03 00:00 Chronic kidney disease, stage 3 b [facility] 2024-08-03 00:00 Dysphagia, unspecified [facility] 2024-08-03 00:00 [facility] (current) use of insu arturo [facility] 2024-08-03 08:10 Pain in thoracic spine [facility] 2024-08-15 13:27 Radiculopathy, cervical region [facility] 2024-08-15 13:51 Sepsis, unspecified organism [facility] 2024-08-15 13:51 Type 2 diabetes mellitus withou t complications [facility] 2024-08-15 13:51 Essential (primary) hypertensio n [facility] 2024-08-15 13:51 [facility] 2024-08-15 13:51 Influenza due to uni dentified influenza virus with other respiratory manifestations [facility] 2024-08-15 13:51 Pneumonia, unspecified organism [facility] 2024-08-15 13:51 Interstitial pulmonary disease, unspecified [facility] 2024-08-15 13:51 Acute respiratory failure with hypoxia [facility] 2024-08-15 13:51 Pain in left shoulder [facility]alt 2024-08-15 13:51 Radiculopathy, cervical region [facility] 2024-08-15 13:51 Chronic cough [facility] 2024-08-15 13:51 Disorientation, unspecified [facility] 2024-08-15 13:51 Fever, unspecified [facility] 2024-08-15 13:51 Severe sepsis without septic sh ock [facility] 2024-08-15 13:51 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 [facility] 2024-08-16 08:21 Radiculopathy, cervical region [facility] 2024-08-18 09:03 Radiculopathy, cervical region [facility] 2024-08-18 09:05 Radiculopathy, cervical region [facility] 2024-08-20 15:57 Radiculopathy, cervical region [facility] 2024-08-21 00:01 Radiculopathy, cervical region [facility] 2024-08-22 13:52 Radiculopathy, cervical region [facility] 2024-09-02 00:04 Type 2 diabetes mellitus withou t complications [facility] 2024-09-02 00:04 Unspecified adrenocortical insu fficiency [facility] [employer] 2024-09-02 00:04 Hypo-osmolality and hyponatremi a [facility] 2024-09-02 00:04 Chronic obstructive pulmonary d isease, unspecified [facility] 2024-09-02 00:04 Dorsalgia, unspecified [facility] 2024-09-02 00:04 Chronic kidney disease, stage 3 b [facility] 2024-09-02 00:04 [facility] (current) use of insu arturo [facility] 2024-09-05 16:39 Sepsis, unspecified organism [facility] 2024-09-05 16:39 Immunodeficiency, unspecified [facility] 2024-09-05 16:39 Type 2 diabetes mellitus withou t complications [facility] 2024-09-05 16:39 Unspecified adrenocortical insu fficiency [facility] 2024-09-05 16:39 Essential (primary) hypertensio n [facility] 2024-09-05 16:39 Chronic right heart failure [facility] [employer] 2024-09-05 16:39 Influenza due to uni dentified influenza virus with other respiratory manifestations [facility] 2024-09-05 16:39 Pneumonia, unspecified organism [facility] 2024-09-05 16:39 Chronic obstructive pulmonary d isease, unspecified [facility] 2024-09-05 16:39 Bronchiectasis, uncomplicated [facility] 2024-09-05 16:39 Interstitial pulmonary disease, unspecified [facility] 2024-09-05 16:39 Acute respiratory failure with hypoxia [facility] 2024-09-05 16:39 Pain in left shoulder [facility] 2024-09-05 16:39 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 [facility] 2024-09-05 16:39 Dorsalgia, unspecified [facility] 2024-09-05 16:39 Chronic cough [facility] 2024-09-05 16:39 Disorientation, unspecified [facility] [employer] 2024-09-05 16:39 Fever, unspecified [facility] 2024-09-05 16:39 Severe sepsis without septic sh ock [facility] 2024-09-05 16:39 [facility] (current) use of insu [employer] 2024-09-06 00:01 Immunodeficiency, unspecified [facility] 2024-09-06 00:01 Type 2 diabetes mellitus withou t complications [facility] 2024-09-06 00:01 Unspecified adrenocortical insu fficiency [facility] 2024-09-06 00:01 Chronic obstructive pulmonary d isease, unspecified [facility] 2024-09-06 00:01 Bronchiectasis, uncomplicated [facility] 2024-09-06 00:01 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 [facility] 2024-09-06 00:01 Dorsalgia, unspecified [facility] 2024-09-06 00:01 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 of [place] arturo [facility] 2024-09-06 15:43 Dorsalgia, unspecified [facility] 2024-09-07 08:41 Type 2 diabetes mellitus withou t complications [facility] 2024-09-07 08:41 Unspecified diastolic (congesti ve) heart failure [facility] 2024-09-07 08:41 Chronic obstructive pulmonary d isease, unspecified [facility] 2024-09-07 08:41 Bronchiectasis, uncomplicated [facility] 2024-09-07 08:41 Acute and chronic re spiratory failure, unspecified whether with hypoxia or hypercapnia [facility] 2024-09-07 08:41 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 [facility] 2024-09-07 08:41 Dorsalgia, unspecified [facility] 2024-09-07 08:41 Chronic kidney disease, stage 3 b [facility] 2024-09-07 08:41 Dysphagia, unspecified [facility] 2024-09-07 08:41 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 of [employer] 2024-09-07 08:41 Other specified postprocedural states [facility] 2024-09-16 08:26 Dermatopolymyositis, unspecified, organ involvement unspecified [facility] 2024-09-17 00:04 Dermatopolymyositis, unspecified, organ involvement unspecified [facility] 2024-10-06 00:01 Type 2 diabetes mellitus withou t complications [facility] 2024-10-06 00:01 [facility] (current) use of [employer] 2024-10-08 11:37 Other spondylosis with myelopat hy, cervical region [facility] Results/Labs test date facility value unit notes Result panel 1 Specimen collection (procedure) (no date) [facility] (missing) (missing) (missing) Result panel 2 Specimen collection (procedure) (no date) [facility] (missing) (missing) (missing) Result panel 3 Specimen collection (procedure) (no date) [facility] (missing) (missing) (missing) Result panel 4 Specimen collection (procedure) (no date) [facility] (missing) (missing) (missing) Result panel 5 Specimen collection (procedure) (no date) [facility] (missing) (missing) (missing) Result panel 6 Specimen collection (procedure) (no date) [facility] (missing) (missing) (missing) Result panel 7 Specimen collection (procedure) (no date) [facility] (missing) (missing) (missing) Result panel 8 Specimen collection (procedure) (no date) [facility] (missing) (missing) (missing) Result panel 9 Specimen collection (procedure) (no date) [facility] (missing) (missing) (missing) Result panel 10 Specimen collection (procedure) (no date) [facility] (missing) (missing) (missing) Result panel 11 Specimen collection (procedure) (no date) [facility] (missing) (missing) (missing) Result panel 12 Specimen collection (procedure) (no date) [facility] (missing) (missing) (missing) Result panel 13 Specimen collection (procedure) (no date) [facility] (missing) (missing) (missing) Result panel 14 Specimen collection (procedure) (no date) [facility] (missing) (missing) (missing) Result panel 15 Specimen collection (procedure) (no date) [facility] (missing) (missing) (missing) Result panel 16 Specimen collection (procedure) (no date) [facility] (missing) (missing) (missing) Result panel 17 Specimen collection (procedure) (no date) [facility] (missing) (missing) (missing) Result panel 18 Specimen collection (procedure) (no date) [facility] (missing) (missing) (missing) Result panel 19 Specimen collection (procedure) (no date) [facility] (missing) (missing) (missing) Result panel 20 Specimen collection (procedure) (no date) [facility] (missing) (missing) (missing) Result panel 21 Specimen collection (procedure) (no date) [facility] (missing) (missing) (missing) Result panel 22 Specimen collection (procedure) (no date) [facility] (missing) (missing) (missing) Result panel 23 Specimen collection (procedure) (no date) [facility] (missing) (missing) (missing) Result panel 24 Specimen collection (procedure) (no date) [facility] (missing) (missing) (missing) Result panel 25 Specimen collection (procedure) (no date) [facility] (missing) (missing) (missing) Result panel 26 Specimen collection (procedure) (no date) [facility] (missing) (missing) (missing) Result panel 27 Specimen collection (procedure) (no date) [facility] (missing) (missing) (missing) Result panel 28 Specimen collection (procedure) (no date) [facility] (missing) (missing) (missing) Result panel 29 Specimen collection (procedure) (no date) [facility] (missing) (missing) (missing) Result panel 30 Specimen collection (procedure) (no date) [facility] (missing) (missing) (missing) Result panel 31 Specimen collection (procedure) (no date) [facility] (missing) (missing) (missing) Result panel 32 Specimen collection (procedure) (no date) [facility] (missing) (missing) (missing) Result panel 33 Specimen collection (procedure) (no date) [facility] (missing) (missing) (missing) Result panel 34 Specimen collection (procedure) (no date) [facility] (missing) (missing) (missing) Result panel 35 Specimen collection (procedure) (no date) [facility] (missing) (missing) (missing) Result panel 36 Specimen collection (procedure) (no date) [facility] (missing) (missing) (missing) Result panel 37 Specimen collection (procedure) (no date) [facility] (missing) (missing) (missing) Result panel 38 Specimen collection (procedure) (no date) [facility] (missing) (missing) (missing) Result panel 39 Specimen collection (procedure) (no date) [facility] (missing) (missing) (missing) Result panel 40 Specimen collection (procedure) (no date) [facility] (missing) (missing) (missing) Result panel 41 Specimen collection (procedure) (no date) [facility] (missing) (missing) (missing) Result panel 42 Specimen collection (procedure) (no date) [facility] (missing) (missing) (missing) Result panel 43 Specimen collection (procedure) (no date) [facility] (missing) (missing) (missing) Result panel 44 Specimen collection (procedure) (no date) [facility] (missing) (missing) (missing) Result panel 45 Specimen collection (procedure) (no date) [facility] (missing) (missing) (missing) Result panel 46 Specimen collection (procedure) (no date) [facility] (missing) (missing) (missing) Result panel 47 Specimen collection (procedure) (no date) [facility] (missing) (missing) (missing) Result panel 48 Specimen collection (procedure) (no date) [facility] (missing) (missing) (missing) Result panel 49 Specimen collection (procedure) (no date) [facility] (missing) (missing) (missing) Result panel 50 Specimen collection (procedure) (no date) [facility] (missing) (missing) (missing) Result panel 51 Specimen collection (procedure) (no date) [facility] (missing) (missing) (missing) Result panel 52 Specimen collection (procedure) (no date) [facility] (missing) (missing) (missing) Result panel 53 Specimen collection (procedure) (no date) [facility] (missing) (missing) (missing) Result panel 54 Specimen collection (procedure) (no date) [facility] (missing) (missing) (missing) Result panel 55 Specimen collection (procedure) (no date) [facility] (missing) (missing) (missing) Result panel 56 Specimen collection (procedure) (no date) [facility] (missing) (missing) (missing) Result panel 57 Specimen collection (procedure) (no date) [facility] (missing) (missing) (missing) Result panel 58 Specimen collection (procedure) (no date) [facility] (missing) (missing) (missing) Result panel 59 Specimen collection (procedure) (no date) [facility] (missing) (missing) (missing) Result panel 60 Specimen collection (procedure) (no date) [facility] (missing) (missing) (missing) Result panel 61 Specimen collection (procedure) (no date) [facility] (missing) (missing) (missing) Result panel 62 Specimen collection (procedure) (no date) [facility] (missing) (missing) (missing) Result panel 63 Specimen collection (procedure) (no date) [facility] (missing) (missing) (missing) Result panel 64 Specimen collection (procedure) (no date) [facility] (missing) (missing) (missing) Result panel 65 Specimen collection (procedure) (no date) [facility] (missing) (missing) (missing) Result panel 66 Specimen collection (procedure) (no date) [facility] (missing) (missing) (missing) Result panel 67 Specimen collection (procedure) (no date) [facility] (missing) (missing) (missing) Result panel 68 Specimen collection (procedure) (no date) [facility] (missing) (missing) (missing) Result panel 69 Specimen collection (procedure) (no date) [facility] (missing) (missing) (missing) Result panel 70 Specimen collection (procedure) (no date) [facility] (missing) (missing) (missing) Result panel 71 Specimen collection (procedure) (no date) [facility] (missing) (missing) (missing) Result panel 72 Specimen collection (procedure) (no date) [facility] (missing) (missing) (missing) Result panel 73 Specimen collection (procedure) (no date) [facility] (missing) (missing) (missing) Result panel 74 Specimen collection (procedure) (no date) [facility] (missing) (missing) (missing) Result panel 75 Specimen collection (procedure) (no date) [facility] (missing) (missing) (missing) Result panel 76 Specimen collection (procedure) (no date) [facility] (missing) (missing) (missing) Result panel 77 Specimen collection (procedure) (no date) [facility] (missing) (missing) (missing) Result panel 78 Specimen collection (procedure) (no date) [facility] (missing) (missing) (missing) Result panel 79 Specimen collection (procedure) (no date) [facility] (missing) (missing) (missing) Result panel 80 Specimen collection (procedure) (no date) [facility] (missing) (missing) (missing) Result panel 81 Specimen collection (procedure) (no date) [facility] (missing) (missing) (missing) Result panel 82 Specimen collection (procedure) (no date) [facility] (missing) (missing) (missing) Result panel 83 Specimen collection (procedure) (no date) [facility] (missing) (missing) (missing) Result panel 84 Specimen collection (procedure) (no date) [facility] (missing) (missing) (missing) Result panel 85 Specimen collection (procedure) (no date) [facility] (missing) (missing) (missing) Result panel 86 Specimen collection (procedure) (no date) [facility] (missing) (missing) (missing) Result panel 87 Specimen collection (procedure) (no date) [facility] (missing) (missing) (missing) Result panel 88 Specimen collection (procedure) (no date) [facility] (missing) (missing) (missing) Result panel 89 Specimen collection (procedure) (no date) [facility] (missing) (missing) (missing) Result panel 90 Specimen collection (procedure) (no date) [facility] (missing) (missing) (missing) Result panel 91 Specimen collection (procedure) (no date) [facility] (missing) (missing) (missing) Result panel 92 Specimen collection (procedure) (no date) [facility] (missing) (missing) (missing) Result panel 93 Specimen collection (procedure) (no date) [facility] (missing) (missing) (missing) Result panel 94 Specimen collection (procedure) (no date) [facility] (missing) (missing) (missing) Result panel 95 NUCLEATED RED BLOOD CELLS AUTO 2024-09-01 09:21 [facility] 0.0 /100wbc (missing) NRBC ABSOLUTE COUNT (AUTO) 2024-09-01 09:21 [facility] 0.00 x10 3/ul (missing) BASOPHILS # (AUTO) 2024-09-01 09:21 [facility] 0.1 10 3/ul (missing) EOSINOPHILS # (AUTO) 2024-09-01 09:21 [facility] 0.2 10 3/ul (missing) BILIRUBIN,TOTAL 2024-09-01 09:21 [facility] 0.3 mg /dl As of August 2022 testing method has changed, this may include reference ranges. MONOCYTES # (AUTO) 2024-09-01 09:21 [facility] 1.1 10 3/ul (missing) CREATININE 2024-09-01 09:21 [facility] 1.1 mg/dl As of August 2022 testing method has changed, this may include reference ranges. ALBUMIN/GLOBULIN RATIO 2024-09-01 09:21 [facility] 1.2 (missing) (missing) LYMPHOCYTES # (AUTO) 2024-09-01 09:21 [facility] 1.6 10 3/ul (missing) HGB - HEMOGLOBIN 2024-09-01 09:21 [facility] 10.0 g /dl (missing) CALCIUM 2024-09-01 09:21 [facility] 10.6 mg/dl As of August 2022 testing method has changed, this may include reference ranges. AST ASPARTATE AMINOTRANSFERASE 2024-09-01 09:21 [facility] 11 iu/l As of August 2022 testing method has changed, this may include reference ranges. CRP - C-REACTIVE PROTEIN 2024-09-01 09:21 [facility] 12.4 mg/dl As of Aug testing method has changed, this may include reference ranges. SODIUM 2024-09-01 09:21 [facility] 139 mmol/l Unknown RED CELL DISTRIBUTION WIDTH 2024-09-01 09:21 [facility] 14.6 % (missing) GLUCOSE 2024-09-01 09: [facility] 146 mg/dl As of August 2022 testing method has changed, this may include reference ranges. BUN - BLOOD UREA NITROGEN 2024-09-01 09: [facility] 16 mg/dl As of Aug testing method has changed, this may include reference ranges. MAGNESIUM 2024-09-01 09: [facility] 2.0 mg/dl As of August 2022 testing method has changed, this may include reference ranges. MEAN CORPUSCULAR HEMOGLOBIN 2024-09-01 09:21 [facility] 28.7 pg (missing) MEAN CORPUSCULAR HGB CONC 2024-09-01 09:21 [facility] 28.9 g/dl (missing) GLOBULIN 2024-09-01 09:21 [facility] 3.1 g/dl (missing) RED BLOOD COUNT 2024-09-01 09: [facility] 3.49 10 6/ul (missing) ALBUMIN 2024-09-01 09:21 [facility] 3.6 g/dl As of August 2022 testing method has changed, this may include reference ranges. PHOSPHORUS 2024-09-01 09: [facility] 3.8 mg/dl As of August 2022 testing method has changed, this may include reference ranges. HCT - HEMATOCRIT 2024-09-01 09:21 [facility] 34.6 % (missing) PLT - PLATELET COUNT 2024-09-01 09:21 [facility] 349 10 3/ul (missing) CARBON DIOXIDE - CO2 2024-09-01 09:21 [facility] 36 mmol/l As of August 2022 testing method has changed, this may include reference ranges. POTASSIUM 2024-09-01 09:21 [facility] 4.2 mmol/l As of August 2022 testing method has changed, this may include reference ranges. GFR - MDRD 2024-09-01 09:21 [facility] 49 ([place]) Social History date description facility 2024-09-02 00:00 Never smoked tobacco ([facility] Vital Signs date measurement value units 2024-09-02 00:00 BMI 36.0 kg/m2 2024-09-02 00:00 BP_diastolic 52 mmHg 2024-09-02 00:00 BP_systolic 107 mmHg 2024-09-02 00:00 heart_rate 82 /min 2024-09-02 00:00 height_metric 149.86 cm 2024-09-02 00:00 height_standard 59 in 2024-09-02 00:00 o2_saturation 95 % 2024-09-02 00:00 temperature_metric 36.83 C 2024-09-02 00:00 temperature_standard 98.3 F 2024-09-02 00:00 weight_metric 80.85 kg 2024-09-02 00:00 weight_standard 178.24 lb
[2024-10-11 12:21] LABS: HCT - HEMATOCRIT 35.7 % (37.0-47.0); HGB - HEMOGLOBIN 10.0 g/dL (12.0-16.0); MEAN PLATELET VOLUME 9.2 fL (7.9-10.8); NRBC ABSOLUTE COUNT (AUTO) 0.00 x10^3/uL; NUCLEATED RED BLOOD CELLS AUTO 0.0 /100WBC; PLT - PLATELET COUNT 394 10^3/uL (130-450); RED CELL DISTRIBUTION WIDTH 15.5 % (12.0-15.0)
--- NOTE | 2024-10-11 12:23 | XRAY Report ---
PROCEDURE: XR Chest 1V INDICATIONS: hypoxic, SOA TECHNIQUE: One view of the chest was acquired. COMPARISON: 04/21/2024. FINDINGS: Surgical changes and devices: None. Lungs and pleura: No pleural effusions or pneumothorax. Ill-defined airspace opacities and interstitial prominence throughout bilateral lung palomino are seen. Mediastinum: Mediastinal contours appear normal. Heart size is normal. Bones and chest wall: No suspicious bony lesions. Overlying soft tissues appear unremarkable. IMPRESSION: Finding is suggestive of bilateral multilobar infiltrates more prominent in lower lobes. No significant pleural effusion or pneumothorax. Reviewed by: Parveen Diaz MD on 10/11/2024 12:21 PM PDT Approved by: Parveen Diaz MD on 10/11/2024 12:21 PM PDT Station ID: [id number]
[2024-10-11 12:43] LABS: GLUCOSE, URINE (UA) >=1000 mg/dL (NEGATIVE); KETONES,URINE (UA) 40 mg/dL (NEGATIVE); OCCULT BLOOD,URINE TRACE (NEGATIVE)
[2024-10-11 12:44] LABS: CARBON DIOXIDE - CO2 39.0 mmol/L (21-32); SQUAMOUS EPITHELIAL CELL,UR MANY Squamous (<= Few)
[2024-10-11 12:45] LABS: EPITHELIAL CELLS,UR FEW Renal Tubular /HPF (<= Few)
[2024-10-11 12:47] LABS: ALT ALANINE AMINOTRANSFERASE 8.0 IU/L (10-60); AST ASPARTATE AMINOTRANSFERASE 11.0 IU/L (10-42); BUN - BLOOD UREA NITROGEN 14.0 mg/dL (6-20); CREATININE 1.2 mg/dL (0.6-1.3); GFR - MDRD 44.0 (>89)
[2024-10-11] MEDS: CEFEPIME 2 GM in SODIUM CHLORIDE 0.9% MINIBAG 100 ML IV STA (12:54)
[2024-10-11 13:13] LABS: B. PARAPERTUSSIS- RESP PCR PAN NOT DETECTED; B. PERTUSSIS- RESP PCR PANEL NOT DETECTED; C. PNEUMONIAE- RESP PCR PANEL NOT DETECTED; CORONAVIRUS 229E-RESP PCR NOT DETECTED; CORONAVIRUS HKU1-RESP PCR NOT DETECTED; CORONAVIRUS NL63-RESP PCR NOT DETECTED; CORONAVIRUS OC43-RESP PCR NOT DETECTED; HUMAN METAPNEUMOVIRUS NOT DETECTED; INFLUENZA A- RESP PCR PANEL NOT DETECTED; INFLUENZA B - RESP PCR PANEL NOT DETECTED; PARAINFLUENZA VIRUS 1 NOT DETECTED; PARAINFLUENZA VIRUS 2 NOT DETECTED; PARAINFLUENZA VIRUS 4 NOT DETECTED; RHINOVIRUS/ENTEROVIRUS DETECTED; RSV- RESP PCR PANEL NOT DETECTED; SARS-CoV-2 -RESP PCR PANEL NOT DETECTED
[2024-10-11 13:14] LABS: M. PNEUMONIAE- RESP PCR PANEL NOT DETECTED
[2024-10-11] MEDS: VANCOMYCIN INJ 2 GM in SODIUM CHLORIDE 0.9% 500 ML IV ONE (13:33)
--- NOTE | 2024-10-11 15:01 | CT Report ---
PROCEDURE: CT Angio Chest INDICATIONS: SOa, elevATED D-DIMER CONTRAST: Omni 300 80ml TECHNIQUE: After the administration of intravenous contrast, 2 mm axial images were acquired from the pulmonary apices to the posterior costophrenic angles during the arterial phase. In addition, 1 mm lung kernel and 5 mm soft tissue kernel reconstructions were performed. 3-dimensional coronal oblique maximum intensity projection (MIP) reformats, 8 mm axial MIP, and 5 mm coronal and sagittal MPR reformats were then performed through the thorax. For radiation dose reduction, the following was used: automated exposure control, adjustment of mA and/or kV according to patient size. COMPARISON: Chest radiograph dated 10/11/2024 and 04/21/2024. FINDINGS: Image quality: Excellent. Large vessels: No filling defects within the opacified pulmonary arteries, accounting for motion and contrast timing. No evidence of acute aortic syndrome or aortic aneurysm. Lungs and pleura: Extensive airspace opacities are noted scattered in bilateral upper lobes, lower lobes, and right middle lobe more notably involving right middle lobe and bilateral lower lobes extending to bilateral hilar region. No significant pleural effusion or pneumothorax. Central and peripheral airway is patent. Mediastinum: Heart size is enlarged. No pericardial effusion. No large vessel abnormality. Prominent mediastinal and hilar lymph nodes are seen likely reactive in nature and measures up to 1.2 cm in size and precarinal space. Moderate size hiatal hernia. Chest wall and lower neck: Thyroid is unremarkable. No axillary or supraclavicular adenopathy by size. Bones: No aggressive osseous abnormality. Upper Abdomen: Unremarkable. IMPRESSION: 1. No central pulmonary embolus of. Bilateral distal subsegmental pulmonary artery branches are suboptimally opacified. No thoracic aortic aneurysm or gross dissection. 2. Extensive bilateral multilobar infiltrates more notably in bilateral lower lobes and right middle lobe extending to bilateral hilar region. No pleural effusion or pneumothorax. Follow-up until resolution is recommended to rule out underlying neoplastic process. 3. Cardiomegaly, no pericardial effusion. Enlarged mediastinal and hilar lymph nodes, likely reactive in nature. 4. Moderate size hiatal hernia. Reviewed by: Parveen Lagunas MD on 10/11/2024 3:00 PM PDT Approved by: Parveen Lagunas MD on 10/11/2024 3:00 PM PDT Station ID: [id number]
--- NOTE | 2024-10-11 15:08 | PHARMACY PROGRESS NOTE ---
Vancomycin Therapy Monitoring Patient Information Vancomycin Pt Height (inches): 59 Vancomycin Patient Weight (kg): 81.4 Vanco Rx Serum Creatinine (mg/dL): 1.2 Vancomycin Therapy BUN (mg/dL): 14 Vancomycin Therapy Calculated Creatinine Cl (ml/min): 53 Concurrent Antibiotics: CEFEPIME Vancomycin Therapy Goals Treatment Indication: EMPIRIC Vancomycin Target Range: Vancomycin AUC Target Range 400-600 mcg*h/ml Assessment of Current Therapy Vancomycin Loading Dose (GM, if applicable): 2G Current Vancomycin Maintenance Regimen (if applicable): 1G Q24H Vancomycin Current Regimen: Subtherapeutic Levels Estimated Cmax (Peak, mcg/ml): 27.3 Estimated Cmin (Trough, mcg/ml): 15.3 Estimated AUC (mcg*hr/ml): 498 Plan: Pharmacy recommendation: Continue current regimen Vancomycin Level Recommendation: Level not necessary at this time Areas for additonal monitoring Areas for additional monitoring: Therapy de-escalation based on culture results and Acute Kidney Injury
[2024-10-11 15:12] LABS: VBG BASE EXCESS 11.4 mmol/L (-2 - +2); VBG PCO2 51.3 mmHg (41-51); VBG PH 7.448 (7.31-7.41); VBG PO2 133.4 mmHg (25-47); VBG TOTAL CO2 37.2 mmol/L (24-29)
--- OUTSIDE RECORDS SUMMARY | 2024-10-11 15:44 | EXTERNAL MEDICAL SUMMARY RPT | Continuity of Care Document ---
Author Organization [facility] Address [address] [place] [id number] Phone Care Team Providers Care Physical Therapy Asst Name Role Phone Jose A Julien Unavailable Unavailable Allergies and Intolerances date description facility reaction severity 2024-09-02 14:08:37 Merged with [facility] (no reactio n) Severe 2024-09-02 14:08:37 Merged with [facility] (no reactio n) Moderate 2024-09-02 14:08:37 Merged with [facility] (no reactio n) Moderate 2024-09-02 14:08:37 Merged with [facility] (no reactio n) Moderate Medications date description facility 2024-09-02 00:00 Ipratropium-Albuterol [facility] 2024-09-02 00:00 Empagliflozin [facility] 2024-09-02 00:00 Pantoprazole [facility] 2024-09-02 00:00 [facility] Problems date description facility 2024-07-13 07:48 [facility]agnesemia [facility] 2024-07-13 07:48 Chronic kidney disease, stage 2 (mild) [facility] 2024-07-18 10:06 Sepsis, unspecified organism [facility] 2024-07-18 10:06 Type 2 diabetes mellitus withou t complications [facility] 2024-07-18 10:06 Essential (primary) hypertensio n [facility] 2024-07-18 10:06 Chronic right heart failure [facility] 2024-07-18 10:06 Influenza due to uni dentified influenza virus with other respiratory manifestations [facility] 2024-07-18 10:06 Pneumonia, unspecified organism [facility] 2024-07-18 10:06 Interstitial pulmonary disease, unspecified [facility] 2024-07-18 10:06 Acute respiratory failure with hypoxia [facility] 2024-07-18 10:06 Chronic cough [employer] 2024-07-18 10:06 Disorientation, unspecified [facility] [employer] 2024-07-18 10:06 Fever, unspecified [facility] 2024-07-18 10:06 Severe sepsis without septic sh ock [employer] 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 2024-07-20 11:33 Pain in left shoulder [facility] 2024-07-23 11:21 Strain of unspecifie d muscle, fascia and tendon at shoulder and upper arm level, left arm, initial encounter [employer] 2024-07-26 07:57 Chronic kidney disease, stage 2 (mild) [employer] 2024-08-01 07:35 Hypomagnesemia [employer] 2024-08-01 07:35 Chronic kidney disease, stage 2 (mild) [employer] 2024-08-02 13:51 Hypomagnesemia [employer] 2024-08-02 13:51 Chronic kidney disease, stage 2 (mild) [employer] [facility] 2024-08-03 00:00 Type 2 diabetes mellitus withou t complications [employer] 2024-08-03 00:00 Unspecified adrenocortical insu fficiency [employer] 2024-08-03 00:00 Hypo-osmolality and hyponatremi a [employer] 2024-08-03 00:00 Chronic obstructive pulmonary d isease, unspecified [employer] [facility] 2024-08-03 00:00 Dorsalgia, unspecified [employer] [facility] 2024-08-03 00:00 Chronic kidney disease, stage 3 b [employer] [facility] 2024-08-03 00:00 Dysphagia, unspecified [employer] 2024-08-03 00:00 snf (current) use of insu arturo [employer] 2024-08-03 08:10 Pain in thoracic spine [employer] 2024-08-15 13:27 Radiculopathy, cervical region [employer] 2024-08-15 13:51 Sepsis, unspecified organism [employer] 2024-08-15 13:51 Type 2 diabetes mellitus withou t complications [employer] 2024-08-15 13:51 Essential (primary) hypertensio n [facility] 2024-08-15 13:51 Chronic right heart failure [facility] 2024-08-15 13:51 Influenza due to uni dentified influenza virus with other respiratory manifestations [facility] 2024-08-15 13:51 Pneumonia, unspecified organism [facility] 2024-08-15 13:51 Interstitial pulmonary disease, unspecified [facility] 2024-08-15 13:51 Acute respiratory failure with hypoxia [facility] 2024-08-15 13:51 Pain in left shoulder [facility] 2024-08-15 13:51 Radiculopathy, cervical region [facility] 2024-08-15 13:51 Chronic cough [facility] 2024-08-15 13:51 Disorientation, unspecified [facility] 2024-08-15 13:51 Fever, unspecified [facility] 2024-08-15 13:51 Severe sepsis without septic sh ock [facility] 2024-08-15 13:51 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 [facility] 2024-08-16 08:21 Radiculopathy, cervical region [facility] 2024-08-18 09:03 Radiculopathy, cervical region [facility] 2024-08-18 09:05 Radiculopathy, cervical region [facility] 2024-08-20 15:57 Radiculopathy, cervical region [facility] 2024-08-21 00:01 Radiculopathy, cervical region [facility] 2024-08-22 13:52 Radiculopathy, cervical region [facility] 2024-09-02 00:04 Type 2 diabetes mellitus withou t complications [facility] 2024-09-02 00:04 Unspecified adrenocortical insu fficiency [facility] [employer] 2024-09-02 00:04 Hypo-osmolality and hyponatremi a [facility] 2024-09-02 00:04 Chronic obstructive pulmonary d isease, unspecified [facility] 2024-09-02 00:04 Dorsalgia, unspecified [employer] 2024-09-02 00:04 Chronic kidney disease, stage 3 b [employer] [facility] 2024-09-02 00:04 snf (current) use of insu arturo [employer] 2024-09-05 16:39 Sepsis, unspecified organism [facility] 2024-09-05 16:39 Immunodeficiency, unspecified [facility] 2024-09-05 16:39 Type 2 diabetes mellitus withou t complications [employer] 2024-09-05 16:39 Unspecified adrenocortical insu fficiency [employer] 2024-09-05 16:39 Essential (primary) hypertensio n [employer] 2024-09-05 16:39 Chronic right heart failure [facility] [employer] 2024-09-05 16:39 Influenza due to uni dentified influenza virus with other respiratory manifestations [employer] 2024-09-05 16:39 Pneumonia, unspecified organism [employer] 2024-09-05 16:39 Chronic obstructive pulmonary d isease, unspecified [employer] 2024-09-05 16:39 Bronchiectasis, uncomplicated [employer] 2024-09-05 16:39 Interstitial pulmonary disease, unspecified [employer] 2024-09-05 16:39 Acute respiratory failure with hypoxia [employer] 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 2024-09-05 16:39 Dorsalgia, unspecified [employer] 2024-09-05 16:39 Chronic cough [facility] 2024-09-05 16:39 Disorientation, unspecified [facility] [employer] 2024-09-05 16:39 Fever, unspecified [facility] 2024-09-05 16:39 Severe sepsis without septic sh ock [employer] 2024-09-05 16:39 snf (current) use of insu [email or web address] 2024-09-06 00:01 Immunodeficiency, unspecified [facility] 2024-09-06 00:01 Type 2 diabetes mellitus withou t complications [employer] 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 of [employer] arturo [employer] 2024-09-06 15:43 Dorsalgia, unspecified [employer] 2024-09-07 08:41 Type 2 diabetes mellitus withou t complications [employer] [facility] 2024-09-07 08:41 Unspecified diastolic (congesti ve) heart failure [employer] 2024-09-07 08:41 Chronic obstructive pulmonary d isease, unspecified [employer] 2024-09-07 08:41 Bronchiectasis, uncomplicated [employer] 2024-09-07 08:41 Acute and chronic re spiratory failure, unspecified whether with hypoxia or hypercapnia [employer] 2024-09-07 08:41 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 [employer] 2024-09-07 08:41 Dorsalgia, unspecified [employer] 2024-09-07 08:41 Chronic kidney disease, stage 3 b [employer] 2024-09-07 08:41 Dysphagia, unspecified [employer] 2024-09-07 08:41 sewage disposal worker (current) use of [employer] 2024-09-07 08:41 Other specified postprocedural states [employer] [facility] 2024-09-16 08:26 Dermatopolymyositis, unspecified, organ involvement unspecified [employer] [facility] 2024-09-17 00:04 Dermatopolymyositis, unspecified, organ involvement unspecified [employer] [facility] 2024-10-06 00:01 Type 2 diabetes mellitus withou t complications [employer] 2024-10-06 00:01 snf (current) use of [employer] 2024-10-08 11:37 Other spondylosis with myelopat hy, cervical region [facility] Results/Labs test date facility value unit notes Result panel 1 Specimen collection (procedure) (no date) [facility] (missing) (missing) (missing) Result panel 2 Specimen collection (procedure) (no date) [facility] (missing) (missing) (missing) Result panel 3 Specimen collection (procedure) (no date) [facility] (missing) (missing) (missing) Result panel 4 Specimen collection (procedure) (no date) [facility] (missing) (missing) (missing) Result panel 5 Specimen collection (procedure) (no date) [facility] (missing) (missing) (missing) Result panel 6 Specimen collection (procedure) (no date) [facility] (missing) (missing) (missing) Result panel 7 Specimen collection (procedure) (no date) [facility] (missing) (missing) (missing) Result panel 8 Specimen collection (procedure) (no date) [facility] (missing) (missing) (missing) Result panel 9 Specimen collection (procedure) (no date) [facility] (missing) (missing) (missing) Result panel 10 Specimen collection (procedure) (no date) [facility] (missing) (missing) (missing) Result panel 11 Specimen collection (procedure) (no date) [facility] (missing) (missing) (missing) Result panel 12 Specimen collection (procedure) (no date) [facility] (missing) (missing) (missing) Result panel 13 Specimen collection (procedure) (no date) [facility] (missing) (missing) (missing) Result panel 14 Specimen collection (procedure) (no date) [facility] (missing) (missing) (missing) Result panel 15 Specimen collection (procedure) (no date) [facility] (missing) (missing) (missing) Result panel 16 Specimen collection (procedure) (no date) [facility] (missing) (missing) (missing) Result panel 17 Specimen collection (procedure) (no date) [facility] (missing) (missing) (missing) Result panel 18 Specimen collection (procedure) (no date) [facility] (missing) (missing) (missing) Result panel 19 Specimen collection (procedure) (no date) [facility] (missing) (missing) (missing) Result panel 20 Specimen collection (procedure) (no date) [facility] (missing) (missing) (missing) Result panel 21 Specimen collection (procedure) (no date) [facility] (missing) (missing) (missing) Result panel 22 Specimen collection (procedure) (no date) [facility] (missing) (missing) (missing) Result panel 23 Specimen collection (procedure) (no date) [facility] (missing) (missing) (missing) Result panel 24 Specimen collection (procedure) (no date) [facility] (missing) (missing) (missing) Result panel 25 Specimen collection (procedure) (no date) [facility] (missing) (missing) (missing) Result panel 26 Specimen collection (procedure) (no date) [facility] (missing) (missing) (missing) Result panel 27 Specimen collection (procedure) (no date) [facility] (missing) (missing) (missing) Result panel 28 Specimen collection (procedure) (no date) [facility] (missing) (missing) (missing) Result panel 29 Specimen collection (procedure) (no date) [facility] (missing) (missing) (missing) Result panel 30 Specimen collection (procedure) (no date) [facility] (missing) (missing) (missing) Result panel 31 Specimen collection (procedure) (no date) [facility] (missing) (missing) (missing) Result panel 32 Specimen collection (procedure) (no date) [facility] (missing) (missing) (missing) Result panel 33 Specimen collection (procedure) (no date) [facility] (missing) (missing) (missing) Result panel 34 Specimen collection (procedure) (no date) [facility] (missing) (missing) (missing) Result panel 35 Specimen collection (procedure) (no date) [facility] (missing) (missing) (missing) Result panel 36 Specimen collection (procedure) (no date) [facility] (missing) (missing) (missing) Result panel 37 Specimen collection (procedure) (no date) [facility] (missing) (missing) (missing) Result panel 38 Specimen collection (procedure) (no date) [facility] (missing) (missing) (missing) Result panel 39 Specimen collection (procedure) (no date) [facility] (missing) (missing) (missing) Result panel 40 Specimen collection (procedure) (no date) [facility] (missing) (missing) (missing) Result panel 41 Specimen collection (procedure) (no date) [facility] (missing) (missing) (missing) Result panel 42 Specimen collection (procedure) (no date) [facility] (missing) (missing) (missing) Result panel 43 Specimen collection (procedure) (no date) [facility] (missing) (missing) (missing) Result panel 44 Specimen collection (procedure) (no date) [facility] (missing) (missing) (missing) Result panel 45 Specimen collection (procedure) (no date) [facility] (missing) (missing) (missing) Result panel 46 Specimen collection (procedure) (no date) [facility] (missing) (missing) (missing) Result panel 47 Specimen collection (procedure) (no date) [facility] (missing) (missing) (missing) Result panel 48 Specimen collection (procedure) (no date) [facility] (missing) (missing) (missing) Result panel 49 Specimen collection (procedure) (no date) [facility] (missing) (missing) (missing) Result panel 50 Specimen collection (procedure) (no date) [facility] (missing) (missing) (missing) Result panel 51 Specimen collection (procedure) (no date) [facility] (missing) (missing) (missing) Result panel 52 Specimen collection (procedure) (no date) [facility] (missing) (missing) (missing) Result panel 53 Specimen collection (procedure) (no date) [facility] (missing) (missing) (missing) Result panel 54 Specimen collection (procedure) (no date) [facility] (missing) (missing) (missing) Result panel 55 Specimen collection (procedure) (no date) [facility] (missing) (missing) (missing) Result panel 56 Specimen collection (procedure) (no date) [facility] (missing) (missing) (missing) Result panel 57 Specimen collection (procedure) (no date) [facility] (missing) (missing) (missing) Result panel 58 Specimen collection (procedure) (no date) [facility] (missing) (missing) (missing) Result panel 59 Specimen collection (procedure) (no date) [facility] (missing) (missing) (missing) Result panel 60 Specimen collection (procedure) (no date) [facility] (missing) (missing) (missing) Result panel 61 Specimen collection (procedure) (no date) [facility] (missing) (missing) (missing) Result panel 62 Specimen collection (procedure) (no date) [facility] (missing) (missing) (missing) Result panel 63 Specimen collection (procedure) (no date) [facility] (missing) (missing) (missing) Result panel 64 Specimen collection (procedure) (no date) [facility] (missing) (missing) (missing) Result panel 65 Specimen collection (procedure) (no date) [facility] (missing) (missing) (missing) Result panel 66 Specimen collection (procedure) (no date) [facility] (missing) (missing) (missing) Result panel 67 Specimen collection (procedure) (no date) [facility] (missing) (missing) (missing) Result panel 68 Specimen collection (procedure) (no date) [facility] (missing) (missing) (missing) Result panel 69 Specimen collection (procedure) (no date) [facility] (missing) (missing) (missing) Result panel 70 Specimen collection (procedure) (no date) [facility] (missing) (missing) (missing) Result panel 71 Specimen collection (procedure) (no date) [facility] (missing) (missing) (missing) Result panel 72 Specimen collection (procedure) (no date) [facility] (missing) (missing) (missing) Result panel 73 Specimen collection (procedure) (no date) [facility] (missing) (missing) (missing) Result panel 74 Specimen collection (procedure) (no date) [facility] (missing) (missing) (missing) Result panel 75 Specimen collection (procedure) (no date) [facility] (missing) (missing) (missing) Result panel 76 Specimen collection (procedure) (no date) [facility] (missing) (missing) (missing) Result panel 77 Specimen collection (procedure) (no date) [facility] (missing) (missing) (missing) Result panel 78 Specimen collection (procedure) (no date) [facility] (missing) (missing) (missing) Result panel 79 Specimen collection (procedure) (no date) [facility] (missing) (missing) (missing) Result panel 80 Specimen collection (procedure) (no date) [facility] (missing) (missing) (missing) Result panel 81 Specimen collection (procedure) (no date) [facility] (missing) (missing) (missing) Result panel 82 Specimen collection (procedure) (no date) [facility] (missing) (missing) (missing) Result panel 83 Specimen collection (procedure) (no date) [facility] (missing) (missing) (missing) Result panel 84 Specimen collection (procedure) (no date) [facility] (missing) (missing) (missing) Result panel 85 Specimen collection (procedure) (no date) [facility] (missing) (missing) (missing) Result panel 86 Specimen collection (procedure) (no date) [facility] (missing) (missing) (missing) Result panel 87 Specimen collection (procedure) (no date) [facility] (missing) (missing) (missing) Result panel 88 Specimen collection (procedure) (no date) [facility] (missing) (missing) (missing) Result panel 89 Specimen collection (procedure) (no date) [facility] (missing) (missing) (missing) Result panel 90 Specimen collection (procedure) (no date) [facility] (missing) (missing) (missing) Result panel 91 Specimen collection (procedure) (no date) [facility] (missing) (missing) (missing) Result panel 92 Specimen collection (procedure) (no date) [facility] (missing) (missing) (missing) Result panel 93 Specimen collection (procedure) (no date) [facility] (missing) (missing) (missing) Result panel 94 Specimen collection (procedure) (no date) [facility] (missing) (missing) (missing) Result panel 95 NUCLEATED [...] reference ranges. AST ASPARTATE AMINOTRANSFERASE 2024-09-01 09:21 [facility] 11 iu/l As of August 2022 testing method has changed, this may include reference ranges. CRP - C-REACTIVE PROTEIN 2024-09-01 09:21 [facility] 12.4 mg/dl As of Aug testing method has changed, this may include reference ranges. SODIUM 2024-09-01 09:21 [facility] 139 mmol/l Unknown RED CELL DISTRIBUTION WIDTH 2024-09-01 09:21 [facility] 14.6 % (missing) GLUCOSE 2024-09-01 09: [facility] 146 mg/dl As of August 2022 testing method has changed, this may include reference ranges. BUN - BLOOD UREA NITROGEN 2024-09-01 09: [facility] 16 mg/dl As of Aug testing method has changed, this may include reference ranges. MAGNESIUM 2024-09-01 09: [facility] 2.0 mg/dl As of August 2022 testing method has changed, this may include reference ranges. MEAN CORPUSCULAR HEMOGLOBIN 2024-09-01 09:21 [facility] 28.7 pg (missing) MEAN CORPUSCULAR HGB CONC 2024-09-01 09:21 [facility] 28.9 g/dl (missing) GLOBULIN 2024-09-01 09:21 [facility] 3.1 g/dl (missing) RED BLOOD COUNT 2024-09-01 09: [facility] 3.49 10 6/ul (missing) ALBUMIN 2024-09-01 09:21 [facility] 3.6 g/dl As of August 2022 testing method has changed, this may include reference ranges. PHOSPHORUS 2024-09-01 09: [facility] 3.8 mg/dl As of August 2022 testing method has changed, this may include reference ranges. HCT - HEMATOCRIT 2024-09-01 09:21 [facility] 34.6 % (missing) PLT - PLATELET COUNT 2024-09-01 09:21 [facility] 349 10 3/ul (missing) CARBON DIOXIDE - CO2 2024-09-01 09:21 [facility] 36 mmol/l As of August 2022 testing method has changed, this may include reference ranges. POTASSIUM 2024-09-01 09:21 [facility] 4.2 mmol/l As of August 2022 testing method has changed, this may include reference ranges. GFR - MDRD 2024-09-01 09:21 [facility] 49 ([place]) Social History date description facility 2024-09-02 00:00 Never smoked tobacco ([facility] Vital Signs date measurement value units 2024-09-02 [...]
--- NOTE | 2024-10-11 15:50 | HISTORY & PHYSICAL EXAMINATION ---
Chief Complaint Chief Complaint Chief Complaint: Altered mental status History of Present Illness Admitted From Admitted From:: Home History Obtained From History obtained from: Patient interview History of Present Illness HPI Comment/Other: 73-year-old female with history of type 2 diabetes, CKD, right-sided heart failure, spondylolisthesis, adrenal insufficiency, Pulmonary sarcoidosis who presents by EMS from assisted living facility for altered mental status, fevers, chills, cough worse than normal, dyspnea worse than normal, nausea, vomiting. She was alert and oriented x 1 on arrival. She is normally on 1 L O2 at home, required 3 L O2 in the ER In the ER, she met sepsis criteria with temperature 39.3 C, pulse 132, Respiratory rate 22, blood pressure 158/115. She was given 1 L of NS and 1 g of Tylenol, with resolution of her fever and tachycardia. She was loaded with cefepime and vancomycin. Initial lab work revealed an elevated CO2 on chemistry which is baseline for her. Her WBC was 16.9. Urine was suspicious for UTI, but did have many squamous cells so this is questionable. She tested positive for enterovirus/rhinovirus on her respiratory viral panel. Hospitalist was contacted for admission for sepsis secondary to pulmonary source. Meds/Allgy Home Medications Ambulatory Orders Medication Instructions Recorded Confirmed calcium 600 mg (as 1 tab PO BID 07/23/18 carbonate)-vitamin D3 10 mcg (400 unit) tablet loperamide 2 mg tablet (Imodium 2 - 4 mg PO Q6H PRN di arrhea 02/15/24 10/11/24 A-D) insulin syringe-needle U-100 0.5 #100 ea 04/02/2404/05 mL 31 gauge x 5/16" (BD Insulin Syringe Ultra-Fine) acetaminophen 500 mg tablet 1,000 mg PO QPM 04/11/24 0 10/11/24 acyclovir 400 mg tablet 400 mg PO BID 04/11/2410/11 albuterol sulfate 90 mcg/actuation 2 puff inhalation Q 3H PRN 04/11/24 10/11/24 aerosol inhaler (Ventolin HFA) shortness of breath or wheezing guaifenesin 600 mg tablet, 600 mg PO BID 04/11/2404/05 extended release 12 hr (Mucinex) insulin glargine 100 unit/mL (3 20 unit subcut DAILY 0 04/11/24 10/11/24 mL) subcutaneous pen (Lantus Solostar U-100 Insulin) benzocaine 15 mg-menthol 3.6 mg 1 kristie mucous membrane Q2HR PRN 04/13/24 10/11/24 lozenges (Cepacol Sore Throat Mouth Sore Pain #25 ea (benzocaine-menthol)) ipratropium 0.5 mg-albuterol 3 mg 3 ml inhalation QID #120 mL 04/20/24 10/11/24 (2.5 mg base)/3 mL nebulization soln nebulizer accessories (Buckhorn #1 ea 04/26/24 10/11/24 Choice Nebulizer Kit-Adult) alendronate 70 mg tablet See Rx Instructions .Route 0 06/02/24 10/11/24 .COMPLEX #4 tabs potassium chloride 20 mEq See Rx Instructions .Route 0 06/12/24 10/11/24 tablet,extended release(part/cryst) .COMPLEX #30 tabs folic acid 1 mg tablet See Rx Instructions .Route 0 06/19/24 10/11/24 .COMPLEX #30 tabs gabapentin 300 mg capsule See Rx Instructions .Route 0 06/19/24 10/11/24 .COMPLEX #180 caps hydroxychloroquine 200 mg tablet See Rx Instructions . Route 06/28/24 10/11/24 .COMPLEX #60 tabs losartan 25 mg tablet See Rx Instructions .Route 0 06/30/24 10/11/24 .COMPLEX #30 tabs rosuvastatin 10 mg tablet See Rx Instructions .Route 0 06/30/24 10/11/24 .COMPLEX #30 tabs empagliflozin 10 mg tablet 10 mg PO QAM #30 tabs 07/0510/11/24 (Jardiance) fluticasone fur. 100 mcg-umeclid 1 inh inhalation QDAY 07/05/24 10/11/24 62.5 mcg-vilant 25 mcg inhalat.powder (Trelegy Ellipta) pantoprazole 40 mg tablet,delayed 40 mg PO QDAY #30 ta bs 07/05/24 10/11/24 release montelukast 5 mg chewable tablet 5 mg PO DAILY 10/11/24 meloxicam 7.5 mg tablet 7.5 mg PO QDAY #30 tabs 04/0510/11/24 torsemide 20 mg tablet 60 mg (3 x 20 mg) PO DAILY # 270 08/24/24 10/11/24 tabs doxycycline hyclate 100 mg capsule 100 mg PO BID 09/0510/11/24 Held on 10/11/24. Instructions: Per Patient tramadol 50 mg tablet 50 mg PO Q8H PRN pain #90 ta bs 09/05/24 10/11/24 prednisone 10 mg tablet See Rx Instructions .Route 0 09/27/24 10/11/24 .COMPLEX #30 tabs fluticasone furoate 200 1 inh inhalation DAILY 10/1110/11/24 mcg-vilanterol 25 mcg/dose inhalation powder (Breo Ellipta) mycophenolate mofetil 250 mg 750 mg PO BID 10/11/24 capsule Allergies Allergies Allergy/AdvReac Type Severity Reaction Status Date / Time amoxicillin Allergy Unknown Verified 10/11/24 11:45 amoxicillin trihydrate * Allergy Unknown Verified 10/11/24 11:45 (From Augmentin) hydrocodone Allergy Hives Verified 10/11/24 11:45 oxycodone Allergy Unknown Verified 10/11/24 11:45 Penicillins Allergy Unknown Verified 10/11/24 11:45 potassium clavulanate * Allergy Unknown Verified 10/11/24 11:45 (From Augmentin) propoxyphene (From Allergy Unknown Verified 10/11/24 11:45 Darvocet-N) Sulfa (Sulfonamide Allergy Unknown Verified 10/11/24 11:45 Antibiotics) sulfamethoxazole (From Allergy Unknown Verified 10/11/24 11:45 Septra) trimethoprim (From Septra) Allergy Unknown Verified 10/11/24 11:45 PFSH Active Problems All Active Problems (Updated 10/11/24 @ 16:13 by Gavin Tenorio DNP) Sepsis (Acute) Pneumonia (Acute) Rhinovirus (Acute) Obesity (Acute) Spondylolisthesis (Acute 08/19/18) Type II diabetes mellitus with peripheral autonomic neuropathy (Acute 11/27/22) Impetigo any site (Acute) Immunocompromised (Acute 08/16/20) Dermatomyositis with organ involvement, adult onset (Acute 02/05/21) Cervical radiculopathy (Acute) CKD stage 3b, GFR 30-44 ml/min (Acute) Heart failure with preserved ejection fraction (Acute) Food sticks on swallowing (Acute) Dorsal back pain (Acute) COPD (chronic obstructive pulmonary disease) (Chronic) Dermatomyositis (Chronic) Acute and chronic respiratory failure (Acute 05/26/22) Bronchiectasis (Acute 11/12/21) Asymptomatic postmenopausal status (age-related) (natural) (Acute 11/21/15) Adrenal insufficiency (Acute 07/23/18) Anemia due to multiple mechanisms (Acute) Fever (Acute) Acute kidney injury (Acute) Hyponatremia (Acute) Diabetes mellitus treated with insulin (Acute) Medical History Medical History (Updated 10/11/24 @ 16:13 by Gavin Tenorio DNP) Pneumonia Chronic diarrhea Cor pulmonale (chronic) Myalgia and myositis, unspecified (08/08/09) Contact dermatitis and other eczema, due to unspecified cause (01/14/08) Controlled type 2 diabetes mellitus with insulin therapy (05/26/22) Chronic cough (06/03/17) Anemia, unspecified (07/23/07) Sleep apnea (10/25/12) Rosacea (07/16/06) Respiratory failure, chronic (11/27/22) Pulmonary nodule (02/16/20) Pedal edema (03/26/10) Osteoporosis (11/21/15) Insomnia due to medical condition classified elsewhere (02/24/22) Gastroparesis diabeticorum (04/14/17) Essential hypertension, benign (09/16/07) Constipation, chronic (03/24/14) Chronic right heart failure (11/12/21) Chronic pain syndrome (10/11/20) Interstitial lung disease Hypoxia Hospital-acquired pneumonia Sepsis Community acquired pneumonia Pulmonary sarcoidosis Wedge compression fracture of second lumbar vertebra, subsequent encounter for fracture with routine healing (08/16/20) CAP (community acquired pneumonia) due to Pneumococcus (05/16/19) Osteoarthritis of right knee (05/22/09) Osteoarthritis of left knee (02/01/08) Nondisplaced fracture of head of left radius, initial encounter for closed fracture (10/13/19) Neoplasm of uncertain behavior of skin (02/02/12) 2019 novel coronavirus-infected pneumonia (NCIP) (08/16/20) Neoplasm of unspecified behavior of bone, soft tissue, and skin (11/23/18) Sepsis (05/16/19) Pulmonary sarcoidosis (05/16/19) Vertigo (09/02/17) Lumbar radiculopathy (05/05/23) Hematuria (07/28/16) Fluid overload (05/26/22) Dyspnea on exertion (06/30/18) Bronchiectasis with acute exacerbation (02/05/21) Acute respiratory failure with hypoxia (05/24/19) Acute nontraumatic kidney injury (05/16/19) Surgical History Surgical History History of fundoplication Family History Family History Brother Kidney disease Social History Social History (Updated 10/11/24 @ 12:44 by Tio Ace, RN) Second hand tobacco smoke exposure: No Do you dip or chew tobacco?: No Do you vape?: No Patient requests smoking cessation consult: No Initiate information on smoking cessation: No Living arrangement: Assisted living Marital Status: Living Condition: Alone Support Person: Yes Physical Activity: Walking and other Level: Assisted Home Mobility Equipment: Wheeled walker and Wheelchair Do you feel safe in your home environment?: Yes History of physical, verbal, emotional, or financial abuse?: No ETOH Use: None Substance Use: denies use Are you sexually active?: No 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[employer], 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: Yes Known occupational exposures/hazards (Current/Previous): none known Service: No Are you following a diet prescribed by a doctor: No Are you following a special diet: Yes Special Diet Details: Diabetic, salt free POLST Patient has POLST: No Review of Systems Status of ROS: 10 or more systems reviewed and unremarkable except as noted in history and below Constitutional Reports: Fever and Chills Cardiovascular Reports: edema (Chronic, due to right-sided heart failure) and shortness of breath with exertion (Worse than baseline); Denies: Irregular heart rate, chest pain or palpitations Respiratory Reports: Shortness of breath (Worse than baseline), Cough, Sputum production (More than usual, and sputum is darker than normal) and Change in phlegm color Gastrointestinal Denies: Abdominal pain Exam Exam Vital Signs: Vital Signs x48h Temp Pulse Resp BP BP Pulse Ox O2 Flow Rate 10/11/24 16:15 36.6 C 18 108/59 L 99 2 10/11/24 15:00 98 20 118/58 L 94 2 10/11/24 14:46 36.9 C 102 H 22 118/58 L 91 L 2 10/11/24 13:38 37.5 C 103 H 20 109/72 92 2 10/11/24 12:56 37.2 C 10/11/24 12:46 37.2 C 108 H 23 97 10/11/24 12:39 117 H 24 140/76 H 98 10/11/24 12:24 113 H 23 120/89 97 10/11/24 12:09 114 H 22 141/87 H 98 10/11/24 12:09 133 H 28 H 141/87 H 96 10/11/24 12:05 119 H 24 116/94 H 94 10/11/24 12:00 2 10/11/24 11:46 39.3 C H 132 H 22 158/115 H 95 2 Constitutional normal general appearance and no apparent distress HENMT normocephalic, head/scalp atraumatic and oral mucous membranes abnormal (dry) Eyes PERRL Chest inspection of chest normal and palpation of chest normal Respiratory breath sounds equal bilaterally Rhonchorous breath sounds Cardiovascular normal heart rate noted, regular rhythm noted and edema noted Gastrointestinal abdomen normal to inspection and abdomen soft to palpation Extremities Edematous Neurology GCS 15 Psychiatry oriented x3 Skin Skin dry, flaky Conclusion/Plan Problem List (1) Sepsis: Plan: Meet SIRS criteria with fever, tachycardia, tachypnea, elevated WBC on presentation Suspected pulmonary source, manage as below Received 1 L fluid bolus in consideration of her right-sided heart failure Never had elevated lactate level, so we will continue being conservative with IV fluids I have ordered LR at 100 x 1 bag Cefepime, vancomycin given by ER provider Check MRSA swab Continue cefepime, will continue vancomycin if MRSA swab is positive Qualifiers: Sepsis acute organ dysfunction status: with acute organ dysfunction S epsis type: sepsis due to unspecified organism Severe sepsis acute organ dysfunction type: encephalopathy Severe sepsis shock status: without septic shock Qualified Code(s): A41.9 - Sepsis, unspecified organism; R65.20 - Severe sepsis without septic shock; G93.41 - Metabolic encephalopathy (2) Acute and chronic respiratory failure: Plan: She has many reasons to be hypoxic. She has history of interstitial lung disease on chronic steroid and 1 L O2 She has a superimposed pneumonia Check procalcitonin to determine if this is bacterial and viral or only viral Qualifiers: Respiratory failure complication: hypoxia and hypercapnia Qualified Code(s): J96.21 - Acute and chronic respiratory failure with hypoxia; J96.22 - Acute and chronic respiratory failure with hypercapnia (3) Pneumonia: Plan: Cefepime, vancomycin as above Follow-up procalcitonin Qualifiers: Laterality: bilateral Lung location: unspecified part of lung P neumonia type: due to unspecified organism Qualified Code(s): J18.9 - Pneumonia, unspecified organism (4) Rhinovirus: Plan: Tested positive for rhinovirus/enterovirus She is on 10 mg prednisone daily at baseline, I am starting her on a 40 mg prednisone burst (5) Cervical radiculopathy: Plan: She has cervical radiculopathy, and is established with a neurosurgeon According to clinic notes, she sees Dr. Candelaria at [facility], and is being worked up for procedure to stabilize her neck She has bilateral extremity numbness from this, It is not any worse than usual (6) Type II diabetes mellitus with peripheral autonomic neuropathy: Plan: On Jardiance and Lantus according to preliminary med review SSI A1c Plan Admit inpatient med floor DNR/DNI She names her friends Tony and Miri Ma as her surrogate decision maker. They are also her DPOA Lab Results Lab results reviewed: Yes 10/11/24 06:13 10/11/24 12:04 Core Measures Anticipated LOS I expect patient to be DC'd or transferred within 96 hours.: Yes DVT/VTE - Prophylaxis VTE/DVT Prophylaxis med ordered at admit?: Yes
[2024-10-11] MEDS ORDERED: SODIUM CHLORIDE FLUSH 0.9% 10 ML SYRINGE IVP PRN (16:13)
[2024-10-11] MEDS: LACTATED RINGERS 1,000 ML IV SCH (16:58)
[2024-10-11] MEDS: INSULIN LISPRO 300 UNIT/3 ML PEN SUBQ SCH (17:59)
[2024-10-11] MEDS: SODIUM CHLORIDE FLUSH 0.9% 10 ML SYRINGE IVP SCH (18:00)
[2024-10-11] MEDS: NYSTATIN POWDER 15 GM TOP SCH (20:55)
[2024-10-11] MEDS: ACETAMINOPHEN 325 MG TABLET PO PRN (23:19)
[2024-10-12 05:15] LABS: HCT - HEMATOCRIT 32.7 % (37.0-47.0); HGB - HEMOGLOBIN 9.3 g/dL (12.0-16.0); MEAN PLATELET VOLUME 9.4 fL (7.9-10.8); NRBC ABSOLUTE COUNT (AUTO) 0.00 x10^3/uL; NUCLEATED RED BLOOD CELLS AUTO 0.0 /100WBC; PLT - PLATELET COUNT 348 10^3/uL (130-450); RED CELL DISTRIBUTION WIDTH 15.5 % (12.0-15.0)
[2024-10-12 05:34] LABS: BUN - BLOOD UREA NITROGEN 17.0 mg/dL (6-20); CARBON DIOXIDE - CO2 30.0 mmol/L (21-32); CREATININE 0.8 mg/dL (0.6-1.3); GFR - MDRD 70.0 (>89)
[2024-10-12] MEDS: ENOXAPARIN 40 MG/0.4 ML SYRINGE SUBQ SCH (08:56)
[2024-10-12 09:19] LABS: ESTIMATED AVERAGE GLUCOSE 189 mg/dL (70-100); HEMOGLOBIN A1c% 8.2 % (4.27-6.07)
[2024-10-12] MEDS: cefTRIAXone 1 GM in SODIUM CHLORIDE 0.9% MINIBAG 100 ML IV SCH (11:52)
[2024-10-12] MEDS: ONDANSETRON 4 MG/2 ML VIAL IVP PRN (12:16)
--- NOTE | 2024-10-12 12:20 | PHARMACY PROGRESS NOTE ---
Best Possible Medication History Admit Date and Time: 10/11/24 1525 Home Medications Medication Instructions Recorded Confirmed Type calcium 600 mg (as 1 tab PO BID 07/23/18 History carbonate)-vitamin D3 10 mcg (400 unit) tablet loperamide 2 mg tablet (Imodium 2 - 4 mg PO Q6H PRN di arrhea 02/15/24 10/11/24 History A-D) insulin syringe-needle U-100 0.5 #100 ea 04/02/2404/05 Rx mL 31 gauge x 5/16" (BD Insulin Syringe Ultra-Fine) acetaminophen 500 mg tablet 1,000 mg PO QPM 04/11/24 0 10/11/24 History acyclovir 400 mg tablet 400 mg PO BID 04/11/2410/11 History albuterol sulfate 90 mcg/actuation 2 puff inhalation Q 3H PRN 04/11/24 10/11/24 History aerosol inhaler (Ventolin HFA) shortness of breath or wheezing guaifenesin 600 mg tablet, 600 mg PO BID 04/11/2404/05 History extended release 12 hr (Mucinex) insulin glargine 100 unit/mL (3 20 unit subcut DAILY 0 04/11/24 10/11/24 History mL) subcutaneous pen (Lantus Solostar U-100 Insulin) benzocaine 15 mg-menthol 3.6 mg 1 kristie mucous membrane Q2HR PRN 04/13/24 10/11/24 Rx lozenges (Cepacol Sore Throat Mouth Sore Pain #25 ea (benzocaine-menthol)) nebulizer accessories (Tr #1 ea 04/26/24 10/11/24 Rx Choice Nebulizer Kit-Adult) alendronate 70 mg tablet See Rx Instructions .Route 0 06/02/24 10/11/24 Rx .COMPLEX #4 tabs montelukast 5 mg chewable tablet 5 mg PO DAILY 5 10/11/24 History torsemide 20 mg tablet 60 mg (3 x 20 mg) PO DAILY # 270 08/24/24 10/11/24 Rx tabs doxycycline hyclate 100 mg capsule 100 mg PO BID 09/0510/11/24 History Held on 10/11/24. Instructions: Per Patient tramadol 50 mg tablet 50 mg PO Q8H PRN pain #90 ta bs 09/05/24 10/11/24 Rx mycophenolate mofetil 250 mg 1,000 mg PO BID 10/11/24 10/12/24 History capsule empagliflozin 10 mg tablet 10 mg PO DAILY 10/12/2405/03 History (Jardiance) fluticasone fur. 200 mcg-umeclid 1 inh inhalation RAFAEL Y 10/12/24 10/12/24 History 62.5 mcg-vilant 25 mcg inhalat.powder (Trelegy Ellipta) folic acid 1 mg tablet 1 mg PO DAILY 10/12/2410/12 History gabapentin 300 mg capsule 600 mg PO TID 10/12/2410/12 History hydroxychloroquine 200 mg tablet 400 mg PO DAILY 10/1210/12/24 History ipratropium bromide 0.02 % 0.5 mg inhalation QID 10/1210/12/24 History solution for inhalation losartan 25 mg tablet 25 mg PO DAILY 10/12/2405/03 History meloxicam 7.5 mg tablet 7.5 mg PO DAILY 10/12/2405/03 History montelukast 10 mg tablet 10 mg PO HS 10/12/24 5 History pantoprazole 40 mg tablet,delayed 40 mg PO DAILY 10/1210/12/24 History release potassium chloride 20 mEq 20 meq PO DAILY 10/12/2405/03 History tablet,extended release(part/cryst) prednisone 10 mg tablet 10 mg PO DAILY 10/12/2405/03 History rosuvastatin 10 mg tablet 10 mg PO QPM 10/12/24 History Processed by: Pharmacy Medications reviewed in ED?: Yes Medication History completed: Yes Patient Interview: Pt unable to participate Secondary Source(s): Insurance records and Facility MAR as ONLY source [facility] Statement: As the person ultimately responsible for medication therapy, providers are able to order a medication from an existing home medication list in [facility] via the "Reconcile Routine" prior to Confirmation of that medication by application support administrator. Such practice is discouraged except when the physician, in their clinical judgment, deems that a medical need exists for a medication without regard to previous use.
[2024-10-12] MEDS ORDERED: VANCOMYCIN INJ 1 GM in SODIUM CHLORIDE 0.9% 250 ML IV SCH (13:30)
[2024-10-12] MEDS: BENZONATATE 100 MG CAPSULE PO PRN (20:09)
--- NOTE | 2024-10-12 22:39 | PROVIDER PROGRESS NOTE ---
Subjective Prog Note Date Prog Note Date: 10/12/24 Subjective Subjective: She is doing well, feeling better. She has been able to eat, and notices that although she is still coughing she is improving. Current Medications Current Medications Current Medications: Current Medications Generic Name Dose Route Start Last Admin Trade Name Freq PRN Reason Stop Dose Admin Acetaminophen 650 mg 10/11/24 16:13 10/12/24 17:56 Acetaminophen 325 Mg Tablet PO 650 mg Q4HR PRN Administration Pain 1 to 4, or Fever Benzonatate 100 mg 10/12/24 19:38 10/12/24 20:09 Benzonatate 100 Mg Capsule PO 100 mg TID PRN Administration Cough Enoxaparin Sodium 40 mg 10/12/24 09:00 10/12/24 08:56 Enoxaparin 40 Mg/0.4 Ml Syringe SUBQ 40 mg DAILY ROMY Administration Guaifenesin 600 mg 10/12/24 21:00 10/12/24 20:54 Guaifenesin 600 Mg Tablet PO 600 mg BID ROMY Administration Ceftriaxone Sodium 1 gm/ 100 mls @ 200 mls/hr 10/12/24 11:30 10/12/24 12:33 Sodium Chloride IV Infused DAILY ROMY Infusion Insulin Human Lispro 1 - 9 unit 10/11/24 17:00 10/12/24 21:02 Insulin Lispro 300 Unit/3 Ml Pen SUBQ 1 unit 0800,1200,1700,2100 ROMY Administration Protocol Nystatin 1 applic 10/11/24 21:00 10/12/24 21:03 Nystatin Powder 15 Gm TOP 1 applic BID ROMY Administration Ondansetron HCl 4 mg 10/11/24 16:13 Ondansetron Odt 4 Mg Tablet TL Q6HR PRN Nausea / Vomiting Ondansetron HCl 4 mg 10/11/24 16:13 10/12/24 18:57 Ondansetron 4 Mg/2 Ml Vial IVP 4 mg Q6HR PRN Administration Nausea / Vomiting Prednisone 40 mg 10/11/24 17:00 10/12/24 08:56 Prednisone 20 Mg Tablet PO 40 mg DAILYWM ROMY Administration Sodium Chloride 10 ml 10/11/24 16:13 Sodium Chloride Flush 0.9% 10 Ml Syringe IVP PRN PRN NEEDED PER PROVIDER ORDERS Sodium Chloride 10 ml 10/11/24 17:00 10/12/24 18:54 Sodium Chloride Flush 0.9% 10 Ml Syringe IVP 10 ml 0100,0900,1700 ROMY Administration Tramadol HCl 50 mg 10/12/24 02:05 10/12/24 18:53 Tramadol 50 Mg Tablet PO 50 mg Q8HR PRN Administration PAIN >8 Objective Vital Signs/Intake & Output Reviewed Vital Signs: Yes Vital Signs: Vital Signs x48h Temp Pulse Resp BP Pulse Ox O2 Flow Rate 10/12/24 19:35 36.3 C L 82 20 141/66 H 98 2 Intake & Output: Intake & Output 10/09/24 10/10/24 10/11/24 10/12/24 23:59 23:59 23:59 23:59 Intake Total 1800 / 1800 1560 / 1560 Output Total 300 / 300 450 / 450 Balance 1500 / 1500 1110 / 1110 Weight (kg) 84 kg Objective General Appearance: positive No acute distress and Alert Eyes Bilateral: positive Conjunctivae nml ENT: positive ENT inspection nml Neck: positive Nml inspection Respiratory: positive No respiratory distress and Rhonchi (bilaterally) Cardiovascular: positive Regular rate & rhythm Abdomen: positive No distention Back: positive Nml inspection Skin: positive Color nml Extremities: positive No pedal edema Neurologic/Psychiatric: positive Oriented x3 Lab Results 10/12/24 04:24 10/12/24 04:24 Other Labs: Lab Results x24hrs 10/12/24 10/12/24 10/12/24 Range/Units 16:38 11:33 10:00 WBC (4.8-10.8) x10^3/uL RBC (4.20-5.40) 10^6/uL Hgb (12.0-16.0) g/dL Hct (37.0-47.0) % MCV (81.0-99.0) fL MCH (27.0-31.0) pg MCHC (32.0-36.0) g/dL RDW (12.0-15.0) % Plt Count (130-450) 10^3/uL MPV (7.9-10.8) fL Neut # (Auto) (1.5-6.6) 10^3/uL Lymph # (Auto) (1.5-3.5) 10^3/uL [place] # (Auto) (0.0-1.0) 10^3/uL Eos # (Auto) (0.0-0.7) 10^3/uL Baso # (Auto) (0.0-0.1) 10^3/uL Absolute Nucleated RBC x10^3/uL Nucleated RBC % /100WBC Sodium (135-145) mmol/L Potassium (3.5-4.5) mmol/L Chloride (101-111) mmol/L Carbon Dioxide (21-32) mmol/L Anion Gap (6-13) BUN (6-20) mg/dL Creatinine (0.6-1.3) mg/dL Estimated GFR (MDRD) (>89) Glucose (74-104) mg/dL POC Whole Bld Glucose 139 130 (70-100) mg/dL Estimat Average Glucose (70-100) mg/dL Hemoglobin A1c % (4.27-6.07) % Calcium (8.5-10.3) mg/dL Nasal Screen MRSA (PCR) NEGATIVE (NEGATIVE) 10/12/24 10/12/24 Range/Units 07:46 04:24 WBC 14.5 H (4.8-10.8) x10^3/uL RBC 3.27 L (4.20-5.40) 10^6/uL Hgb 9.3 L (12.0-16.0) g/dL Hct 32.7 L (37.0-47.0) % MCV 100.0 H (81.0-99.0) fL MCH 28.4 (27.0-31.0) pg MCHC 28.4 L (32.0-36.0) g/dL RDW 15.5 H (12.0-15.0) % Plt Count 348 (130-450) 10^3/uL MPV 9.4 (7.9-10.8) fL Neut # (Auto) 13.5 H (1.5-6.6) 10^3/uL Lymph # (Auto) 0.6 L (1.5-3.5) 10^3/uL [place] # (Auto) 0.2 (0.0-1.0) 10^3/uL Eos # (Auto) 0.0 (0.0-0.7) 10^3/uL Baso # (Auto) 0.1 (0.0-0.1) 10^3/uL Absolute Nucleated RBC 0.00 x10^3/uL Nucleated RBC % 0.0 /100WBC Sodium 138 (135-145) mmol/L Potassium 4.6 H (3.5-4.5) mmol/L Chloride 97 L (101-111) mmol/L Carbon Dioxide 30 (21-32) mmol/L Anion Gap 11.0 (6-13) BUN 17 (6-20) mg/dL Creatinine 0.8 (0.6-1.3) mg/dL Estimated GFR (MDRD) 70 L (>89) Glucose 97 (74-104) mg/dL POC Whole Bld Glucose 94 (70-100) mg/dL Estimat Average Glucose 189 H (70-100) mg/dL Hemoglobin A1c % 8.2 H (4.27-6.07) % Calcium 9.2 (8.5-10.3) mg/dL Nasal Screen MRSA (PCR) (NEGATIVE) Assessment/Plan Problem List (1) Sepsis: Impression: Meet SIRS criteria with fever, tachycardia, tachypnea, elevated WBC on presentation. This is resolving. her oxygen requirement is down to her baseline. Her leukocytosis is trending down. Suspected pulmonary source, manage as below Never had elevated lactate level, so we will continue being conservative with IV fluids dc IVF, as she is improving. Cefepime, vancomycin given by ER provider MRSA is negative, therefore Vancomycin stopped. I have started rocephin this AM for UTI. Qualifiers: Sepsis acute organ dysfunction status: with acute organ dysfunction S epsis type: sepsis due to unspecified organism Severe sepsis acute organ dysfunction type: encephalopathy Severe sepsis shock status: without septic shock Qualified Code(s): A41.9 - Sepsis, unspecified organism; R65.20 - Severe sepsis without septic shock; G93.41 - Metabolic encephalopathy (2) Acute and chronic respiratory failure: Impression: She has chronic ILD, followed by Dr Morales. She is on steroid bursts to manage exacerbations. She has bronchiectasis, and pulmonology recommends prednisone 10mg daily at baseline, as well as treating doxycycline for 3 weeks with bronchiectasis flares. She is day #2, pred 40mg daily, and has appropriate abx treatment at this time. I would recommend that she dc to home to complete doxycycline for total of 2 weeks with pulm followup. She is on her baseline level of supplement O2 at this time. Qualifiers: Respiratory failure complication: hypoxia and hypercapnia Qualified Code(s): J96.21 - Acute and chronic respiratory failure with hypoxia; J96.22 - Acute and chronic respiratory failure with hypercapnia (3) Pneumonia: Impression: procalcitonin 0.51, negative. She has enterovirus/rhinovirus on her resp PCR panel. Chest imaging shows extensive multilobular infiltratess, bilateral lower lobes and RML. followup is recommended. I think that abx tx is appropriate at this time with rocephin. Will continue to trend WBC Qualifiers: Laterality: bilateral Lung location: unspecified part of lung P neumonia type: due to unspecified organism Qualified Code(s): J18.9 - Pneumonia, unspecified organism (4) Rhinovirus: Impression: supportive care, as above. also anti inflammatory steroids are helpful. Will start duonebs as well as pulmicort. (5) Urinary tract infection: Impression: urine culture is positive for E coli. Sens are pending. Rocephin started this AM. will follow sensitivites. (6) Cervical radiculopathy: Impression: She has cervical radiculopathy, and is established with a neurosurgeon According to clinic notes, she sees Dr. 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 This includes time [id number], review and ordering of diagnostic imaging and laboratory studies and consultation with other providers. Monitoring the patient's signs symptoms, evaluation of medication effectiveness and patient's response to treatment.
[2024-10-13 04:55] LABS: HCT - HEMATOCRIT 32.9 % (37.0-47.0); HGB - HEMOGLOBIN 9.3 g/dL (12.0-16.0); MEAN PLATELET VOLUME 9.2 fL (7.9-10.8); NRBC ABSOLUTE COUNT (AUTO) 0.00 x10^3/uL; NUCLEATED RED BLOOD CELLS AUTO 0.0 /100WBC; PLT - PLATELET COUNT 423 10^3/uL (130-450); RED CELL DISTRIBUTION WIDTH 15.5 % (12.0-15.0)
[2024-10-13 05:14] LABS: BUN - BLOOD UREA NITROGEN 23.0 mg/dL (6-20); CARBON DIOXIDE - CO2 31.0 mmol/L (21-32); CREATININE 0.9 mg/dL (0.6-1.3); GFR - MDRD 61.0 (>89)
[2024-10-13 08:25] VITALS: TEMP 97.9; O2SAT 94
[2024-10-13] MEDS: IPRATROPIUM/ALBUTEROL 3 ML NEB INH PRN (09:47)
[2024-10-13] MEDS: BUDESONIDE 0.5 MG/2 ML NEB INH SCH (09:47)
[2024-10-13] MEDS: MULTIVITAMIN W/MINERALS TABLET PO SCH (12:00)
--- NOTE | 2024-10-13 12:55 | Discharge Summary ---
Discharge Summary Admit Date: 10/11/24 Discharge Date: 10/13/24 Discharging Provider: Bibi Vigil PA-C Primary Care Provider: Jose A Julien MD Code Status: Do Not Attempt Resuscitation DIAGNOSES Discharge Diagnoses with Status of Each Condition: Sepsis, resolved Acute on chronic respiratory failure, manage, on baseline level of oxygen support Pneumonia, multifocal. Rhinovirus infection, PCR positive on admission. E. coli urinary tract infection, treated. Cervical radiculopathy, chronic. Insulin-dependent type 2 diabetes. Hemoglobin A1c 8.2%. HPI History of Present Illness: 73-year-old female with history of type 2 diabetes, CKD, right-sided heart failure, spondylolisthesis, adrenal insufficiency, Pulmonary sarcoidosis who presents by EMS from assisted living facility for altered mental status, fevers, chills, cough worse than normal, dyspnea worse than normal, nausea, vomiting. She was alert and oriented x 1 on arrival. She is normally on 1 L O2 at home, required 3 L O2 in the ER In the ER, she met sepsis criteria with temperature 39.3 C, pulse 132, Respiratory rate 22, blood pressure 158/115. She was given 1 L of NS and 1 g of Tylenol, with resolution of her fever and tachycardia. She was loaded with cefepime and vancomycin. Initial lab work revealed an elevated CO2 on chemistry which is baseline for her. Her WBC was 16.9. Urine was suspicious for UTI, but did have many squamous cells so this is questionable. She tested positive for enterovirus/rhinovirus on her respiratory viral panel. Hospitalist was contacted for admission for sepsis secondary to pulmonary source. ALLERGIES Allergies Allergy/AdvReac Type Severity Reaction Status Date / Time amoxicillin Allergy Unknown Verified 10/11/24 11:45 amoxicillin trihydrate * Allergy Unknown Verified 10/11/24 11:45 (From Augmentin) hydrocodone Allergy Hives Verified 10/11/24 11:45 oxycodone Allergy Unknown Verified 10/11/24 11:45 Penicillins Allergy Unknown Verified 10/11/24 11:45 potassium clavulanate * Allergy Unknown Verified 10/11/24 11:45 (From Augmentin) propoxyphene (From Allergy Unknown Verified 10/11/24 11:45 Darvocet-N) Sulfa (Sulfonamide Allergy Unknown Verified 10/11/24 11:45 Antibiotics) sulfamethoxazole (From Allergy Unknown Verified 10/11/24 11:45 ) trimethoprim (From ) Allergy Unknown Verified 10/11/24 11:45 MEDICATIONS Ambulatory Orders Medication Instructions Recorded Confirmed calcium 600 mg (as 1 tab PO BID 07/23/18 carbonate)-vitamin D3 10 mcg (400 unit) tablet loperamide 2 mg tablet (Imodium 2 - 4 mg PO Q6H PRN di arrhea 02/15/24 10/11/24 A-D) insulin syringe-needle U-100 0.5 #100 ea 04/02/2404/05 mL 31 gauge x 5/16" (BD Insulin Syringe Ultra-Fine) acetaminophen 500 mg tablet 1,000 mg PO QPM 04/11/24 0 10/11/24 acyclovir 400 mg tablet 400 mg PO BID 04/11/2410/11 albuterol sulfate 90 mcg/actuation 2 puff inhalation Q 3H PRN 04/11/24 10/11/24 aerosol inhaler (Ventolin HFA) shortness of breath or wheezing guaifenesin 600 mg tablet, 600 mg PO BID 04/11/2404/05 extended release 12 hr (Mucinex) insulin glargine 100 unit/mL (3 20 unit subcut DAILY 0 04/11/24 10/11/24 mL) subcutaneous pen (Lantus Solostar U-100 Insulin) benzocaine 15 mg-menthol 3.6 mg 1 kristie mucous membrane Q2HR PRN 04/13/24 10/11/24 lozenges (Cepacol Sore Throat Mouth Sore Pain #25 ea (benzocaine-menthol)) nebulizer accessories (Tr #1 ea 04/26/24 10/11/24 Choice Nebulizer Kit-Adult) alendronate 70 mg tablet See Rx Instructions .Route 0 06/02/24 10/11/24 .COMPLEX #4 tabs montelukast 5 mg chewable tablet 5 mg PO DAILY 5 10/11/24 torsemide 20 mg tablet 60 mg (3 x 20 mg) PO DAILY # 270 08/24/24 10/11/24 tabs doxycycline hyclate 100 mg capsule 100 mg PO BID 09/0510/11/24 tramadol 50 mg tablet 50 mg PO Q8H PRN pain #90 ta bs 09/05/24 10/11/24 mycophenolate mofetil 250 mg 1,000 mg PO BID 10/11/24 10/12/24 capsule empagliflozin 10 mg tablet 10 mg PO DAILY 10/12/2405/03 (Jardiance) fluticasone fur. 200 mcg-umeclid 1 inh inhalation RAFAEL Y 10/12/24 10/12/24 62.5 mcg-vilant 25 mcg inhalat.powder (Trelegy Ellipta) folic acid 1 mg tablet 1 mg PO DAILY 10/12/2410/12 gabapentin 300 mg capsule 600 mg PO TID 10/12/2410/12 hydroxychloroquine 200 mg tablet 400 mg PO DAILY 10/1210/12/24 ipratropium bromide 0.02 % 0.5 mg inhalation QID 10/1210/12/24 solution for inhalation losartan 25 mg tablet 25 mg PO DAILY 10/12/2405/03 meloxicam 7.5 mg tablet 7.5 mg PO DAILY 10/12/2405/03 montelukast 10 mg tablet 10 mg PO HS 10/12/24 5 pantoprazole 40 mg tablet,delayed 40 mg PO DAILY 10/1210/12/24 release potassium chloride 20 mEq 20 meq PO DAILY 10/12/2405/03 tablet,extended release(part/cryst) rosuvastatin 10 mg tablet 10 mg PO QPM 10/12/24 benzonatate 100 mg capsule 100 mg PO TID PRN Cough #30 caps 10/13/24 levofloxacin 750 mg tablet 750 mg PO DAILY #3 tabs 06/03 prednisone 20 mg tablet 40 mg (2 x 20 mg) PO DAILYWM #4 10/13/24 tabs PHYSICAL EXAM AT DISCHARGE Vital Signs: Vital Signs x48h Temp Pulse Pulse Resp BP Pulse Ox O2 Flow Rate 10/13/24 09:58 1 10/13/24 09:48 76 16 1 10/13/24 08:24 36.6 C 77 20 149/70 H 94 1 LABS 10/13/24 04:49 10/13/24 04:49 FOLLOW UP Follow Up: Jose A Julien MD, PCP Matilde Vasquez MD, pulmonology TIME SPENT Time Spent in Discharge (Minutes): 45 Discharge Plan Discharge Patient Disposition: ABDOUL, Self Care Condition: Good Prescriptions: New benzonatate 100 mg Capsule 100 mg PO TID PRN (Reason: Cough) Qty: 30 0RF prednisone 20 mg Tablet 40 mg PO DAILYWM Qty: 4 0RF Rx Instructions: daily, in the morning, for 2 days, then resume 10mg daily levofloxacin 750 mg tablet 750 mg PO DAILY Qty: 3 0RF Continued (DME) insulin syringe-needle U-100 [BD Insulin Syringe Ultra-Fine] 0.5 mL 31 gauge x 5/16" syringe See Rx Instructions .Route Qty: 100 3RF Rx Instructions: As directed (DME) Simon Choice Neb Kit-Adult Misc See Rx Instructions .Route Qty: 1 0RF Rx Instructions: As directed alendronate 70 mg tablet See Rx Instructions .ROUTE .COMPLEX Qty: 4 11RF Dose Instruction: 1 TABLET BY MOUTH WEEKLY WITH 6-8 OZ OF H2O; 30 MINS BEFORE FOOD OR MEDS; REMAIN UPRIGHT FOR 30 MINS Rx Instructions: 1 TABLET BY MOUTH WEEKLY WITH 6-8 OZ OF H2O; 30 MINS BEFORE FOOD OR MEDS; REMAIN UPRIGHT FOR 30 MINS torsemide 20 mg tablet 60 mg PO DAILY Qty: 270 3RF calcium carbonate-vitamin D3 1 EACH tablet 1 tab PO BID acetaminophen 500 mg tablet 1,000 mg PO QPM guaifenesin [Mucinex] 600 mg tablet extended release 12hr 600 mg PO BID acyclovir 400 mg tablet 400 mg PO BID albuterol sulfate [Ventolin HFA] 1 PUFFS HFA aerosol inhaler 2 puff inhalation Q3H PRN (Reason: shortness of breath or wheezing) insulin glargine [Lantus Solostar U-100 Insulin] 100 unit/mL (3 mL) insulin pen 20 unit subcut DAILY Cepacol Sore Throat (fercho-men) 15-3.6 mg Lozenge 1 kristie mucous membrane Q2HR PRN (Reason: Mouth Sore Pain) Qty: 25 0RF mycophenolate mofetil 250 mg capsule 1,000 mg PO BID montelukast 10 mg tablet 10 mg PO HS ipratropium bromide 0.02 % solution 0.5 mg inhalation QID Patient Comments: INHALE 1 VIAL (2.5ML) VIA NEBULIZER 4 TIMES DAILY Trelegy Ellipta 200-62.5-25 mcg blister with device 1 inh INHALATION DAILY meloxicam 7.5 mg tablet 7.5 mg PO DAILY potassium chloride 20 mEq tablet,ER particles/crystals 20 meq PO DAILY pantoprazole 40 mg tablet,delayed release (DR/EC) 40 mg PO DAILY gabapentin 300 mg capsule 600 mg PO TID hydroxychloroquine 200 mg tablet 400 mg PO DAILY rosuvastatin 10 mg tablet 10 mg PO QPM losartan 25 mg tablet 25 mg PO DAILY folic acid 1 mg tablet 1 mg PO DAILY Jardiance 10 mg tablet 10 mg PO DAILY loperamide [Imodium A-D] 2 mg tablet 2 - 4 mg PO Q6H PRN (Reason: diarrhea) Rx Instructions: Take 2 tabs (4 mg) with first loose bowel movement, then 1 tab (2 mg) with each following loose bowel movement; maximum of 6 tabs per day montelukast 5 mg tablet,chewable 5 mg PO DAILY doxycycline hyclate 100 mg capsule 100 mg PO BID tramadol 50 mg tablet 50 mg PO Q8H PRN (Reason: pain) Qty: 90 5RF Discontinued prednisone 10 mg tablet 10 mg PO DAILY Activity Restrictions: No Restrictions Diet: Regular Health Concerns: You came into the hospital with an infection that was causing your to feel very ill. you are on chronic oxygen treatment and we have been able to get you back down to your baseline level of oxygen. you are still coughing lots, and we want you to continue to cough up mucous. For medications, you need 2 more days of increased prednisone, then back you your normal 10 mg daily. you need to finish a total of 21 days of doxycycline. This is what Dr Vasquez wants you to do every time you have a problem with your lungs. Levofloxacin. 3 days only, once a day. start this on Thursday, we have given you the meds you need for today. Keep taking your normal diabetes medicine. you need to see Dr Vasquez as scheduled, or at least within the next month. You should see Dr Julien next week, he should have an appointment available for hospital followup. Print Language: Kyr[place] Patient Instructions: Urinary Tract Infections in Women Follow-up Care: Jose A Julien MD [Provider Admit Priv/Credential, Family Practice] MARIANO VASQUEZ MD [Physician No Access, Internal Medicine] Vitals documented within 30 minutes of discharge?: Yes
[2024-10-13] MEDS: ONDANSETRON ODT 4 MG TABLET TL PRN (14:25)
[2024-10-13 15:30] VITALS: BP 148/74
== END 2024-10-13 15:10 | disposition home or self-care (01) | DRG 871 ==
LOC: ED 11:36 → MS3 15:25
PROVIDERS: ADMIT Nurse Practitioner Acute Care; ATTEND Nurse Practitioner Acute Care
DX: E11.43 Type 2 diabetes mellitus with diabetic autonomic (poly)neuropathy; B34.8 Other viral infections of unspecified site; Z79.4 Long term (current) use of insulin; E11.22 Type 2 diabetes mellitus with diabetic chronic kidney disease; B97.89 Other viral agents as the cause of diseases classified elsewhere; J84.9 Interstitial pulmonary disease, unspecified; B97.10 Unspecified enterovirus as the cause of diseases classified elsewhere; N39.0 Urinary tract infection, site not specified; E66.9 Obesity, unspecified; J18.9 Pneumonia, unspecified organism; Z68.37 Body mass index [BMI] 37.0-37.9, adult; J12.89 Other viral pneumonia; Z63.5 Disruption of family by separation and divorce; R65.20 Severe sepsis without septic shock; B96.20 Unspecified Escherichia coli [E. coli] as the cause of diseases classified elsewhere; Z79.84 Long term (current) use of oral hypoglycemic drugs; J96.21 Acute and chronic respiratory failure with hypoxia; I13.0 Hypertensive heart and chronic kidney disease with heart failure and stage 1 through stage 4 chronic kidney disease, or unspecified chronic kidney disease; A41.89 Other specified sepsis; E27.40 Unspecified adrenocortical insufficiency; Z79.899 Other long term (current) drug therapy; G93.41 Metabolic encephalopathy; A41.9 Sepsis, unspecified organism; M54.12 Radiculopathy, cervical region; Z66 Do not resuscitate; J44.9 Chronic obstructive pulmonary disease, unspecified; Z11.52 Encounter for screening for COVID-19; I50.32 Chronic diastolic (congestive) heart failure; Z79.52 Long term (current) use of systemic steroids; I12.9 Hypertensive chronic kidney disease with stage 1 through stage 4 chronic kidney disease, or unspecified chronic kidney disease; N18.32 Chronic kidney disease, stage 3b